=== PATIENT | female | born 1955 | race Caucasian/White ===

== ENCOUNTER 2023-07-13 21:10 | Inpatient (IN) ==
--- NOTE | 2023-07-13 21:44 | Emergency Department Note ---
History of Present Illness General Chief complaint: Shortness of Breath/Dyspnea Time Seen by Provider: 07/13/23 21:34 History of Present Illness This is a 68-year-old female presenting to the emergency department for evaluation of shortness of breath symptoms. Patient had outpatient right hand surgery performed today with general anesthesia and nerve block. Patient was very slow to recover and had several hours of intermittent hypoxia and recovery. Due to the extended recovery time, patient was sent to the ER for further evaluation. Patient feels very short of breath and feels like something is in her chest. She does not have distinct pain however. She does have history of asthma. She felt well prior to the procedure from a respiratory standpoint. Home Medications Medication Instructions Recorded Confirmed Type albuterol sulfate 90 mcg/actuation 1 puff inhalation .Q 4-6 HRS PRN 08/28/18 07/14/23 History aerosol inhaler Wheezing cyclobenzaprine 10 mg tablet 10 mg PO TID PRN MUSCLE SPASMS 08/28/18 07/14/23 History fluoxetine 40 mg capsule 40 mg PO QAM 08/28/18 07/14/23 History hydrocodone 10 mg-acetaminophen 1 tab PO Q6 PRN Pain 08/28/18 07/14/23 History 325 mg tablet levothyroxine 125 mcg tablet 62.5 mcg PO QAM 08/28/18 07/14/23 History melatonin 5 mg chewable tablet 10 mg PO HS 08/28/18 07/14/23 History pantoprazole 40 mg tablet,delayed 40 mg PO QAM 08/28/18 07/14/23 History release amlodipine 2.5 mg tablet 2.5 mg PO DAILY 07/14/23 07/14/23 History bupropion HCl 150 mg tablet,12 hr 150 mg PO BID 07/14/23 07/14/23 History sustained-release buspirone 15 mg tablet 15 mg PO BID 07/14/23 07/14/23 History diclofenac sodium 1 % topical gel 2 g topical BID 07/14/23 07/14/23 History diclofenac sodium 75 mg 75 mg PO BID PRN Pain 07/14/23 07/14/23 History tablet,delayed release fluticasone 250 mcg-salmeterol 50 1 ea inhalation AMPM 07/14/23 07/14/23 History mcg/dose blistr powdr for inhalation gabapentin 400 mg capsule 400 mg PO QID 07/14/23 07/14/23 History hydroxyzine HCl 25 mg tablet 25 mg PO QID 07/14/23 07/14/23 History losartan 100 mg tablet 100 mg PO DAILY 07/14/23 07/14/23 History metformin 500 mg tablet,extended 500 mg PO BIDM 07/14/23 07/14/23 History release 24 hr rosuvastatin 20 mg tablet 20 mg PO DAILY 07/14/23 07/14/23 History tirzepatide 2.5 mg/0.5 mL 0 mg subcut .EVERY 4 WEEKS 07/14/23 07/14/23 History subcutaneous pen injector (Mounjaro) Allergies Allergy/AdvReac Type Severity Reaction Status Date / Time Penicillins Allergy Intermediate RASH A Verified 07/14/23 01:30 CHILD pregabalin [From Lyrica] Allergy Intermediate LEG EDEMA Verified 09/03/18 10:26 Iodinated Contrast Media Allergy Mild HIVES AND Verified 07/14/23 01:30 N/V NSAIDS (Non-Steroidal AdvReac Severe Gastrointestinal Verified 07/14/23 01:30 Anti-Inflamma Upset simvastatin AdvReac Mild STATINS=INCREASED Verified 09/03/18 10:26 LFT'S Past Med/Surg History Medical History (Updated 07/14/23 @ 23:32 by Toi Capps PA-C) Pneumonia H/O Nausea and vomiting after administration of anesthetic agent Left leg weakness S/P LAMINECTOMY Osteoarthritis Degenerative disc disease Chronic back pain Hiatal hernia GERD (gastroesophageal reflux disease) multiple Kidney stones Hypothyroidism Diabetes mellitus, type 2 NIDDM Depression Anxiety Hyperlipidemia Hypertension Bronchitis H/O Surgical History History of bilateral tubal ligation History of section X2 H/O bilateral breast reduction surgery Status post laparoscopy-assisted vaginal hysterectomy WITH BSO History of open reduction and internal fixation (ORIF) procedure LEFT ANKLE History of repair of rotator cuff BILATERAL History of arthroscopy RIGHT KNEE History of total knee replacement BILATERAL History of laminectomy L3-L4 X2 History of lithotripsy multiple History of cholecystectomy History of colonoscopy History of parathyroidectomy (~1997) History of thyroidectomy, subtotal R/T ENLARGEMENT (~) History of cataract surgery BILATERAL Hx of LASIK History of adenoidectomy History of tonsillectomy Family History Father Family history of diabetes mellitus FHx: renal cell carcinoma Mother FHx: pancreatic cancer Social History Smoking Status: Never smoker Second Hand Exposure: Yes ( A CHILD); Do You Dip or Chew Tobacco: No; Hx Alcohol Use: No Hx Substance Use: No Preferred Language: Frisian Communication Ability: Effective Culinary Specialist Required: No Beliefs That Will Affect Care: None Current Living Situation: Spouse Current Living Situation Comment: At home Feels Safe at Home: Yes Safety Concerns: Feels Safe At This Time Assistive Devices: Walker Review of Systems A total of 10 systems reviewed and were otherwise negative Physical Exam Vital Signs Vital Signs - 24 hr 07/14/23 01:30 07/14/23 01:46 Pulse Rate 91 H 90 Pulse Rate from SpO2 Sensor 91 H Respiratory Rate 23 Pulse Oximetry 90 VITALS: Vitals are noted on the nurse's note and reviewed by myself. Vital signs stable. GENERAL: White female who appears ill on presentation. She is with increased work of breathing. HEAD: Normocephalic atraumatic. NECK: Supple without nuchal rigidity. No lymphadenopathy. No thyromegaly. Cervical spine is nontender. HEART: Regular rate and rhythm without murmurs gallops or rubs. LUNGS: Mildly diminished throughout but overall fairly clear ABDOMEN: Positive normal bowel sounds x 4. Soft, nontender, without masses or organomegaly. No guarding or rebound tenderness. MUSCULOSKELETAL: No muscle atrophy, erythema, or edema noted. Splint noted on right arm consistent with recent surgical procedure. NEURO: Patient was alert and oriented to person place and time. CN II through XII grossly intact. Course Administered Medications Acetaminophen (Acetaminophen 325 Mg Tab) 650 mg PO Q4H PRN PRN Reason: Pain or Fever Stop: 08/13/23 03:36 Last Admin: 07/14/23 22:39 Dose: 650 mg Documented By: PUMA Hydrocodone Bitart/Acetaminophen (Hydrocodone/Acetaminophen 10/325 Tab) 1 tab PO Q6 PRN PRN Reason: Pain Stop: 07/28/23 03:36 Last Admin: 07/14/23 19:16 Dose: 1 tab Documented By: Admin: 07/14/23 09:49 Dose: 1 tab Documented By: MH Albuterol (Albuterol Hfa 8 Gm Inhaler) 1 puffs INH Q4H PRN PRN Reason: Wheezing Stop: 08/13/23 03:36 Last Admin: 07/14/23 04:53 Dose: 1 puffs Documented By: JEFFREY Albuterol (Albut/Ipratrop 3mg/0.5mg Neb 3 Ml Vial) 3 ml NEB QIDR [facility]; Protocol Stop: 08/13/23 06:59 Last Admin: 07/14/23 20:13 Dose: 3 ml Documented By: Admin: 07/14/23 15:42 Dose: 3 ml Documented By: Admin: 07/14/23 11:50 Dose: 3 ml Documented By: Admin: 07/14/23 07:21 Dose: 3 ml Documented By: BLAKE Amlodipine Besylate (Amlodipine Besylate 5 Mg Tab) 2.5 mg PO DAILY [facility] Stop: 08/13/23 08:59 Last Admin: 07/14/23 08:43 Dose: 2.5 mg Documented By: JILL Bupropion HCl (Bupropion Sr 150 Mg Tabcr) 150 mg PO BID [facility] Stop: 08/13/23 08:59 Last Admin: 07/14/23 20:54 Dose: 150 mg Documented By: Admin: 07/14/23 08:48 Dose: 150 mg Documented By: JILL Buspirone HCl (Buspirone 15 Mg Tab) 15 mg PO BID [facility] Stop: 08/13/23 08:59 Last Admin: 07/14/23 20:54 Dose: 15 mg Documented By: Admin: 07/14/23 08:48 Dose: 15 mg Documented By: JILL Cyclobenzaprine HCl (Cyclobenzaprine Hcl 10 Mg Tab) 10 mg PO TID PRN PRN Reason: MUSCLE SPASMS Stop: 08/13/23 03:36 Last Admin: 07/14/23 21:02 Dose: 10 mg Documented By: PUMA Diclofenac Sodium (Diclofenac Sod 1% Gel 100 Gm Tube) 2 gm EXT BID [facility]; Protocol Stop: 08/13/23 08:59 Last Admin: 07/14/23 20:55 Dose: Not Given Documented By: Admin: 07/14/23 08:49 Dose: Not Given Documented By: JILL Doxycycline Hyclate (Doxycycline Hyclate 100 Mg Cap) 100 mg PO BID [facility] Stop: 07/21/23 08:59 Last Admin: 07/14/23 20:54 Dose: 100 mg Documented By: Admin: 07/14/23 08:49 Dose: 100 mg Documented By: JILL Enoxaparin Sodium (Enoxaparin Inj 40 Mg/0.4 Ml Syr) 40 mg SQ Q12H [facility] Stop: 08/13/23 08:59 Last Admin: 07/14/23 20:53 Dose: 40 mg Documented By: Admin: 07/14/23 08:50 Dose: 40 mg Documented By: JILL Fluoxetine HCl (Fluoxetine Hcl 20 Mg Cap) 40 mg PO QAM [facility] Stop: 08/13/23 08:59 Last Admin: 07/14/23 08:50 Dose: 40 mg Documented By: JILL Fluticasone/Vilanterol (Fluticasone/Vilanterol 200/25mcg 14 Puffs/Inhaler) 1 puffs INH DAILY [facility] Stop: 08/13/23 08:59 Last Admin: 07/14/23 08:51 Dose: 1 puffs Documented By: JILL Gabapentin (Gabapentin 400 Mg Cap) 400 mg PO QID [facility] Stop: 08/13/23 08:59 Last Admin: 07/14/23 22:36 Dose: 400 mg Documented By: Admin: 07/14/23 20:54 Dose: 400 mg Documented By: Admin: 07/14/23 13:12 Dose: 400 mg Documented By: Admin: 07/14/23 08:52 Dose: 400 mg Documented By: JILL Hydroxyzine HCl (Hydroxyzine Hcl 25 Mg Tab) 25 mg PO QID [facility] Stop: 08/13/23 08:59 Last Admin: 07/14/23 20:55 Dose: 25 mg Documented By: Admin: 07/14/23 18:45 Dose: 25 mg Documented By: Admin: 07/14/23 13:12 Dose: 25 mg Documented By: Admin: 07/14/23 08:53 Dose: 25 mg Documented By: JILL Ceftriaxone Sodium 2,000 mg/ (Dextrose) 50 mls @ 100 mls/hr IV Q24H [facility]; Protocol Stop: 07/21/23 07:59 Last Infusion: 07/14/23 09:12 Dose: Infused Documented By: Admin: 07/14/23 08:42 Dose: 100 mls/hr Documented By: JILL Insulin Aspart (Insulin Aspart Per Unit Charge) 0 units SC ACHS [facility] Stop: 08/13/23 04:44 Last Admin: 07/14/23 22:36 Dose: 6 units Documented By: PUMA Co-signed By: VAL Admin: 07/14/23 18:37 Dose: Not Given Documented By: Admin: 07/14/23 14:10 Dose: 11 units Documented By: ARUN Co-signed By: JILL Admin: 07/14/23 10:01 Dose: 10 units Documented By: JILL Co-signed By: ARI Admin: 07/14/23 05:29 Dose: 7 units Documented By: JEFFREY Co-signed By: RICHARD Levothyroxine Sodium (Levothyroxine Sodium 125 Mcg Tablet) 62.5 mcg PO DAILYBB [facility] Stop: 08/13/23 06:29 Last Admin: 07/14/23 06:07 Dose: 62.5 mcg Documented By: JEFFREY Losartan Potassium (Losartan Potassium 50 Mg Tab) 100 mg PO DAILY [facility] Stop: 08/13/23 08:59 Last Admin: 07/14/23 08:54 Dose: 100 mg Documented By: JILL Melatonin (Melatonin 3 Mg Tab) 9 mg PO HS [facility] Stop: 08/13/23 20:59 Last Admin: 07/14/23 20:54 Dose: 9 mg Documented By: PUMA Pantoprazole Sodium (Pantoprazole 40 Mg Tab) 40 mg PO QAM [facility] Stop: 08/13/23 08:59 Last Admin: 07/14/23 08:55 Dose: 40 mg Documented By: JILL Rosuvastatin Calcium (Rosuvastatin Calcium 20 Mg Tab) 20 mg PO DAILY [facility] Stop: 08/13/23 08:59 Last Admin: 07/14/23 08:55 Dose: 20 mg Documented By: JILL Sodium Chloride (Sodium Chlor 7% 4 Ml Neb) 4 ml NEB BIDR [facility] Stop: 08/13/23 07:19 Last Admin: 07/14/23 20:13 Dose: 4 ml Documented By: Admin: 07/14/23 09:36 Dose: Not Given Documented By: AA Discontinued Medications Hydrocodone Bitart/Acetaminophen (Hydrocodone/Acetaminophen 10/325 Tab) 1 tab PO NOW STA Stop: 07/14/23 02:20 Last Admin: 07/14/23 02:26 Dose: 1 tab Documented By: JULISSA Albuterol (Albut/Ipratrop 3mg/0.5mg Neb 3 Ml Vial) 3 ml NEB NOW [facility]; Protocol Stop: 07/13/23 21:41 Last Admin: 07/13/23 22:27 Dose: 3 ml Documented By: GERARDO Cyclobenzaprine HCl (Cyclobenzaprine Hcl 10 Mg Tab) 10 mg PO NOW STA Stop: 07/14/23 00:16 Last Admin: 07/14/23 00:25 Dose: 10 mg Documented By: LAZARO Cyclobenzaprine HCl (Cyclobenzaprine Hcl 10 Mg Tab) 10 mg PO NOW STA Stop: 07/14/23 02:40 Last Admin: 07/14/23 04:53 Dose: 10 mg Documented By: JEFFREY Gabapentin (Gabapentin 400 Mg Cap) 400 mg PO NOW STA Stop: 07/14/23 01:49 Last Admin: 07/14/23 02:22 Dose: 400 mg Documented By: JULISSA Insulin Human Regular 4 units/ (Syringe) 4 mls @ 0 mls/hr IV NOW STA Stop: 07/14/23 07:35 Last Admin: 07/14/23 08:39 Dose: 4 mls/hr Documented By: JILL Co-signed By: BILL Insulin Glargine (Lantus Per Unit Charge) 25 units SC ONE ONE Stop: 07/14/23 20:46 Last Admin: 07/14/23 20:52 Dose: 25 units Documented By: NRR Co-signed By: VAL Ioversol (Optiray 320 125ml) 115 ml IV ONCE ONE Stop: 07/13/23 23:54 Last Admin: 07/13/23 23:53 Dose: 115 ml Documented By: TRUPTI Melatonin (Melatonin 3 Mg Tab) 6 mg PO NOW STA Stop: 07/14/23 01:49 Last Admin: 07/14/23 03:02 Dose: Not Given Documented By: LAZARO Methylprednisolone (Methylprednisolone 125 Mg/2 Ml Vial) 125 mg IV NOW STA Stop: 07/13/23 22:51 Last Admin: 07/13/23 23:14 Dose: 125 mg Documented By: LAZARO Oxycodone HCl (Oxycodone Hcl Ir 5 Mg Tab (Immediate Release)) 5 mg PO NOW STA Stop: 07/14/23 01:49 Last Admin: 07/14/23 03:02 Dose: Not Given Documented By: [facility] Sodium Chloride (Sodium Chlor 7% 4 Ml Neb) Confirm Administered Dose 4 ml .ROUTE .STK-MED ONE Stop: 07/14/23 07:28 Last Admin: 07/14/23 07:29 Dose: 4 ml Documented By: BLAKE Medical Decision Making Differential Diagnosis Differential diagnosis includes, but is not limited to: Myocardial infarction, dysrhythmia, pericarditis, pneumothorax, aortic aneurysm/dissection, DVT/PE, anxiety, GERD, PUD, electrolyte imbalance, thyroid disorder, pneumonia, bronchitis, pancreatitis, and others Laboratory Data 07/14/23 06:44 07/14/23 07:33 Lab Results 07/13/23 07/13/23 Range/Units 21:28 22:22 WBC 6.55 (4.8-10.8) K/ul RBC 4.46 (4.20-5.40) M/uL Hgb 13.3 (12.0-16.0) g/dl Hct 40.9 (37.0-47.0) % MCV 91.7 (80.0-100.0) fL MCH 29.8 (25.0-34.0) pg MCHC 32.5 (32.0-36.0) g/dL RDW Std Deviation 43.3 (36.4-46.3) fL RDW Coeff of Michael 12.9 (11.5-14.5) % Plt Count 303 (130-400) K/uL MPV 9.4 (9.4-12.4) fL Immature Gran % (Auto) 0.3 % Neut % (Auto) 78.1 % Lymph % (Auto) 19.5 % Pershing % (Auto) 1.2 % Eos % (Auto) 0.3 % Baso % (Auto) 0.6 % Neut # (Auto) 5.11 (1.40-6.50) K/uL Lymph # (Auto) 1.28 (1.20-3.40) K/uL Pershing # (Auto) 0.08 L (0.11-0.59) K/uL Eos # (Auto) 0.02 (0.00-0.50) K/uL Baso # (Auto) 0.04 (0.00-0.20) K/uL Immature Gran # (Auto) 0.02 (0.01-0.20) K/uL D-Dimer 710 H* (0-500) ug/L FEU VBG pH 7.40 (7.36-7.41) VBG pCO2 43 (38-50) mmHg VBG pO2 58 mmHg VBG HCO3 27 mmol/L VBG O2 Saturation 88.9 % VBG Base Excess 1.5 mEq/L Sodium 136 (136-145) mmol/L Potassium 4.4 (3.5-5.1) mmol/L Chloride 104 (98-107) mmol/L Carbon Dioxide 22 (21-32) mmol/L Anion Gap 10 (3-11) BUN 14 (6-23) mg/dl Creatinine 0.74 (0.6-1.2) mg/dl Est Cr Clr Drug Dosing Not Reportable Est GFR ( Amer) 95.1 ml/min Est GFR (Non-Af Amer) 82.1 ml/min BUN/Creatinine Ratio 18.9 (10-20) Glucose 329 H* (70-99(Fasting)) mg/dl Lactate 1.8 (0.4-2.0) mmol/L Calcium 8.6 (8.6-10.3) mg/dl Magnesium 1.8 (1.7-2.4) mg/dl Total Bilirubin 0.4 (0.2-1.0) mg/dl AST 40 H (13-39) U/L ALT 52 (7-52) U/L Alkaline Phosphatase 108 H (34-104) U/L Troponin I High Sens 9.5 (0-14) pg/ml B-Natriuretic Peptide 24 (0-100) pg/ml Total Protein 7.0 (6.0-8.3) gm/dl Albumin 4.4 (3.4-5.0) gm/dl Globulin 2.6 (2.5-4.0) gm/dl Albumin/Globulin Ratio 1.7 (0.9-2) Procalcitonin 0.09 (0-0.5) ng/ml SARS-CoV-2 (PCR) NEGATIVE (Negative) Influenza Type A (PCR) Negative (Neg) Influenza Type B (PCR) Negative (Neg) RSV (RT-PCR) Negative (Neg) MDM Narrative Physical exam and history were performed. Nursing notes, EMR, and Medication List were personally reviewed. No social concerns were identified as barriers to patients care. Patient appears to have shortness of breath on arrival to the ER. Patient was seen immediately upon entering her room as she was brought to my attention by nursing. IV access was established and labs were obtained. Flu, COVID, and RSV were gathered. Patient does not appear well on presentation and is with work of breathing and abnormal vital signs. She was placed on high flow oxygen. She was given a DuoNeb. Case was discussed with my attending. Patient's blood work is as above and was reviewed. She does not have a significantly elevated white blood cell count, gross anemia, bandemia, or significant electrolyte imbalance. Transaminases are not diagnostic. Glucose is 353. Troponin is negative but D-dimer is markedly elevated. She was premedicated with Solu-Medrol and sent to CT scan for imaging of her chest. CT angiogram did not show acute pulmonary embolism or other obvious etiology of her symptoms. Patient was reevaluated multiple times throughout the course of her stay. She did better with the DuoNeb and steroids. She would occasionally be trialed on 2 to 4 L nasal cannula, however she would require additional oxygen and often felt much better on 8 to 10 L high flow. Overall escalation of care is felt to be necessary. She does not seem well for discharge. Case was discussed with the on-call hospitalist team who agreed to evaluate the patient here in the ER. Please see their dictation for further patient course, plan, disposition. The chart was completed utilizing [employer] Speech Voice Recognition Software. Grammatical errors, random word insertions, pronoun errors, and incomplete sentences are an occasional consequence of this system due to software limitations, ambient noise, and hardware issues. Any formal questions or concerns about the content, text, or information contained within the body of this dictation should be directly addressed to the provider for clarification. . Impression & Plan Hypoxia, Shortness of breath Discharge Plan Visit Data Chief Complaint: Shortness of Breath/Dyspnea ED Provider: Wallace Dean ED Midlevel Provider: Toi Capps Discharge Problem: Hypoxia, Shortness of breath Patient Disposition: Admitted As Inpatient Discharge Instructions Interventions: ED Discharge Assessment Last Done: 07/14/23 03:38
[2023-07-13 22:16] LABS: Alanine Aminotransferase 52 U/L (7-52); Albumin Globulin Ratio 1.7 (0.9-2); Albumin Level 4.4 gm/dl (3.4-5.0); Alkaline Phosphatase 108 U/L (34-104); Anion Gap 10 (3-11); Aspartate Aminotransferase 40 U/L (13-39); BUN Creatinine Ratio 18.9 (10-20); Bilirubin,Total 0.4 mg/dl (0.2-1.0); Blood Urea Nitrogen 14 mg/dl (6-23); Calcium 8.6 mg/dl (8.6-10.3); Carbon Dioxide 22 mmol/L (21-32); Chloride 104 mmol/L (98-107); Est GFR (African American) 95.1 ml/min; Est GFR (Non-African American) 82.1 ml/min; Globulin 2.6 gm/dl (2.5-4.0); Glucose 329 mg/dl (70-99(Fasting)); Magnesium 1.8 mg/dl (1.7-2.4); Potassium 4.4 mmol/L (3.5-5.1); Sodium 136 mmol/L (136-145); Troponin I High Sensitivity 9.5 pg/ml (0-14)
[2023-07-13 22:18] LABS: Basophils # (auto) 0.04 K/uL (0.00-0.20); Basophils % (auto) 0.6 %; Eosinophils # (auto) 0.02 K/uL (0.00-0.50); Eosinophils % (auto) 0.3 %; Hematocrit (blood only) 40.9 % (37.0-47.0); Hemoglobin 13.3 g/dl (12.0-16.0); Immature Granulocytes # (auto) 0.02 K/uL (0.01-0.20); Immature Granulocytes % (auto) 0.3 %; Lymphocytes # (auto) 1.28 K/uL (1.20-3.40); Lymphocytes % (auto) 19.5 %; Mean Corpuscular Hemoglobin 29.8 pg (25.0-34.0); Mean Corpuscular Hgb Conc 32.5 g/dL (32.0-36.0); Mean Corpuscular Volume 91.7 fL (80.0-100.0); Mean Platelet Volume 9.4 fL (9.4-12.4); Monocytes # (auto) 0.08 K/uL (0.11-0.59); Monocytes % (auto) 1.2 %; Neutrophils # (auto) 5.11 K/uL (1.40-6.50); Neutrophils % (auto) 78.1 %; Platelet Count 303 K/uL (130-400); RDW Coefficient of Variation 12.9 % (11.5-14.5); RDW Standard Deviation 43.3 fL (36.4-46.3); Red Blood Count 4.46 M/uL (4.20-5.40); White Blood Count 6.55 K/ul (4.8-10.8)
[2023-07-13 22:27] LABS: Influenza A virus by PCR Negative (Neg); Influenza B virus by PCR Negative (Neg); RSV by PCR Negative (Neg); SARS CoV2 RNA(COVID-19) Ceph NEGATIVE (Negative)
[2023-07-13] MEDS: ALBUT/IPRATROP 3MG/0.5MG NEB 3 ML VIAL NEB STA (22:27)
[2023-07-13 22:41] LABS: Base Excess VBG 1.5 mEq/L; HCO3 VBG 27 mmol/L; Oxygen Saturation VBG 88.9 %; PCO2 VBG 43 mmHg (38-50); PO2 VBG 58 mmHg
[2023-07-13 22:46] LABS: D Dimer 710 ug/L FEU (0-500)
[2023-07-13] MEDS: methylPREDNISolone 125 MG/2 ML VIAL IV STA (23:14)
[2023-07-13] MEDS: OPTIRAY 320 125ml IV ONE (23:53)
[2023-07-14] MEDS: CYCLOBENZAPRINE HCL 10 MG TAB PO STA ×2 (00:25→04:53)
--- NOTE | 2023-07-14 00:49 | CT Scan Report ---
Exam(s): CTA CHEST IV Amt: 115 cc's optiray 320 EXAM: CT Angiography Chest With Intravenous Contrast CLINICAL HISTORY: Reason for exam: SOB/hypoxia after surgical procedure. Elevated dim. TECHNIQUE: Axial computed tomographic angiography images of the chest with intravenous contrast. CTDI is 40 mGy and DLP is 1034 mGy-cm. Automated exposure control was utilized for the study. A dose lowering technique was utilized adhering to the principles of ALARA. MIP reconstructed images were created and reviewed. COMPARISON: No relevant prior studies available. FINDINGS: Thyroid: Multiple subcentimeter nodules within the right thyroid lobe. Pulmonary arteries: Adequate pulmonary artery opacification. Normal caliber main pulmonary artery. No evidence of acute pulmonary embolism. Aorta: No acute findings. No aortic aneurysm or dissection. Lungs: Confluent right basilar opacity with enhancement characteristics suggestive of atelectasis. Additional patchy linear band of subsegmental atelectasis bilaterally. Pleural space: Unremarkable. No pleural effusion or pneumothorax. Heart: No cardiomegaly. No significant pericardial effusion. No evidence of RV dysfunction. Bones/joints: No acute fracture or dislocation. Soft tissues: Unremarkable. Lymph nodes: Unremarkable. No adenopathy. Liver: Hepatomegaly and steatosis. Tubes, lines and devices: Spinal stimulator leads extend into the mid thoracic spinal canal. IMPRESSION: 1. No evidence of acute pulmonary embolism. 2. Atelectasis, greatest at the right lung base. Electronically signed by: Stephany Nam M.D. 07/14/23 00:48 AM
--- NOTE | 2023-07-14 02:04 | History & Physical Report ---
Date of Service July 14, 2023 Assessment & Plan (1) Hypoxia: Plan: 68-year-old female with past medical history significant for type 2 diabetes, hypothyroidism, hypercholesterolemia, primary hypothyroidism, history of parathyroid adenoma, hypertension, morbid obesity, GERD, restless leg syndrome, osteoporosis, thoracic and lumbosacral neuritis, postlaminectomy syndrome, generalized anxiety disorder, major depression is s/p right hand surgery for osteoarthritis as per patient with general anesthesia and nerve block comes because of shortness of breath and hypoxia. Postprocedure she took long time to recover with several hours of intermittent hypoxia and recovery. Due to the extended period for recovery she was sent to the ER for further evaluation. In the ER when she came in she was saturating 87% on room air. Currently on 7 L saturating okay. She states she feeling better now. Earlier she had a lot of cough. Currently she pulls her mask down and she is talking in full sentences and was maintaining her oxygen saturations. Denies any headache. Has some runny nose currently and attributes to oxygen mask.. Has some sore throat from breathing tube placed for the procedure. Denies any chest pain. Currently not feeling short of breath. No nausea. No abdominal pain. Resting comfortably. Having restless legs and requesting her home medications. Afebrile. Hypoxia Postprocedure Received a dose of steroid and nebs in the ER Currently saturating okay on 7 L send seems comfortable Will continue with DuoNebs [id number] and home inhalers and continue oxygen supplementation Will try to Taper down oxygen CTA chest no PE or pneumonia. Shows atelectasis Incentive spirometry Close monitor History of asthma No obvious wheezing Continue home inhalers. And nebs as ordered. Will monitor Type 2 diabetes Hold metformin Sliding scale Will monitor Morbid obesity Needs counseling Hypertension On amlodipine, losartan Will monitor Hyperlipidemia On statin Hypothyroidism On Synthyroid GERD Protonix Depression and general anxiety disorder On bupropion, buspirone, fluoxetine. Restless leg syndrome On gabapentin and cyclobenzaprine as needed Postlaminectomy syndrome Continue home pain medications as needed DVT prophylaxis Lovenox Disposition Med/tele Full code History of Present Illness Chief Complaint: Shortness of breath Primary Care Provider: Silvano Garg DO 68-year-old female with past medical history significant for type 2 diabetes, hypothyroidism, hypercholesterolemia, primary hypothyroidism, history of parathyroid adenoma, hypertension, morbid obesity, GERD, restless leg syndrome, osteoporosis, thoracic and lumbosacral neuritis, postlaminectomy syndrome, generalized anxiety disorder, major depression is s/p right hand surgery for osteoarthritis as per patient with general anesthesia and nerve block comes because of shortness of breath and hypoxia. Postprocedure she took long time to recover with several hours of intermittent hypoxia and recovery. Due to the extended period for recovery she was sent to the ER for further evaluation. In the ER when she came in she was saturating 87% on room air. Currently on 7 L saturating okay. She states she feeling better now. Earlier she had a lot of cough. Currently she pulls her mask down and she is talking in full sentences and was maintaining her oxygen saturations. Denies any headache. Has some runny nose currently and attributes to oxygen mask.. Has some sore throat from breathing tube placed for the procedure. Denies any chest pain. Currently not feeling short of breath. No nausea. No abdominal pain. Resting comfortably. Having restless legs and requesting her home medications. Afebrile. Past medical history. As mentioned above Past surgical history. Bilateral total knee replacements. . Colonoscopy. Cystourethroscopy with lithotripsy. Parathyroidectomy. Lithotripsy. Laser lithotripsy of right kidney. Laparoscopic cholecystectomy. Ligation of oviducts. Lumbar hemilaminectomy. Right thyroid lobectomy. Reduction of breast. Tonsillectomy. Bilateral cataracts. Repair of detached retina. Repair of ruptured rotator cuff. Sacroiliac joint injection. Total abdominal hysterectomy with removal of tubes. Social history. . Non-smoker. Alcohol occasionally. No drug use. Family history. Mother had allergies. Arthritis. Pancreatic cancer. Hypertension. Father had diabetes. Hypertension. Kidney cancer. Obesity. Maternal grandmother had arthritis. Maternal grandfather had diabetes. Paternal grandmother had diabetes, obesity Allergies Allergy/AdvReac Type Severity Reaction Status Date / Time Penicillins Allergy Intermediate RASH A Verified 07/14/23 01:30 CHILD pregabalin [From Lyrica] Allergy Intermediate LEG EDEMA Verified 09/03/18 10:26 Iodinated Contrast Media Allergy Mild HIVES AND Verified 07/14/23 01:30 N/V NSAIDS (Non-Steroidal AdvReac Severe Gastrointestinal Verified 07/14/23 01:30 Anti-Inflamma Upset simvastatin AdvReac Mild STATINS=INCREASED Verified 09/03/18 10:26 LFT'S Home Medications Medication Instructions Recorded Confirmed Type albuterol sulfate 90 mcg/actuation 1 puff inhalation .Q 4-6 HRS PRN 08/28/18 07/14/23 History aerosol inhaler Wheezing cyclobenzaprine 10 mg tablet 10 mg PO TID PRN MUSCLE SPASMS 08/28/18 07/14/23 History fluoxetine 40 mg capsule 40 mg PO QAM 08/28/18 07/14/23 History hydrocodone 10 mg-acetaminophen 1 tab PO Q6 PRN Pain 08/28/18 07/14/23 History 325 mg tablet levothyroxine 125 mcg tablet 62.5 mcg PO QAM 08/28/18 07/14/23 History melatonin 5 mg chewable tablet 10 mg PO HS 08/28/18 07/14/23 History pantoprazole 40 mg tablet,delayed 40 mg PO QAM 08/28/18 07/14/23 History release amlodipine 2.5 mg tablet 2.5 mg PO DAILY 07/14/23 07/14/23 History bupropion HCl 150 mg tablet,12 hr 150 mg PO BID 07/14/23 07/14/23 History sustained-release buspirone 15 mg tablet 15 mg PO BID 07/14/23 07/14/23 History diclofenac sodium 1 % topical gel 2 g topical BID 07/14/23 07/14/23 History diclofenac sodium 75 mg 75 mg PO BID PRN Pain 07/14/23 07/14/23 History tablet,delayed release fluticasone 250 mcg-salmeterol 50 1 ea inhalation AMPM 07/14/23 07/14/23 History mcg/dose blistr powdr for inhalation gabapentin 400 mg capsule 400 mg PO QID 07/14/23 07/14/23 History hydroxyzine HCl 25 mg tablet 25 mg PO QID 07/14/23 07/14/23 History losartan 100 mg tablet 100 mg PO DAILY 07/14/23 07/14/23 History metformin 500 mg tablet,extended 500 mg PO BIDM 07/14/23 07/14/23 History release 24 hr rosuvastatin 20 mg tablet 20 mg PO DAILY 07/14/23 07/14/23 History tirzepatide 2.5 mg/0.5 mL 0 mg subcut .EVERY 4 WEEKS 07/14/23 07/14/23 History subcutaneous pen injector (Mounjaro) Past Med/Surg History Medical History (Updated 07/14/23 @ 01:58 by Haroon Ceron MD) Pneumonia H/O Nausea and vomiting after administration of anesthetic agent Left leg weakness S/P LAMINECTOMY Osteoarthritis Degenerative disc disease Chronic back pain Hiatal hernia GERD (gastroesophageal reflux disease) multiple Kidney stones Hypothyroidism Diabetes mellitus, type 2 NIDDM Depression Anxiety Hyperlipidemia Hypertension Bronchitis H/O Surgical History History of bilateral tubal ligation History of section X2 H/O bilateral breast reduction surgery Status post laparoscopy-assisted vaginal hysterectomy WITH BSO History of open reduction and internal fixation (ORIF) procedure LEFT ANKLE History of repair of rotator cuff BILATERAL History of arthroscopy RIGHT KNEE History of total knee replacement BILATERAL History of laminectomy L3-L4 X2 History of lithotripsy multiple History of cholecystectomy History of colonoscopy History of parathyroidectomy (~1997) History of thyroidectomy, subtotal R/T ENLARGEMENT (~) History of cataract surgery BILATERAL Hx of LASIK History of adenoidectomy History of tonsillectomy Family History Father Family history of diabetes mellitus FHx: renal cell carcinoma Mother FHx: pancreatic cancer Social History Smoking Status: Never smoker Second Hand Exposure: Yes ( A CHILD); Do You Dip or Chew Tobacco: No; Hx Alcohol Use: No Hx Substance Use: No Preferred Language: Maltese Communication Ability: Effective Coremaking Supervisor Required: No Beliefs That Will Affect Care: None Current Living Situation: Spouse Current Living Situation Comment: At home Feels Safe at Home: Yes Safety Concerns: Feels Safe At This Time Assistive Devices: Walker Review of Systems Review of Systems: All systems reviewed & are unremarkable except as noted in HPI & below Physical Exam Physical Exam: General- Not in distress Head- atraumatic Eyes- PERRL. ENT- oropharynx clear Neck- supple, no JVD. Lungs- clear to auscultation no wheezing or crackles. Heart- regular rhythm; no murmur, no gallop. Abdomen- normal bowel sounds, soft, nontender, no distension. Extremities- no pretibial edema, no erythema seen. Neuro- alert, oriented ; PERRL, no facial palsy; no dysarthria; moves extremities. Skin- warm & dry Results & Data Results & Data Vital Signs (Past 12 Hours) Vital Signs Temp Pulse Resp BP Pulse Ox O2 Del Method O2 Flow Rate 07/13/23 21:31 81 07/13/23 21:19 87 L Room Air, Nasal Cannula 0 07/13/23: 36.7 C 85 22 169/82 H 90 Nasal Cannula 6 Diagnostic Findings Laboratory Results WBC 6.55 K/ul (4.8-10.8) 07/13/23: RBC 4.46 M/uL (4.20-5.40) 07/13/23: Hgb 13.3 g/dl (12.0-16.0) 07/13/23: Hct 40.9 % (37.0-47.0) 07/13/23: MCV 91.7 fL (80.0-100.0) 07/13/23: MCH 29.8 pg (25.0-34.0) 07/13/23: MCHC 32.5 g/dL (32.0-36.0) 07/13/23: RDW Std Deviation 43.3 fL (36.4-46.3) 07/13/23: RDW Coeff of Michael 12.9 % (11.5-14.5) 07/13/23: Plt Count 303 K/uL (130-400) 07/13/23: MPV 9.4 fL (9.4-12.4) 07/13/23: Immature Gran % (Auto) 0.3 % 07/13/23: Neut % (Auto) 78.1 % 07/13/23: Lymph % (Auto) 19.5 % 07/13/23: [place] % (Auto) 1.2 % 07/13/23: Eos % (Auto) 0.3 % 07/13/23: Baso % (Auto) 0.6 % 07/13/23: Neut # (Auto) 5.11 K/uL (1.40-6.50) 07/13/23: Lymph # (Auto) 1.28 K/uL (1.20-3.40) 07/13/23: [place] # (Auto) 0.08 K/uL (0.11-0.59) L 07/13/23: Eos # (Auto) 0.02 K/uL (0.00-0.50) 07/13/23: Baso # (Auto) 0.04 K/uL (0.00-0.20) 07/13/23: Immature Gran # (Auto) 0.02 K/uL (0.01-0.20) 07/13/23: D-Dimer 710 ug/L FEU (0-500) H* 07/13/23: VBG pH 7.40 (7.36-7.41) 07/13/23 22: VBG pCO2 43 mmHg (38-50) 07/13/23 22: VBG pO2 58 mmHg 07/13/23 22: VBG HCO3 27 mmol/L 07/13/23 22:22 VBG O2 Saturation 88.9 % 07/13/23 22: VBG Base Excess 1.5 mEq/L 07/13/23 22: Sodium 136 mmol/L (136-145) 07/13/23: Potassium 4.4 mmol/L (3.5-5.1) 07/13/23: Chloride 104 mmol/L (98-107) 07/13/23: Carbon Dioxide 22 mmol/L (21-32) 07/13/23: Anion Gap 10 (3-11) 07/13/23: BUN 14 mg/dl (6-23) 07/13/23: Creatinine 0.74 mg/dl (0.6-1.2) 07/13/23: Est Cr Clr Drug Dosing Not Reportable 07/13/23 Est GFR ( Amer) 95.1 ml/min 07/13/23: Est GFR (Non-Af Amer) 82.1 ml/min 07/13/23: BUN/Creatinine Ratio 18.9 (10-20) 07/13/23: Glucose 329 mg/dl (70-99(Fasting)) H* 07/13/23 21: Lactate 1.8 mmol/L (0.4-2.0) 07/13/23 22: Calcium 8.6 mg/dl (8.6-10.3) 07/13/23 21: Magnesium 1.8 mg/dl (1.7-2.4) 07/13/23 21: Total Bilirubin 0.4 mg/dl (0.2-1.0) 07/13/23 21: AST 40 U/L (13-39) H 07/13/23 21: ALT 52 U/L (7-52) 07/13/23 21: Alkaline Phosphatase 108 U/L (34-104) H 07/13/23: Troponin I High Sens 9.5 pg/ml (0-14) 07/13/23 21: B-Natriuretic Peptide 24 pg/ml (0-100) 07/13/23 22:22 Total Protein 7.0 gm/dl (6.0-8.3) 07/13/23: Albumin 4.4 gm/dl (3.4-5.0) 07/13/23 21: Globulin 2.6 gm/dl (2.5-4.0) 07/13/23 21: Albumin/Globulin Ratio 1.7 (0.9-2) 07/13/23 21: Procalcitonin 0.09 ng/ml (0-0.5) 07/13/23 21:28 SARS-CoV-2 (PCR) NEGATIVE (Negative) 07/13/23 21: Influenza Type A (PCR) Negative (Neg) 07/13/23 21: Influenza Type B (PCR) Negative (Neg) 07/13/23 21: RSV (RT-PCR) Negative (Neg) 07/13/23 21: Impressions Chest CTA 07/13/23 22:50 Exam(s): CTA CHEST IV Amt: 115 cc's optiray 320 EXAM: CT Angiography Chest With Intravenous Contrast CLINICAL HISTORY: Reason for exam: SOB/hypoxia after surgical procedure. Elevated dim. TECHNIQUE: Axial computed tomographic angiography images of the chest with intravenous contrast. CTDI is 40 mGy and DLP is 1034 mGy-cm. Automated exposure control was utilized for the study. A dose lowering technique was utilized adhering to the principles of ALARA. MIP reconstructed images were created and reviewed. COMPARISON: No relevant prior studies available. FINDINGS: Thyroid: Multiple subcentimeter nodules within the right thyroid lobe. Pulmonary arteries: Adequate pulmonary artery opacification. Normal caliber main pulmonary artery. No evidence of acute pulmonary embolism. Aorta: No acute findings. No aortic aneurysm or dissection. Lungs: Confluent right basilar opacity with enhancement characteristics suggestive of atelectasis. Additional patchy linear band of subsegmental atelectasis bilaterally. Pleural space: Unremarkable. No pleural effusion or pneumothorax. Heart: No cardiomegaly. No significant pericardial effusion. No evidence of RV dysfunction. Bones/joints: No acute fracture or dislocation. Soft tissues: Unremarkable. Lymph nodes: Unremarkable. No adenopathy. Liver: Hepatomegaly and steatosis. Tubes, lines and devices: Spinal stimulator leads extend into the mid thoracic spinal canal. IMPRESSION: 1. No evidence of acute pulmonary embolism. 2. Atelectasis, greatest at the right lung base. Electronically signed by: Stephany Nam M.D. 07/14/23 00:48 AM ECG Additional Comments: ECG. Normal sinus rhythm rate of 80. No significant change was found. Code Status & VTE Plan VTE Prophylaxis Plan VTE Prophylaxis will be ordered: Yes
--- NOTE | 2023-07-14 02:06 | Emergency Department Note ---
ED Visit Note I have personally evaluated this patient examined her and reviewed the pertinent labs and data. I have discussed the case with Toi Miramontes, the physician technology assistant and agree with the plan. Please refer to the PA note. This patient comes in shortness of breath and hypoxemic after having surgery. She was under general anesthesia may have had a block as well on my exam she was found to be mild to moderately hypoxemic she does not appear to be wheezing however she tells me she does have history of asthma we did give her nebulized treatment and this seemed to help her quite a bit. Her D-dimer was mildly elevated so we did a CT angiography which shows no evidence of PE. This may be related to the anesthesia or infection she will be admitted for further treatment and evaluation. .
[2023-07-14] MEDS: GABAPENTIN 400 MG CAP PO STA (02:22)
[2023-07-14] MEDS: HYDROcodone/ACETAMINOPHEN 10/325 TAB PO STA (02:26)
[2023-07-14] MEDS: oxyCODONE HCL IR 5 MG TAB (IMMEDIATE RELEASE) PO STA (03:02)
[2023-07-14] MEDS: MELATONIN 3 MG TAB PO STA (03:02)
[2023-07-14] MEDS ORDERED: CARBOHYDRATES FOR HYPOGLYCEMIA PO PRN (03:37)
[2023-07-14] MEDS ORDERED: GLUCOSE 10 TAB/TUBE PO PRN (03:37)
[2023-07-14] MEDS ORDERED: NITROGLYCERIN SL 0.4 MG/TAB TAB SL PRN (03:37)
[2023-07-14] MEDS ORDERED: GLUCAGON FOR INJ 1 MG VIAL SQ PRN (03:37)
[2023-07-14] MEDS ORDERED: GLUCOSE 40% GEL 15 GM TUBE PO PRN (03:37)
[2023-07-14] MEDS ORDERED: DEXTROSE 50% 50 ML SYRINGE IV PRN (03:37)
[2023-07-14] MEDS ORDERED: POLYETHYLENE (MIRALAX) 17 GM PACK PO PRN (03:37)
[2023-07-14] MEDS: ALBUTEROL HFA 8 GM INHALER INH PRN (04:53)
[2023-07-14] MEDS: INSULIN ASPART PER UNIT CHARGE SC SCH (05:29)
[2023-07-14] MEDS: LEVOTHYROXINE SODIUM 125 MCG TABLET PO SCH (06:07)
[2023-07-14 07:18] LABS: Estimated Average Glucose 217 mg/dl; Hemoglobin A1C 9.2 % (4.5-5.6)
[2023-07-14] MEDS: ALBUT/IPRATROP 3MG/0.5MG NEB 3 ML VIAL NEB SCH (07:21)
[2023-07-14 07:25] LABS: Anion Gap 10 (3-11); BUN Creatinine Ratio 19.1 (10-20); Blood Urea Nitrogen 13 mg/dl (6-23); Calcium 9.1 mg/dl (8.6-10.3); Carbon Dioxide 23 mmol/L (21-32); Chloride 101 mmol/L (98-107); Creatinine Clr Calc Pharmacy 93.7 ml/min; Est GFR (African American) 102.7 ml/min; Est GFR (Non-African American) 88.6 ml/min; Glucose 353 mg/dl (70-99(Fasting)); Magnesium 1.9 mg/dl (1.7-2.4); Sodium 134 mmol/L (136-145)
[2023-07-14] MEDS: SODIUM CHLOR 7% 4 ML NEB ONE (07:29)
[2023-07-14 07:54] LABS: Hematocrit (blood only) 39.9 % (37.0-47.0); Hemoglobin 13.5 g/dl (12.0-16.0); Mean Corpuscular Hemoglobin 30.2 pg (25.0-34.0); Mean Corpuscular Hgb Conc 33.8 g/dL (32.0-36.0); Mean Corpuscular Volume 89.3 fL (80.0-100.0); Platelet Count 273 K/uL (130-400); RBC Morphology Unremarkable; RDW Coefficient of Variation 12.8 % (11.5-14.5); RDW Standard Deviation 42.1 fL (36.4-46.3); Red Blood Count 4.47 M/uL (4.20-5.40); White Blood Count 10.67 K/ul (4.8-10.8)
[2023-07-14] MEDS: INSULIN HUMAN REGULAR PER UNIT 4 UNITS in SYRINGE 3.96 ML IV STA (08:39)
[2023-07-14] MEDS: cefTRIAXone SODIUM 2,000 MG in DEXTROSE 5 % MINI-B 50 ML IV SCH (08:42)
[2023-07-14] MEDS: amLODIPine BESYLATE 5 MG TAB PO SCH (08:43)
[2023-07-14] MEDS: buPROPion SR 150 MG TABCR PO SCH (08:48)
[2023-07-14] MEDS: busPIRone 15 MG TAB PO SCH (08:48)
[2023-07-14] MEDS: DOXYCYCLINE HYCLATE 100 MG CAP PO SCH (08:49)
[2023-07-14] MEDS: DICLOFENAC SOD 1% GEL 100 GM TUBE EXT SCH (08:49)
[2023-07-14] MEDS: ENOXAPARIN INJ 40 MG/0.4 ML SYR SQ SCH (08:50)
[2023-07-14] MEDS: FLUoxetine HCL 20 MG CAP PO SCH (08:50)
[2023-07-14] MEDS: FLUTICASONE/VILANTEROL 200/25MCG 14 PUFFS/INHALER INH SCH (08:51)
[2023-07-14] MEDS: GABAPENTIN 400 MG CAP PO SCH (08:52)
[2023-07-14] MEDS: hydrOXYzine HCl 25 MG TAB PO SCH (08:53)
[2023-07-14] MEDS: LOSARTAN POTASSIUM 50 MG TAB PO SCH (08:54)
[2023-07-14] MEDS: ROSUVASTATIN CALCIUM 20 MG TAB PO SCH (08:55)
[2023-07-14] MEDS: PANTOprazole 40 MG TAB PO SCH (08:55)
--- NOTE | 2023-07-14 08:57 | XRay Report ---
XR chest 1V portable CLINICAL HISTORY: Dyspnea COMPARISON STUDY: Chest CT and chest radiograph November 16, 2010. FINDINGS: There is moderate elevation of the right hemidiaphragm. Bilateral linear densities within l ungs favor atelectasis. No consolidation is identified. There is mild cardiomegaly without evidence f or pulmonary edema. Intracanalicular electrodes are incidentally noted. IMPRESSION: 1. Linear bilateral densities suggestive of atelectasis. 2. Moderate elevation of the right hemidiaphragm. 3. Cardiomegaly without evidence for pulmonary edema ACT 112: Negative or not required by law. Electronically signed by: Avel Campbell M.D. 07/14/2023 8:56 AM
[2023-07-14] MEDS ORDERED: ALBUT/IPRATROP 3MG/0.5MG NEB 3 ML VIAL NEB SCH (09:00)
[2023-07-14] MEDS: SODIUM CHLOR 7% 4 ML NEB NEB SCH (09:36)
[2023-07-14] MEDS: HYDROcodone/ACETAMINOPHEN 10/325 TAB PO PRN (09:49)
[2023-07-14 10:02] LABS: ALC (manual) 1.49 K/uL (1.2-3.4); ANC (manual) 9.07 K/uL (1.4-6.5); Lymphocytes # (manual) 1.49 K/uL (1.2-3.4); Monocytes # (manual) 0.11 K/uL (0.11-0.59); Neutrophils # (manual) 9.07 K/uL (1.40-6.50); Neutrophils % (manual) 85 %
[2023-07-14] MEDS ORDERED: PHARMACY GLYCEMIC MGMT CONSULT PRN (11:02)
--- NOTE | 2023-07-14 13:29 | Electrocardiogram Report ---
Test Reason : Blood Pressure : / mmHG Vent. Rate : 080 BPM Atrial Rate : 080 BPM P-R Int : 158 ms QRS Dur : 104 ms QT Int : 424 ms P-R-T Axes : 062 039 060 degrees QTc Int : 489 ms Normal sinus rhythm Normal ECG When compared with ECG of 16-OCT-2013 13:24, No significant change was found Confirmed by Dominick Kyle ([id number]) on 07/14/2023 1:29:41 PM Referred By: REFERRED SELF Confirmed By:Dominick Kyle
--- NOTE | 2023-07-14 14:38 | Hospitalist Progress Note ---
Date of Service July 14, 2023 Assessment & Plan (1) Hypoxia: Plan: 68-year-old female with past medical history significant for type 2 diabetes, hypothyroidism, hypercholesterolemia, primary hypothyroidism, history of parathyroid adenoma, hypertension, morbid obesity, GERD, restless leg syndrome, osteoporosis, thoracic and lumbosacral neuritis, postlaminectomy syndrome, generalized anxiety disorder, major depression is s/p right hand surgery for osteoarthritis as per patient with general anesthesia and nerve block comes because of shortness of breath and hypoxia. Postprocedure she took long time to recover with several hours of intermittent hypoxia and recovery. Due to the extended period for recovery she was sent to the ER for further evaluation. In the ER when she came in she was saturating 87% on room air. Acute hypoxic respiratory failure Possible aspiration pneumonia Patient was referred for admission due to acute hypoxic respite failure following general anesthesia She was saturating at 87% in room air on arrival Patient reports episode of coughing spell when eating couple of weeks ago CT chest without contrast shows atelectasis; mostly on right lung base. Patchy linear subsegmental atelectasis present bilaterally Airway clearance therapy with DuoNeb, hypertonic saline, flutter valve Incentive spirometry Started on antibiotics with ceftriaxone and doxycycline Wean oxygen as tolerated Swallow eval given her history of coughing spell while eating History of asthma No obvious wheezing Continue home inhalers. And nebs as ordered. Will monitor Type 2 diabetes Hold metformin Sliding scale Will monitor Morbid obesity Needs counseling Hypertension On amlodipine, losartan Continue for now Hyperlipidemia On statin, continue Hypothyroidism On Synthyroid, continue GERD Protonix, continue Depression and general anxiety disorder On bupropion, buspirone, fluoxetine., continue Restless leg syndrome On gabapentin and cyclobenzaprine as needed, continue Postlaminectomy syndrome Continue home pain medications as needed DVT prophylaxis Lovenox Disposition Med/tele Full code Please note the above document was generated using voice recognition software. It may contain grammatical, syntax or spelling errors. Any formal questions or concerns about the content, text or information contained within the body of this dictation should be directly addressed to the provider for clarification Admission and Anticipated Discharge Date Admission Date: July 14, 2023 Subjective Patient seen and examined in the emergency department. She reports minimal shortness of breath and dry cough. She is requiring oxygen by nasal cannula at 4 L/min Review of Systems Review of Systems: All systems reviewed & are unremarkable except as noted in Subjective Physical Exam Physical Exam: Constitutional: Awake alert oriented x 3. Morbidly obese. Respiratory: Decreased breath sound on right lower lung base. Cardiovascular: RRR, no murmur, no edema Vessels: no JVD or carotid bruit Chest: normal inspection of chest Abdomen: normal bowel sounds, soft, nontender, no hepatosplenomegaly Musculoskeletal: no cyanosis or clubbing, extremities motor strength 5/5 Skin: no rashes, warm and dry normal turgor Neurologic: PERRL, EOMI, accommodation nl, no face palsy, no dysarthria CN's II- XI intact bilaterally and moves all extremities Psychiatric: A+Ox3, euthymic affect Results & Data Results & Data Vital Signs (Past 12 Hours) Vital Signs Temp Pulse Pulse Resp BP BP Pulse Ox 07/14/23 11:53 94 H 18 94 07/14/23 09:30 97 H 14 92 07/14/23 09:00 98 H 23 91 07/14/23 08:55 97 H 21 88 L 07/14/23 08:55 116/50 L 07/14/23 08:30 92 07/14/23 08:00 94 H 93 07/14/23 07:30 91 H 96 07/14/23 07:29 90 20 96 07/14/23 07:25 92 H 07/14/23 07:00 124/68 07/14/23 07:00 93 07/14/23 06:30 95 H 10 L 92 07/14/23 06:00 91 H 17 93 07/14/23 06:00 117/67 07/14/23 05:30 90 21 91 07/14/23 05:00 84 92 07/14/23 05:00 136/68 07/14/23 04:41 85 91 07/14/23 04:41 130/82 07/14/23 04:30 89 15 91 07/14/23 04:10 37.1 C 82 20 155/82 H 92 07/14/23 04:00 86 20 90 07/14/23 04:00 142/85 H 07/14/23 03:51 07/14/23 03:50 07/14/23 03:30 88 11 L 91 07/14/23 03:26 88 13 90 07/14/23 03:26 155/79 H 07/14/23 03:00 89 21 94 Pulse Ox O2 Del Method O2 Del Method O2 Flow Rate O2 Flow Rate 07/14/23 11:53 Oxymask 4 07/14/23 09:30 Nasal Cannula 4 07/14/23 09:00 07/14/23 08:55 07/14/23 08:55 07/14/23 08:30 07/14/23 08:00 07/14/23 07:30 07/14/23 07:29 Oxymask 8 07/14/23 07:25 07/14/23 07:00 07/14/23 07:00 07/14/23 06:30 07/14/23 06:00 07/14/23 06:00 07/14/23 05:30 07/14/23 05:00 07/14/23 05:00 07/14/23 04:41 07/14/23 04:41 07/14/23 04:30 07/14/23 04:10 Oxymask 8 07/14/23 04:00 07/14/23 04:00 07/14/23 03:51 Oxymask 7 07/14/23 03:50 91 Oxymask 7 07/14/23 03:30 07/14/23 03:26 07/14/23 03:26 07/14/23 03:00
--- NOTE | 2023-07-14 15:07 | Pharmacy Report ---
Pharmacy Glycemic Short Note 2 - Date of Service July 14, 2023 - Glycemic Short BSG Results (Last 24 hours): 07/13/23 07/14/23 07/14/23 21:28 03:47 05:15 Glucose 329 H* POC Glucose 326 H* 328 H* 07/14/23 07/14/23 07/14/23 06:09 06:44 08:04 Glucose 353 H* POC Glucose 342 H* 334 H* 07/14/23 07/14/23 09:55 13:08 Glucose POC Glucose 354 H* 286 H OUTPATIENT ANTIDIABETIC REGIMEN: * METFORMIN 500 MG po BIDM * a1c 9.2% 07/14/23 ASSESSMENT: * Patient admitted with hypoxia, history of type 2 diabetes on oral medications received a 125 mg dose of solumedrol IV in the ED. * BSGs have subsequently been elevated in the 300s. Received a 4 unit IV bolus this morning. * Novolog tightened to weight based stress of 2 for lunch BSG of 286 mg/dl- will loosen with dinner using adjusted bodyweight * Will give 25 units of lantus x 1 and re-evaluate. No further steroids are ordered. PLAN FOR INPATIENT GLYCEMIC CONTROL: * Hold outpatient oral diabetes medications * Basal insulin * Lantus 25 units x 1 * Bolus insulin * NovoLog per scale ACHS or Q6hrs while NPO * Goal Range: Low 110 mg/dL - High 140 mg/dL * Correction Factor: 20 mg/dL/unit * Nutritional / Prandial insulin per carb ratio of 1 unit per 5 grams CHO consumed, then 7 grams CHO starting with dinner
[2023-07-14] MEDS ORDERED: LANTUS PER UNIT CHARGE SC ONE (16:30)
--- OUTSIDE RECORDS SUMMARY | 2023-07-14 16:47 | External Medical Summary | Summary of Care ---
Author Name Unknown Organization [facility] Address [address] [place] [address] Phone [phone] Care Team Providers Care Director Of Pupil Personnel Program Name Role Phone Shi Garg DO Primary Care Provider [phone] Reason for Visit * Reason Onset Date Comments Medication Refill 07/03/2023 Encounter Details Date Type Department Care Team (Late st Contact Info) Description 06/28/2023 Refill Family Practice [address] [facility] [place] [phone] Shi Garg DO [address] [place] [address] DM type 2, goal HbA1c < 8% ([facility])* Allergies Active Allergy Reactions Criticality Noted Date Comments Bee Venom 02/09/2016 Erythromycin 04/08/1997 GI upset Iodinated Contrast Media 03/01/2012 IVP dye when she had stones 1989 [place] had nausea and emesis then she got hives on her chest and arms Atorvastatin Calcium 01/05/2005 MIld elevation of CK and LFT's ( see [facility] labs of 01/03/05) Pregabalin Edema Other 05/19/2014 Swelling of legs and feet Nabumetone Rash 12/21/2011 Nsaids Other (Please comment) 02/08/2017 GI distress Penicillins Rash 04/08/1997 She was told when she was a toddler she got a rash documented as of this encounter (statuses as of 07/03/2023) Medications Medication Sig Dispensed Refills Start Date End Date Status VITAMIN B COMPLEX PO TABSIndications:ROLI Take by mouth. 0 Active valACYclovir (VALTREX) 1000 MG TabletIndications:Herp etic gingivostomatitis TAKE TWO TABLETS BY MOUTH EVERY 12 HOURS FOR 1 DAY FOR COLD SORES 4 Tab 5 0 Active Additional Information Patient taking differently:, TAKE TWO TABLETS BY MOUTH EVERY 12 HOURS FOR 1 DAY FOR COLD SORES,Indications: general health - cold sores, Reported on 07/25/2022 Diclofenac Epolamine 1.3 % External PatchIndications:Degen eration of lumbosacral intervertebral disc PLACE 1 PATCH TOPICALLY ON THE SKIN TWICE DAILY 180 Patch 1 2 Active Additional Information Patient taking differently:, PLACE 1 PATCH TOPICALLY ON THE SKIN TWICE DAILY,Indications: pain, Reported on 07/25/2022 Diclofenac Sodium 1 % External Gel (Voltaren) Apply to painful joints up to four times daily 150 g 3 2 Active Additional Information Patient taking differently:, Apply to painful joints up to four times daily,Indications: pain, Reported on 07/25/2022 PreserVision AREDS 2 Oral CapsuleIndications:Yik Yak Take 1 Capsule by mouth in the morning. 0 2 Active FLUoxetine HCl 40 MG Oral Capsule (PROzac)Indications:Ma barry depressive disorder, recurrent, moderate (HCC),Generalized anxiety disorder Take by mouth 2 Capsules in the morning. 200 Capsule 3 2 Active Additional Information Patient taking differently:80 mg Oral Daily(AM),Indications: depression, Informant: Patient, Reported on 05/21/2023 Magnesium 125 MG Oral CapsuleIndications:Yik Yak Take 125 mg by mouth every evening. 0 Active Vitamin D 25 MCG (1000 UT) Oral TabletIndications:Quisic Take 1 Tablet by mouth in the morning. 0 Active Albuterol Sulfate 1.25 MG/3ML Inhalation Nebulization SolutionIndications:Ac marbin bronchitis, unspecified organism Inhale 1.25 mg via nebulizer every 4 hours as needed for Wheezing. 120 mL 1 3 Active Albuterol Sulfate HFA 108 (90 Base) MCG/ACT Inhalation Aerosol SolutionIndications:CO PD Inhale 2 Puffs by mouth every 6 hours as needed for Shortness of Breath. 18 g 3 3 Active busPIRone HCl 15 MG Oral Tablet (Buspar) TAKE ONE TABLET BY MOUTH TWO TIMES A DAY IN THE MORNING AND IN THE IN THE EVENING 200 Tablet 1 3 10/09/19 24 Active Rosuvastatin Calcium 20 MG Oral Tablet (Crestor) TAKE ONE TABLET BY MOUTH DAILY 100 Tablet 3 3 10/09/19 24 Active Levothyroxine Sodium 125 MCG Oral Tablet (Levoxyl)Indications:A cquired hypothyroidism TAKE ONE-HALF TABLET BY MOUTH DAILY 30 MINUTES PRIOR TO BREAKFAST OR OTHER MEDICATION 50 Tablet 3 3 10/16/19 24 Active Losartan Potassium 100 MG Oral Tablet (Cozaar) TAKE ONE TABLET BY MOUTH EVERY MORNING 100 Tablet 3 3 08/09/19 24 Active amLODIPine Besylate 2.5 MG Oral Tablet (Norvasc) TAKE ONE TABLET BY MOUTH EVERY DAY. 100 Tablet 1 3 11/28/19 24 Active Gabapentin 400 MG Oral Capsule (Neurontin)Indications :Degeneration of lumbosacral intervertebral disc Take 1 Capsule by mouth in the morning and 1 Capsule at noon and 1 Capsule in the evening and 1 Capsule before bedtime. 400 Capsule 3 3 Active buPROPion HCl ER (SR) 150 MG Oral Tablet Extended Release 12 Hour (Wellbutrin SR) TAKE ONE TABLET BY MOUTH EVERY MORNING AND ONE TABLET BEFORE BEDTIME 200 Tablet 3 3 12/29/19 24 Active Cyclobenzaprine HCl 10 MG Oral Tablet (Flexeril)Indications: Degeneration of lumbosacral intervertebral disc,Degeneration of cervical intervertebral disc TAKE 1 TO 2 TABLETS BY MOUTH AT BEDTIME NEEDED FOR MUSCLE SPASMS 180 Tablet 1 3 03/19/20 24 Active Pantoprazole Sodium 40 MG Oral Tablet Delayed Release (Protonix)Indications: Esophageal reflux,Heartburn TAKE ONE TABLET BY MOUTH EVERY DAY 90 Tablet 1 3 Active Triamcinolone Acetonide 0.1 % External Cream (Aristocort)Indication s:Dermatitis Apply topically to affected area 2 times a day. Groin and thighs. 60 g 5 3 Active metFORMIN HCl ER 500 MG Oral Tablet Extended Release 24 Hour (Glucophage XR)Indications:DM type 2, goal HbA1c < 8% (HCC) Take 2 Tablets by mouth in the morning. 60 Tablet 3 3 Active Additional Information Patient taking differently:1,000 mg Oral Daily(AM),Patient reports she is taking 1 500 mg in am and 1 500 mg in the evening., Informant: Patient, Reported on 06/27/2023 Benzonatate 100 MG Oral CapsuleIndications:Bro nchitis, complicated Take 1 Capsule by mouth 3 times a day as needed for Cough. 30 Capsule 1 4 Active Fluticasone-Salmeterol 250-50 MCG/ACT Inhalation Aerosol Powder Breath Activated (Advair Diskus)Indications:Acu te bronchospasm Inhale 1 Puff by mouth in the morning and 1 Puff before bedtime. 1 Each 3 4 Active oxyCODONE HCl 5 MG Oral Tablet (Oxy IR) Take 1 Tablet by mouth every 4 hours as needed for breakthrough or severe pain. 8 Tablet 0 4 Active Additional Information Patient not taking.Reported on 06/27/2023 hydrOXYzine HCl 25 MG Oral Tablet TAKE ONE TABLET BY MOUTH TWICE A DAY NEEDED FOR ANXIETY 180 Tablet 1 4 Active HYDROcodone-Acetaminop hen 10-325 MG Oral Tablet Take 1 Tablet by mouth every 4 hours as needed for Pain, Moderate or Pain, Severe. 120 Tablet 0 4 Active Mounjaro 2.5 MG/0.5ML Subcutaneous Solution Pen-injector (Tirzepatide)Indicatio ns:DM type 2, goal HbA1c < 8% (HCC) Inject 2.5 mg under the skin once a week. 6 mL 3 4 07/02/19 25 Active documented as of this encounter (statuses as of 07/03/2023) Active Problems Problem Noted Date Diagnosed Date DM type 2, goal HbA1c < 8% 03/30/2023 Parathyroid adenoma 02/28/2023 Hyperparathyroidism, primary 07/25/2022 Age-related osteoporosis wit hout current pathological fracture 04/26/2022 Body mass index (BMI) of 50.0 to 59.9 in adult 0 10/10/2021 Overview: Per Obesity protocol Major depressive disorder, recurrent, moderate 0 01/04/2021 Generalized anxiety disorder 09/08/2020 Restless legs syndrome 03/05/2014 HTN, goal below 140/90 07/31/2012 MEDICATION USE AGREEMENT 09/07/2011 Pure hypercholesterolemia 04/08/2009 Overview: Per Lipid Taxonomy. ADVANCE DIRECTIVE INFORMATION 11/23/2005 Overview: Pt accepted brochure Esophageal reflux 07/05/2005 LOC PRIM [id number] 08/15/2004 POSTLAMINECT SYND-LUMBAR 09/24/2002 Thoracic and lumbosacral neuritis 09/24/2002 CERVICAL DISC DEGEN 10/04/2000 Acquired hypothyroidism LUMB-LUMBOSAC DISC DEGEN documented as of this encounter (statuses as of 07/03/2023) Resolved Problems Problem Noted Date Diagnosed Date Resolved Date COPD, group B, by GOLD 2017 classification 04/10/2022 07/25/2022 Overview: Per COPD GOLD Classification Other hyperparathyroidism 09/21/2021 Diabetes mellitus without complication 01/26/2020 01/26/2020 Major depressive disorder, recurrent, mild 09/10/2018 02/22/2021 Sacroiliitis 09/10/2018 07/25/2022 Morbid obesity with BMI of 45.0-49.9, adult 09/10/2018 10/13/2021 Overview: Per Obesity protocol Obstructive lung disease 09/10/2018 Overview: Per COPD GOLD Classification Prediabetes 06/12/2017 03/30/2023 Overview: Per Prediabetes protocol #1 Asthma, intermittent 08/05/2010 017 NONALLERGIC RHINITIS 08/05/2010 019 Postnasal drip 08/05/2010 05/05/2019 Obesity, morbid (more than 1 00 lbs over ideal weight or BMI > 40) 07/27/2009 10/09/2018 Overview: Per Obesity Taxonomy ICD-10 update of inactive term Morbid obesity, BMI not known 10/13/2008 07/27/2009 Overview: Per Obesity Taxonomy Other allergic rhinitis 09/14/200811/2010 Overview: ICD-10 update of inactive term Hyperparathyroidism 08/13/2006 11/02/19 17 Overview: ICD-10 update of inactive term Calculus of kidney 06/29/2006 0 ABDOMINAL PAIN, OTHER SPECIFIED SITE 06/29/2006 07/05/2007 FEM STRESS INCONTINENCE 06/29/200601/30 PURE HYPERCHOLESTEROLEM 04/05/200403/30 Overview: Per Lipid Taxonomy. LUMBAGO 10/17/2002 03/05/2008 Other hyperparathyroidism Diverticulosis of colon 09/2019 documented as of this encounter (statuses as of 07/03/2023) Immunizations Name Administration Dates Next Due COVID-19 mRNA, LNP-s, No Pre serve, 2-Dose Series ([employer]) 03/31/2021,08/07/2020,07/12/2020 COVID-19, LNP-s, No Preserve , Melo-sucrose, Ages 12+ (Pfizer) 12/27/2021 Covid-19, Mrna, Lnp-s, Pf, B ivalent, 30 Mcg, IM, 12 yrs and above (Pfizer) 05/23/2022 H1N1 2009 Influenza, IM 05/17/2009 Pneumococcal Conjugate Vacc, 13 Valent (Prevnar) 09/10/2018 Pneumococcal Polysaccharide PPV23 (Pneumovax) 01/26/2020 Season Influenza, Quad, PF, Adjuvanted, 65+ Yrs, IM (FLUAD) 02/14/2021,02/05/2020 Seasonal Influenza, QUAD, wi th Preserv, 6 mons & Above, 0.5 mL, IM 02/21/2018 Seasonal Influenza, Quadriva lent Hd (Fluzone Hd) 02/28/2023,01/19/2022 Seasonal Influenza, Quadriva lent, No Preserve, IM 02/02/2017,02/02/2016 Seasonal Influenza, Split, I IV3, With Preserve, Inj 02/09/2014,01/20/2013,03/01/2012,03/14,02/18/2010,04/07/2009,03/02/2008 ,03/18/2007,03/13/2006 Seasonal Influenza, Trivalen t, High Dose, No Preserve, IM 02/12/2019 TD, Preservative Free 02/26/2019 TDAP (age 11 and older)(Adacel) 11/26/2007 Varicella Zoster Vaccine (Adult) 08/07/2014 Zoster Vaccine Recombinant (Shingrix) 05/10/2020 ,03/09/2020 documented as of this encounter Social History Tobacco Use Types Packs/Day Years Used Date Smoking Tobacco: Never Passive Smoke Exposure: Past Smokeless Tobacco: Never Comments: smokes ciga rs Alcohol Use Standard Drinks/Week Comments Yes 0 (1 standard drink = 0.6 oz pur e alcohol) occasionaly PHQ-2 Answer Date Recorded PHQ Adult Total Score 15 05/14/2023 Hunger Vital Sign Answer Date Recorded Within the past 12 months, y ou worried that your food would run out before you got the money to buy more. Never true 05/14/19 24 Within the past 12 months, t he food you bought just didn't last and you didn't have money to get more. Never true 05/14/2023 Sex and Gender Information Value Date Recorded Sex Assigned at Female 02/22/2021 10:38 AM EDT Gender Identity Female 02/22/2021 10:38 AM EDT Sexual Orientation Straight 02/22/2021 10 :38 AM EDT Job Start Date Occupation Industry Not on file Not on file Not on file documented as of this encounter Functional Status Functional Status Response Date of Assess ment Are you deaf or do you have serious difficulty h earing? No 08/15/2017 Are you blind or do you have serious difficulty seeing, even when wearing glasses? No 08/15/2017 Do you have serious difficul ty walking or climbing stairs? (5 years old or older) Yes 08/15/2017 Do you have difficulty dress ing or bathing? (5 years old or older) No 08/15/2017 Because of a physical, menta l, or emotional condition, do you have difficulty doing errands alone such as visiting a doctor s office or shopping? (15 years old or older) No 08/16/19 18 Cognitive Status Response Date of Assessm ent Because of a physical, menta l, or emotional condition, do you have serious difficulty concentrating, remembering, or making decisions? (5 years old or older) No 08/15/2017 documented as of this encounter Miscellaneous Notes * Telephone Encounter - Shi Garg DO - 07/02/2023 3:13 PM ESTSigned Prescriptions: Disp Refills Mounjaro 2.5 MG/0.5ML Subcutaneous Solutio*6 mL 3 Sig: Inject 2.5 mg under the skin once a week. Authorizing Provider: SHI GARG * Telephone Encounter - Shi Garg DO - 07/02/2023 3:12 PM EST PTH is up slightly Calcium is normal Repeat PTH, calcium and Vitamin D in 1 month * Telephone Encounter - Christy Flores LPN - 07/02/2023 3:08 PM EST Household income is greater that 70K Will start medication as directed. Question regarding elevated PTH, is this a problem? Can send response via my chart * Telephone Encounter - Lolly Glez, [facility] - 06/29/2023 7:34 PM EST Mounjaro will be covered on patient's plan. She is not on any other brand name medications, so initial cost will not be an issue, however it is likely she'll hit the donut hole correction through the year. Initial costs: - $47 per month retail - $70.50 for 90 days supply through [employer] mail order. Alternative is to re-initiate Junito and get her on the Desiree Nord[employer] patient assistance program (if household income < 70.000) * Telephone Encounter - Christy Flores LPN - 06/28/2023 2:27 PM EST Lolly, can you tell me if covered? I will then contact patient. /Thank you * Telephone Encounter - Christy Flores LPN - 06/28/2023 2:27 PM EST ----- Message from Shi Garg DO sent at 06/28/2023 7:57 AM EST ----- Hgba1c has worsened. Start Monjaro 2.5 mg once a week if covered PTH is up slightly and Calcium is normal Continue current medications. documented in this encounter Plan of Treatment Upcoming Encounters Date Type Department Care Team (Late st Contact Info) Description 11/16/2023 3:00 PM EDT Office Visit Family Practice [address] [place] [phone] Shi Garg DO [address] [place] [address] Scheduled Procedures Name Priority Associated Diagnoses Date/Ti me COLONOSCOPY FLEXIBLE PROXIMA L DIAGNOSTIC Recall Special screening for malignant neoplasms, colon Health Maintenance Due Date Last Done Comments Cologuard 1998 Fecal Occult Blood Test 1998 Sigmoidoscopy 1998 *BISPHONATE OR OTHER ACCEPTABLE MEDICATION NEEDED FOR OSTEOPOROSIS (REFER TO SMARTSET #1146) 04/28/2022 COVID-19 Vaccine ( season) 2022 05/23/2022, 12/27/2021, 03/31/2021, Additional history exists Depression, Most Recent Score >= 10 (will fire each visit until score < 10) 05/15/2023 05/14/2023 HbA1c 12/26/2023 06/27/2023, 11/0 04/2022, 07/25/2022, Additional history exists TSH 02/29/2024 02/28/2023, 06/29, 12/27/2021, Additional history exists Albumin/Creatinine Ratio 03/30/2024 023, 03/29/2022, 05/25/2021 DXA Scan 04/10/2024 04/10/2022, 10/28, 11/06/2006 Diabetic Eye Exam 05/14/2024 05/14/2023, , 03/28/2022, Additional history exists Diabetic Foot Exam 05/14/2024 05/14/2023, 05/25/2021 Mammogram 06/05/2024 06/05/2023, 01/28, 02/13/2022, Additional history exists GFR 06/27/2024 06/27/2023, 04/30, 12/27/2022, Additional history exists Lipid Panel 07/26/2027 07/25/2022, 03/02, 05/25/2021, Additional history exists Colonoscopy 09/03/2028 09/03/2018, 04/06/2008 Colorectal Cancer Screening 09/03/2028 DTaP,Tdap,and Td Vaccines (3 - Td or Tdap) 02/26/2029 02/26/2019, 11/26/2007, 11/12/2000 Pneumococcal Vaccine: 65+ Years Completed 01/26/2020, 09/10/2018, 03/15/2001 Zoster Vaccines Completed 05/10/2020, 02/28, 08/07/2014 VITAMIN D LEVEL ONCE IN A LIFETIME-USE SMARTSET# [id number] Completed 12/27/2022, 03/29/2022, 12/27/2021, Additional history exists Influenza Vaccine (FLU shot) Completed 04/2022, 01/19/2022, 02/14/2021, Additional history exists GARDASIL-HPV IMMUNIZATION SERIES Aged Out No longer eligible based on patient's age to complete this topic Hepatitis B Aged Out No longer eligi ble based on patient's age to complete this topic MENINGOCOCCAL (MENACTRA/MENVEO) Aged Out No longer eligible based on patient's age to complete this topic documented as of this encounter Medical Devices Implanted Type Area Sales Representative Trainee Device Identifier Shelf Expiration Date Model / Serial / Lot Lead Surgical 65cm [id number] - [id number] Implanted:Qty: 1 on 07/21/2011 [place] [facility] [place]: Spine Thoracic Medtrol 06/08/2015 [id number] / / [id number] Battery Advance Prime [id number] - [id number] Implanted:Qty: 1 on 07/21/2011 [place] [facility] [place] Right: Buttocks [employer] : NEUROLOGIC PAIN 09/10/2012 [id number] / [id number] / Lens Intraoc 16.5 - [id number] - [id number] Implanted:Qty: 1 on 02/13/2017 by Marco Antonio Melton MD at OR [facility] Left: Eye BAUSCH & LOMB 06/27/2021 [id number] / [id number] / [id number] Lens Intraoc 16.0 - [id number] - [id number] Implanted:Qty: 1 on 02/22/2017 by Marco Antonio Melton MD at OR [facility] Right: Eye BAUSCH & LOMB 04/29/2021 [id number] / [id number] / documented as of this encounter Visit Diagnoses Diagnosis DM type 2, goal HbA1c < 8% (HCC)- Primary documented in this encounter Advance Directives Latest Code Status on File Code Status Date Activated Date Inactivated Comments Full Code 02/22/2017 6:44 AM 02/22/2017 12:34 PM Th is order reflects the patients wishes and were consensually agreed upon. Code Status History Code Status Date Activated Date Inactivated Comments Full Code 02/13/2017 6:50 AM 02/13/2017 1:12 PM Thi s order reflects the patients wishes and were consensually agreed upon. Care Teams Director Of Pupil Personnel Program Relationship Specialty Start Date End Date Shi Garg DO [address] [place] [address] PCP - General Internal Medicine 02/22/21 documented as of this encounter
--- OUTSIDE RECORDS SUMMARY | 2023-07-14 16:47 | External Medical Summary | Summary of Care ---
Author Name Unknown Organization [facility] Address [address] [place] [address] Phone [phone] Care Team Providers Care Envelope Stuffer Name Role Phone Shi Garg DO Primary Care Provider [phone] Reason for Visit * Reason Onset Date Comments Medication Refill 07/03/2023 Encounter Details Date Type Department Care Team (Late st Contact Info) Description 06/28/2023 Refill Family Practice [address] [facility] [place] [phone] Shi Garg DO [address] [place] [address] DM type 2, goal HbA1c < 8% ([facility])* Allergies Active Allergy Reactions Criticality Noted Date Comments Bee Venom 02/09/2016 Erythromycin 04/08/1997 GI upset Iodinated Contrast Media 03/01/2012 IVP dye when she had stones 1989 [place] had nausea and emesis then she got hives on her chest and arms Atorvastatin Calcium 01/05/2005 MIld elevation of CK and LFT's ( see [facility] labs of 01/03/05) Pregabalin Edema Other 05/19/2014 Swelling of legs and feet Nabumetone Rash 12/21/2011 Nsaids Other (Please comment) 02/08/2017 GI distress Penicillins Rash 04/08/1997 She was told when she was a toddler she got a rash documented as of this encounter (statuses as of 07/04/2023) Medications Medication Sig Dispensed Refills Start Date End Date Status VITAMIN B COMPLEX PO TABSIndications:Solvoyo Take by mouth. 0 Active valACYclovir (VALTREX) [...] Reported on 07/25/2022 PreserVision AREDS 2 Oral CapsuleIndications:TeamRock Take 1 Capsule by mouth in the morning. 0 2 Active FLUoxetine HCl 40 MG Oral Capsule (PROzac)Indications:Ma barry depressive disorder, recurrent, moderate (HCC),Generalized anxiety disorder Take by mouth 2 Capsules in the morning. 200 Capsule 3 2 Active Additional Information Patient taking differently:80 mg Oral Daily(AM),Indications: depression, Informant: Patient, Reported on 05/21/2023 Magnesium 125 MG Oral CapsuleIndications:TeamRock Take 125 mg by mouth every evening. 0 Active Vitamin D 25 MCG (1000 UT) Oral TabletIndications:PayDragon Take 1 Tablet by mouth in the [...] as of this encounter (statuses as of 07/04/2023) Active Problems Problem Noted Date Diagnosed Date [...] accepted brochure Esophageal reflux 07/05/2005 LOC PRIM ACTNOLQU-U-NSL 08/15/2004 POSTLAMINECT SYND-LUMBAR 09/24/2002 Thoracic and lumbosacral neuritis 09/24/2002 CERVICAL DISC DEGEN 10/04/2000 Acquired hypothyroidism LUMB-LUMBOSAC DISC DEGEN documented as of this encounter (statuses as of 07/04/2023) Resolved Problems Problem Noted Date Diagnosed Date [...] as of this encounter (statuses as of 07/04/2023) Immunizations Name Administration Dates Next Due COVID-19 mRNA, LNP-s, No Pre serve, 2-Dose Series ([employer]) 03/31/2021,08/07/2020,07/12/2020 COVID-19, LNP-s, No Preserve , Melo-sucrose, [...] chart * Telephone Encounter - Lolly Glez, [facility] - 06/29/2023 7:34 PM EST Mounjaro will be covered on patient's plan. She is not on any other brand name medications, so initial cost will not be an issue, however it is likely she'll hit the donut hole [facility] through the year. Initial costs: - $47 per month retail - $70.50 for 90 days supply through [employer] mail order. Alternative is to re-initiate Junito [...] EDT Office Visit Family Practice [address] [place] [phone] Shi Garg DO [address] [place] [address] Scheduled Procedures Name Priority Associated Diagnoses Date/Ti [...] D LEVEL ONCE IN A LIFETIME-USE SMARTSET# [id number] Completed 12/27/2022, 03/29/2022, 12/27/2021, Additional history exists [...] this encounter Medical Devices Implanted Type Area Sanitation Engineer Device Identifier Shelf Expiration Date Model / Serial / Lot Lead Surgical 65cm [id number] - [id number] Implanted:Qty: 1 on 07/21/2011 [place] [facility] [place] Spine Thoracic Medtrol 06/08/2015 [id number] / / [id number] Battery Advance Prime [id number] - [id number] Implanted:Qty: 1 on 07/21/2011 [place] [facility] [place]: Buttocks [employer] : NEUROLOGIC PAIN 09/10/2012 [id number] / [id number] / Lens Intraoc 16.5 - [id number] - [id number] Implanted:Qty: 1 on 02/13/2017 by Marco Antonio Melton MD at OR [facility] [place] Left: Eye BAUSCH & LOMB 06/27/2021 [id number] / [id number] / [id number] Lens Intraoc 16.0 - [id number] - [id number] Implanted:Qty: 1 on 02/22/2017 by Marco Antonio Melton MD at OR [facility] [place] Right: Eye BAUSCH & LOMB 04/29/2021 [id number] / [id number] / documented as of this encounter Visit [...] and were consensually agreed upon. Care Teams Envelope Stuffer Relationship Specialty Start Date End Date Shi Garg DO [address] [place] [address] PCP - General Internal Medicine 02/22/21 documented as of this encounter
--- OUTSIDE RECORDS SUMMARY | 2023-07-14 16:47 | External Medical Summary | Summary of Care ---
Author Name Unknown Organization [facility] Address [address] [place] [address] Phone [phone] Care Team Providers Care Assembler Piano Name Role Phone Shi Garg DO Primary Care Provider [phone] Reason for Visit * Reason Onset Date Comments Medication Refill 07/03/2023 Encounter Details Date Type Department Care Team (Late st Contact Info) Description 06/28/2023 Refill Family Practice [address] [facility], [place] [address] [place] [phone] Shi Garg DO [address] [place] [address] DM type 2, goal HbA1c < 8% ([facility])* Allergies Active Allergy Reactions Criticality Noted Date Comments Bee Venom 02/09/2016 Erythromycin 04/08/1997 GI upset Iodinated Contrast Media 03/01/2012 IVP dye when she had stones 1989 [place] had nausea and emesis then she got hives on her chest and arms Atorvastatin Calcium 01/05/2005 MIld elevation of CK and LFT's ( see [facility] labs of 01/03/05) Pregabalin Edema Other 05/19/2014 Swelling of legs and feet Nabumetone Rash 12/21/2011 Nsaids Other (Please comment) 02/08/2017 GI distress Penicillins Rash 04/08/1997 She was told when she was a toddler she got a rash documented as of this encounter (statuses as of 07/04/2023) Medications Medication Sig Dispensed Refills Start Date End Date Status VITAMIN B COMPLEX PO TABSIndications:DxContinuum Take by mouth. 0 Active valACYclovir (VALTREX) [...] Reported on 07/25/2022 PreserVision AREDS 2 Oral CapsuleIndications:Dataium Take 1 Capsule by mouth in the morning. 0 2 Active FLUoxetine HCl 40 MG Oral Capsule (PROzac)Indications:Ma barry depressive disorder, recurrent, moderate (HCC),Generalized anxiety disorder Take by mouth 2 Capsules in the morning. 200 Capsule 3 2 Active Additional Information Patient taking differently:80 mg Oral Daily(AM),Indications: depression, Informant: Patient, Reported on 05/21/2023 Magnesium 125 MG Oral CapsuleIndications:Dataium Take 125 mg by mouth every evening. 0 Active Vitamin D 25 MCG (1000 UT) Oral TabletIndications:[email or web address] Take 1 Tablet by mouth in the [...] accepted brochure Esophageal reflux 07/05/2005 LOC PRIM [id number] 08/15/2004 POSTLAMINECT SYND-LUMBAR 09/24/2002 Thoracic and lumbosacral [...] mRNA, LNP-s, No Pre serve, 2-Dose Series (Bioceptive) 03/31/2021,08/07/2020,07/12/2020 COVID-19, LNP-s, No Preserve , Melo-sucrose, [...] chart * Telephone Encounter - Lolly Glez, [facility] - 06/29/2023 7:34 PM EST Mounjaro will be covered on patient's plan. She is not on any other brand name medications, so initial cost will not be an issue, however it is likely she'll hit the donut hole retirement through the year. Initial costs: - $47 per month retail - $70.50 for 90 days supply through [facility] mail order. Alternative is to re-initiate Junito and get her on the [employer]ire[employer] Nord[employer] patient assistance program (if household income < 70.000) * Telephone Encounter - Christy Flores LPN - 06/28/2023 2:27 PM EST Lolly, can you tell me if covered? I will then contact patient. /Thank you * Telephone Encounter - hCristy Flores LPN - 06/28/2023 2:27 PM EST [...] EDT Office Visit Family Practice [address], [place] [address] [place] [phone] Shi Garg DO [address] [place] [address] Scheduled Procedures Name Priority Associated Diagnoses Date/Ti [...] D LEVEL ONCE IN A LIFETIME-USE SMARTSET# 31404 Completed 12/27/2022, 03/29/2022, 12/27/2021, Additional history exists [...] this encounter Medical Devices Implanted Type Area Supervisor Metal Fabricating Device Identifier Shelf Expiration Date Model / Serial / Lot Lead Surgical 65cm 86798-19 - [id number] Implanted:Qty: 1 on 07/21/[address] [facility] [place] Spine Thoracic Medtrol 06/08/2015 [id number] / / [id number] Battery Advance Prime [id number] - [id number] Implanted:Qty: 1 on 07/21/[address] [facility] [place]: Buttocks MEDTRONIC : NEUROLOGIC PAIN 09/10/2012 [id number] / [id number] / Lens Intraoc 16.5 - [id number] - [id number] Implanted:Qty: 1 on 02/13/2017 by Marco Antonio Melton MD at [facility] Left: Eye BAUSCH & LOMB 06/27/2021 [id number] / [id number] / [id number] Lens Intraoc 16.0 - [id number] - [id number] Implanted:Qty: 1 on 02/22/2017 by Marco Antonio Melton MD at OR [facility] Right: Eye BAUSCH & LOMB 04/29/2021 [id number] / [id number] / documented as of this encounter Visit [...] and were consensually agreed upon. Care Teams Assembler Piano Relationship Specialty Start Date End Date Shi Garg DO [address] [place] [address] PCP - General Internal Medicine 02/22/21 documented as of this encounter
--- OUTSIDE RECORDS SUMMARY | 2023-07-14 16:47 | External Medical Summary | Summary of Care ---
Author Name Unknown Organization [facility] Address [address] [place] [address] Phone [phone] Care Team Providers Care Biomedical Service Engineer Name Role Phone Shi Garg DO Primary Care Provider [phone] Reason for Visit * Reason Comments Medication Refill Encounter Details Date Type Department Care Team (Late st Contact Info) Description 07/07/2023 Refill Family Practice [address] [facility], [place] [address] [place] [phone] Shi Garg DO [address] [place] [address] Allergies Active Allergy Reactions Criticality Noted Date Comments Bee Venom 02/09/2016 Erythromycin 04/08/1997 GI upset Iodinated Contrast Media 03/01/2012 IVP dye when she had stones 1989 [place] had nausea and emesis then she got hives on her chest and arms Atorvastatin Calcium 01/05/2005 MIld elevation of CK and LFT's ( see [facility] labs of 01/03/05) Pregabalin Edema Other 05/19/2014 Swelling of legs and feet Nabumetone Rash 12/21/2011 Nsaids Other (Please comment) 02/08/2017 GI distress Penicillins Rash 04/08/1997 She was told when she was a toddler she got a rash documented as of this encounter (statuses as of 07/09/2023) Medications Medication Sig Dispensed Refills Start Date End Date Status VITAMIN B COMPLEX PO TABSIndications:BoomBoom Prints Take by mouth. 0 Active valACYclovir (VALTREX) 1000 MG TabletIndications:Her petic gingivostomatitis TAKE TWO TABLETS BY MOUTH EVERY 12 HOURS FOR 1 DAY FOR COLD SORES 4 Tab 5 0 Active Additional Information Patient taking differently:, TAKE TWO TABLETS BY MOUTH EVERY 12 HOURS FOR 1 DAY FOR COLD SORES,Indications: general health - cold sores, Reported on 07/25/2022 Diclofenac Epolamine 1.3 % External PatchIndications:Dege neration of lumbosacral intervertebral disc PLACE 1 PATCH [...] Reported on 07/25/2022 PreserVision AREDS 2 Oral CapsuleIndications:[employer] Take 1 Capsule by mouth in the morning. 0 2 Active FLUoxetine HCl 40 MG Oral Capsule (PROzac)Indications:M ajor depressive disorder, recurrent, moderate (HCC),Generalized anxiety disorder Take by mouth 2 Capsules in the morning. 200 Capsule 3 2 Active Additional Information Patient taking differently:80 mg Oral Daily(AM),Indications: depression, Informant: Patient, Reported on 05/21/2023 Magnesium 125 MG Oral CapsuleIndications:[employer] Take 125 mg by mouth every evening. 0 Active Vitamin D 25 MCG (1000 UT) Oral TabletIndications:[employer] Take 1 Tablet by mouth in the morning. 0 Active Albuterol Sulfate 1.25 MG/3ML Inhalation Nebulization SolutionIndications:A cute bronchitis, unspecified organism Inhale 1.25 mg via nebulizer every 4 hours as needed for Wheezing. 120 mL 1 3 Active Albuterol Sulfate HFA 108 (90 Base) MCG/ACT Inhalation Aerosol SolutionIndications:C OPD Inhale 2 Puffs by mouth every 6 hours as needed for Shortness of Breath. 18 g 3 3 Active Rosuvastatin Calcium 20 MG Oral Tablet (Crestor) TAKE ONE TABLET BY MOUTH DAILY 100 Tablet 3 3 10/09/19 24 Active Levothyroxine Sodium 125 MCG Oral Tablet (Levoxyl)Indications: Acquired hypothyroidism TAKE ONE-HALF TABLET BY MOUTH DAILY [...] 24 Active Gabapentin 400 MG Oral Capsule (Neurontin)Indication s:Degeneration of lumbosacral intervertebral disc Take 1 Capsule [...] Active Cyclobenzaprine HCl 10 MG Oral Tablet (Flexeril)Indications :Degeneration of lumbosacral intervertebral disc,Degeneration of cervical intervertebral disc TAKE 1 TO 2 TABLETS BY MOUTH AT BEDTIME NEEDED FOR MUSCLE SPASMS 180 Tablet 1 3 03/19/20 24 Active Pantoprazole Sodium 40 MG Oral Tablet Delayed Release (Protonix)Indications :Esophageal reflux,Heartburn TAKE ONE TABLET BY MOUTH EVERY DAY 90 Tablet 1 3 Active Triamcinolone Acetonide 0.1 % External Cream (Aristocort)Indicatio ns:Dermatitis Apply topically to affected area 2 times [...] Reported on 06/27/2023 Benzonatate 100 MG Oral CapsuleIndications:Br onchitis, complicated Take 1 Capsule by mouth 3 times a day as needed for Cough. 30 Capsule 1 4 Active Fluticasone-Salmetero l 250-50 MCG/ACT Inhalation Aerosol Powder Breath Activated (Advair Diskus)Indications:Ac marbin bronchospasm Inhale 1 Puff by mouth in [...] FOR ANXIETY 180 Tablet 1 4 Active HYDROcodone-Acetamino phen 10-325 MG Oral Tablet Take 1 Tablet by mouth every 4 hours as needed for Pain, Moderate or Pain, Severe. 120 Tablet 0 4 Active Mounjaro 2.5 MG/0.5ML Subcutaneous Solution Pen-injector (Tirzepatide)Indicati ons:DM type 2, goal HbA1c < 8% ([facility]) Inject 2.5 mg under the skin once a week. 6 mL 3 4 07/02/19 25 Active FreeStyle Sebastian 2 Sensor Use as directed. Use to check blood sugars 3 times a day. Dx E11.9 6 Each 3 4 Active busPIRone HCl 15 MG Oral Tablet (Buspar) TAKE ONE TABLET BY MOUTH TWO TIMES A DAY IN THE MORNING AND IN THE IN THE EVENING 200 Tablet 1 4 07/09/19 25 Active busPIRone HCl 15 MG Oral Tablet (Buspar) TAKE ONE TABLET BY MOUTH TWO TIMES A DAY IN THE MORNING AND IN THE IN THE EVENING 200 Tablet 1 3 07/07/19 24 Discontinu ed(Refill) documented as of this encounter (statuses as of 07/09/2023) Active Problems Problem Noted Date Diagnosed Date [...] accepted brochure Esophageal reflux 07/05/2005 LOC PRIM [id number] 08/15/2004 POSTLAMINECT SYND-LUMBAR 09/24/2002 Thoracic and lumbosacral neuritis 09/24/2002 CERVICAL DISC DEGEN 10/04/2000 Acquired hypothyroidism LUMB-LUMBOSAC DISC DEGEN documented as of this encounter (statuses as of 07/09/2023) Resolved Problems Problem Noted Date Diagnosed Date [...] as of this encounter (statuses as of 07/09/2023) Immunizations Name Administration Dates Next Due COVID-19 mRNA, LNP-s, No Pre serve, 2-Dose Series (Showpitch) 03/31/2021,08/07/2020,07/12/2020 COVID-19, LNP-s, No Preserve , Melo-sucrose, [...] (15 years old or older) No 08/16/19 Cognitive Status Response Date of Assessm ent Because of a physical, menta l, or emotional condition, do you have serious difficulty concentrating, remembering, or making decisions? (5 years old or older) No 08/15/2017 documented as of this encounter Miscellaneous Notes * Telephone Encounter - Shi Garg DO - 07/09/2023 7:45 AM EDTSigned Prescriptions: Disp Refills busPIRone HCl 15 MG Oral Tablet (Buspar) 200 Ta*1 Sig: TAKE ONE TABLET BY MOUTH TWO TIMES A DAY IN THE MORNING AND IN THE IN THE EVENING Authorizing Provider: SHI GARG * Telephone Encounter - Ny Patino [facility] - 07/09/2023 5:01 AM EDT Pending Prescriptions: Disp Refills busPIRone HCl 15 MG Oral Tablet (Buspar) 200 Ta*1 Sig: TAKE ONE TABLET BY MOUTH TWO TIMES A DAY IN THE MORNING AND IN THE IN THE EVENING * Telephone Encounter - Ny Patino RPh - 07/09/2023 5:01 AM EDT Refill pharmacists currently not authorized to approve refills for this class of medication per refill protocol. Please approve if appropriate. Thank you, Ny Patino, PharmD. Clinical Pharmacist Pharmacy Refill Call Center 07/09/2023, 5:01 AM documented in this encounter Plan of Treatment Upcoming Encounters Date Type Department Care Team (Late st Contact Info) Description 11/16/2023 3:00 PM EDT Office Visit Family Practice [address], [place] [address] [place] [address] Shi Garg, [address] [place], [place] [id number] Scheduled Procedures Name Priority Associated Diagnoses Date/Ti [...] < 10) 05/15/2023 05/14/2023 HbA1c 12/26/2023 06/27/2023, 1104/2022, 07/25/2022, Additional history exists TSH 02/29/2024 02/28/2023, [...] D LEVEL ONCE IN A LIFETIME-USE SMARTSET# 59540 Completed 12/27/2022, 03/29/2022, 12/27/2021, Additional history exists [...] this encounter Medical Devices Implanted Type Area Pipe Threader Device Identifier Shelf Expiration Date Model / Serial / Lot Lead Surgical 65cm 35897-20 - [id number] Implanted:Qty: 1 on 07/21/2011 [place] [facility] [place]A: Spine Thoracic Medtrol 06/08/2015 [id number] / / [id number] Battery Advance Prime [id number] - [id number] Implanted:Qty: 1 on 07/21/2011 [place] [facility] [place] Right: Buttocks MED[employer] : NEUROLOGIC PAIN 09/10/2012 [id number] / [id number] / Lens Intraoc 16.5 - [id number] - [id number] Implanted:Qty: 1 on 02/13/2017 by Marco Antonio Melton MD at OR [facility] Left: Eye BAUSCH & LOMB 06/27/2021 [id number] / [id number] / [id number] Lens Intraoc 16.0 - [id number] - [id number] Implanted:Qty: 1 on 02/22/2017 by Marco Antonio Melton MD at OR [facility] Right: Eye BAUSCH & LOMB 04/29/2021 [id number] / [id number] / documented as of this encounter Advance Directives Latest Code Status [...] and were consensually agreed upon. Care Teams Biomedical Service Engineer Relationship Specialty Start Date End Date Shi Garg DO [address] [place] [address] PCP - General Internal Medicine 02/22/21 documented as of this encounter
--- OUTSIDE RECORDS SUMMARY | 2023-07-14 16:47 | External Medical Summary | Summary of Care ---
Author Name Unknown Organization [facility] Address [address] [place] [address] Phone [phone] Care Team Providers Care Pearl Diver Name Role Phone Silvano Garg DO Primary Care Provider [phone] Reason for Visit * Reason Comments Follow Up Encounter Details Date Type Department Care Team (Late st Contact Info) Description 06/27/2023 3:00 PM EST Office Visit Family Practice [address] [facility], [place] [address] [place] [address] Silvano Garg DO [address] [place] [address] DM type 2, goal HbA1c < 8% ([facility])*; Parathyroid adenoma; POSTLAMINECT SYND-LUMBAR; Acquired hypothyroidism; Gastroesophageal reflux disease, unspecified whether esophagitis present; Pure hypercholesterolemia; HTN, goal below 140/90; Restless legs syndrome; Generalized anxiety disorder; Encounter for therapeutic drug monitoring Allergies Active Allergy Reactions Criticality Noted Date Comments Bee Venom 02/09/2016 Erythromycin 04/08/1997 GI upset Iodinated Contrast Media 03/01/2012 IVP dye when she had stones 1989 [place] had nausea and emesis then she got hives on her chest and arms Atorvastatin Calcium 01/05/2005 MIld elevation of CK and LFT's ( see [facility] labs of 01/03/05) Pregabalin Edema Other 05/19/2014 Swelling of legs and feet Nabumetone Rash 12/21/2011 Nsaids Other (Please comment) 02/08/2017 GI distress Penicillins Rash 04/08/1997 She was told when she was a toddler she got a rash documented as of this encounter (statuses as of 06/27/2023) Medications Medication Sig Dispensed Refills Start Date End Date Status VITAMIN B COMPLEX PO TABSIndications:[email or web address] Take by mouth. 0 Active valACYclovir (VALTREX) [...] Reported on 07/25/2022 PreserVision AREDS 2 Oral CapsuleIndications:[email or web address] Take 1 Capsule by mouth in the morning. 0 2 Active FLUoxetine HCl 40 MG Oral Capsule (PROzac)Indications:Ma barry depressive disorder, recurrent, moderate (HCC),Generalized anxiety disorder Take by mouth 2 Capsules in the morning. 200 Capsule 3 2 Active Additional Information Patient taking differently:80 mg Oral Daily(AM),Indications: depression, Informant: Patient, Reported on 05/21/2023 Magnesium 125 MG Oral CapsuleIndications:[email or web address] Take 125 mg by mouth every evening. 0 Active Vitamin D 25 MCG (1000 UT) Oral TabletIndications:[employer] Take 1 Tablet by mouth in the morning. 0 Active Albuterol Sulfate 1.25 MG/3ML Inhalation Nebulization SolutionIndications:Ac eagle bronchitis, unspecified organism Inhale 1.25 mg via [...] OR OTHER MEDICATION 50 Tablet 3 3 08/09/19 24 Active Losartan Potassium 100 MG Oral Tablet (Cozaar) TAKE ONE TABLET BY MOUTH EVERY MORNING 100 Tablet 3 3 08/09/19 24 Active busPIRone HCl 15 MG Oral Tablet (Buspar) TAKE ONE TABLET BY MOUTH TWICE A DAY, MAY TAKE AND ADDITIONAL ONE TABLET EVERY TWENTY FOUR HOURS NEEDED FOR ANXIETY 270 Tablet 0 2 Active amLODIPine Besylate 2.5 MG Oral Tablet [...] Pain, Severe. 120 Tablet 0 4 Active documented as of this encounter (statuses as of 06/27/2023) Active Problems Problem Noted Date Diagnosed Date [...] accepted brochure Esophageal reflux 07/05/2005 LOC PRIM [id number] 08/15/2004 POSTLAMINECT SYND-LUMBAR 09/24/2002 Thoracic and lumbosacral neuritis 09/24/2002 CERVICAL DISC DEGEN 10/04/2000 Acquired hypothyroidism LUMB-LUMBOSAC DISC DEGEN documented as of this encounter (statuses as of 06/27/2023) Resolved Problems Problem Noted Date Diagnosed Date [...] as of this encounter (statuses as of 06/27/2023) Immunizations Name Administration Dates Next Due COVID-19 mRNA, LNP-s, No Pre serve, 2-Dose Series (DataTorrent) 03/31/2021,08/07/2020,07/12/2020 COVID-19, LNP-s, No Preserve , Melo-sucrose, [...] Passive Smoke Exposure: Past Smokeless Tobacco: Never Tobacco Cessation:Counseling Given: Yes Comments: smokes cigars Alcohol Use Standard Drinks/Week Comments Yes 0 [...] on file documented as of this encounter Last Filed Vital Signs Vital Sign Reading Time Taken Comments Blood Pressure 130/70 06/27/2023 2:43 PM EST Pulse 71 06/27/2023 2:43 PM EST Temperature 36.6 C (97.9 F) 06/27/2023 2:43 PM ES T Respiratory Rate 16 06/27/2023 2:43 PM EST Oxygen Saturation 93% 06/27/2023 2:43 PM EST Inhaled Oxygen Concentration - - Weight 128.1 kg (282 lb 8 oz) 06/27/2023 2:43 PM EST Height 154.9 cm (5' 1") 06/27/2023 2:43 PM EST Body Mass Index 53.38 06/27/2023 2:43 PM EST documented in this encounter Functional Status Functional Status Response [...] No 08/15/2017 documented as of this encounter Progress Notes * Silvano Garg, - 06/27/2023 3:43 PM EST SUBJECTIVE: Chloé Altamirano is a 68 year old female. Chief Complaint Patient presents with Follow Up HPI: Patient is a 68 year old female with a history of DM type II, Postlaminectomy Back Pain, Cervical Disc Disease, Hyperparathyroidism, HTN, Hypothyroidism, GERD, Hyperlipidemia, Depression, Anxiety, Restless Leg Syndrome, and Obesity that is seen for follow up. Fatigue has improved post Parathyroidectomy. Chronic shortness of breath is unchanged. No chest pain is present. Weight is stable and appetite is good. Depression is unchanged. Patient Active Problem List Diagnosis Code CERVICAL DISC DEGEN M50.30 POSTLAMINECT SYND-LUMBAR M96.1 Thoracic and lumbosacral neuritis M54.14, M54.17 Acquired hypothyroidism E03.9 LUMB-LUMBOSAC DISC DEGEN M51.37 LOC PRIM [id number] M17.10 Esophageal reflux K21.9 ADVANCE DIRECTIVE INFORMATION Pure hypercholesterolemia E78.00 MEDICATION USE AGREEMENT [id number] HTN, goal below 140/90 I10 Restless legs syndrome G25.81 Generalized anxiety disorder F41.1 Major depressive disorder, recurrent, moderate ([facility]) F33.1 Body mass index (BMI) of 50.0 to 59.9 in adult ([facility]) Z68.43 Age-related osteoporosis without current pathological fracture M81.0 Hyperparathyroidism, primary ([facility]) E21.0 Parathyroid adenoma D35.1 DM type 2, goal HbA1c < 8% ([facility]) E11.9 Current Outpatient Medications Medication Sig Dispense Refill VITAMIN B COMPLEX PO TABS Take by mouth. valACYclovir (VALTREX) 1000 MG Tablet TAKE TWO TABLETS BY MOUTH EVERY 12 HOURS FOR 1 DAY FOR COLD SORES (Patient taking differently: TAKE TWO TABLETS BY MOUTH EVERY 12 HOURS FOR 1 DAY FOR COLD SORES)4 Tab 5 Diclofenac Sodium 1 % External Gel (Voltaren) Apply to painful joints up to four times daily (Patient taking differently: Apply to painful joints up to four times daily) 150 g 3 PreserVision AREDS 2 Oral Capsule Take 1 Capsule by mouth in the morning. FLUoxetine HCl 40 MG Oral Capsule (PROzac) Take by mouth 2 Capsules in the morning. (Patient takingdifferently: Take 2 Capsules by mouth in the morning.) 200 Capsule 3 Magnesium 125 MG Oral Capsule Take 125 mg by mouth every evening. Vitamin D 25 MCG (1000 UT) Oral Tablet Take 1 Tablet by mouth in the morning. Albuterol Sulfate 1.25 MG/3ML Inhalation Nebulization Solution Inhale 1.25 mg via nebulizer every 4hours as needed for Wheezing. 120 mL 1 Albuterol Sulfate HFA 108 (90 Base) MCG/ACT Inhalation Aerosol Solution Inhale 2 Puffs by mouth every 6 hours as needed for Shortness of Breath. 18 g 3 busPIRone HCl 15 MG Oral Tablet (Buspar) TAKE ONE TABLET BY MOUTH TWO TIMES A DAY IN THE MORNING AND IN THE IN THE EVENING 200 Tablet 1 Rosuvastatin Calcium 20 MG Oral Tablet (Crestor) TAKE ONE TABLET BY MOUTH DAILY 100 Tablet 3 Levothyroxine Sodium 125 MCG Oral Tablet (Levoxyl) TAKE ONE-HALF TABLET BY MOUTH DAILY 30 MINUTES PRIOR TO BREAKFAST OR OTHER MEDICATION 50 Tablet 3 Losartan Potassium 100 MG Oral Tablet (Cozaar) TAKE ONE TABLET BY MOUTH EVERY MORNING 100 Tablet 3 amLODIPine Besylate 2.5 MG Oral Tablet (Norvasc) TAKE ONE TABLET BY MOUTH EVERY DAY. 100 Tablet 1 Gabapentin 400 MG Oral Capsule (Neurontin) Take 1 Capsule by mouth in the morning and 1 Capsule at noon and 1 Capsule in the evening and 1 Capsule before bedtime. 400 Capsule 3 buPROPion HCl ER (SR) 150 MG Oral Tablet Extended Release 12 Hour (Wellbutrin SR) TAKE ONE TABLET BY MOUTH EVERY MORNING AND ONE TABLET BEFORE BEDTIME 200 Tablet 3 Cyclobenzaprine HCl 10 MG Oral Tablet (Flexeril) TAKE 1 TO 2 TABLETS BY MOUTH AT BEDTIME NEEDED FOR MUSCLE SPASMS 180 Tablet 1 Pantoprazole Sodium 40 MG Oral Tablet Delayed Release (Protonix) TAKE ONE TABLET BY MOUTH EVERY DAY90 Tablet 1 Triamcinolone Acetonide 0.1 % External Cream (Aristocort) Apply topically to affected area 2 times a day. Groin and thighs. 60 g 5 metFORMIN HCl ER 500 MG Oral Tablet Extended Release 24 Hour (Glucophage XR) Take 2 Tablets by mouth in the morning. (Patient taking differently: Take 2 Tablets by mouth in the morning. Patient reports she is taking 1 500 mg in am and 1 500 mg in the evening. .) 60 Tablet 3 Fluticasone-Salmeterol 250-50 MCG/ACT Inhalation Aerosol Powder Breath Activated (Advair Diskus) Inhale 1 Puff by mouth in the morning and 1 Puff before bedtime. 1 Each 3 hydrOXYzine HCl 25 MG Oral Tablet TAKE ONE TABLET BY MOUTH TWICE A DAY NEEDED FOR ANXIETY 180 Tablet 1 HYDROcodone-Acetaminophen 10-325 MG Oral Tablet Take 1 Tablet by mouth every 4 hours as needed for Pain, Moderate or Pain, Severe. 120 Tablet 0 Diclofenac Epolamine 1.3 % External Patch PLACE 1 PATCH TOPICALLY ON THE SKIN TWICE DAILY (Patient taking differently: PLACE 1 PATCH TOPICALLY ON THE SKIN TWICE DAILY) 180 Patch 1 busPIRone HCl 15 MG Oral Tablet (Buspar) TAKE ONE TABLET BY MOUTH TWICE A DAY, MAY TAKE AND ADDITIONAL ONE TABLET EVERY TWENTY FOUR HOURS NEEDED FOR ANXIETY 270 Tablet 0 Benzonatate 100 MG Oral Capsule Take 1 Capsule by mouth 3 times a day as needed for Cough. 30 Capsule 1 oxyCODONE HCl 5 MG Oral Tablet (Oxy IR) Take 1 Tablet by mouth every 4 hours as needed for breakthrough or severe pain. (Patient not taking: Reported on 06/27/2023) 8 Tablet 0 No current facility-administered medications for this visit. The patient's medication list was reviewed and updated as needed. Past Medical History: Diagnosis Date Acquired hypothyroidism Calculus of kidney Secondary to hyperparathyroidism CERVICAL DISC DEGEN 10/04/2000 Depressive disorder, not elsewhere classified hosp. at [facility] [place] Disorder of intervertebral disc Aubrey Diverticulosis of colon DM type 2, goal HbA1c < 8% ([facility]) 03/30/2023 Dyslipidemia, goal LDL below 130 04/08/2009 Per Lipid Taxonomy. Dyslipidemia, goal to be determined Generalized anxiety disorder 09/08/2020 GERD (gastroesophageal reflux disease) HTN, goal below 140/90 07/31/2012 LUMB-LUMBOSAC DISC DEGEN Major depressive disorder, recurrent, moderate ([facility]) 01/04/2021 Morbid obesity, BMI not known ([facility]) Osteoarthritis of knee Other hyperparathyroidism ([facility]) Parathyroid adenoma 02/28/2023 POSTLAMINECT SYND-LUMBAR 09/24/2002 Postlaminectomy syndrome of lumbar region Prediabetes 06/12/2017 Per Prediabetes protocol #1 Restless legs syndrome 03/05/2014 Past Surgical History: Procedure Laterality Date ARTHROPLASTY KNEE TOTAL 06/05 Bilateral total knee replacements- Dr. Freeman DELIVERY COLONOSCOPY, DIAGNOSTIC (RECTUM) 04/06/08 repeat in 10 yrs COLONOSCOPY, DIAGNOSTIC (RECTUM) 09/03/2018 normal, repeat 10 yrs/[facility] CYSTO/URETERO W/LITHOTRIPSY Right 04-28-2015 CYSTO/URETERO W/LITHOTRIPSY Right 05-07-2015 CYSTO/URETERO W/LITHOTRIPSY Right 05/07/2015 CYSTOURETHROSCOPY URETEROSCOPY WITH LITHOTRIPSY AND STENT INSERTION performed by Chiara Quan MD at OR [facility] CYSTOSCOPY 07-16-06 stent removal CYSTOSCOPY/INSERTION OF STENT 07/13/06 CYSTOURETHROSCOPY WITH INSERTION URETERAL STENT performed by PAUL VICTORIA at [place] [facility] CYSTOSCOPY/URETERAL CATHETER 07/13/06 CYSTOURETHROSCOPY WITH URETERAL CATHETER performed by PAUL VICTORIA at [place] [facility] CYSTOURETRO &/OR PYELOSCOPE 07/13/06 CYSTOURETHROSCOPY URETROSCOPY AND OR PYELOSCOPY performed by PAUL VICTORIA at OR [facility] CYSTOURETRO W/STONE REMOVE 07/13/06 CYSTOURETHROSCOPY URETROSCOPY WITH STONE REMOVAL performed by PAUL VICTORIA at OR [facility] EXPLORE PARATHYROID GLANDS 11/16/06 PARATHYROIDECTOMY performed by KEDAR HENDERSON at OR [facility] EXPLORE PARATHYROID GLANDS N/A 05/21/2023 PARATHYROIDECTOMY performed by Bianka Matute MD at OR [facility] FLUORO MISCELLANEOUS 07/13/06 FLUROSCOPY UP TO ONE HOUR performed by PAUL VICTORIA at [place] [facility] FRAGMENT KIDNEY STONE BY SHOCK WAVE 1987 ESWL (Extracorporeal Shock Wave Lithotripsy) FRAGMENT KIDNEY STONE BY SHOCK WAVE 1987 ESWL (Extracorporeal Shock Wave Lithotripsy) FRAGMENT KIDNEY STONE BY SHOCK WAVE 1987 ESWL (Extracorporeal Shock Wave Lithotripsy) INFORMATION 1988 laser litho rt kidney IR DRAINAGE CATHETER CHANGE 07/13/06 CHANGE OF PERCUTANEOUS TUBE OR DRAINAGE CATHETER WITH XRAY AND CONTRAST MEDIUM performed by PAUL VICTORIA at OR [facility] LAPAROSCOPY; CHOLECYSTECTOMY LIGATE/CUT OVIDUCT(S) Tubal Ligation LUMBAR HEMILAMINECTOMY L 3-4 discectomy LUMBAR HEMILAMINECTOMY 12/23/01 L3-4 left hemilaminectomy, disckectomy, with foraminotomy PARTIAL REMOVAL OF THYROID LOBE right lobectomy REDUCTION OF BREAST 1995 REMOVAL OF TONSILS, UNDER AGE 10 Tonsillectomy REMOVE CATARACT, INSERT LENS PROSTH Left 02/13/2017 left EXTRACAPSULAR CATARACT REMOVAL WITH INTRAOCULAR LENS performed by Marco Antonio Melton MD at OR [facility] REMOVE CATARACT, INSERT LENS PROSTH Right 02/22/2017 right EXTRACAPSULAR CATARACT REMOVAL WITH INTRAOCULAR LENS performed by Marco Antonio Melton MD at OR [facility] REMOVE GALLBLADDER 07/11/05 Dr. Peña REPAIR DETACHED RETINA, VITRECTOMY Right 08/12/2021 PARS PLANA VITRECTOMY, AIR FLUID EXCHANGE, ENDOLASER, FLUID GAS EXCHANGE SF6, RIGHT EYE (25g) performed by Kierra Cunningham MD at OR [facility] REPAIR RUPTURED ROTATOR CUFF, CHRON REVISE/REMOVE SPINAL NEURORECEIVER 07/21/2011 REVISION OR REMOVAL IMPLANTED SPINAL NEUROSTIMULATOR performed by LORETO HERNANDEZ at [place] [facility] SACROILIAC JOINT INJECT W/GUIDANCE 12/06/2017 INJECTION SACROILIAC JOINT performed by Edwardo Osullivan DO at OR [facility] SACROILIAC JOINT INJECT W/GUIDANCE 04/11/2018 INJECTION SACROILIAC JOINT performed by Edwardo Osullivan DO at OR [facility] SACROILIAC JOINT INJECT W/GUIDANCE 09/17/2019 INJECTION SACROILIAC JOINT performed by Edwardo Osullivan DO at OR [facility] SPINAL NEUROSTIM ELECTRODE PLATE, REVISION 07/21/2011 REVISION SPINAL NEUROSTIM ELECTRODE PLATE performed by LORETO HERNANDEZ at OR [facility] TOTAL ABD HYSTERECTOMY W/WO REMOVAL OF TUBE(S) complete hysterectomy at age 44 Review of patient's allergies indicates: Allergen Reactions Bee Venom Erythromycin GI upset Iodinated Contrast Media IVP dye when she had stones 1988 At [place] had nausea and emesis then she got hives on her chest and arms Lipitor [Atorvastatin Calcium] MIld elevation of CK and LFT's ( see [facility] labs of 01/03/05) Lyrica [Pregabalin] Edema Other Swelling of legs and feet Nabumetone Rash Nsaids Other (Please comment) GI distress Penicillins Rash She was told when she was a toddler she got a rash Review of Systems Constitutional: Positive for fatigue. Negative for appetite change and unexpected weight change. Respiratory: Positive for shortness of breath. Negative for cough and wheezing. Cardiovascular: Negative for chest pain, palpitations and leg swelling. Gastrointestinal: Negative for abdominal pain, blood in stool, constipation, diarrhea, nausea and vomiting. Genitourinary: Negative for dysuria and hematuria. Musculoskeletal: Positive for arthralgias, back pain, gait problem and myalgias. Neurological: Negative for dizziness, syncope and headaches. Psychiatric/Behavioral: Positive for decreased concentration, dysphoric mood and sleep disturbance.Negative for self-injury and suicidal ideas. The patient is not nervous/anxious. OBJECTIVE: BP 130/70 (BP Site: Left Arm, BP Position: Sitting, BP Cuff Size: Large) | Pulse 71 | Temp 36.6 C(97.9 F) (Tympanic) | Resp 16 | Ht 1.549 m (5' 1") | Wt 128.1 kg (282 lb 8 oz) | SpO2 93% | BMI 53.38 kg/m | BSA 2.35 m Physical Exam Vitals and nursing note reviewed. Constitutional: General: She is not in acute distress. Appearance: Normal appearance. She is not toxic-appearing. HENT: Head: Normocephalic and atraumatic. Cardiovascular: Rate and Rhythm: Normal rate and regular rhythm. Heart sounds: Normal heart sounds. No murmur heard. No gallop. Pulmonary: Effort: Pulmonary effort is normal. Breath sounds: Normal breath sounds. No wheezing, rhonchi or rales. Abdominal: General: Bowel sounds are normal. There is no distension. Palpations: Abdomen is soft. Tenderness: There is no abdominal tenderness. Musculoskeletal: Right lower leg: No edema. Left lower leg: No edema. Neurological: Mental Status: She is alert and oriented to person, place, and time. Mental status is at baseline. Gait: Gait abnormal. Psychiatric: Attention and Perception: Attention normal. Mood and Affect: Mood is depressed. Mood is not anxious. Affect is flat. Speech: Speech normal. PLAN AND ASSESSMENT: DM type 2, goal HbA1c < 8% ([facility]) (Primary) - HEMOGLOBIN A1C; Future; Expected date: 06/27/2023 - COMPREHENSIVE METABOLIC PANEL; Future; Expected date: 06/27/2023 - HEMOGLOBIN A1C - COMPREHENSIVE METABOLIC PANEL Continue Metformin Consider Monjaro Parathyroid adenoma - COMPREHENSIVE METABOLIC PANEL; Future; Expected date: 06/27/2023 - PTH; Future; Expected date: 06/27/2023 - COMPREHENSIVE METABOLIC PANEL - PTH S/P parathyroid adenoma resection POSTLAMINECT SYND-LUMBAR Continue Gabapentin, and Hydrocodone Acquired hypothyroidism Continue Levothyroxine Gastroesophageal reflux disease, unspecified whether esophagitis present Continue Pantoprazole Pure hypercholesterolemia Continue Rosuvastatin HTN, goal below 140/90 Continue Amlodipine and Losartan Restless legs syndrome Generalized anxiety disorder Continue Bupropion, Buspirone and Fluoxetine Encounter for therapeutic drug monitoring - PAIN MANAGEMENT DRUG PANEL, URINE W/ INTERPRETATION; Future; Expected date: 06/27/2023 Follow Up: Return in about 4 months (around 10/26/2023), or if symptoms worsen or fail to improve. Silvano Garg DO 3:43 PM 06/27/2023 documented in this encounter Nursing Notes * Kerri Brennan LPN - 06/27/2023 2:41 PM EST Patient here for routine follow up. Reports she fell approx 6 weeks ago while walking. No injury. Reports ongoing lower back pain and left leg. Reports severe arthritis in both hands and wrist. Scheduled for surgery on R thumb on July [address] Freeman. documented in this encounter Plan of Treatment Upcoming Encounters Date Type Department Care Team (Late st Contact Info) Description 11/16/2023 3:00 PM EDT Office Visit Family Practice [address] [place] [address] [place] [address] Silvano Garg, [address] [place] [address] Pending Results Name Type Priority Associated Diagnoses Date /Time HEMOGLOBIN A1C Lab Routine DM type 2, goal HbA1c < 8% ([facility]) 06/27/2023 3:24 PM EST COMPREHENSIVE METABOLIC PANEL Lab Routine Parathyroid adenoma DM type 2, goal HbA1c < 8% ([facility]) 06/27/2023 3:24 PM EST PTH Lab Routine Parathyroid adenoma 06/27/2023 3:24 PM EST Scheduled Orders Name Type Priority Associated Diagnoses Orde r Schedule HEMOGLOBIN A1C Lab Routine DM type 2, goal HbA1c < 8% (HCC) Expected: 06/27/2023 (Approximate), Expires: 06/26/2024 COMPREHENSIVE METABOLIC PANEL Lab Routine Parathyroid adenoma DM type 2, goal HbA1c < 8% ([facility]) Expected: 06/27/2023 (Approximate), Expires: 06/26/2024 PAIN MANAGEMENT DRUG PANEL, URINE W/ INTERPRETATION Lab Routine Encounter for therapeutic drug monitoring Expected: 06/27/2023, Expires: 06/27/2024 PTH Lab Routine Parathyroid adenoma Expected: 06/27/2023 (Approximate), Expires: 06/26/2024 Scheduled Procedures Name Priority Associated Diagnoses Date/Ti me COLONOSCOPY FLEXIBLE PROXIMA L DIAGNOSTIC Recall Special screening for malignant neoplasms, colon Health Maintenance Due Date Last Done Comments Cologuard 1998 Fecal Occult Blood Test 1998 Sigmoidoscopy 1998 *BISPHONATE OR OTHER ACCEPTABLE MEDICATION NEEDED FOR OSTEOPOROSIS (REFER TO SMARTSET #1146) 04/28/2022 Depression, Most Recent Score >= 10 (will fire each visit until score < 10) 05/15/2023 05/14/2023 COVID-19 Vaccine ( season) 2023 05/23/2022, 12/27/2021, 03/31/2021, Additional history exists Postponed from 12/29/2022 (Patient Declined After Education) HbA1c 08/29/2023 02/28/2023, 06/29, 03/29/2022, Additional history exists TSH 02/29/2024 02/28/2023, 06/29, 12/27/2021, Additional history exists Albumin/Creatinine Ratio 03/30/2024 023, 03/29/2022, 05/25/2021 DXA Scan 04/10/2024 04/10/2022, 10/28, 11/06/2006 Diabetic Eye Exam 05/14/2024 05/14/2023, , 03/28/2022, Additional history exists Diabetic Foot Exam 05/14/2024 05/14/2023, 05/25/2021 GFR 05/14/2024 05/14/2023, 11/30, 07/25/2022, Additional history exists Mammogram 06/05/2024 06/05/2023, 01/28, 02/13/2022, Additional history exists Lipid Panel 07/26/2027 07/25/2022, 03/02, 05/25/2021, Additional history exists Colonoscopy 09/03/2028 09/03/2018, 04/06/2008 Colorectal Cancer Screening 09/03/2028 DTaP,Tdap,and Td Vaccines (3 - Td or Tdap) 02/26/2029 02/26/2019, 11/26/2007, 11/12/2000 Pneumococcal Vaccine: 65+ Years Completed 01/26/2020, 09/10/2018, 03/15/2001 Zoster Vaccines Completed 05/10/2020, 02/28, 08/07/2014 VITAMIN D LEVEL ONCE IN A LIFETIME-USE SMARTSET# [id number] Completed 12/27/2022, 03/29/2022, 12/27/2021, Additional history exists Influenza Vaccine (FLU shot) Completed 02/28/2023, 01/19/2022, 02/14/2021, Additional history exists GARDASIL-HPV IMMUNIZATION SERIES Aged Out No longer eligible based on patient's age to complete this topic Hepatitis B Aged Out No longer eligi ble based on patient's age to complete this topic MENINGOCOCCAL (MENACTRA/MENVEO) Aged Out No longer eligible based on patient's age to complete this topic documented as of this encounter Medical Devices Implanted Type Area Aerial Photograph Interpreter Device Identifier Shelf Expiration Date Model / Serial / Lot Lead Surgical 65cm 71690-50 - [id number] Implanted:Qty: 1 on 07/21/2011 at [place] [facility] N/A: Spine Thoracic Medtrol 06/08/2015 [id number] / / [id number] Battery Advance Prime [id number] - [id number] Implanted:Qty: 1 on 07/21/2011 at [place] [facility] Right: Buttocks [employer] : NEUROLOGIC PAIN 09/10/2012 [id number] / [id number] / Lens Intraoc 16.5 - [id number] - [id number] Implanted:Qty: 1 on 02/13/2017 by Marco Antonio Melton MD at OR [facility] Left: Eye [employer]USCH [employer] LOMB 06/27/2021 [id number] / [id number] / [id number] Lens Intraoc 16.0 - [id number] - [id number] Implanted:Qty: 1 on 02/22/2017 by Marco Antonio Melton MD at OR [facility] Right: Eye BAUSCH [employer] LOMB 04/29/2021 [id number] / [id number] / documented as of this encounter Visit Diagnoses Diagnosis DM type 2, goal HbA1c < 8% (HCC)- Primary Parathyroid adenoma Benign neoplasm of parathyroid gland POSTLAMINECT SYND-LUMBAR Postlaminectomy syndrome, lumbar region Acquired hypothyroidism Unspecified hypothyroidism Gastroesophageal reflux disease, unspecified whether esophagitis present Pure hypercholesterolemia HTN, goal below 140/90 Unspecified essential hypertension Restless legs syndrome Restless legs syndrome (RLS) Generalized anxiety disorder Encounter for therapeutic drug monitoring documented in this encounter Advance Directives Latest [...] and were consensually agreed upon. Care Teams Pearl Diver Relationship Specialty Start Date End Date Silvano Garg DO [address] [place] [address] PCP - General Internal Medicine 02/22/21 documented as of this encounter
--- OUTSIDE RECORDS SUMMARY | 2023-07-14 16:47 | External Medical Summary | Summary of Care ---
Author Name Unknown Organization [facility] Address [address] [place] [address] Phone [phone] Care Team Providers Care Stock Lifter Name Role Phone Silvano Garg DO Primary Care Provider [phone] Reason for Visit * Reason Onset Date Comments Med Request 07/05/2023 Encounter Details Date Type Department Care Team (Late st Contact Info) Description 07/05/2023 Telephone Family Practice [address], [place] [address] [facility], Floor [address]tr[address] [place] [address] Komal Demarco, [facility] [address] [place] [address] Med Request Allergies Active Allergy Reactions Criticality Noted Date Comments Bee Venom 02/09/2016 Erythromycin 04/08/1997 GI upset Iodinated Contrast Media 03/01/2012 IVP dye when she had stones 1989 [place] had nausea and emesis then she got hives on her chest and arms Atorvastatin Calcium 01/05/2005 MIld elevation of CK and LFT's ( see [facility] labs of 01/03/05) Pregabalin Edema Other 05/19/2014 Swelling of legs and feet Nabumetone Rash 12/21/2011 Nsaids Other (Please comment) 02/08/2017 GI distress Penicillins Rash 04/08/1997 She was told when she was a toddler she got a rash documented as of this encounter (statuses as of 07/05/2023) Medications Medication Sig Dispensed Refills Start Date End Date Status VITAMIN B COMPLEX PO TABSIndications:Adreal Take by mouth. 0 Active valACYclovir (VALTREX) [...] Reported on 07/25/2022 PreserVision AREDS 2 Oral CapsuleIndications:Green Revolution Cooling Take 1 Capsule by mouth in the morning. 0 2 Active FLUoxetine HCl 40 MG Oral Capsule (PROzac)Indications:Ma barry depressive disorder, recurrent, moderate (HCC),Generalized anxiety disorder Take by mouth 2 Capsules in the morning. 200 Capsule 3 2 Active Additional Information Patient taking differently:80 mg Oral Daily(AM),Indications: depression, Informant: Patient, Reported on 05/21/2023 Magnesium 125 MG Oral CapsuleIndications:Green Revolution Cooling Take 125 mg by mouth every evening. 0 Active Vitamin D 25 MCG (1000 UT) Oral TabletIndications:Viraliti Take 1 Tablet by mouth in the morning. 0 Active Albuterol Sulfate 1.25 MG/3ML Inhalation Nebulization SolutionIndications:Ac [place] bronchitis, unspecified organism Inhale 1.25 mg via [...] Dx E11.9 6 Each 3 4 Active documented as of this encounter (statuses as of 07/05/2023) Active Problems Problem Noted Date Diagnosed Date [...] accepted brochure Esophageal reflux 07/05/2005 LOC PRIM [id number] 08/15/2004 POSTLAMINECT SYND-LUMBAR 09/24/2002 Thoracic and lumbosacral neuritis 09/24/2002 CERVICAL DISC DEGEN 10/04/2000 Acquired hypothyroidism LUMB-LUMBOSAC DISC DEGEN documented as of this encounter (statuses as of 07/05/2023) Resolved Problems Problem Noted Date Diagnosed Date [...] update of inactive term Hyperparathyroidism 08/13/2006 11/02/19 Overview: ICD-10 update of inactive term Calculus of kidney 06/29/2006 0 ABDOMINAL PAIN, OTHER SPECIFIED SITE 06/29/2006 07/05/2007 FEM STRESS INCONTINENCE 06/29/200601/30 PURE HYPERCHOLESTEROLEM 04/05/200403/30 Overview: Per Lipid Taxonomy. LUMBAGO 10/17/2002 03/05/2008 Other hyperparathyroidism Diverticulosis of colon 09/2019 documented as of this encounter (statuses as of 07/05/2023) Immunizations Name Administration Dates Next Due COVID-19 mRNA, LNP-s, No Pre serve, 2-Dose Series ([employer]) 03/31/2021,08/07/2020,07/12/2020 COVID-19, LNP-s, No Preserve , Melo-sucrose, [...] encounter Miscellaneous Notes * Telephone Encounter - Komal Demarco RPh - 07/05/2023 2:08 PM EST Order placed via [employer]. Pt sent Puzl message requesting Sebastian CGPat. Komal Demarco, Pharm D, [facility] Clinical Pharmacist Musa [address] [place], [place] [address] 07/05/2023, 2:08 PM documented in this encounter Plan of Treatment Upcoming Encounters Date Type Department Care Team (Late st Contact Info) Description 11/16/2023 3:00 PM EDT Office Visit Family Practice [address] [phone] Silvano Garg, [address] [place] [address] Scheduled Procedures Name Priority Associated Diagnoses Date/Ti [...] < 10) 05/15/2023 05/14/2023 HbA1c 12/26/2023 06/27/2023, 110 04/2022, 07/25/2022, Additional history exists TSH 02/29/2024 [...] D LEVEL ONCE IN A LIFETIME-USE SMARTSET# [id number] Completed 12/27/2022, 03/29/2022, 12/27/2021, Additional history exists [...] this encounter Medical Devices Implanted Type Area Flight Inspector Device Identifier Shelf Expiration Date Model / Serial / Lot Lead Surgical 65cm 13832-74 - [id number] Implanted:Qty: 1 on 07/21/2011 at OR [facility] N/A: Spine Thoracic Medtrol 06/08/2015 [id number] / / [id number] Battery Advance Prime [id number] - [id number] Implanted:Qty: 1 on 07/21/2011 at OR [facility] Right: Buttocks [employer] : NEUROLOGIC PAIN 09/10/2012 [id number] / [id number] / Lens Intraoc 16.5 - [id number] - [id number] Implanted:Qty: 1 on 02/13/2017 by Marco Antonio Melton MD at OR [facility] Left: Eye BAUSCH & LOMB 06/27/2021 [id number] / [id number] / [id number] Lens Intraoc 16.0 - [id number] - [id number] Implanted:Qty: 1 on 02/22/2017 by Marco Antonio Melton MD at OR [facility] Right: Eye BAUSCH & LOMB 04/29/2021 [id number] / [id number] / documented as of this encounter Advance [...] and were consensually agreed upon. Care Teams Stock Lifter Relationship Specialty Start Date End Date Silvano Garg DO [address] [place] [address] PCP - General Internal Medicine 02/22/21 documented as of this encounter
--- OUTSIDE RECORDS SUMMARY | 2023-07-14 16:47 | External Medical Summary | Summary of Care ---
Author Name Unknown Organization [facility] Address [address] [place] [address] Phone [phone] Care Team Providers Care Diamond Powder Technician Name Role Phone Shi Garg DO Primary Care Provider [phone] Reason for Visit * Reason Onset Date Comments Medication Refill 07/03/2023 Encounter Details Date Type Department Care Team (Late st Contact Info) Description 06/28/2023 Refill Family Practice [address] [facility] [place] [address] [place] [phone] Shi Garg DO [address] [place] [address] DM type 2, goal HbA1c < 8% ([facility])* Allergies Active Allergy Reactions Criticality Noted Date Comments Bee Venom 02/09/2016 Erythromycin 04/08/1997 GI upset Iodinated Contrast Media 03/01/2012 IVP dye when she had stones 1989 [place] had nausea and emesis then she got hives on her chest and arms Atorvastatin Calcium 01/05/2005 MIld elevation of CK and LFT's ( see [facility] labs of 01/03/05) Pregabalin Edema Other 05/19/2014 Swelling of legs and feet Nabumetone Rash 12/21/2011 Nsaids Other (Please comment) 02/08/2017 GI distress Penicillins Rash 04/08/1997 She was told when she was a toddler she got a rash documented as of this encounter (statuses as of 07/04/2023) Medications Medication Sig Dispensed Refills Start Date End Date Status VITAMIN B COMPLEX PO TABSIndications:[employer] Take by mouth. 0 Active valACYclovir (VALTREX) [...] Reported on 07/25/2022 PreserVision AREDS 2 Oral CapsuleIndications:Yoyi Media Take 1 Capsule by mouth in the morning. 0 2 Active FLUoxetine HCl 40 MG Oral Capsule (PROzac)Indications:Ma barry depressive disorder, recurrent, moderate (HCC),Generalized anxiety disorder Take by mouth 2 Capsules in the morning. 200 Capsule 3 2 Active Additional Information Patient taking differently:80 mg Oral Daily(AM),Indications: depression, Informant: Patient, Reported on 05/21/2023 Magnesium 125 MG Oral CapsuleIndications:Yoyi Media Take 125 mg by mouth every evening. 0 Active Vitamin D 25 MCG (1000 UT) Oral TabletIndications:Woofound Take 1 Tablet by mouth in the [...] accepted brochure Esophageal reflux 07/05/2005 LOC PRIM [id number] 08/15/2004 POSTLAMINECT SYND-LUMBAR 09/24/2002 Thoracic and lumbosacral [...] mRNA, LNP-s, No Pre serve, 2-Dose Series ([employer]) 03/31/2021,08/07/2020,07/12/2020 COVID-19, LNP-s, No Preserve , Melo-sucrose, Ages 12+ (Pfizer) 12/27/2021 Covid-19, Mrna, Lnp-s, Pf, B ivalent, 30 Mcg, IM, 12 yrs and above (Pfizer) 05/23/2022 H1N1 2009 Influenza, IM 05/17/2009 Pneumococcal Conjugate Vacc, 13 Valent (Prevnar) 09/10/2018 Pneumococcal Polysaccharide PPV23 (Pneumovax) 01/26/2020,03/15/2001 Season Influenza, Quad, PF, Adjuvanted, 65+ Yrs, IM (FLUAD) 02/14/2021,02/05/2020 Seasonal Influenza, QUAD, wi th Preserv, 6 mons & Above, 0.5 mL, IM 02/21/2018 Seasonal Influenza, Quadriva lent Hd (Fluzone Hd) 02/28/2023,01/19/2022 Seasonal Influenza, Quadriva lent, No Preserve, IM 02/02/2017,02/02/2016 Seasonal Influenza, Split, I IV3, With Preserve, Inj 02/09/2014,01/20/2013,03/01/2012,03/14,02/18/2010,04/07/2009,03/02/2008 ,03/18/2007,03/13/2006,03/27/2003,08/2001,03/15/2001 Seasonal Influenza, Trivalen t, High Dose, No Preserve, IM 02/12/2019 TD - Tetanus/Diptheria (ADULT) 11/12/2000 TD, Preservative Free 02/26/2019 TDAP (age 11 [...] Telephone Encounter - Shi Garg DO - 07/04/2023 3:22 PM EST Noted. * Telephone Encounter - Shi Garg DO [...] my chart * Telephone Encounter - Lolly Glez RPh - 06/29/2023 7:34 PM EST Mounjaro will be covered on patient's plan. She is not on any other brand name medications, so initial cost will not be an issue, however it is likely she'll hit the donut hole chcf through the year. Initial costs: - $47 per month retail - $70.50 for 90 days supply through [facility] mail order. Alternative is to re-initiate Ozempic and get her on the Desiree Nordisk [...] PM EDT Office Visit Family Practice [address] [facility] [place] [address] [place] [phone] Shi Garg DO [address] [place] [address] Scheduled Procedures Name Priority Associated Diagnoses Date/Ti [...] < 10) 05/15/2023 05/14/2023 HbA1c 12/26/2023 06/27/2023, 04/2022, 07/25/2022, Additional history exists TSH 02/29/2024 [...] D LEVEL ONCE IN A LIFETIME-USE SMARTSET# [id number] Completed 12/27/2022, 03/29/2022, 12/27/2021, Additional history exists [...] this encounter Medical Devices Implanted Type Area Workday Consultant Device Identifier Shelf Expiration Date Model / Serial / Lot Lead Surgical 65cm [id number] - [id number] Implanted:Q[place]: 1 on 07[place]21/[place] [facility]A: Spine Thoracic Medtrol 06/08/2015 [id number] / / [id number] Battery Advance Prime 02633 - [id number] Implanted:Qty: 1 on 07/21/2011 at [facility] Right: Buttocks [employer] : NEUROLOGIC PAIN 09/10/2012 73559 / [id number] / Lens Intraoc 16.5 - [id number] - [id number] Implanted:Qty: 1 on 02/13/2017 by Marco Antonio Melton MD at OR [facility] Left: Eye BAUSCH & LOMB 06/27/2021 [id number] / [id number] / [id number] Lens Intraoc 16.0 - [id number] - [id number] Implanted:Qty: 1 on 02/22/2017 by Marco Antonio Melton MD at [facility] Right: Eye BAUSCH & LOMB 04/29/2021 [id number] / [id number] / documented as of this encounter Visit [...] and were consensually agreed upon. Care Teams Diamond Powder Technician Relationship Specialty Start Date End Date Shi Garg DO [address] [place] [facility] [address] PCP - General Internal Medicine 02/22/21 documented as of this encounter
--- OUTSIDE RECORDS SUMMARY | 2023-07-14 16:48 | External Medical Summary | Summary of Care ---
Author Name Unknown Organization [facility] Address [address] [place] [address] Phone [phone] Care Team Providers Care Hearing Examiner Name Role Phone Shi Garg DO Primary Care Provider [phone] Reason for Visit * Reason Comments Medication Refill Encounter Details Date Type Department Care Team (Late st Contact Info) Description 06/04/2023 Refill Family Practice 65 [facility] [place] [address] [place] [phone] Shi Garg DO [address] [place] [address] Allergies Active Allergy Reactions Criticality Noted Date Comments Bee Venom 02/09/2016 Erythromycin 04/08/1997 GI upset Iodinated Contrast Media 03/01/2012 IVP dye when she had stones 1989 At [place] had nausea and emesis then she got hives on her chest and arms Atorvastatin Calcium 01/05/2005 MIld elevation of CK and LFT's ( see [facility] labs of 01/03/05) Pregabalin Edema Other 05/19/2014 Swelling of legs and feet Nabumetone Rash 12/21/2011 Nsaids Other (Please comment) 02/08/2017 GI distress Penicillins Rash 04/08/1997 She was told when she was a toddler she got a rash documented as of this encounter (statuses as of 06/05/2023) Medications Medication Sig Dispensed Refills Start Date End Date Status VITAMIN B COMPLEX PO TABSIndications:VideoMining Take by mouth. 0 Active valACYclovir (VALTREX) [...] Reported on 07/25/2022 PreserVision AREDS 2 Oral CapsuleIndications:Vital Farms Take 1 Capsule by mouth in the morning. 0 2 Active FLUoxetine HCl 40 MG Oral Capsule (PROzac)Indications:M ajor depressive disorder, recurrent, moderate (HCC),Generalized anxiety disorder Take by mouth 2 Capsules in the morning. 200 Capsule 3 2 Active Additional Information Patient taking differently:80 mg Oral Daily(AM),Indications: depression, Informant: Patient, Reported on 05/21/2023 Magnesium 125 MG Oral CapsuleIndications:Vital Farms Take 125 mg by mouth in the morning. 0 Active Vitamin D 25 MCG (1000 UT) Oral TabletIndications:[email or web address] Take 1 Tablet by mouth in the [...] 100 Tablet 3 3 08/09/19 24 Active hydrOXYzine HCl 25 MG Oral Tablet TAKE ONE TABLET BY MOUTH TWICE A DAY NEEDED FOR ANXIETY 180 Tablet 1 3 11/06/19 24 Active amLODIPine Besylate 2.5 MG Oral [...] the morning. 60 Tablet 3 3 Active Benzonatate 100 MG Oral CapsuleIndications:Br onchitis, complicated Take 1 Capsule by mouth 3 times a day as needed for Cough. 30 Capsule 1 4 Active Fluticasone-Salmetero l 250-50 MCG/ACT Inhalation Aerosol Powder Breath Activated (Advair Diskus)Indications:Ac [place] bronchospasm Inhale 1 Puff by mouth in the morning and 1 Puff before bedtime. 1 Each 3 4 Active oxyCODONE HCl 5 MG Oral Tablet (Oxy IR) Take 1 Tablet by mouth every 4 hours as needed for breakthrough or severe pain. 8 Tablet 0 4 Active HYDROcodone-Acetamino phen 10-325 MG Oral Tablet Take 1 Tablet by mouth every 4 hours as needed for Pain, Moderate or Pain, Severe. 120 Tablet 0 4 Active HYDROcodone-Acetamino phen 10-325 MG Oral Tablet Take 1 Tablet by mouth every 4 hours as needed for Pain, Moderate or Pain, Severe. 120 Tablet 0 4 06/04/19 24 Discontinu ed(Refill) documented as of this encounter (statuses as of 06/05/2023) Active Problems Problem Noted Date Diagnosed Date [...] accepted brochure Esophageal reflux 07/05/2005 LOC PRIM [id number] 08/15/2004 POSTLAMINECT SYND-LUMBAR 09/24/2002 Thoracic and lumbosacral neuritis 09/24/2002 CERVICAL DISC DEGEN 10/04/2000 Acquired hypothyroidism LUMB-LUMBOSAC DISC DEGEN documented as of this encounter (statuses as of 06/05/2023) Resolved Problems Problem Noted Date Diagnosed Date [...] as of this encounter (statuses as of 06/05/2023) Immunizations Name Administration Dates Next Due COVID-19 mRNA, LNP-s, No Pre serve, 2-Dose Series ([employer]) 03/31/2021,08/07/2020,07/12/2020 COVID-19, LNP-s, No Preserve , Melo-sucrose, Ages 12+ (Pfizer) 12/27/2021 Covid-19, Mrna, Lnp-s, Pf, B ivalent, 30 Mcg, IM, 12 yrs and above ([employer]) 05/23/2022 H1N1 2009 Influenza, IM 05/17/2009 Pneumococcal [...] Telephone Encounter - Shi Garg DO - 06/05/2023 7:57 AM EST I have reviewed the patients controlled substance dispensing history in the Prescription Drug Monitoring Program in compliance with the [facility] regulations before prescribing a controlled substance. Last Tox Screen Results: Results for orders placed or performed in visit on 02/09/21 TOXICOLOGY, URINE SCREEN W/ CONFIRMATION Result Value Amphetamines Screen, U Negative Benzodiazepines Screen, U Negative Cannabinoids Screen, U Negative Cocaine Metabolite Screen, U Negative Hydrocodone Screen, U Positive (A) Methadone Metabolite Screen, U Negative Morphine/Codeine Screen, U Positive (A) Oxycodone Screen, U Negative Narrative Cutoff Concentrations: Drug Level Amphetamines 500 ng/mL Benzodiazepines 100 ng/mL Cannabinoids 50 ng/mL Cocaine Metabolite 150 ng/mL Hydrocodone / Hydromorphone 100 ng/mL Methadone Metabolite 100 ng/mL Morphine / Codeine 300 ng/mL Oxycodone / Oxymorphone 100 ng/mL Screening results are presumptive and can only be used for medical purposes. Positive screening results are reflexed to confirmatory testing. *Note: Due to a large number of results and/or encounters for the requested time period, some results have not been displayed. A complete set of results can be found in Results Review. * Telephone Encounter - Shi Garg DO - 06/05/2023 7:57 AM ESTSigned Prescriptions: Disp Refills HYDROcodone-Acetaminophen 10-325 MG Oral T*120 Ta*0 Sig: Take 1 Tablet by mouth every 4 hours as needed for Pain, Moderate or Pain, Severe. Authorizing Provider: SHI GARG * Telephone Encounter - Ny Patino [facility] - 06/05/2023 5:50 AM EST Pending Prescriptions: Disp Refills HYDROcodone-Acetaminophen 10-325 MG Oral T*120 Ta*0 Sig: Take 1 Tablet by mouth every 4 hours as needed for Pain, Moderate or Pain, Severe. * Telephone Encounter - Ny Patino [facility] - 06/05/2023 5:50 AM EST I have reviewed the patients controlled substance dispensing history in the Prescription Drug Monitoring Program in compliance with the [facility] regulations before prescribing a controlled substance. PDMP checked on 06/05/2023. Pending Prescriptions: Disp Refills HYDROcodone-Acetaminophen 10-325 MG Oral *120 Ta*0 Sig: Take 1 Tablet by mouth every 4 hours as needed for Pain, Moderate or Pain, Severe. Last Visit: 05/14/2023 (in office), 06/01/2022 (telemedicine) Next Visit: Visit date not found Date medication was last filled: 05/10 Date medication is due for refill: 05/30 Pharmacy: [facility] Is this request for a controlled substance? Yes and Urine Drug Screen Not completed Toxicology results: Results for orders placed or performed in visit on 02/09/21 TOXICOLOGY, URINE SCREEN W/ CONFIRMATION Result Value Amphetamines Screen, U Negative Benzodiazepines Screen, U Negative Cannabinoids Screen, U Negative Cocaine Metabolite Screen, U Negative Hydrocodone Screen, U Positive (A) Methadone Metabolite Screen, U Negative Morphine/Codeine Screen, U Positive (A) Oxycodone Screen, U Negative Narrative Cutoff Concentrations: Drug Level Amphetamines 500 ng/mL Benzodiazepines 100 ng/mL Cannabinoids 50 ng/mL Cocaine Metabolite 150 ng/mL Hydrocodone / Hydromorphone 100 ng/mL Methadone Metabolite 100 ng/mL Morphine / Codeine 300 ng/mL Oxycodone / Oxymorphone 100 ng/mL Screening results are presumptive and can only be used for medical purposes. Positive screening results are reflexed to confirmatory testing. *Note: Due to a large number of results and/or encounters for the requested time period, some results have not been displayed. A complete set of results can be found in Results Review. Please approve if appropriate. Thank you, Ny Patino, PharmD. Clinical Pharmacist [facility] ([facility]) (formerly Telepharmacy) 06/05/2023, 5:50 AM documented in this encounter Plan of Treatment Upcoming Encounters Date Type Department Care Team (Late st Contact Info) Description 06/05/2023 2:30 PM EST Imaging Radiology [facility] [facility] [place] [address] [place] [address] 06/07/2023 11:40 AM EST Office Visit Otolaryngology [facility] [address] [place] [address] Salo White PA-C [address] [place] [address] Scheduled Procedures Name Priority Associated Diagnoses Date/Ti me COLONOSCOPY FLEXIBLE PROXIMA L DIAGNOSTIC Recall Special screening for malignant neoplasms, colon Health Maintenance Due Date Last Done Comments Cologuard 1998 Fecal Occult Blood Test 1998 Sigmoidoscopy 1998 Hepatitis B (1 of 3 - Risk 3-dose series) 2013 *BISPHONATE OR OTHER ACCEPTABLE MEDICATION NEEDED FOR OSTEOPOROSIS (REFER TO SMARTSET #1146) 04/28/2022 COVID-19 Vaccine ( season) 2022 05/23/2022, 12/27/2021, 03/31/2021, Additional history exists Mammogram 02/13/2023 02/13/2022, 01/28, 12/15/2020, Additional history exists Depression, Most Recent Score >= 10 (will fire each visit until score < 10) 05/15/2023 05/14/2023 HbA1c 08/29/2023 02/28/2023, 06/29, 03/29/2022, Additional history exists TSH 02/29/2024 02/28/2023, 06/29, 12/27/2021, Additional history exists Albumin/Creatinine Ratio 03/30/2024 023, 03/29/2022, 05/25/2021 DXA Scan 04/10/2024 04/10/2022, 10/28, 11/06/2006 Diabetic Eye Exam 05/14/2024 05/14/2023, , 03/28/2022, Additional history exists Diabetic Foot Exam 05/14/2024 05/14/2023, 05/25/2021 GFR 05/14/2024 05/14/2023, 11/30, 07/25/2022, Additional history exists Lipid Panel 07/26/2027 07/25/2022, 03/02, 05/25/2021, Additional history exists Colonoscopy 09/03/2028 09/03/2018, 04/06/2008 Colorectal Cancer Screening 09/03/2028 DTaP,Tdap,and Td Vaccines (3 - Td or Tdap) 02/26/2029 02/26/2019, 11/26/2007, 11/12/2000 Pneumococcal Vaccine: 65+ Years Completed 01/26/2020, 09/10/2018, 03/15/2001 Zoster Vaccines Completed 05/10/2020, 02/28, 08/07/2014 VITAMIN D LEVEL ONCE IN A LIFETIME-USE SMARTSET# [id number] Completed 12/27/2022, 03/29/2022, 12/27/2021, Additional history exists Influenza Vaccine (FLU shot) Completed 04/2022, 01/19/2022, 02/14/2021, Additional history exists GARDASIL-HPV IMMUNIZATION SERIES Aged Out No longer eligible based on patient's age to complete this topic MENINGOCOCCAL (MENACTRA/MENVEO) Aged Out No longer eligible based on patient's age to complete this topic documented as of this encounter Medical Devices Implanted Type Area Cinder Crew Worker Device Identifier Shelf Expiration Date Model / Serial / Lot Battery Advance Prime [id number] - [id number] Implanted:Qty: 1 on 07/21/2011 [place] [facility] [place] Right: Buttocks [employer] : NEUROLOGIC PAIN 09/10/2012 [id number] / [id number] / Lens Intraoc 16.5 - [id number] - [id number] Implanted:Qty: 1 on 02/13/2017 by Marco Antonio Melton MD at [facility] Left: Eye BAUSCH & LOMB 06/27/2021 [id number] / [id number] Lens Intraoc 16.0 - [id number] - [id number] Implanted:Qty: 1 on 02/22/2017 by Marco Antonio Melton MD at OR [facility] Right: Eye BAUSCH & LOMB 04/29/2021 [id number] / [id number] / documented as of this encounter Advance [...] and were consensually agreed upon. Care Teams Hearing Examiner Relationship Specialty Start Date End Date Shi Garg DO [address] [place] [address] PCP - General Internal Medicine 02/22/21 documented as of this encounter
--- OUTSIDE RECORDS SUMMARY | 2023-07-14 16:48 | External Medical Summary ---
Author Name Unknown Address Unknown Organization K01:[facility] - [address] [facility] [place] [address] Laboratory Report Ordering Provider Test Date Status VERNELL OSULLIVAN 06/27/2023 15:24:36 Final Observation Date Value Abnormality Reference (Units ) Status BUN 06/27/2023 15:24:36 17 6-20 (mg/dL) Final Creatinine 06/27/2023 15:24:36 0.7 0.5-1.0 (mg/dL) Final Glomerular filtration rate/1.73 sq M.predicted [Volume Rate/Area] in Serum, Plasma or Blood by Creatinine-based formula (CKD-EPI) 06/27/2023 15:24:36 >90 >=60 (mL/min) Final eGFR is calculated based on the CKD-EPI 2020 equation SODIUM 06/27/2023 15:24:36 135 135-146 (m mol/L) Final Potassium 06/27/2023 15:24:36 5.1 3.5-5.1 (m mol/L) Final Cl 06/27/2023 15:24:36 99 98-107 (mm ol/L) Final CO2 06/27/2023 15:24:36 25 22-32 (mmo l/L) Final Anion gap 06/27/2023 15:24:36 11 7-15 (mmol /L) Final Glucose 06/27/2023 15:24:36 265 Above high normal 70 -120 (mg/dL) Final Albumin 06/27/2023 15:24:36 4.6 3.8-5.0 (g /dL) Final AST (Aspartate aminotransferase) 06/27/2023 15:24:36 21 10-35 (U/L) Fin al Alk Phos 06/27/2023 15:24:36 124 35-130 (U/ L) Final Bilirubin, Total 06/27/2023 15:24:36 0.2 <=1 .2 (mg/dL) Final Calcium 06/27/2023 15:24:36 9.8 8.4-10.2 ( mg/dL) Final Protein 06/27/2023 15:24:36 6.8 6.0-8.3 (g /dL) Final ALT (Alanine aminotransferase) 06/27/2023 15:24:36 39 Above high normal 10-35 (U/L) Final Performing Location [facility] - [address] [facility] [address]
--- OUTSIDE RECORDS SUMMARY | 2023-07-14 16:48 | External Medical Summary | Summary of Care ---
Author Name Unknown Organization [facility] Address [address] [place] [address] Phone [phone] Care Team Providers Care Pierogi Maker Name Role Phone Shi Garg DO Primary Care Provider [phone] Reason for Visit * Reason Comments Medication Refill Encounter Details Date Type Department Care Team (Late st Contact Info) Description 06/10/2023 Refill Family Practice [address] [facility], [place] [address] [place] [phone] Shi Garg DO [address] [place] [address] Allergies Active Allergy Reactions Criticality Noted Date Comments Bee Venom 02/09/2016 Erythromycin 04/08/1997 GI upset Iodinated Contrast Media 03/01/2012 IVP dye when she had stones 1989 [place] had nausea and emesis then she got hives on her chest and arms Atorvastatin Calcium 01/05/2005 MIld elevation of CK and LFT's ( see [facility] labs of 01/03/05) Pregabalin Edema Other 05/19/2014 Swelling of legs and feet Nabumetone Rash 12/21/2011 Nsaids Other (Please comment) 02/08/2017 GI distress Penicillins Rash 04/08/1997 She was told when she was a toddler she got a rash documented as of this encounter (statuses as of 06/11/2023) Medications Medication Sig Dispensed Refills Start Date End Date Status VITAMIN B COMPLEX PO TABSIndications:Hall Take by mouth. 0 Active valACYclovir (VALTREX) [...] Reported on 07/25/2022 PreserVision AREDS 2 Oral CapsuleIndications:Zentric Take 1 Capsule by mouth in the morning. 0 2 Active FLUoxetine HCl 40 MG Oral Capsule (PROzac)Indications:M ajor depressive disorder, recurrent, moderate (HCC),Generalized anxiety disorder Take by mouth 2 Capsules in the morning. 200 Capsule 3 2 Active Additional Information Patient taking differently:80 mg Oral Daily(AM),Indications: depression, Informant: Patient, Reported on 05/21/2023 Magnesium 125 MG Oral CapsuleIndications:Zentric Take 125 mg by mouth in the morning. 0 Active Vitamin D 25 MCG (1000 UT) Oral TabletIndications:[employer] Take 1 Tablet by mouth in the [...] Pain, Severe. 120 Tablet 0 4 Active hydrOXYzine HCl 25 MG Oral Tablet TAKE ONE TABLET BY MOUTH TWICE A DAY NEEDED FOR ANXIETY 180 Tablet 1 4 Active hydrOXYzine HCl 25 MG Oral Tablet TAKE ONE TABLET BY MOUTH TWICE A DAY NEEDED FOR ANXIETY 180 Tablet 1 3 06/10/19 24 Discontinu ed(Refill) documented as of this encounter (statuses as of 06/11/2023) Active Problems Problem Noted Date Diagnosed Date [...] accepted brochure Esophageal reflux 07/05/2005 LOC PRIM [id number] 08/15/2004 POSTLAMINECT SYND-LUMBAR 09/24/2002 Thoracic and lumbosacral neuritis 09/24/2002 CERVICAL DISC DEGEN 10/04/2000 Acquired hypothyroidism LUMB-LUMBOSAC DISC DEGEN documented as of this encounter (statuses as of 06/11/2023) Resolved Problems Problem Noted Date Diagnosed Date [...] Overview: Per Obesity Taxonomy Other allergic rhinitis 09/14/2008 04/11/2010 Overview: ICD-10 update of inactive term Hyperparathyroidism 08/13/2006 11/02/19 17 Overview: ICD-10 update of inactive term Calculus of kidney 06/29/2006 0 ABDOMINAL PAIN, OTHER SPECIFIED SITE 06/29/2006 07/05/2007 FEM STRESS INCONTINENCE 06/29/200601/30 PURE HYPERCHOLESTEROLEM 04/05/200403/30 Overview: Per Lipid Taxonomy. LUMBAGO 10/17/2002 03/05/2008 Other hyperparathyroidism Diverticulosis of colon 09/2019 documented as of this encounter (statuses as of 06/11/2023) Immunizations Name Administration Dates Next Due COVID-19 mRNA, LNP-s, No Pre serve, 2-Dose Series (SafeLogic) 03/31/2021,08/07/2020,07/12/2020 COVID-19, LNP-s, No Preserve , Melo-sucrose, Ages 12+ (Pfizer) 12/27/2021 Covid-19, Mrna, Lnp-s, Pf, B ivalent, 30 Mcg, IM, 12 yrs and above (SafeLogic) 05/23/2022 H1N1 2009 Influenza, IM 05/17/2009 Pneumococcal [...] Telephone Encounter - Shi Garg DO - 06/11/2023 1:08 PM ESTSigned Prescriptions: Disp Refills hydrOXYzine HCl 25 MG Oral Tablet 180 Ta*1 Sig: TAKE ONE TABLET BY MOUTH TWICE A DAY NEEDED FOR ANXIETY Authorizing Provider: SHI GARG * Telephone Encounter - Reynold Goldstein [facility] - 06/11/2023 10:43 AM EST Pending Prescriptions: Disp Refills hydrOXYzine HCl 25 MG Oral Tablet 180 Ta*1 Sig: TAKE ONE TABLET BY MOUTH TWICE A DAY NEEDED FOR ANXIETY * Telephone Encounter - Reynold Goldstein [facility] - 06/11/2023 10:43 AM EST Pending Prescriptions: Disp Refills hydrOXYzine HCl 25 MG Oral Tablet 180 Ta*1 Sig: TAKE ONE TABLET BY MOUTH TWICE A DAY NEEDED FOR ANXIETY 05/14/2023 (in office), 06/01/2022 (telemedicine) 06/27/2023 If no future appointments scheduled, and last appointment is greater than a year ago, please schedule patient for a follow-up appointment Last date the medication was ordered: 11/06/22 [facility] Is this request for a controlled substance?No Patient Phone Numbers Labs: Lab Results Component Value Date/Time CREAT 0.6 05/14/2023 03:34 PM CREAT 0.8 12/12/2019 08:11 AM POTASSIUM 4.8 05/14/2023 03:34 PM POTASSIUM 4.3 12/12/2019 08:11 AM TSH 0.84 02/28/2023 03:28 PM TSH 1.27 12/12/2019 08:11 AM TSH 1.74 07/29/1996 03:05 PM LDLCALC 105 03/29/2022 01:00 PM LDLCALC UNINTERPRETABLE RESULT 09/05/2018 10:04 AM LDLDIRECT 94 07/25/2022 03:27 PM LDLDIRECT 91 09/05/2018 10:04 AM LDLDIRECT 114 08/07/2014 12:00 PM ALT 46 (H) 05/14/2023 03:34 PM ALT 32 11/04/2016 09:49 AM HGBA1C 7.6 (H) 02/28/2023 03:28 PM HGBA1C 6.1 (H) 12/12/2019 08:11 AM documented in this encounter Plan of Treatment Upcoming Encounters Date Type Department Care Team (Late st Contact Info) Description 06/25/2023 2:40 PM EST Office Visit Otolaryngology [facility] [address] [facility] [place] [address] Salo White PA-C [address] [facility] [address] 06/27/2023 3:00 PM EST Office Visit Family Practice [address] [place] [address] [address] [place] [address] Shi Garg DO [address] [place] [address] Scheduled Procedures Name Priority Associated Diagnoses Date/Ti [...] D LEVEL ONCE IN A LIFETIME-USE SMARTSET# 64183 Completed 12/27/2022, 03/29/2022, 12/27/2021, Additional history exists Influenza Vaccine (FLU shot) Completed 04/2022, 01/19/2022, 02/14/2021, Additional history exists GARDASIL-HPV IMMUNIZATION SERIES Aged Out No longer eligible based on patient's age to complete this topic MENINGOCOCCAL (MENACTRA/MENVEO) Aged Out No longer eligible based on patient's age to complete this topic documented as of this encounter Medical Devices Implanted Type Area Job Tracer Device Identifier Shelf Expiration Date Model / Serial / Lot Battery Advance Prime [id number] - [id number] Implanted:Qty: 1 on 07/21/2011 at OR [facility] Right: Buttocks MEDTRONIC : NEUROLOGIC PAIN 09/10/2012 [id number] / [id number] / Lens Intraoc 16.5 - [id number] - [id number] Implanted:Qty: 1 on 02/13/2017 by Marco Antonio Melton MD at OR [facility] Left: Eye BAUSCH & LOMB 06/27/2021 [id number] / [id number] / [id number] Lens Intraoc 16.0 - [id number] - [id number] Implanted:Qty: 1 on 02/22/2017 by Marco Antonio Melton MD at OR [facility] Right: Eye BAUSCH & LOMB 04/29/2021 [id number] / [id number] / documented as of this encounter Advance [...] and were consensually agreed upon. Care Teams Pierogi Maker Relationship Specialty Start Date End Date Shi Garg DO [address] [place] [address] PCP - General Internal Medicine 02/22/21 documented as of this encounter
--- OUTSIDE RECORDS SUMMARY | 2023-07-14 16:48 | External Medical Summary | Summary of Care ---
Author Name Unknown Organization [facility] Address [address] [place] [address] Phone [phone] Care Team Providers Care Car Whacker Name Role Phone Shi Garg DO Primary Care Provider [phone] Reason for Visit * Reason Comments Medication Refill Encounter Details Date Type Department Care Team (Late st Contact Info) Description 06/26/2023 Refill Family Practice 65 [facility] [place] [address] [place] [phone] Shi Garg DO [address] [place] [address] Allergies Active Allergy Reactions Criticality Noted Date Comments Bee Venom 02/09/2016 Erythromycin 04/08/1997 GI upset Iodinated Contrast Media 03/01/2012 IVP dye when she had stones 1989 [place] had nausea and emesis then she got hives on her chest and arms Atorvastatin Calcium 01/05/2005 MIld elevation of CK and LFT's ( see [facility] labs of 01/03/05) Pregabalin Edema Other 05/19/2014 Swelling of legs and feet Nabumetone Rash 12/21/2011 Nsaids Other (Please comment) 02/08/2017 GI distress Penicillins Rash 04/08/1997 She was told when she was a toddler she got a rash documented as of this encounter (statuses as of 06/27/2023) Medications Medication Sig Dispensed Refills Start Date End Date Status VITAMIN B COMPLEX PO TABSIndications:AdScoot Take by mouth. 0 Active valACYclovir (VALTREX) [...] Reported on 07/25/2022 PreserVision AREDS 2 Oral CapsuleIndications:[employer] Take 1 Capsule by mouth in the morning. 0 2 Active FLUoxetine HCl 40 MG Oral Capsule (PROzac)Indications:M ajor depressive disorder, recurrent, moderate (HCC),Generalized anxiety disorder Take by mouth 2 Capsules in the morning. 200 Capsule 3 2 Active Additional Information Patient taking differently:80 mg Oral Daily(AM),Indications: depression, Informant: Patient, Reported on 05/21/2023 Magnesium 125 MG Oral CapsuleIndications:[employer] Take 125 mg by mouth every evening. 0 Active Vitamin D 25 MCG (1000 UT) Oral TabletIndications:[employer]tilla [employer] Take 1 Tablet by mouth in the [...] severe pain. 8 Tablet 0 4 Active hydrOXYzine HCl 25 [...] or Pain, Severe. 120 Tablet 0 4 06/26/19 24 Discontinu ed(Refill) documented as of this [...] accepted brochure Esophageal reflux 07/05/2005 LOC PRIM [id number] 08/15/2004 POSTLAMINECT SYND-LUMBAR 09/24/2002 Thoracic and lumbosacral [...] mRNA, LNP-s, No Pre serve, 2-Dose Series ([employer]) 03/31/2021,08/07/2020,07/12/2020 COVID-19, LNP-s, No Preserve , Melo-sucrose, Ages 12+ (Pfizer) 12/27/2021 Covid-19, Mrna, Lnp-s, Pf, B ivalent, 30 Mcg, IM, 12 yrs and above ([employer]) 05/23/2022 H1N1 2009 Influenza, IM 05/17/2009 Pneumococcal [...] Telephone Encounter - Shi Garg DO - 06/27/2023 2:35 PM ESTSigned Prescriptions: Disp Refills HYDROcodone-Acetaminophen 10-325 MG Oral T*120 Ta*0 Sig: Take 1 Tablet by mouth every 4 hours as needed for Pain, Moderate or Pain, Severe. Authorizing Provider: SHI GARG * Telephone Encounter - Stephanie Delaney [facility] - 06/27/2023 9:36 AM EST Pending Prescriptions: Disp Refills HYDROcodone-Acetaminophen 10-325 MG Oral T*120 Ta*0 Sig: Take 1 Tablet by mouth every 4 hours as needed for Pain, Moderate or Pain, Severe. Electronically signed by Stephanie Delaney [facility] at 06/27/2023 9:36 AM EST * Telephone Encounter - Stephanie Delaney [facility] - 06/27/2023 9:35 AM EST I have reviewed the patients controlled substance dispensing history in the Prescription Drug Monitoring Program in compliance with the [facility] regulations before prescribing a controlled substance. PDMP checked on 06/27/2023. Pending Prescriptions: Disp Refills HYDROcodone-Acetaminophen 10-325 MG Oral *120 Ta*0 Sig: Take 1 Tablet by mouth every 4 hours as needed for Pain, Moderate or Pain, Severe. Last Visit: 05/14/2023 (in office), 06/01/2022 (telemedicine) Next Visit: 06/27/2023 Date medication was last filled: 06/05/23 Date medication is due for refill: 06/26/23 Pharmacy: [facility] Is this request for [...] Review. Please approve if appropriate. Thank you, Stephanie Delaney, PharmD Clinical Pharmacist [facility] ([facility]) (Formerly Telepharmacy) [phone] 06/27/2023, 9:35 AM Electronically signed by Stephanie Delaney [facility] at 06/27/2023 9:36 AM EST documented in this encounter Plan of Treatment Upcoming Encounters Date Type Department Care Team (Late st Contact Info) Description 06/27/2023 3:00 PM EST Office Visit Family Practice [address], [place] [address] [place] [address] Shi Garg, [address] [place] [address] Parathyroid adenoma*; DM type 2, goal HbA1c < 8% (HCC); POSTLAMINECT SYND-LUMBAR; Acquired hypothyroidism; Gastroesophageal reflux disease, unspecified whether esophagitis present; Pure hypercholesterolemia; HTN, goal below 140/90; Restless legs syndrome; Generalized anxiety disorder Scheduled Procedures Name Priority Associated Diagnoses Date/Ti [...] D LEVEL ONCE IN A LIFETIME-USE SMARTSET# 28326 Completed 12/27/2022, 03/29/2022, 12/27/2021, Additional history exists [...] this encounter Medical Devices Implanted Type Area Bulb Farmworker Device Identifier Shelf Expiration Date Model / Serial / Lot Lead Surgical 65cm 27085-69 - [id number] Implanted:Qty: 1 on 07/21/2011 [place] [facility] [place]/A: Spine Thoracic Medtrol 06/08/2015 [id number] / / [id number] Battery Advance Prime [id number] - [id number] Implanted:Qty: 1 on 07/21/2011 at [place] [facility] Right: Buttocks MEDTRONIC : NEUROLOGIC PAIN 09/10/2012 [id number] / [id number] / Lens Intraoc 16.5 - [id number] - [id number] Implanted:Qty: 1 on 02/13/2017 by Marco Antonio Melton MD at OR [facility] Left: Eye BAUSCH & LOMB 06/27/2021 [id number] / [id number] / [id number] Lens Intraoc 16.0 - [id number] - [id number] Implanted:Qty: 1 on 02/22/2017 by Marco Antonio Melton MD at OR [facility] Right: Eye BAUSCH & LOMB 04/29/2021 [id number] / [id number] / documented as of this encounter Advance [...] and were consensually agreed upon. Care Teams Car Whacker Relationship Specialty Start Date End Date Shi Garg DO [address] [place] [address] PCP - General Internal Medicine 02/22/21 documented as of this encounter
--- OUTSIDE RECORDS SUMMARY | 2023-07-14 16:48 | External Medical Summary | Summary of Care ---
Author Name Unknown Organization [facility] Address [address] [place] [address] Phone [phone] Care Team Providers Care Leather Goods Sales Representative Name Role Phone Silvano Garg DO Primary Care Provider [phone] Reason for Visit * Reason Onset Date Comments Nurse Documentation 05/22/202305/22 Encounter Details Date Type Department Care Team (Late st Contact Info) Description 05/22/2023 10:30 AM EST Scheduled Telephone Family Practice 65 [facility] [address] [place] [phone] College, Nurse [facility] [address] [address] Arrived Allergies Active Allergy Reactions Criticality Noted Date Comments Bee Venom 02/09/2016 Erythromycin 04/08/1997 GI upset Iodinated Contrast Media 03/01/2012 IVP dye when she had stones 1989 At [place] had nausea and emesis then she got hives on her chest and arms Atorvastatin Calcium 01/05/2005 MIld elevation of CK and LFT's ( see [facility] labs of 01/03/05) Pregabalin Edema Other 05/19/2014 Swelling of legs and feet Nabumetone Rash 12/21/2011 Nsaids Other (Please comment) 02/08/2017 GI distress Penicillins Rash 04/08/1997 She was told when she was a toddler she got a rash documented as of this encounter (statuses as of 05/22/2023) Medications Medication Sig Dispensed Refills Start Date End Date Status VITAMIN B COMPLEX PO TABSIndications:vLex Take by mouth. 0 Active valACYclovir (VALTREX) [...] Reported on 07/25/2022 PreserVision AREDS 2 Oral CapsuleIndications:[employer] [place] Take 1 Capsule by mouth in the morning. 0 2 Active FLUoxetine HCl 40 MG Oral Capsule (PROzac)Indications:Ma barry depressive disorder, recurrent, moderate (HCC),Generalized anxiety disorder Take by mouth 2 Capsules in the morning. 200 Capsule 3 2 Active Additional Information Patient taking differently:80 mg Oral Daily(AM),Indications: depression, Informant: Patient, Reported on 05/21/2023 Magnesium 125 MG Oral CapsuleIndications:[employer] [place] Take 125 mg by mouth in the morning. 0 Active Vitamin D 25 MCG (1000 UT) Oral TabletIndications:[employer] Take 1 Tablet by mouth in the morning. 0 Active Albuterol Sulfate 1.25 MG/3ML Inhalation Nebulization SolutionIndications:Ac [place] bronchitis, unspecified organism Inhale 1.25 mg via [...] FOR ANXIETY 270 Tablet 0 2 Active hydrOXYzine HCl 25 MG Oral Tablet [...] 3 3 Active Benzonatate 100 MG Oral CapsuleIndications:Bro nchitis, complicated Take 1 Capsule by mouth 3 times a day as needed for Cough. 30 Capsule 1 4 Active HYDROcodone-Acetaminop hen 10-325 MG Oral Tablet Take 1 Tablet by mouth every 4 hours as needed for Pain, Moderate or Pain, Severe. 120 Tablet 0 4 Active Fluticasone-Salmeterol 250-50 MCG/ACT Inhalation Aerosol Powder Breath Activated (Advair Diskus)Indications:Acu te bronchospasm Inhale 1 Puff by mouth in the morning and 1 Puff before bedtime. 1 Each 3 4 Active Tums E-X 750 750 MG Oral Tablet Chewable (calcium CARBonate) Chew and swallow 2 Tablets by mouth 2 times a day (morning and before bedtime). Do all this for 14 days. 56 Tablet 0 4 06/04/19 24 Active oxyCODONE HCl 5 MG Oral Tablet (Oxy IR) Take 1 Tablet by mouth every 4 hours as needed for breakthrough or severe pain. 8 Tablet 0 4 Active documented as of this encounter (statuses as of 05/22/2023) Active Problems Problem Noted Date Diagnosed Date [...] accepted brochure Esophageal reflux 07/05/2005 LOC PRIM [id number] 08/15/2004 POSTLAMINECT SYND-LUMBAR 09/24/2002 Thoracic and lumbosacral neuritis 09/24/2002 CERVICAL DISC DEGEN 10/04/2000 Acquired hypothyroidism LUMB-LUMBOSAC DISC DEGEN documented as of this encounter (statuses as of 05/22/2023) Resolved Problems Problem Noted Date Diagnosed Date [...] as of this encounter (statuses as of 05/22/2023) Immunizations Name Administration Dates Next Due COVID-19 mRNA, LNP-s, No Pre serve, 2-Dose Series (Smart Plate) 03/31/2021,08/07/2020,07/12/2020 COVID-19, LNP-s, No Preserve , Melo-sucrose, [...] Split, I IV3, With Preserve, Inj 02/09/2014,01/20/2013,03/01/2012,03/14,02/18/2010,04/07/2009,03/02/2008 ,03/18/2007,03/13/2006,03/27/2003,11/0 08/2001,03/15/2001 Seasonal Influenza, Trivalen t, High Dose, No [...] encounter Miscellaneous Notes * Telephone Encounter - Silvano Garg DO - 05/22/2023 12:01 PM EST Thanks * Telephone Encounter - Kerri Brennan LPN - 05/22/2023 11:30 AM EST Nurse phone call placed to patient to follow up on how she is doing after surgery. Patient reports she is doing well. States she feels good. No issues. Appreciative of call to check on her. Patient is aware she has f/u appt with surgeon on 06/01/23 and f/u scheduled with Dr. Garg on 06/04/23. Instructed to contact office with any questions or concerns. documented in this encounter Plan of Treatment Upcoming Encounters Date Type Department Care Team (Late st Contact Info) Description 06/01/2023 11:00 AM EST Office Visit Otolaryngology/Head & Neck/Facial Plastic Surgery [address] [place] [address] Bianka Matuet MD [address] [place] [address] 06/04/2023 1:40 PM EST Office Visit Family Practice 65 [facility] [place] [address] [place] [address] Silvano Garg DO [address] [place] [address] 06/05/2023 2:30 PM EST Imaging Radiology [address], [place] [address] [place] [address] Scheduled Procedures Name Priority Associated Diagnoses Date/Ti [...] 03/31/2021, Additional history exists Mammogram 02/13/2023 02/13/2022, 11/28, 04/02/2019, Additional history exists Depression, Most Recent Score >= 10 (will fire each visit until score < 10) 05/15/2023 05/14/2023 HbA1c 08/29/2023 02/28/2023, 06/29, 03/29/2022, Additional history exists TSH 02/29/2024 02/28/2023, 06/29, 12/27/2021, Additional history exists Albumin/Creatinine Ratio 03/30/2024 023, 03/29/2022, 05/25/2021 DXA Scan 04/10/2024 04/10/2022, 10/28, 11/06/2006 Diabetic Eye Exam 05/14/2024 05/14/2023, , 03/31/2021, Additional history exists Diabetic Foot Exam 05/14/2024 [...] D LEVEL ONCE IN A LIFETIME-USE SMARTSET# [id number] Completed 12/27/2022, 03/29/2022, 12/27/2021, Additional history exists Influenza Vaccine (FLU shot) Completed 04/2022, 01/19/2022, 02/14/2021, Additional history exists GARDASIL-HPV IMMUNIZATION SERIES Aged Out No longer eligible based on patient's age to complete this topic MENINGOCOCCAL (MENACTRA/MENVEO) Aged Out No longer eligible based on patient's age to complete this topic documented as of this encounter Medical Devices Implanted Type Area Supervisor Refractory Products Device Identifier Shelf Expiration Date Model / Serial / Lot Battery Advance Prime 89966 - [id number] Implanted:Qty: 1 on 07/21/2011 at OR [facility] [place] Right: Buttocks MED[employer]IC : NEUROLOGIC PAIN 09/10/2012 [id number] / [id number] / Lens Intraoc 16.5 - [id number] - [id number] Implanted:Qty: 1 on 02/13/2017 by Marco Antonio Melton MD at OR [facility] Left: Eye BAUSCH & LOMB 06/27/2021 [id number] / [id number] / [id number] Lens Intraoc 16.0 - [id number] - [id number] Implanted:Qty: 1 on 02/22/2017 by Marco Antonio Melton MD at OR [facility] Right: Eye BAUSCH & LOMB 04/29/2021 [id number] / [id number] / documented as of this encounter Advance [...] and were consensually agreed upon. Care Teams Leather Goods Sales Representative Relationship Specialty Start Date End Date Silvano Garg DO [address] [place] [address] PCP - General Internal Medicine 02/22/21 documented as of this encounter
--- OUTSIDE RECORDS SUMMARY | 2023-07-14 16:48 | External Medical Summary | Summary of Care ---
Author Name Unknown Organization [facility] Address [address] [facility] [place] [address] Phone [phone] Care Team Providers Care Senior Corporate Recruiter Name Role Phone Silvano Garg DO Primary Care Provider [phone] Encounter Details Date Type Department Care Team (Late st Contact Info) Description 06/19/2023 Population Health External Data Unspecified Department Allergies Active Allergy Reactions Criticality Noted Date Comments Bee Venom 02/09/2016 Erythromycin 04/08/1997 GI upset Iodinated Contrast Media 03/01/2012 IVP dye when she had stones 1989 At [facility] had nausea and emesis then she got [...] as of this encounter (statuses as of 06/20/2023) Medications Medication Sig Dispensed Refills Start Date End Date Status VITAMIN B COMPLEX PO TABSIndications:genera l health Take by mouth. 0 Active valACYclovir (VALTREX) [...] Reported on 07/25/2022 PreserVision AREDS 2 Oral CapsuleIndications:Nuve Take 1 Capsule by mouth in the morning. 0 2 Active FLUoxetine HCl 40 MG Oral Capsule (PROzac)Indications:Ma barry depressive disorder, recurrent, moderate (HCC),Generalized anxiety disorder Take by mouth 2 Capsules in the morning. 200 Capsule 3 2 Active Additional Information Patient taking differently:80 mg Oral Daily(AM),Indications: depression, Informant: Patient, Reported on 05/21/2023 Magnesium 125 MG Oral CapsuleIndications:Nuve Take 125 mg by mouth in the morning. 0 Active Vitamin D 25 MCG (1000 UT) Oral TabletIndications:Puuilo Take 1 Tablet by mouth in the [...] severe pain. 8 Tablet 0 4 Active HYDROcodone-Acetaminop hen 10-325 MG Oral Tablet Take 1 Tablet by mouth every 4 hours as needed for Pain, Moderate or Pain, Severe. 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 Thoracic and lumbosacral neuritis 09/24/2002 CERVICAL DISC DEGEN 10/04/2000 Acquired hypothyroidism LUMB-LUMBOSAC DISC DEGEN documented as of this encounter (statuses as of 06/20/2023) Resolved Problems Problem Noted Date Diagnosed Date [...] as of this encounter (statuses as of 06/20/2023) Immunizations Name Administration Dates Next Due COVID-19 mRNA, LNP-s, No Pre serve, 2-Dose Series (Pfizer) 03/31/2021,08/07/2020,07/12/2020 COVID-19, LNP-s, No Preserve , Melo-sucrose, [...] No 08/15/2017 documented as of this encounter Plan of Treatment Upcoming Encounters Date Type Department Care Team (Late st Contact Info) Description 06/25/2023 2:40 PM EST Office Visit Otolaryngology [facility] [address] [place] [address] Salo White PA-C [address] [place] [address] 06/27/2023 3:00 PM EST Office Visit Family Practice [address] [place] [address] [address] [place] [phone] Silvano Garg, [address] [place] [address] Scheduled Procedures Name Priority Associated Diagnoses Date/Ti [...] D LEVEL ONCE IN A LIFETIME-USE SMARTSET# [id number] Completed 12/27/2022, 03/29/2022, 12/27/2021, Additional history exists [...] this encounter Medical Devices Implanted Type Area Feed Crusher Operator Device Identifier Shelf Expiration Date Model / Serial / Lot Lead Surgical 65cm [id number] - [id number] Implanted:Qty: 1 on 07/21/2011 at OR [facility] [place] N/A: Spine Thoracic Medtrol 06/08/2015 [id number] / / [id number] Battery Advance Prime [id number] - [id number] Implanted:Qty: 1 on 07/21/2011 at OR [facility] [place] Right: Buttocks [employer] : NEUROLOGIC PAIN 09/10/2012 [id number] / [id number] / Lens Intraoc 16.5 - [id number] - [id number] Implanted:Qty: 1 on 02/13/2017 by Marco Antonio Melton MD at OR [facility] Left: Eye BAUSCH & LOMB 06/27/2021 [id number] / [id number] / [id number] Lens Intraoc 16.0 - [id number] - [id number] Implanted:Qty: 1 on 02/22/2017 by Marco Antonio Melton MD at OR [facility] Right: Eye BAUSCH & LOMB 04/29/2021 [id number] / [id number] / documented as of this encounter Advance [...] and were consensually agreed upon. Care Teams Senior Corporate Recruiter Relationship Specialty Start Date End Date Silvano Garg DO [address] [place] [address] PCP - General Internal Medicine 02/22/21 documented as of this encounter
--- OUTSIDE RECORDS SUMMARY | 2023-07-14 16:48 | External Medical Summary ---
Author Name Unknown Address Unknown Organization [id number]:[facility] [place] [facility] [address] [address] Laboratory Report Ordering Provider Test Date Status NATANAEL HORNER 05/21/2023 07:59:00 Final Pre result given at [address] Matute Observation Date Value Abnormality Reference (Units ) Status Parathyrin.intact [Mass/volume] in Serum or Plasma 05/21/2023 07:59:00 167 Above high normal 10-65 (pg/mL) Final Performing Location [facility] [place] [address] [place] [address]
--- OUTSIDE RECORDS SUMMARY | 2023-07-14 16:48 | External Medical Summary ---
Author Name Unknown Address Unknown Organization [id number]:[facility] [place] - [address] [facility] [address] Laboratory Report Ordering Provider Test Date Status SHIVERNELL 06/27/2023 15:24:36 Final Observation Date Value Abnormality Reference (Units ) Status HbA1C 06/27/2023 15:24:36 8.7 Above high normal 4. 0-5.6 (%) Final The use of HbA1c to monitor glycemic status is based on normal hemoglobin and HbA composition. This test should not be used in patients with abnormal hemoglobin that affects the half life of the red blood cell or the in vivo glycation rates. Glucose, estimated average 06/27/2023 15:24:36 203 Above high normal <126 (mg/dL) Mikhail avery Performing Location [facility] [place] - [address] [facility] [address]
--- OUTSIDE RECORDS SUMMARY | 2023-07-14 16:48 | External Medical Summary | Summary of Care ---
Author Name Unknown Organization [facility] Address [address] [place] [address] Phone [phone] Care Team Providers Care Cooking Chef Name Role Phone Silvano Garg DO Primary Care Provider [phone] Reason for Visit * Auth/Cert Specialty Diagnoses / Procedures Referred By Raúl grider Referred To Contact Diagnoses Hyperparathyroidism (HCC) Hyperparathyroidism (HCC) [E21.3] Procedures EXPLORE PARATHYROID GLANDS PARATHYROIDECTOMY Referral ID Status Reason Start Date Expiration Date Visits Re quested Visits Authorized [id number] Encounter Details Date Type Department Care Team (Latest Contact Info) Description 05/21/2023 6:06 AM EST - 05/21/2023 12:33 PM EST Hospital Encounter OR C, OPERATING ROOM [facility] [address] [place] [address] Bianka Matute MD [address] [place] [address] Discharge Disposition: Home - Self Care Allergies Active Allergy Reactions Criticality Noted Date Comments Bee Venom 02/09/2016 Erythromycin 04/08/1997 GI upset Iodinated Contrast Media 03/01/2012 IVP dye when she had stones 1989 At [place] had nausea and emesis then she got hives on her chest and arms Atorvastatin Calcium 01/05/2005 MIld elevation of CK and LFT's ( see [facility] labs of 01/03/05) Pregabalin Edema Other 05/19/2014 Swelling of legs and feet Nabumetone Rash 12/21/2011 Nsaids Other (Please comment) 02/08/2017 GI distress Penicillins Rash 04/08/1997 She was told when she was a toddler she got a rash documented as of this encounter (statuses as of 05/22/2023) Medications Medication Sig Dispensed Refills Start Date End Date Status VITAMIN B COMPLEX PO TABSIndications:Amootoon Take by mouth. 0 Active valACYclovir (VALTREX) [...] Reported on 07/25/2022 PreserVision AREDS 2 Oral CapsuleIndications:DoTheGlobe Take 1 Capsule by mouth in the morning. 0 2 Active FLUoxetine HCl 40 MG Oral Capsule (PROzac)Indications:Ma barry depressive disorder, recurrent, moderate (HCC),Generalized anxiety disorder Take by mouth 2 Capsules in the morning. 200 Capsule 3 2 Active Additional Information Patient taking differently:80 mg Oral Daily(AM),Indications: depression, Informant: Patient, Reported on 05/21/2023 Magnesium 125 MG Oral CapsuleIndications:DoTheGlobe Take 125 mg by mouth in the morning. 0 Active Vitamin D 25 MCG (1000 UT) Oral TabletIndications:[facility] Take 1 Tablet by mouth in the morning. 0 Active Albuterol Sulfate 1.25 MG/3ML Inhalation Nebulization SolutionIndications:Ac [place] bronchitis, unspecified organism Inhale 1.25 mg via [...] the morning. 60 Tablet 3 3 Active Fluticasone-Salmeterol 250-50 MCG/ACT Inhalation Aerosol Powder [...] accepted brochure Esophageal reflux 07/05/2005 LOC PRIM [id number] 08/15/2004 POSTLAMINECT SYND-LUMBAR 09/24/2002 Thoracic and lumbosacral [...] mRNA, LNP-s, No Pre serve, 2-Dose Series ([employer]) 03/31/2021,08/07/2020,07/12/2020 COVID-19, LNP-s, No Preserve , Melo-sucrose, Ages 12+ (Pfizer) 12/27/2021 Covid-19, Mrna, Lnp-s, Pf, B ivalent, 30 Mcg, IM, 12 yrs and above ([employer]) 05/23/2022 H1N1 2009 Influenza, IM 05/17/2009 Pneumococcal [...] Sign Reading Time Taken Comments Blood Pressure 130/52 05/21/2023 11:30 AM EST Pulse 80 05/21/2023 11:30 AM EST Temperature 36.6 C (97.9 F) 05/21/2023 9:25 AM ES T Respiratory Rate 13 05/21/2023 11:3 0 AM EST Oxygen Saturation 87% 05/21/2023 11: 30 AM EST Inhaled Oxygen Concentration - - Weight 127.7 kg (281 lb 9.6 oz) 05/21/2023 6:26 AM EST Height 154.9 cm (5' 1") 05/21/2023 6:26 AM EST Body Mass Index 53.21 05/21/2023 6:26 AM EST documented in this encounter Functional Status [...] No 08/15/2017 documented as of this encounter Discharge Summaries * Jose London DO - 05/21/2023 9:41 AM EST [facility] [address] [facility] [address] OUTPATIENT SURGERY DISCHARGE SUMMARY NOTE Name: Chloé Altamirano Location: OR [facility] Date: 05/21/2023 Time: 9:41 AM Surgery Date: 05/21/2023 Procedure: Procedure(s): PARATHYROIDECTOMY N/A Surgeon: Surgeon(s): Bianka Matute MD Desiato, Vincent M, DO Discharge Diagnosis: Hyperparathyroidism After examination of this patient, I have determined she is ready for discharge to home when the patient meets criteria. Discharge instructions were given to the patient. Jose London DO Otolaryngology - Head and Neck Surgery Resident 05/21/2023 9:41 AM documented in this encounter Discharge Instructions * Discharge Instr - AVS* Jose London DO - 05/21/2023 9:32 AM EST Discharge Date: 05/21/[address] Matute of the department of ENT at [phone] during business hours for any questions or test results. For after-hours emergencies call [phone] and have your doctor paged. The information below provides you with the instructions and the list of medications you need to betaking following discharge from the hospital. If you have any questions, please ask before leaving.Please carry this letter with you when you see your doctor in the clinic. If you have questions, you can reach us at the numbers above. Diet: Start with clear liquids (jello, tea, apple juice), avoid dairy products (milk, cheese, pudding, ice cream) and fried, greasy foods. Advance to unrestricted diet as tolerated. If nausea should occur, have clear liquids only until soft foods can be tolerated. Activity: A responsible adult must be with the patient for 24 hours after surgery. Rest today and tomorrow, and then increase activity as tolerated. No strenuous activity for 2 weeks. Driving: n/a. Date you may return to work or school: One week Follow up as scheduled. Special Instructions: Post-Op Instructions - Thyroidectomy/Parathyroidectomy Contact our clinic at the number listed above for any of the following concerns: Bleeding in Your Neck- Some bruising is normal but you should not have rapid or excess bruising andthis may be owing to bleeding in your neck. If this is severe or you are panicked owing to trouble breathing, sudden swelling in your throat, or are unable to swallow, call 911 immediately. Low Calcium- If you develop numbness and tingling in your face, lips, fingertips, or toes take two additional doses of calcium carbonate (TUMS). The symptoms should go away in 15 to 30 minutes. If the symptoms persist, at 30 minutes you can repeat this. If the symptoms do still do not go away, callthe ENT clinic. Infection- If you have a temperature above 100.4F by mouth for 2 readings taken 4 hours apart, increased redness and/or warmth at the incision site, puslike drainage, or pain not relieved by pain pills, there may be an infection in your neck. Please call your the ENT clinic. Care for the Surgical Site You may shower, but keep neck area dry by using a washcloth and Saran wrap to cover the incision. If it gets damp, pat dry with a clean towel. Do NOT apply any ointment or lotion to the incision. Do NOT remove the surgical tape covering your incision. You will be provided with instructions on how to remove the tape gradually after your follow up appointment. documented in this encounter H&P Notes * Jose Leyva MD - 05/21/2023 7:02 AM EST History & Physical - Otolaryngology [address] [address] Name: Chloé Altamirano Location: [facility]/OR Date: 05/21/2023 Time: 7:02 AM CC: recurrent primary hyperparathyroidism HPI: The patient presents today for scheduled surgery. She denies any changes to health since last clinic visit. Denies recent illness. Denies use of ASA, NSAIDs, or other anticoagulants. Medical History: Patient Active Problem List Diagnosis Code CERVICAL DISC DEGEN M50.30 POSTLAMINECT SYND-LUMBAR M96.1 Thoracic and lumbosacral neuritis M54.14, M54.17 Acquired hypothyroidism E03.9 LUMB-LUMBOSAC DISC DEGEN M51.37 LOC PRIM KTCOJINN-D-SSC M17.10 Esophageal reflux K21.9 ADVANCE DIRECTIVE INFORMATION Pure hypercholesterolemia E78.00 MEDICATION USE AGREEMENT [id number] HTN, goal below 140/90 I10 Restless legs syndrome G25.81 Generalized anxiety disorder F41.1 Major depressive disorder, recurrent, moderate ([facility]) F33.1 Body mass index (BMI) of 50.0 to 59.9 in adult ([facility]) Z68.43 Age-related osteoporosis without current pathological fracture M81.0 Hyperparathyroidism, primary ([facility]) E21.0 Parathyroid adenoma D35.1 DM type 2, goal HbA1c < 8% ([facility]) E11.9 Past Medical History: Diagnosis Date Acquired hypothyroidism Calculus of kidney Secondary to hyperparathyroidism CERVICAL DISC DEGEN 10/04/2000 Depressive disorder, not elsewhere classified hosp. at [facility] [place]- one event Disorder of intervertebral disc Aubrey Diverticulosis of colon DM type 2, goal HbA1c < 8% ([facility]) 03/30/2023 Dyslipidemia, goal LDL below 130 04/08/2009 Per Lipid Taxonomy. Dyslipidemia, goal to be determined Generalized anxiety disorder 09/08/2020 GERD (gastroesophageal reflux disease) HTN, goal below 140/90 07/31/2012 LUMB-LUMBOSAC DISC DEGEN Major depressive disorder, recurrent, moderate (HCC) 01/04/2021 Morbid obesity, BMI not known (HCC) Osteoarthritis of knee Other hyperparathyroidism (HCC) Parathyroid adenoma 02/28/2023 POSTLAMINECT SYND-LUMBAR 09/24/2002 Postlaminectomy syndrome of lumbar region Prediabetes 06/12/2017 Per Prediabetes protocol #1 Restless legs syndrome 03/05/2014 Past Surgical History: Procedure Laterality Date ARTHROPLASTY KNEE TOTAL 06/05 Bilateral total knee replacements- Dr. Freeman DELIVERY COLONOSCOPY, DIAGNOSTIC (RECTUM) 04/06/08 repeat in 10 yrs COLONOSCOPY, DIAGNOSTIC (RECTUM) 09/03/2018 normal, repeat 10 yrs/[facility] CYSTO/URETERO W/LITHOTRIPSY Right 04-28-2015 CYSTO/URETERO W/LITHOTRIPSY Right 05-07-2015 CYSTO/URETERO W/LITHOTRIPSY Right 05/07/2015 CYSTOURETHROSCOPY URETEROSCOPY WITH LITHOTRIPSY AND STENT INSERTION performed by Chiara Quan MD at OR [facility] CYSTOSCOPY 07-16-06 stent removal CYSTOSCOPY/INSERTION OF STENT 07/13/06 CYSTOURETHROSCOPY WITH INSERTION URETERAL STENT performed by PAUL VICTORIA at [facility] CYSTOSCOPY/URETERAL CATHETER 07/13/06 CYSTOURETHROSCOPY WITH URETERAL CATHETER performed by PAUL VICTORIA at [facility] CYSTOURETRO &/OR PYELOSCOPE 07/13/06 CYSTOURETHROSCOPY URETROSCOPY AND OR PYELOSCOPY performed by PAUL VICTORIA at [facility] CYSTOURETRO W/STONE REMOVE 07/13/06 CYSTOURETHROSCOPY URETROSCOPY WITH STONE REMOVAL performed by PAUL VICTORIA at [facility] EXPLORE PARATHYROID GLANDS 11/16/06 PARATHYROIDECTOMY performed by KEDAR HENDERSON at OR [facility] FLUORO MISCELLANEOUS 07/13/06 FLUROSCOPY UP TO ONE HOUR performed by PAUL VICTORIA at [facility] FRAGMENT KIDNEY STONE BY SHOCK WAVE 1987 [...] MEDIUM performed by PAUL VICTORIA at OR [facility] LAPAROSCOPY; CHOLECYSTECTOMY LIGATE/CUT OVIDUCT(S) Tubal Ligation LUMBAR HEMILAMINECTOMY L 3-4 discectomy LUMBAR HEMILAMINECTOMY 12/23/01 L3-4 left hemilaminectomy, disckectomy, with foraminotomy PARTIAL REMOVAL OF THYROID LOBE right lobectomy REDUCTION OF BREAST 1995 REMOVAL OF TONSILS, UNDER AGE 10 Tonsillectomy REMOVE CATARACT, INSERT LENS PROSTH Left 02/13/2017 left EXTRACAPSULAR CATARACT REMOVAL WITH INTRAOCULAR LENS performed by Marco Antonio Melton MD at OR [facility] REMOVE CATARACT, INSERT LENS PROSTH Right 02/22/2017 right EXTRACAPSULAR CATARACT REMOVAL WITH INTRAOCULAR LENS performed by Marco Antonio Melton MD at OR [facility] REMOVE GALLBLADDER 07/11/05 Dr. Peña REPAIR DETACHED RETINA, VITRECTOMY Right 08/12/2021 PARS PLANA VITRECTOMY, AIR FLUID EXCHANGE, ENDOLASER, FLUID GAS EXCHANGE SF6, RIGHT EYE (25g) performed by Kierra Cunningham MD at OR [facility] REPAIR RUPTURED ROTATOR CUFF, CHRON REVISE/REMOVE SPINAL NEURORECEIVER 07/21/2011 REVISION OR REMOVAL IMPLANTED SPINAL NEUROSTIMULATOR performed by LORETO HERNANDEZ at OR [facility] SACROILIAC JOINT INJECT W/GUIDANCE 12/06/2017 INJECTION SACROILIAC JOINT performed by Edwardo Osullivan DO at OR [facility] SACROILIAC JOINT INJECT W/GUIDANCE 04/11/2018 INJECTION SACROILIAC JOINT performed by Edwardo Osullivan DO at OR [facility] SACROILIAC JOINT INJECT W/GUIDANCE 09/17/2019 INJECTION SACROILIAC JOINT performed by Edwardo Osullivan DO at OR [facility] SPINAL NEUROSTIM ELECTRODE PLATE, REVISION 07/21/2011 REVISION SPINAL NEUROSTIM ELECTRODE PLATE performed by LORETO HERNANDEZ at OR [facility] TOTAL ABD HYSTERECTOMY W/WO REMOVAL OF TUBE(S) complete hysterectomy at age 44 Review of patient's allergies indicates: Allergen Reactions Bee Venom Erythromycin GI upset Iodinated Contrast Media IVP dye when she had stones 1988 At [place] had nausea and emesis then she got hives on her chest and arms Lipitor [Atorvastatin Calcium] MIld elevation of CK and LFT's ( see [facility] labs of 01/03/05) Lyrica [Pregabalin] Edema Other Swelling of legs and feet Nabumetone Rash Nsaids Other (Please comment) GI distress Penicillins Rash She was told when she was a toddler she got a rash Social History Tobacco Use Smoking status: Never Passive exposure: Past Smokeless tobacco: Never Tobacco comments: smokes cigars Substance Use Topics Alcohol use: Yes Comment: occasionaly Vaping/E-Cigarette Use Vaping/E-Cigarette Use Never User Vaping/E-Cigarette Substances Vaping/E-Cigarette Devices Family History Problem Relation Age of Onset Cancer Mother Pancreatic Allergies Mother Hayfever Hypertension Mother Arthritis Mother Diabetes Father Hypertension Father Obesity Father Kidney cancer Father Diabetes Grandfather (Maternal) Hypertension Brother Arthritis Grandmother (Maternal) Diabetes Grandmother (Paternal) Obesity Grandmother (Paternal) Other (Nephrolithiasis) Other cousin on mother's side Review of Systems: Negative unless otherwise indicated in HPI. Physical Exam: Vital Signs: BP: / Pulse: Temp: Resp: SpO2: No acute distress Regular rate and rhythm without murmur Lungs clear to auscultation bilaterally Neck: Visualization and palpation of the neck revealed no mass lesions, no thyromegaly or thyroid masses. No skin lesions or inflammatory processes were detected. The cervical musculature was normal to palpation. Two previous thyroid and parathyroid surgical scars well healed. Impression: Chloé Altamirano is a 68 year old female who presents with the above diagnosis for scheduled surgery. Plan: - NPO - SCDs - No antibiotics - Proceed with revision parathyroidectomy Jose Leyva MD 05/21/2023 7:03 AM documented in this encounter Nursing Notes * Pranav Palmer RN - 05/21/2023 11:32 AM EST Dual Licensed Skin Assessment completed by myself and amanda braga. The patient is/has a N/A Skin Breakdown (includes non blanchable erythema): Yes - Surgical/Procedural changes only. * Maria Elena Núñez RN - 05/21/2023 6:54 AM EST Dual Licensed Skin Assessment completed by self and Dre BRAGA. The patient is/has a N/A Skin Breakdown (includes non blanchable erythema): No * Rosetta Nichols RN - 05/17/2023 2:28 PM EST NO ANESTHESIA EVAL REQUESTED PER CASE DOCUMENTATION. Pre-operative chart review completed-instructions provided based on current medication list in [facility] Presurgery instructions sent to patient via Timetric message-no call made PREOP PATIENT INFORMATION AND EDUCATION: MEDICATION INSTRUCTIONS: The day of surgery/procedure, you may TAKE the following medications with a sip of water up to 2 hours prior to your arrival time: Advair Diskus Hydrocodone-acetaminophen if needed Pantoprazole Wellbutrin SR Gabapentin Amlodipine Hydroxyzine if needed Buspar Rosuvastatin Albuterol Sulfate nebulizer if needed Albuterol inhaler if needed, please bring to the hospital with you Levothyroxine Prozac Valtrex if needed AVOID/ DO NOT TAKE any medications the morning of surgery/procedure that are not listed above. AVOID / DO NOT TAKE the following medications the evening prior to and morning of surgery/procedure: Metformin STOP taking the following medications the noted number of days prior to surgery/procedure unless otherwise specified by your surgeon: Diclofenac Sodium Gel and Diclofenac Epolamine Patch as directed by your surgeon-please contact your surgeon regarding Diclofenac Sodium Gel and Diclofenac Epolamine Patch instructions Please follow surgeon's instructions regarding use of Aspirin, Coumadin, Plavix, Eliquis, and any other blood thinner including NSAIDs (non-steroidal anti- inflammatory drugs, eg, Advil, Ibuprofen, Motrin, Aleve, Naproxen); if you have any questions regarding your anticoagulation therapy please contact your surgeon's clinic. Please verify any proposed stoppage of your anticoagulation therapy with the agent's prescribing provider. 10 days prior to surgery/procedure Stop all Herbal supplements, Green Tea, Turmeric, Melatonin, CBD, THC, etc. Stop all Vitamins (including Vitamin E) 24 hours prior to surgery/procedure DO NOT consume any alcohol. DO NOT use medical marijuana. DO NOT smoke or use tobacco products of any kind after midnight prior to surgery. *Using any of these products may increase your risks of procedural complications. IF IT IS LESS THAN RECOMMENDED STOPPAGE TIME PLEASE STOP AT TIME OF NOTIFICATION. FASTING RECOMMENDATIONS: To reduce risk, it is important for all elective surgery patients to follow the specific fasting guidelines listed below. If you have received more stringent guidelines, please follow the MOST RESTRICTIVE guidelines that you have been provided. DO NOT EAT after midnight on the night prior to your surgery date. You are allowed to drink clear liquids up to two hours prior to arrival time to the hospital or surgery center. Examples of clear liquids include water, clear fruit juice without pulp, clear carbonated beverages, clear tea, and black coffee. Any drinks given by your surgical service take as directed. /pediatric patients who currently drink breast milk, infant formula, and non-human milk must not eat after midnight. These patients are allowed to drink only the liquids listed below up to two hours prior to arrival time to the hospital or surgery center: Ingested Material Minimum Fasting Time Clear liquid After midnight up to 2 hours prior to arrival time Breast milk Up to 4 hours prior to arrival time formula Up to 6 hours prior to arrival time Non-human milk Up to 6 hours prior to arrival time THE DAY BEFORE YOUR SURGERY: -Drink plenty of fluid the day before your surgery. Contact your surgeon's office if you develop any of the following within 2 weeks of surgery: A cold Infection Fever Shingles Chicken pox or exposure to chicken pox Open areas such as scrapes, cuts, gorman or other skin conditions Rashes GENERAL INSTRUCTIONS FOR PREPARING FOR SURGERY: BATHING INSTRUCTIONS: Bathe the evening prior to and the morning of surgery/procedure. Cleanse your body using ONLY anti-bacterial soap (eg, Dial, Safeguard) or any specific soap/cleansers and instructions provided by your surgeon (eg, Chlorhexidine). -You should brush your teeth the morning of surgery. Do NOT apply any lotions, powders, sprays, creams, oils, make-up, or deodorants after bathing. No hairspray, or nail hebrew on fingers or toes. Day of surgery/procedure do not use tampons. If you wear contacts wear your eyeglasses if available otherwise bring your contact supplies with you to remove them prior to your surgery/procedure. If you wear glasses or dentures, please bring cases in which you can store them during your surgery. Please remove all piercings and jewelry and leave them at home. Wear comfortable and loose clothing. -Please leave all valuables at home. -If you use a CPAP and are staying overnight, please bring your mask and tubing with you to the hospital. -If you use an assistive mobility device (walker, cane, etc), please label it with your name and bring to hospital. -An escort transit bus driver is required if you are being discharged the same day of the surgery. You should have a responsible adult over the age of 18 [address] you home. This person should be present with youin the hospital at the time of discharge and for the first 24 hours after the surgery to support your needs. If you are taking a taxi home, you must have your responsible alliance party accompany you in the taxi ride home at the time of discharge. OR times subject to change. Please check [employer]aels Stores[employer] messages the day/evening before your surgery forany updates. PRE-OP: You will be taken to the pre-op area where your vital signs (blood pressure, pulse and temperature)will be taken. Any preparations that need to be done will be done there. When it is time for your surgery, you will be taken to the operating room. PARENTS OF PEDIATRIC PATIENTS WILL BE ALLOWED TO STAY WITH THEIR CHILDREN UNTIL THEY ARE ESCORTED TO THE OPERATING ROOM OUTPATIENT SURGERY PATIENTS: After your surgery you will be taken to the Same Day Surgery Unit when you are awake and will go home from there. You will get instructions about your home care before you leave. Arrange to have someone drive you home from the hospital. You may not drive for 24 hours after anesthesia. You must havean adult stay with you at home for 24 hours after your operation. This is very important. If you are not able to comply with these guidelines, your Short Stay surgery cannot be done. ADMISSION PATIENTS: After your stay in the recovery area, you will be taken to your room. Your family may visit you in your room based on current visitation policy. If a next day discharge is expected, it is important to make arrangements for a transit bus driver to take you home. Please be aware our visitation policies are subject to change Professionals, attendants, caregivers or family members are allowable visitors for patients with intellectual, developmental or cognitive disabilities, communication barriers or behavioral concerns. Because patients' and families' needs vary, they will be taken into account when applying visitation restrictions. [facility]: Contact # [phone] Directions to Surgical Suite in from the [facility] Entrance The Surgical Waiting Room can be found in the Lobby of [facility]. Enter through Main Lobby Entrance and the Waiting Room is directly in front of you. Proceed to check in and give them your name. Directions to Surgical Suite from the East Entrance Enter the East entrance and follow the hallway to the J elevator. Take the J elevator up to Level 1. Continue down the long hallway to the main [facility] Lobby. The Surgical Waiting Room will be on your Right. Proceed to check in and give them your Name. Directions to Surgical Suite from the Parking Garage Enter the AM lobby and proceed down the shen to the left. At the end of the shen, turn right. Continue down the long hallway to the main [facility] Lobby. The Surgical Waiting Room will be on your Right. Proceed to check in and give them your Name. THANK YOU FOR CHOOSING [facility]! documented in this encounter OR Notes * OR Surgeon - Jose London DO - 05/21/2023 9:35 AM EST OPERATIVE RECORD [address] [address] Chloé Altamirano MR # [id number] LOCATION: OR (Operating Room 17) SERVICE: Otolaryngology - Head & Neck Surgery DATE OF PROCEDURE: 05/21/2023 PRE-OP DIAGNOSIS: Hyperparathyroidism POST-OP DIAGNOSIS: Same PROCEDURE: Revision parathyroidectomy with intra-operative laryngeal nerve monitoring Modifier 22 for increased procedural services. This case required greater than usual effort relatedto the following factors: increased time, increased technical difficulty of procedure, severity of patient's condition, increased physical and mental effort required. Due to: Extensive scarring in previously operated field Body habitus impeding surgical access (morbid obesity) SURGEON: Braden Matute MD ASSISTANTS: Jeremiah London DO ANESTHESIA: General endotracheal anesthesia OPERATIVE FINDINGS: Fibroinflammatory tissue surrounding the left thyroid gland indicative of prior surgery Grossly enlarged, adenomatous appearing left superior parathyroid gland removed; consistent with "hypercellular parathyroid tissue, possible adenoma" on frozen section Left recurrent laryngeal nerve identified, preserved and stimulated strongly at conclusion of the case Pre-incision rapid PTH = 167 pg/mL. 10 minute post-excision rapid PTH = 82 pg/mL DRAINS and/or PACKS: None ESTIMATED BLOOD LOSS: 5 mL FLUIDS: Per anesthesia record URINE: 0 mL SPECIMEN(s) OBTAINED and DISPOSITION: Left superior parathyroid gland sent for frozen section INDICATIONS & HISTORY: This is a 68 year old year old female with history of hyperparathyroidism. She presents today for scheduled surgery. DESCRIPTION OF OPERATION: A timeout was held and the patient was identified and the procedure verified. With the patient in the supine position and their neck extended. General anesthesia was induced via an orally placed endotracheal tube with nerve integrity monitor leads. The positioning of the endotracheal tube was verified after positioning with a GlideScope. Bilateral lower extremity sequential compression device stockings were placed. Patient's neck was extended. Patient was prepped and draped in the usual fashion for anterior neck surgery. A preoperative blood draw was performed via peripheral blood draw by Anesthesiology. This returned via rapid parathyroid hormone testing as 167 pg/mL A low Ivan incision measuring ~4 cm in length was marked over scar from prior surgery and subsequently injected with 1% lidocaine with 1:100,000 epinephrine. After allowing the local to take effect incision was made with a cold knife and the incision deepened through the platysma using monopolar electrocautery. Superior and inferior subplatysmal flaps were then carefully elevated. The midline raphe was divided with electrocautery and extended superiorly and inferiorly using the harmonic scalpel. Dissection began on the left, as this was the side localized on pre-operative imaging. The left sternohyoid muscle was elevated off of the sternothyroid muscleand retracted laterally. The left sternothyroid muscle was identified and elevated off of the thyroid capsule and left intact. The strap muscles were then retracted laterally. This exposed a diminutive left thyroid lobe. There was fibro- inflammatory tissue surrounding the left thyroid lobe, making dissection tedious. The inferior pole of the left thyroid lobe was then carefully dissected. Using blunt dissection, an approximately 1.5 cm mass was encountered and further delineated adjacent to theinferior pole of the left thyroid lobe in the paratracheal groove. The suspicious mass was carefully dissected free and removed intact. The gland was then sent for frozen section and returned as hyper cellular parathyroid tissue, possible adenoma. A 10 minute post-excision PTH was sent for rapid PTH testing and came back as 82 pg/mL. Satisfied that the responsible parathyroid gland had been removed, closure was begun. The wound was irrigated and hemostasis was assured with a Valsalva manuever. There was no significant bleeding, and surgicel was applied to the posterior aspect of the left thyroid lobe. The incision was then closed in a multilayered fashion using 3-0 Vicryl to re-approximate the midline raphe, platysma and subcutaneous tissue. Skin closure with surgical glue and flesh colored Steri-Strip was then placed. All counts were reported by nursing as being correct. The patient was allowed to emerge from anesthesia and taken tothe Post Anesthesia Care Unit in stable condition. DISPOSITION: The patient was transferred to the Post-Anesthesia Care Unit. APPARENT INTRAOPERATIVE COMPLICATIONS: None PATIENT CONDITION: Stable ATTESTATION: Dr. Matute was present for the vargas portions of the procedure. Jeremiah London DO Resident Physician Otolaryngology -Head & Neck Surgery [address] [phone] cc: Professional Reimbursement and Compliance documented in this encounter Plan of Treatment Upcoming Encounters Date Type Department Care Team (Late st Contact Info) Description 05/22/2023 10:30 AM EST Scheduled Telephone Family Practice [address] [phone] [place], Nurse [facility] [address] [address] 06/01/2023 11:00 AM EST Office Visit Otolaryngology/Head & Neck/Facial Plastic Surgery [address] [place] [id number] Bianka Matute MD [address] [place] [id number] 06/04/2023 1:40 PM EST Office Visit Family Practice [address], [place] [address] [place] [phone] Silvano Garg, [address] [place] [address] 06/05/2023 2:30 PM EST Imaging Radiology [facility] [facility], [place] [address] [place] [address] Pending Results Name Type Priority Associated Diagnoses Date /Time SURGICAL PATHOLOGY Pathology Routine Hyperparathyroidism (HCC) 05/21/2023 8:44 AM EST Scheduled Orders Name Type Priority Associated Diagnoses Orde r Schedule SURGICAL PATHOLOGY Pathology Routine Hyperparathyroidism (HCC) Release Upon Ordering for 1 Occurrences starting 05/21/2023, 1 completed Scheduled Procedures Name Priority Associated Diagnoses Date/Ti [...] D LEVEL ONCE IN A LIFETIME-USE SMARTSET# [id number] Completed 12/27/2022, 03/29/2022, 12/27/2021, Additional history exists Influenza Vaccine (FLU shot) Completed 04/2022, 01/19/2022, 02/14/2021, Additional history exists GARDASIL-HPV IMMUNIZATION SERIES Aged Out No longer eligible based on patient's age to complete this topic MENINGOCOCCAL (MENACTRA/MENVEO) Aged Out No longer eligible based on patient's age to complete this topic documented as of this encounter Medical Devices Implanted Type Area Aircraft Rigging And Controls Mechanic Device Identifier Shelf Expiration Date Model / Serial / Lot Battery Advance Prime 22321 - [id number] Implanted:Qty: 1 on 07/21/2011 at OR [facility] Right: Buttocks [employer] : NEUROLOGIC PAIN 09/10/2012 [id number] / [id number] / Lens Intraoc 16.5 - [id number] - [id number] Implanted:Qty: 1 on 02/13/2017 by Marco Antonio Melton MD at OR [facility] Left: Eye [employer] 06/27/2021 [id number] / [id number] / [id number] Lens Intraoc 16.0 - [id number] - [id number] Implanted:Qty: 1 on 02/22/2017 by Marco Antonio Melton MD at OR [facility] Right: Eye [employer] 04/29/2021 [id number] / [id number] / documented as of this encounter Procedures Procedure Name Priority Date/Time Associated Diagnosis Comments PTH STAT 05/21/2023 9:42 AM EST CALCIUM STAT 05/21/2023 9:42 AM EST PTH, INTRAOPERATIVE ([facility] ONLY) STAT 05/21/2023 8:54 AM EST Hyperparathyroidis m (HCC) PTH, INTRAOPERATIVE ([facility] ONLY) STAT 05/21/2023 7:59 AM EST Hyperparathyroidis m (HCC) GLUCOSE METER, POINT OF CARE KIMBERLYN 05/21/2023 7:15 AM EST documented in this encounter Results * CALCIUM (05/21/2023 9:42 AM EST) Calcium 10.0 8.4 - 10.2 mg/dL 05/21/2023 10:17 AM EST LABORATORY [facility] Blood Venous blood specimen / Unknown Venipuncture / Unknown 05/21/2023 9:42 AM EST 05/21/2023 9:48 AM EST Jose London DO LAB BLOOD ORDERABLE S LABORATORY [facility] [address] [place] [address] * PTH (05/21/2023 9:42 AM EST) PTH 15 15 - 65 pg/mL 05/21/2023 2:08 PM EST LABORATORY [facility] Blood Venous blood specimen / Unknown Venipuncture / Unknown 05/21/2023 9:42 AM EST 05/21/2023 9:48 AM EST Jose London DO LAB BLOOD ORDERABLE S LABORATORY [facility] [address] [place] [address] * (ABNORMAL) PTH, INTRAOPERATIVE ([facility] ONLY) (05/21/2023 8:54 AM EST) PTH, Intraoperative 82(H) 10 - 65 pg/mL 05/21/2023 9:07 AM EST LABORATORY [facility] Blood Venous blood specimen / Unknown Venipuncture / Unknown 05/21/2023 8:54 AM EST 05/21/2023 9:01 AM EST Narrative LABORATORY [facility] - 05/21/2023 9:07 AM EST Post #1 given at [address] Matute Bianka Matute MD LAB BLOOD ORDERA BLES Performing Organization Address City/[facility]/ZIP Co de Phone Number LABORATORY [facility] [address] [place] [address] * (ABNORMAL) PTH, INTRAOPERATIVE ([facility] ONLY) (05/21/2023 7:59 AM EST) PTH, Intraoperative 167(H) 10 - 65 pg/mL 05/21/2023 8:21 AM EST LAB[facility]ORY [facility] Blood Venous blood specimen / Unknown Venipuncture / Unknown 05/21/2023 7:59 AM EST 05/21/2023 8:17 AM EST Narrative LABORATORY [facility] - 05/21/2023 8:21 AM EST Pre result given at [address] Matute Bianka Matute MD LAB BLOOD ORDERA BLES Performing Organization Address City/[facility]/ZIP Co de Phone Number LABORATORY [facility] [address] [place] [address] * (ABNORMAL) GLUCOSE METER, POINT OF CARE (05/21/2023 7:15 AM EST) Glucose Meter 156(H) 70 - 120 mg/dL 05/21/2023 7:18 AM EST [facility] Blood Whole blood specimen / Unknown 05/21/2023 7:15 AM EST 05/21/2023 7:18 AM EST Bianka Matute MD LAB POINT OF CAR E TEST DOCKED DEVICE UNSOLICITED RESULTS [facility] [address] [place] [address] documented in this encounter Visit Diagnoses Diagnosis Hyperparathyroidism (HCC) Hyperparathyroidism, unspecified documented in this encounter Administered Medications Inactive Administered Medications - up to 3 most recent administrations Medication Order MAR Action Action Date Dose Rate Site albuterol-ipratropium (Duoneb) inhalation solution 3 mL 3 mL, Nebulizer, ONCE, On Sun05/21/23 at 0745, For 1 dose, 3 mL = 0.5 mg ipratropium/ 2.5 mg albuterol, Pre-Op Given 05/21/2023 7:24 AM EST 3 mL fentaNYL (PF) inj 25 mcg 25 mcg, IV Push, Q5 MIN PRN Pain, Severe, Starting on Sun05/21/23 at 0950, Until Sun05/21/23 at 1634, Administer up to a total of 100mcg. Administer only postop in PACU When given IV Push its recommended that the dose be given over 3 to 5 minutes., PACU Given 05/21/2023 10:24 AM EST 25 mcg Given 05/21/2023 10:03 AM EST 25 mcg Given 05/21/2023 9:56 AM EST 25 mcg isolyte-S pH 7.4 infusion Intravenous, at 25 mL/hr, All Patients EXCEPT Dialysis patients Plasma-LYTE 148, isolyte-S, and isolyte-S pH 7.4 are considered equivalent - including for MAR barcode scanning., CONTINUOUS, Starting on Sun05/21/23 at 0730, Until Sun05/21/23 at 1634, Pre-Op New Bag 05/21/2023 7:24 AM EST 25 mL/h r 25 mL/hr lidocaine 1 % inj 1 mg 1 mg (0.1 mL), Percutaneous, ONCE PRN Other, Difficult IV starts requiring > 20 guage catheter and/ or by patient request, Starting on Sun05/21/23 at 0653, Until Sun05/21/23 at 1634, For 1 dose, Pre-Op oxyCODONE-acetaminophen 5-325 mg per tab (Percocet) 2 Tablet 2 Tablet, Oral, ONCE, On Sun05/21/23 at 1215, For 1 dose, Maximum of 4 grams (4000 mg) of acetaminophen per day, PACU Given 05/21/2023 11:50 AM EST 2 Tablets oxygen GAS Inhalation, OXYGEN, First dose on Sun05/21/23 at 1030, Until Discontinued, Device/Managed by: Low Flow Device, Goal SPO2 (%): 91-95, Starting Device: Nasal Cannula, Initial Flow Rate (LPM): 2, Lowest Support: Nasal Cannula: Flow 0-6 LPM. Titrate up/down by 1 LPM., Higher Support: Non-Rebreather (NRB) Mask: Minimum of 10 LPM. Titrate to maintain bag inflation., Titration Interval: Q2 minutes and as needed., Notify Provider: Other, Notify Provider [other]: If SpO2 less than 88% or NOT maintaining SpO2 greater than 92% notify physician immediately., Until awake OR SpO2 greater than 95% for 15 minutes, then Titrate O2 flow rate down to maintain SpO2 greater than 92% If SpO2 is less than 88% place patient on NRB mask at 10 LPM documented in this encounter Active and Recently Administered Medications Times are shown in EST. Scheduled Medication Order 05/19/2023 05/20/2023 05/21/2023 albuterol-ipratropium (Duoneb) inhalation solution 3 mL (COMPLETED) 3 mL, Nebulizer, ONCE, On Sun05/21/23 at 0745, For 1 dose, 3 mL = 0.5 mg ipratropium/ 2.5 mg albuterol, Pre-Op 0724 (Given - Provid er: Maria Elena Núñez RN) oxyCODONE-acetaminophen 5-325 mg per tab (Percocet) 2 Tablet (COMPLETED) 2 Tablet, Oral, ONCE, On Sun05/21/23 at 1215, For 1 dose, Maximum of 4 grams (4000 mg) of acetaminophen per day, PACU 1150 (Given - Provid er: Pranav Palmer RN) oxygen GAS Inhalation, OXYGEN, First dose on Sun05/21/23 at 1030, Until Discontinued, Device/Managed by: Low Flow Device, Goal SPO2 (%): 91-95, Starting Device: Nasal Cannula, Initial Flow Rate (LPM): 2, Lowest Support: Nasal Cannula: Flow 0-6 LPM. Titrate up/down by 1 LPM., Higher Support: Non-Rebreather (NRB) Mask: Minimum of 10 LPM. Titrate to maintain bag inflation., Titration Interval: Q2 minutes and as needed., Notify Provider: Other, Notify Provider [other]: If SpO2 less than 88% or NOT maintaining SpO2 greater than 92% notify physician immediately., Until awake OR SpO2 greater than 95% for 15 minutes, then Titrate O2 flow rate down to maintain SpO2 greater than 92% If SpO2 is less than 88% place patient on NRB mask at 10 LPM 1030 (Due) Continuous Medication Order 05/19/2023 05/20/2023 05/21/2023 isolyte-S pH 7.4 infusion Intravenous, at 25 mL/hr, All Patients EXCEPT Dialysis patients Plasma-LYTE 148, isolyte-S, and isolyte-S pH 7.4 are considered equivalent - including for MAR barcode scanning., CONTINUOUS, Starting on Sun05/21/23 at 0730, Until Sun05/21/23 at 1634, Pre-Op 0724 (New Bag - Prov ider: Maria Elena Núñez RN) PRN Medication Order 05/19/2023 05/20/2023 05/21/2023 EPINEPHrine 4 mg in sodium chloride 0.9 % 16 mL (CANCELED) ONCE PRN INTRA PROCEDURE, Starting on Sun05/21/23 at 0824, Until Sun05/21/23 at 0920, Intra-Op 0824 (Given - Provid er: Jose London, DO - Comment: prn on cottonoids) fentaNYL (PF) inj 25 mcg 25 mcg, IV Push, Q5 MIN PRN Pain, Severe, Starting on Sun05/21/23 at 0950, Until Sun05/21/23 at 1634, Administer up to a total of 100mcg. Administer only postop in PACU When given IV Push its recommended that the dose be given over 3 to 5 minutes., PACU 0956 (Given - Provid er: Pranav Palmer RN)1003 (Given - Provider: Pranav Palmer RN)1024 (Given - Provider: Pranav Palmer RN) lidocaine 1 % inj 1 mg 1 mg (0.1 mL), Percutaneous, ONCE PRN Other, Difficult IV starts requiring > 20 guage catheter and/ or by patient request, Starting on Sun05/21/23 at 0653, Until Sun05/21/23 at 1634, For 1 dose, Pre-Op lidocaine-epinephrine 1 %-1:[id number] inj (CANCELED) ONCE PRN INTRA PROCEDURE, Starting on Sun05/21/23 at 0813, Until Sun05/21/23 at 0920, Intra-Op 0813 (Given - Provid er: Jose London DO) sodium chloride IR 0.9 % irrigation (CANCELED) ONCE PRN INTRA PROCEDURE, Starting on Sun05/21/23 at 0824, Until Sun05/21/23 at 0920, Intra-Op 0824 (Given - Provid er: Jose London DO - Comment: prn on field) surgicel 2x3 hemostat (CANCELED) ONCE PRN INTRA PROCEDURE, Starting on Sun05/21/23 at 0850, Until Sun05/21/23 at 0920, Intra-Op 0850 (Given - Provid er: Jose London DO) documented in this encounter Advance Directives Latest [...] and were consensually agreed upon. Care Teams Cooking Chef Relationship Specialty Start Date End Date Silvano Garg DO [address] [place] [place] [address] PCP - General Internal Medicine 02/22/21 documented as of this encounter
--- OUTSIDE RECORDS SUMMARY | 2023-07-14 16:48 | External Medical Summary ---
Author Name Unknown Address Unknown Organization [id number]:LABORATORY [facility] [place] - [address] [place] [address] Laboratory Report Ordering Provider Test Date Status SHIVERNELL 06/27/2023 15:24:36 Final Observation Date Value Abnormality Reference (Units ) Status Parathyrin.intact [Mass/volume] in Serum or Plasma 06/27/2023 15:24:36 82 Above high normal 15-65 (pg/mL) Final Performing Location LABORATORY [facility] [place] - [address] [place] [address]
--- OUTSIDE RECORDS SUMMARY | 2023-07-14 16:48 | External Medical Summary ---
Author Name Unknown Address Unknown Organization : Laboratory Report Ordering Provider Test Date Status NATANAEL HORNER 05/21/2023 07:15:33 Final Observation Date Value Abnormality Reference (Units ) Status Glucose Point of Care 05/21/2023 07:15:33 156 Above high normal 70-120 (mg/dL) Final Performing Location
--- OUTSIDE RECORDS SUMMARY | 2023-07-14 16:48 | External Medical Summary ---
Author Name Unknown Address Unknown Organization [id number]:[facility] [place] [facility] [address] [place] [address] Laboratory Report Ordering Provider Test Date Status NATANAEL HORNER 05/21/2023 08:54:00 Final Post #1 [place] [address] Matute Observation Date Value Abnormality Reference (Units ) Status Parathyrin.intact [Mass/volume] in Serum or Plasma 05/21/2023 08:54:00 82 Above high normal 10-65 (pg/mL) Final Performing Location [facility] [place] [address] [place] [address]
--- OUTSIDE RECORDS SUMMARY | 2023-07-14 16:48 | External Medical Summary ---
Author Name Unknown Address Unknown Organization K01:LABORATORY [facility] - [address] [place] [address] Laboratory Report Ordering Provider Test Date Status THIEN LOCKE 05/21/2023 09:42:00 Final Observation Date Value Abnormality Reference (Units ) Status Calcium 05/21/2023 09:42:00 10.0 8.4-10.2 ( mg/dL) Final Performing Location LABORATORY [facility] - [address] [place] [address]
--- OUTSIDE RECORDS SUMMARY | 2023-07-14 16:48 | External Medical Summary | Summary of Care ---
Author Name Unknown Organization [facility] Address [address] [place] [address] Phone [phone] Care Team Providers Care Stylist Apprentice Name Role Phone Silvano Garg DO Primary Care Provider [phone] Reason for Visit * Reason Comments Physical-Exam Pre op Encounter Details Date Type Department Care Team (Late st Contact Info) Description 05/14/2023 2:20 PM EST Office Visit Family Practice [address] [place] [address] [address] [place] [address] Silvano Garg DO [address] [place] [address] Preoperative general physical examination*; Hyperparathyroidism, primary ([facility]); DM type 2, goal HbA1c < 8% ([facility]); Major depressive disorder, recurrent, moderate ([facility]); Body mass index (BMI) of 50.0 to 59.9 in adult ([facility]); Generalized anxiety disorder; HTN, goal below 140/90; Acquired hypothyroidism; Age-related osteoporosis without current pathological fracture; Pure hypercholesterolemia; POSTLAMINECT SYND-LUMBAR; Restless legs syndrome; DM type 2 nursing care encounter (HCC); Hyperparathyroidism (HCC); Acute bronchospasm Allergies Active Allergy Reactions Criticality Noted Date Comments Bee Venom 02/09/2016 Erythromycin 04/08/1997 GI upset Iodinated Contrast Media 03/01/2012 IVP dye when she had stones 1989 At [facility] had nausea and emesis then she got hives on her chest and arms Atorvastatin Calcium 01/05/2005 MIld elevation of CK and LFT's ( see [facility] labs of 01/03/05) Pregabalin Edema Other 05/19/2014 Swelling of legs and feet Nabumetone Rash 12/21/2011 Nsaids Other (Please comment) 02/08/2017 GI distress Penicillins Rash 04/08/1997 She was told when she was a toddler she got a rash documented as of this encounter (statuses as of 05/15/2023) Medications Medication Sig Dispensed Refills Start Date End Date Status VITAMIN B COMPLEX PO TABSIndications:[employer] Take by mouth. 0 Active valACYclovir (VALTREX) [...] Reported on 07/25/2022 PreserVision AREDS 2 Oral CapsuleIndications:[employer] Take 1 Capsule by mouth in the morning. 0 2 Active FLUoxetine HCl 40 MG Oral Capsule (PROzac)Indications:Ma barry depressive disorder, recurrent, moderate (HCC),Generalized anxiety disorder Take by mouth 2 Capsules in the morning. 200 Capsule 3 2 Active Additional Information Patient taking differently:80 mg Oral Daily(AM),Indications: depression, Reported on 07/25/2022 Magnesium 125 MG Oral CapsuleIndications:[facility] [employer] Take 125 mg by mouth in the morning. 0 Active Vitamin D 25 MCG (1000 UT) Oral TabletIndications:IQcard Take 1 Tablet by mouth in the [...] before bedtime. 1 Each 3 4 Active HYDROcodone-Acetaminop hen 5-325 MG Oral TabletIndications:Dege neration of lumbosacral intervertebral disc,Thoracic and lumbosacral neuritis,Postlaminecto my syndrome, lumbar Take 2 Tablets by mouth every 8 hours as needed for Pain, Mild. 120 Tablet 0 3 05/14/19 24 Discontinu ed(Medicat ion List Clean Up) FLUoxetine HCl 40 MG Oral Capsule (PROzac) Take 2 capsules by mouth daily. 180 Capsule 0 3 05/14/19 24 Discontinu ed(Medicat ion List Clean Up) documented as of this encounter (statuses as of 05/15/2023) Active Problems Problem Noted Date Diagnosed Date [...] accepted brochure Esophageal reflux 07/05/2005 LOC PRIM [id number] 08/15/2004 POSTLAMINECT SYND-LUMBAR 09/24/2002 Thoracic and lumbosacral neuritis 09/24/2002 CERVICAL DISC DEGEN 10/04/2000 Acquired hypothyroidism LUMB-LUMBOSAC DISC DEGEN documented as of this encounter (statuses as of 05/15/2023) Resolved Problems Problem Noted Date Diagnosed Date [...] as of this encounter (statuses as of 05/15/2023) Immunizations Name Administration Dates Next Due COVID-19 mRNA, LNP-s, No Pre serve, 2-Dose Series ([employer]) 03/31/2021,08/07/2020,07/12/2020 COVID-19, LNP-s, No Preserve , Melo-sucrose, Ages 12+ ([employer]) 12/27/2021 Covid-19, Mrna, Lnp-s, Pf, B ivalent, 30 Mcg, IM, 12 yrs and above ([employer]) 05/23/2022 H1N1 2009 Influenza, IM 05/17/2009 Pneumococcal [...] Sign Reading Time Taken Comments Blood Pressure 140/64 05/14/2023 2:43 PM EST Pulse 76 05/14/2023 2:32 PM EST Temperature 35.9 C (96.6 F) 05/14/2023 2:32 PM ES T Respiratory Rate - - Oxygen Saturation 95% 05/14/2023 2:32 PM EST Inhaled Oxygen Concentration - - Weight 126.7 kg (279 lb 4.8 oz) 05/14/2023 2:32 PM EST Height 153 cm (5' 0.25") 05/14/2023 2:32 PM EST Body Mass Index 54.1 05/14/2023 2:32 PM EST documented in this encounter Functional [...] No 08/15/2017 documented as of this encounter Patient Instructions * Patient Instructions* Christy Flores, MONICA - 05/14/2023 2:43 PM EST Images from the original note were not included. Diabetes: Keeping Feet Healthy Inspect your feet every day for signs of a problem. Diabetes can damage nerves in your feet and cause neuropathy. This condition makes it hard for you to feel injuries or sore spots. Diabetes can also change blood flow, making it harder for small problems, like a blister, to heal properly. In fact, minor injuries can quickly become serious infections that send you to the hospital. Practice self-care to protect your feet and keep them healthy. Take Special Care Inspect your feet daily for problems such as redness, blisters, cracks, dry skin, or numbness. Use a mirror to see the bottoms of your feet. Or, ask for help. Manage your diabetes. Monitor and control your blood sugar. Take all your medications as prescribed. Avoid walking barefoot, even indoors. Wash your feet with warm water and mild soap. Dry well, especially between toes. Dont treat corns or calluses yourself. Talk to your doctor or solar pool heating installer (a doctor who specializes in foot care) if you need assistance trimming your toenails. Use moisturizing cream or lotion if you have dry skin, but dont use it between toes. Dont use heating pads on your feet. If you have neuropathy, you could get a burn and not feel it. Stop smoking. Smoking restricts blood flow and can make it harder for wounds to heal. Have Regular Checkups Foot problems can develop quickly. So be sure to follow your healthcare teams schedule for regular checkups. During office visits, take off your shoes and socks as soon as you get in the exam room. Ask your healthcare provider to examine your feet for problems. This will make it easier to find and treat small skin irritations before they get worse. Regular checkups can also help keep track of the blood flow and feeling in your feet. If you have neuropathy, you may need to have checkups more often. Wear Proper Footwear Wearing proper footwear is very important. If areas of your feet have been damaged by too much pressure, your healthcare provider may recommend changing your footwear. In some cases, avoiding high heels or tight work boots may be all thats needed. Or, your healthcare provider may recommend special shoes or custom inserts. These help protect your feet and keep existing irritations from getting worse. If you need special footwear, ask your healthcare provider if you qualify for [employer] diabetic shoe program. Make Sure Shoes and Socks Fit Any pair of shoes--new or old--should feel comfortable as soon as you put them on. There shouldnt be any rubbing when you walk. Wear the right shoe for any activity. For instance, a running shoe is designed to keep your feet injury-free while jogging. Buy shoes at the end of the day, when your feet are larger. Make sure they provide support without feeling too loose. Make sure your socks fit, t oo. Wear soft, seamless, well-padded socks for activity. Cotton or microfiber socks are best to help to absorb sweat. To protect your feet, avoid shoes that are open-toed or open-heeled. If you have questions about what kinds of shoes and socks are best, talk to your healthcare team. Get Regular Exercise Regular exercise improves blood flow in your feet. It also increases foot strength and flexibility.Gentle exercises, like walking or riding a stationary bicycle, are best. You can also do special foot exercises. Just be sure to talk with your healthcare provider before starting any exercise program. Also mention if any exercise causes pain, redness, or other signs of foot problems. Note: If you have any kind of break in the skin of your foot or ankle, keep the area clean. Then call your doctor--especially if the area doesnt appear to be healing. [id number] [employer], [address] [place] [address]. All rights reserved. This information is not intended as a substitute for professional medical care. Always follow your healthcare professional's instructions. Diabetic Retinopathy: Evaluating Your Eyes Diabetic retinopathy is a condition that happens when diabetes damages blood vessels in the rear ofthe eye. It can lead to vision loss. To help catch it early, have a complete dilated eye exam at least once a year. During the exam, the eye healthcare provider will review your medical history, examine your eyes, and check your vision. Women who are and have pre-existing type 1 or type 2 diabetes have an increased risk of retinopathy. Women with diabetes should have an eye exam before or in the first trimester. They should continue to be monitored every trimester and for 1 year after delivery, depending on the severity of the retinopathy. The retina is the light-sensitive part of the eye that allows you to see. High blood sugar can damage blood vessels of the retina and cause them to leak or bleed. This damage can lead to abnormal blood vessel growth. This condition is called diabetic retinopathy. You may not have symptoms early in the disease. Later, there may be floaters, blurred vision, or poor night vision. There may also be partial or complete vision loss. Early cases of diabetic retinopathy can be treated by carefully controlling blood sugar, blood pressure, and cholesterol. Surgery or laser treatments may help restore lost vision. Laser surgery can shrink abnormal blood vessels or close ones that are leaking. Medicines injected in the eye can help decrease swelling of the retina. Home care Take all medicines, including insulin or oral diabetic medicine, exactly as prescribed. Follow the diet advised by your healthcare provider. If you have high cholesterol, follow a low-fat, low-cholesterol diet. Monitor blood sugars as advised. Try to achieve your ideal weight. If you smoke, quit smoking. Tobacco use worsens the effect of diabetes on your blood vessels. If you have high blood pressure, consider buying an automatic blood pressure machine. These are available at most pharmacies. Use this to monitor your blood pressure. Report your blood pressure readings to your healthcare provider. Exercise regularly. Follow-up care Follow up with your healthcare provider, or as advised. You must have a complete eye exam at least once a year, more often if needed. Untreated diabetic retinopathy can lead to complete loss of vision. Occupational therapists can help you adapt to any vision loss you have, including learning techniques to safely administer insulin. When to seek medical advice Call your healthcare provider right away if any of these occur. Increasing blurriness or any sudden changes in your vision Sudden flashes of light inside your eye New floaters (small dots or strings that seem to be moving across your field of vision) Eye pain, redness, or discharge from your eyelid New dark spots appearing in your field of vision Halos around lights Dimness of vision Partial or complete loss of vision Women with diabetes should have a complete eye exam before becoming , or as soon as possible when they find out they are . Retinopathy sometimes worsens during . Your eye exam Your eye healthcare provider uses an eye chart and other tools to check your vision. Then he or sheexamines your eyes for signs of disease. You are given eye drops to widen (dilate) your pupils. Youmay have one or more of the following tests: Tonometry to measure fluid pressure inside the eye. Slit lamp exam to allow the healthcare provider to view the structures of your eye. Ultrasound to create an image of the eye using sound waves. Ultrasound may be used if blood is found in the clear gel that fills the eye (vitreous). Ocular coherence tomography (OCT) to create an image of the retina using light waves. This shows ifthere is fluid leaking into certain parts of the eye. It can also measure the thickness of the retina. Fluorescein angiography This test may be done to check the health of the inside lining of the eye (retina). It also checks the tiny blood vessels (capillaries) that carry blood to the retina. During the test: Photographs are taken of the retina. A dye is then injected into the bloodstream through the arm or hand. The dye travels to the capillaries in the eye. More photographs are taken of the retina. The dye causes the capillaries to stand out on the photographs. You may feel brief nausea during the procedure. For a few hours after the test, your skin, eyes, and urine may appear yellow. Talk with your healthcare provider for more information about this test. Date Last Reviewed: 09/29/[id number] [employer]. [address] [place] [address], [place] [address]. All rights reserved. This information is not intended as a substitute for professional medical care. Always follow your healthcare professional's instructions. documented in this encounter Progress Notes * Silvano Garg, - 05/15/2023 9:51 AM EST SUBJECTIVE: Chloé Altamirano is a 68 year old female. Chief Complaint Patient presents with Physical-Exam Pre op HPI: Patient is a 68 year old female with a history of DM type II, Postlaminectomy Back Pain, Cervical Disc Disease, Hyperparathyroidism, HTN, Hypothyroidism, GERD, Hyperlipidemia, Depression, Anxiety, Restless Leg Syndrome, and Obesity that is seen for medical evaluation prior to resection of Parathyroid Adenoma. Chronic shortness of breath with exertion is stable.. No chest pain is present. She is sedentary. Fatigue is unchanged. Weight is stable and appetite is good. Patient has difficulty sleeping, feels bad about herself, and has difficulty concentrating. She does not have suicidal ideation. Patient had recent COVID infection and was treated with Molnupiravir on 04/18/2023. Patient Active Problem List Diagnosis Code CERVICAL DISC DEGEN M50.30 POSTLAMINECT SYND-LUMBAR M96.1 Thoracic and lumbosacral neuritis M54.14, M54.17 Acquired hypothyroidism E03.9 LUMB-LUMBOSAC DISC DEGEN M51.37 LOC PRIM [id number] M17.10 Esophageal reflux K21.9 ADVANCE DIRECTIVE INFORMATION Pure hypercholesterolemia E78.00 MEDICATION USE AGREEMENT [id number] HTN, goal below 140/90 I10 Restless legs syndrome G25.81 Generalized anxiety disorder F41.1 Major depressive disorder, recurrent, moderate ([facility]) F33.1 Body mass index (BMI) of 50.0 to 59.9 in adult ([facility]) Z68.43 Age-related osteoporosis without current pathological fracture M81.0 Hyperparathyroidism, primary ([facility]) E21.0 Parathyroid adenoma D35.1 DM type 2, goal HbA1c < 8% ([facility]) E11.9 Current Outpatient Medications Medication Sig Dispense Refill VITAMIN B COMPLEX PO TABS Take by mouth. valACYclovir (VALTREX) 1000 MG Tablet TAKE TWO TABLETS BY MOUTH EVERY 12 HOURS FOR 1 DAY FOR COLD SORES (Patient taking differently: TAKE TWO TABLETS BY MOUTH EVERY 12 HOURS FOR 1 DAY FOR COLD SORES)4 Tab 5 PreserVision AREDS 2 Oral Capsule Take 1 Capsule by mouth in the morning. FLUoxetine HCl 40 MG Oral Capsule (PROzac) Take by mouth 2 Capsules in the morning. (Patient takingdifferently: Take 2 Capsules by mouth in the morning.) 200 Capsule 3 Magnesium 125 MG Oral Capsule Take 125 mg by mouth in the morning. Vitamin D 25 MCG (1000 UT) Oral [...] BY MOUTH EVERY MORNING 100 Tablet 3 hydrOXYzine HCl 25 MG Oral Tablet TAKE ONE TABLET BY MOUTH TWICE A DAY NEEDED FOR ANXIETY 180 Tablet 1 amLODIPine Besylate 2.5 MG Oral Tablet (Norvasc) [...] TABLET BY MOUTH EVERY DAY90 Tablet 1 metFORMIN HCl ER 500 MG Oral Tablet Extended Release 24 Hour (Glucophage XR) Take 2 Tablets by mouth in the morning. 60 Tablet 3 Benzonatate 100 MG Oral Capsule Take 1 Capsule by mouth 3 times a day as needed for Cough. 30 Capsule 1 HYDROcodone-Acetaminophen 10-325 MG Oral Tablet Take 1 Tablet by mouth every 4 hours as needed for Pain, Moderate or Pain, Severe. 120 Tablet 0 Fluticasone-Salmeterol 250-50 MCG/ACT Inhalation Aerosol Powder Breath Activated (Advair Diskus) Inhale 1 Puff by mouth in the morning and 1 Puff before bedtime. 1 Each 3 Diclofenac Epolamine 1.3 % External Patch PLACE 1 PATCH TOPICALLY ON THE SKIN TWICE DAILY (Patient taking differently: PLACE 1 PATCH TOPICALLY ON THE SKIN TWICE DAILY) 180 Patch 1 Diclofenac Sodium 1 % External Gel (Voltaren) Apply to painful joints up to four times daily (Patient taking differently: Apply to painful joints up to four times daily) 150 g 3 busPIRone HCl 15 MG Oral Tablet (Buspar) TAKE ONE TABLET BY MOUTH TWICE A DAY, MAY TAKE AND ADDITIONAL ONE TABLET EVERY TWENTY FOUR HOURS NEEDED FOR ANXIETY 270 Tablet 0 Triamcinolone Acetonide 0.1 % External Cream (Aristocort) Apply topically to affected area 2 times a day. Groin and thighs. 60 g 5 No current facility-administered medications for this visit. The patient's medication list was reviewed and updated as needed. Past Medical History: Diagnosis Date Acquired hypothyroidism Calculus of kidney Secondary to hyperparathyroidism CERVICAL DISC DEGEN 10/04/2000 Depressive disorder, not elsewhere classified hosp. at [facility] event Disorder of intervertebral disc Aubrey Diverticulosis of colon DM type 2, goal HbA1c < 8% ([facility]) 03/30/2023 Dyslipidemia, goal LDL below 130 04/08/2009 Per Lipid Taxonomy. Dyslipidemia, goal to be determined Generalized anxiety disorder 09/08/2020 GERD (gastroesophageal reflux disease) HTN, goal below 140/90 07/31/2012 LUMB-LUMBOSAC DISC DEGEN Major depressive disorder, recurrent, moderate ([facility]) 01/04/2021 Morbid obesity, BMI not known ([facility]) Osteoarthritis of knee Other hyperparathyroidism ([facility]) Parathyroid adenoma 02/28/2023 POSTLAMINECT SYND-LUMBAR 09/24/2002 Postlaminectomy syndrome of lumbar region Prediabetes 06/12/2017 Per Prediabetes protocol #1 Restless legs syndrome 03/05/2014 Past Surgical History: Procedure Laterality Date ARTHROPLASTY KNEE TOTAL 06/05 Bilateral total knee replacements- Dr. Freeman DELIVERY COLONOSCOPY, DIAGNOSTIC (RECTUM) 04/06/08 repeat in 10 yrs COLONOSCOPY, DIAGNOSTIC (RECTUM) 09/03/2018 normal, repeat 10 yrs/[facility] CYSTO/URETERO W/LITHOTRIPSY Right 04-28-2015 CYSTO/URETERO W/LITHOTRIPSY Right 05-07-2015 CYSTO/URETERO W/LITHOTRIPSY Right 05/07/2015 CYSTOURETHROSCOPY URETEROSCOPY WITH LITHOTRIPSY AND STENT INSERTION performed by Chiara Quan MD at [facility] CYSTOSCOPY 07-16-06 stent removal CYSTOSCOPY/INSERTION OF STENT 07/13/06 CYSTOURETHROSCOPY WITH INSERTION URETERAL STENT performed by PAUL VICTORIA at [facility] CYSTOSCOPY/URETERAL CATHETER 07/13/06 CYSTOURETHROSCOPY WITH URETERAL CATHETER performed by PAUL VICTORIA at [facility] CYSTOURETRO &/OR PYELOSCOPE 07/13/06 CYSTOURETHROSCOPY URETROSCOPY AND OR PYELOSCOPY performed by PAUL VICTORIA at OR [facility] CYSTOURETRO W/STONE REMOVE 07/13/06 CYSTOURETHROSCOPY URETROSCOPY WITH STONE REMOVAL performed by PAUL VICTORIA at [facility] EXPLORE PARATHYROID GLANDS 11/16/06 PARATHYROIDECTOMY performed by KEDAR HENDERSON at OR [facility] FLUORO MISCELLANEOUS 07/13/06 FLUROSCOPY UP TO ONE HOUR performed by PAUL VICTORIA at [facility] FRAGMENT KIDNEY STONE BY SHOCK WAVE 1988 ESWL (Extracorporeal Shock Wave Lithotripsy) FRAGMENT KIDNEY STONE BY SHOCK WAVE 1987 ESWL (Extracorporeal Shock Wave Lithotripsy) FRAGMENT KIDNEY STONE BY SHOCK WAVE 1987 ESWL (Extracorporeal Shock Wave Lithotripsy) INFORMATION 1988 laser litho rt kidney IR DRAINAGE CATHETER CHANGE 07/13/06 CHANGE OF PERCUTANEOUS TUBE OR DRAINAGE CATHETER WITH XRAY AND CONTRAST MEDIUM performed by PAUL VICTORIA at OR [facility] LAPAROSCOPY; CHOLECYSTECTOMY LIGATE/CUT OVIDUCT(S) Tubal Ligation LUMBAR HEMILAMINECTOMY L 3-4 discectomy LUMBAR HEMILAMINECTOMY 12/23/01 L3-4 left hemilaminectomy, disckectomy, with foraminotomy PARTIAL REMOVAL OF THYROID LOBE right lobectomy REDUCTION OF BREAST 1995 REMOVAL OF TONSILS, UNDER AGE 12 Tonsillectomy REMOVE CATARACT, INSERT LENS PROSTH Left 02/13/2017 left EXTRACAPSULAR CATARACT REMOVAL WITH INTRAOCULAR LENS performed by Marco Antonio Melton MD at OR [facility] REMOVE CATARACT, INSERT LENS PROSTH Right 02/22/2017 right EXTRACAPSULAR CATARACT REMOVAL WITH INTRAOCULAR LENS performed by Marco Antonio Melton MD at OR [facility] REMOVE GALLBLADDER 07/11/05 Dr. Peña REPAIR DETACHED RETINA, VITRECTOMY Right 08/12/2021 PARS PLANA VITRECTOMY, AIR FLUID EXCHANGE, ENDOLASER, FLUID GAS EXCHANGE SF6, RIGHT EYE (25g) performed by Kierra Cunningham MD at OR [facility] REPAIR RUPTURED ROTATOR CUFF, CHRON REVISE/REMOVE SPINAL NEURORECEIVER 07/21/2011 REVISION OR REMOVAL IMPLANTED SPINAL NEUROSTIMULATOR performed by LORETO HERNANDEZ at OR [facility] SACROILIAC JOINT INJECT W/GUIDANCE 12/06/2017 INJECTION SACROILIAC JOINT performed by Edwardo Osullivan DO at OR [facility] SACROILIAC JOINT INJECT W/GUIDANCE 04/11/2018 INJECTION SACROILIAC JOINT performed by Edwardo Osullivan DO at OR [facility] SACROILIAC JOINT INJECT W/GUIDANCE 09/17/2019 INJECTION SACROILIAC JOINT performed by Edwardo Osullivan DO at OR [facility] SPINAL NEUROSTIM ELECTRODE PLATE, REVISION 07/21/2011 REVISION SPINAL NEUROSTIM ELECTRODE PLATE performed by LORETO HERNANDEZ at OR [facility] TOTAL ABD HYSTERECTOMY W/WO REMOVAL OF TUBE(S) complete hysterectomy at age 44 Social History Tobacco Use Smoking status: Never Passive exposure: Past Smokeless tobacco: Never Tobacco comments: smokes cigars Vaping Use Vaping Use: Never used Substance Use Topics Alcohol use: Yes Comment: occasionaly Drug use: No Family History Problem Relation Age of Onset Cancer Mother Pancreatic Allergies Mother Hayfever Hypertension Mother Arthritis Mother Diabetes Father Hypertension Father Obesity Father Kidney cancer Father Diabetes Grandfather (Maternal) Hypertension Brother Arthritis Grandmother (Maternal) Diabetes Grandmother (Paternal) Obesity Grandmother (Paternal) Other (Nephrolithiasis) Other cousin on mother's side Review of patient's allergies indicates: Allergen Reactions Bee Venom Erythromycin GI upset Iodinated Contrast Media IVP dye when she had stones 1989 At [facility] had nausea and emesis then she got hives on her chest and arms Lipitor [Atorvastatin Calcium] MIld elevation of CK and LFT's ( see [facility] labs of 01/03/05) Lyrica [Pregabalin] Edema Other Swelling of legs and feet Nabumetone Rash Nsaids Other (Please comment) GI distress Penicillins Rash She was told when she was a toddler she got a rash Review of Systems Constitutional: Positive for fatigue. Negative for appetite change, chills, fever and unexpected weight change. HENT: Negative for congestion, sore throat and trouble swallowing. Respiratory: Positive for shortness of breath. Negative for cough and wheezing. Cardiovascular: Negative for chest pain, palpitations and leg swelling. Gastrointestinal: Negative for abdominal pain, blood in stool and constipation. Genitourinary: Negative for dysuria and hematuria. Musculoskeletal: Positive for arthralgias, back pain, gait problem and myalgias. Neurological: Negative for dizziness, syncope and headaches. Psychiatric/Behavioral: Positive for decreased concentration, dysphoric mood and sleep disturbance.Negative for confusion, self-injury and suicidal ideas. The patient is nervous/anxious. OBJECTIVE: BP 140/64 | Pulse 76 | Temp 35.9 C (96.6 F) | Ht 1.53 m (5' 0.25") | Wt 126.7 kg (279 lb 4.8 oz) | SpO2 95% | BMI 54.10 kg/m | BSA 2.32 m Physical Exam Vitals and nursing note [...] and time. Mental status is at baseline. Motor: No weakness. Gait: Gait abnormal. Psychiatric: Attention and Perception: She is inattentive. Mood and Affect: Mood is depressed. Affect is flat. Speech: Speech normal. Behavior: Behavior normal. Thought Content: Thought content normal. Cognition and Memory: Cognition and memory normal. Results for orders placed or performed in visit on 05/14/23 COMPREHENSIVE METABOLIC PANEL Result Value Ref Range BUN 18 6 - 20 mg/dL Creatinine 0.6 0.5 - 1.0 mg/dL Estimated Glomerular Filtration Rate >90 >=60 mL/min Sodium 137 135 - 146 mmol/L Potassium 4.8 3.5 - 5.1 mmol/L Chloride 102 98 - 107 mmol/L CO2 24 22 - 32 mmol/L Anion Gap 11 7 - 15 mmol/L Glucose 166 (H) 70 - 120 mg/dL Albumin 4.9 3.8 - 5.0 g/dL AST 27 10 - 35 U/L Alkaline Phosphatase 133 (H) 35 - 130 U/L Bilirubin, Total 0.2 <=1.2 mg/dL Calcium 11.2 (H) 8.4 - 10.2 mg/dL Protein 7.2 6.0 - 8.3 g/dL ALT 46 (H) 10 - 35 U/L MAGNESIUM Result Value Ref Range Magnesium 2.2 1.5 - 2.6 mg/dL CBC Result Value Ref Range WBC 7.40 4.00 - 10.80 K/uL RBC 4.52 3.85 - 5.15 M/uL HGB 13.9 12.0 - 15.3 g/dL HCT 43.6 36.0 - 45.2 % MCV 96.5 81.5 - 97.5 fL MCH 30.8 27.0 - 34.0 pg MCHC 31.9 32.0 - 36.0 g/dL RDW 13.1 11.5 - 15.5 % PLT 361 140 - 400 K/uL MPV 9.2 6.6 - 11.1 fL nRBCs 0 <=0 /100 WBCs DIFFERENTIAL, AUTOMATED Result Value Ref Range WBC 7.40 4.00 - 10.80 K/uL Neutrophils % 47.5 40.0 - 75.0 % Lymphocytes % 39.1 18.0 - 42.0 % Monocytes % 9.1 1.0 - 11.0 % Eosinophils % 2.8 0.0 - 6.0 % Basophils % 1.2 0.0 - 2.0 % Immature Granulocytes % 0.3 0.0 - 2.0 % Absolute Neutrophils 3.52 1.80 - 7.70 K/uL Absolute Lymphocytes 2.89 1.00 - 4.80 K/ul Absolute Monocytes 0.67 0.00 - 1.10 K/uL Absolute Eosinophils 0.21 0.00 - 0.70 K/uL Absolute Basophils 0.09 0.00 - 0.20 K/uL Absolute Immature Granulocytes 0.02 0.00 - 0.20 K/uL *Note: Due to a large number of results and/or encounters for the requested time period, some results have not been displayed. A complete set of results can be found in Results Review. Revised Cardiac Risk Index (RCRI) High-risk type of surgery (examples include vascular and any open intraperitoneal or intrathoracic procedures): 0=No History of ischemic heart disease (history of myocardial infarction or positive exercise test, current compliant of chest pain considered to be secondary to myocardia ischemia, use of nitrate therapy, or ECG with pathological Q waves; do not count prior coronary revascularization procedure unless one of the other criteria for ischemic heart disease is present): 0=No History of heart failure: 0=No History of cerebrovascular disease: 0=No Diabetes mellitus requiring treatment with insulin: 0=No Preoperative serum creatinine >2.0 mg/dL (177 micromol/L): 0=No Pt has revised cardiac index score of: No Risk Factors- 0.4% (95% CI: 0.1-0.8) ECG: NSR, artifact, otherwise normal ECG \\XR CHEST 2 VIEWS Result Date: 05/14/2023 IMPRESSION: No acute findings in the chest. 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 US HEAD AND NECK Result Date: 11/30/2022 IMPRESSION Multinodular gland without suspicious nodule. Results for orders placed or performed in visit on 05/14/23 COMPREHENSIVE METABOLIC PANEL Result Value Ref Range BUN 18 6 - 20 mg/dL Creatinine 0.6 0.5 - 1.0 mg/dL Estimated Glomerular Filtration Rate >90 >=60 mL/min Sodium 137 135 - 146 mmol/L Potassium 4.8 3.5 - 5.1 mmol/L Chloride 102 98 - 107 mmol/L CO2 24 22 - 32 mmol/L Anion Gap 11 7 - 15 mmol/L Glucose 166 (H) 70 - 120 mg/dL Albumin 4.9 3.8 - 5.0 g/dL AST 27 10 - 35 U/L Alkaline Phosphatase 133 (H) 35 - 130 U/L Bilirubin, Total 0.2 <=1.2 mg/dL Calcium 11.2 (H) 8.4 - 10.2 mg/dL Protein 7.2 6.0 - 8.3 g/dL ALT 46 (H) 10 - 35 U/L MAGNESIUM Result Value Ref Range Magnesium 2.2 1.5 - 2.6 mg/dL CBC Result Value Ref Range WBC 7.40 4.00 - 10.80 K/uL RBC 4.52 3.85 - 5.15 M/uL HGB 13.9 12.0 - 15.3 g/dL HCT 43.6 36.0 - 45.2 % MCV 96.5 81.5 - 97.5 fL MCH 30.8 27.0 - 34.0 pg MCHC 31.9 32.0 - 36.0 g/dL RDW 13.1 11.5 - 15.5 % PLT 361 140 - 400 K/uL MPV 9.2 6.6 - 11.1 fL nRBCs 0 <=0 /100 WBCs DIFFERENTIAL, AUTOMATED Result Value Ref Range WBC 7.40 4.00 - 10.80 K/uL Neutrophils % 47.5 40.0 - 75.0 % Lymphocytes % 39.1 18.0 - 42.0 % Monocytes % 9.1 1.0 - 11.0 % Eosinophils % 2.8 0.0 - 6.0 % Basophils % 1.2 0.0 - 2.0 % Immature Granulocytes % 0.3 0.0 - 2.0 % Absolute Neutrophils 3.52 1.80 - 7.70 K/uL Absolute Lymphocytes 2.89 1.00 - 4.80 K/ul Absolute Monocytes 0.67 0.00 - 1.10 K/uL Absolute Eosinophils 0.21 0.00 - 0.70 K/uL Absolute Basophils 0.09 0.00 - 0.20 K/uL Absolute Immature Granulocytes 0.02 0.00 - 0.20 K/uL *Note: Due to a large number of results and/or encounters for the requested time period, some results have not been displayed. A complete set of results can be found in Results Review. PLAN AND ASSESSMENT: Preoperative general physical examination (Primary) - XR CHEST 2 VIEWS Patient is low risk No additional testing recommended prior to procedure. Patient may proceed with surgery Hyperparathyroidism, primary ([facility]) Scheduled for Parathyroidectomy DM type 2, goal HbA1c < 8% ([facility]) - COMPREHENSIVE METABOLIC PANEL; Future; Expected date: 05/14/2023 - COMPREHENSIVE METABOLIC PANEL Continue Metformin Will start GLP-1 therapy on next visit post surgery Major depressive disorder, recurrent, moderate ([facility]) Continue Bupropion ER, and Fluoxetine Body mass index (BMI) of 50.0 to 59.9 in adult ([facility]) Start GLP -1 after hospital discharge Generalized anxiety disorder Continue Buspirone HTN, goal below 140/90 - COMPREHENSIVE METABOLIC PANEL; Future; Expected date: 05/14/2023 - CBC WITH WBC DIFFERENTIAL; Future; Expected date: 05/14/2023 - MAGNESIUM; Future; Expected date: 05/14/2023 - COMPREHENSIVE METABOLIC PANEL - CBC WITH WBC DIFFERENTIAL - MAGNESIUM Continue Amlodipine, and Losartan Acquired hypothyroidism Continue Levothyroxine Age-related osteoporosis without current pathological fracture Pure hypercholesterolemia Continue Rosuvastatin POSTLAMINECT SYND-LUMBAR Continue Hydrocodone / Acetaminophen, Gabapentin, and Cyclobenzaprine Restless legs syndrome Continue Gabapentin DM type 2 nursing care encounter (HCC) - DIABETES FOOT EXAM - TELEMEDICINE DIABETIC EYE Hyperparathyroidism ([facility]) - EKG Acute bronchospasm - Fluticasone-Salmeterol 250-50 MCG/ACT Inhalation Aerosol Powder Breath Activated (Advair Diskus);Inhale 1 Puff by mouth in the morning and 1 Puff before bedtime. I spent a total of 40-54 minutes (exact time 52 mins) on the date of service in preparation, delivery, and documentation of the care provided to Chloé Altamirano excluding any time spent in the performance of separately billed services. Follow Up: Return in about 3 weeks (around 06/04/2023), or if symptoms worsen or fail to improve. Silvano Garg DO 3:56 PM 05/15/2023 * Christy Flores LPN - 05/14/2023 3:55 PM EST EKG per order. * Christy Flores LPN - 05/14/2023 2:36 PM EST Socks and Shoes Removed for Annual Diabetic Foot Screening RIGHT FOOT: No Reddened, Cracking, Or Open Areas Noted. RIGHT Dorsalis Pedis Pulse: Palpable RIGHT Posterior Tibial Pulse: Palpable RIGHT Monofilament:Patient reports feeling monofilament pressure on plantar surface of foot LEFT FOOT: No Reddened, Cracking or Open Areas Noted. LEFT Dorsalis Pedis Pulse: Palpable LEFT Posterior Tibial Pulse: Palpable LEFT Monofilament:Patient reports feeling monofilament pressure on plantar surface of foot Do you need diabetic shoes: N/A DM Foot Exam completed today. Provider aware. Christy Flores LPN The importance of having a yearly diabetic eye exam has been discussed with patient. Order and/or Referral placed along with patient instructions. Provider made aware. Christy Flores LPN documented in this encounter Procedure Notes * Toi Rush DO - 05/14/2023 3:54 PM ESTAssociated Order(s): EKG REASON FOR STUDY: pre-op evaluation CONCLUSIONS: Baseline artifact Normal sinus rhythm Otherwise normal ECG When compared with ECG of 25-MAY-2021 15:10, No significant change was found report amended on 05/15/22 at 3:25 pm. Ventricular Rate: 76 Atrial Rate: 76 ID Interval: 154 QRS Duration: 88 QT/QTc: 404/454 ms P-R-T [place]: 67 : 19 : 50 degrees documented in this encounter Plan of Treatment Upcoming Encounters Date Type Department Care Team (Latest Contact Info) Description 05/17/2023 2:00 PM EST Imaging Radiology [address] [address] 05/21/2023 7:45 AM EST Hospital Encounter OR [facility], OPERATING ROOM [facility], [facility] [address] [place] [address] Bianka Matute MD [address] [place] [address] 05/21/2023 7:45 AM EST - 05/21/2023 10:18 AM EST Surgery OR [facility], OPERATING ROOM [facility], [facility] [address] [place] [address] Bianka Matute MD [address] [place] [address] PARATHYROIDECTOMY 06/01/2023 11:00 AM EST Office Visit Otolaryngology/Head & Neck/Facial Plastic Surgery [address] [facility] [place] [address] Bianka Matute MD [address] [place] [address] 06/04/2023 1:40 PM EST Office Visit Family Practice [address] [place] [address] [place] [address] Silvano Garg DO [address] [facility] [place] [address] Scheduled Procedures Name Priority Associated Diagnoses Date/Ti me PARATHYROIDECTOMY Hyperparathyroidism (HCC) 05/21/2023 7:45 AM EST COLONOSCOPY FLEXIBLE PROXIMA L DIAGNOSTIC Recall Special [...] D LEVEL ONCE IN A LIFETIME-USE SMARTSET# 79403 Completed 12/27/2022, 03/29/2022, 12/27/2021, Additional history exists Influenza Vaccine (FLU shot) Completed 04/2022, 01/19/2022, 02/14/2021, Additional history exists GARDASIL-HPV IMMUNIZATION SERIES Aged Out No longer eligible based on patient's age to complete this topic MENINGOCOCCAL (MENACTRA/MENVEO) Aged Out No longer eligible based on patient's age to complete this topic documented as of this encounter Medical Devices Implanted Type Area Creative Arts Therapist Device Identifier Shelf Expiration Date Model / Serial / Lot Battery Advance Prime [id number] - [id number] Implanted:Qty: 1 on 07/21/2011 at OR [facility] Right: Buttocks [employer] : NEUROLOGIC PAIN 09/10/2012 [id number] / [id number] / Lens Intraoc 16.5 - [id number] - [id number] Implanted:Qty: 1 on 02/13/2017 by Marco Antonio Melton MD at OR [facility] Left: Eye BAUSCH & LOMB 06/27/2021 [id number] / [id number] / [id number] Lens Intraoc 16.0 - [id number] - [id number] Implanted:Qty: 1 on 02/22/2017 by Marco Antonio Melton MD at OR [facility] Right: Eye BAUSCH & LOMB 04/29/2021 [id number] / [id number] / documented as of this encounter Procedures Procedure Name Priority Date/Time Associated Diagnosis Comments ID ECG ROUTINE ECG W/LEAST 12 LDS I&R ONLY Routine 05/14/2023 3:54 PM EST Hyperparathyroidism (HCC) XR CHEST 2 VIEWS Routine 05/14/2023 3:38 PM EST Preoperative general physical examination DIFFERENTIAL, AUTOMATED Routine 05/14/2023 3:34 PM EST HTN, goal below 140/90 COMPREHENSIVE METABOLIC PANEL Routine 05/14/2023 3:34 PM EST DM type 2, goal HbA1c < 8% (HCC) HTN, goal below 140/90 CBC Routine 05/14/2023 3:34 PM EST HTN, goal below 140/90 CBC Routine 05/14/2023 3:34 PM EST HTN, goal below 140/90 MAGNESIUM Routine 05/14/2023 3:34 PM EST HTN, goal below 140/90 TELEMEDICINE DIABETIC EYE Routine 05/14/2023 DM type 2 nursing care encounter (HCC) documented in this encounter Results * EKG (05/14/2023 3:54 PM EST) 05/14/2023 3:54 PM EST Narrative Procedure Note Toi Rush, - 05/14/2023 3:54 PM EST REASON FOR STUDY: pre-op evaluation CONCLUSIONS: Baseline artifact Normal sinus rhythm Otherwise normal ECG When compared with ECG of 25-MAY-2021 15:10, No significant change was found report amended on 05/15/22 at 3:25 pm. Ventricular Rate: 76 Atrial Rate: 76 ID Interval: 154 QRS Duration: 88 QT/QTc: 404/454 ms P-R-T [place]: 67 : 19 : 50 degrees Elisa TAI EKG [facility] * XR CHEST 2 VIEWS (05/14/2023 3:38 PM EST) Anatomical Region Laterality Modality Chest Digital Radiogra phy 05/14/2023 4:21 PM EST Impressions 05/14/2023 4:19 PM EST IMPRESSION: No acute findings in the chest. Narrative 05/14/2023 4:19 PM EST EXAM: XR CHEST 2 VIEWS - 05/14/2023 3:38 pm HISTORY: preoperative exam TECHNIQUE: PA and lateral chest x-ray COMPARISON: Chest x-ray from 09/22/2022 FINDINGS: Catheters/tubes/devices/foreign bodies: Midthoracic neurostimulator leads. No consolidation or effusion. Bilateral linear atelectasis. No evidence of pneumothorax. Cardiomediastinal silhouette is within normal limits. Osseous structures are unremarkable. Procedure Note Jeffrey Ruano DO - 05/14/2023 EXAM: XR CHEST 2 VIEWS - 05/14/2023 3:38 pm HISTORY: preoperative exam TECHNIQUE: PA and lateral chest x-ray COMPARISON: Chest x-ray from 09/22/2022 FINDINGS: Catheters/tubes/devices/foreign bodies: Midthoracic neurostimulatorleads. No consolidation or effusion. Bilateral linear atelectasis. No evidence of pneumothorax. Cardiomediastinal silhouette is within normal limits. Osseous structures are unremarkable. IMPRESSION IMPRESSION: No acute findings in the chest. Silvano Garg DO RADIOLOGY (RAD GENER AL) * DIFFERENTIAL, AUTOMATED (05/14/2023 3:34 PM EST) WBC 7.40 4.00 - 10.80 K/uL 05/15/2023 12:15 AM EST [facility] Neutrophils % 47.5 40.0 - 75.0 % 05/15/2023 12:15 AM EST [facility] Lymphocytes % 39.1 18.0 - 42.0 % 05/15/2023 12:15 AM EST [facility] Monocytes % 9.1 1.0 - 11.0 % 05/15/2023 12:15 AM EST [facility] Eosinophils % 2.8 0.0 - 6.0 % 05/15/2023 12:15 AM EST [facility] Basophils % 1.2 0.0 - 2.0 % 05/15/2023 12:15 AM EST [facility] Immature Granulocytes % 0.3 0.0 - 2.0 % 05/15/2023 12:15 AM EST [facility] Absolute Neutrophils 3.52 1.80 - 7.70 K/uL 05/15/2023 12:15 AM EST [facility] Absolute Lymphocytes 2.89 1.00 - 4.80 K/ul 05/15/2023 12:15 AM EST [facility] Absolute Monocytes 0.67 0.00 - 1.10 K/uL 05/15/2023 12:15 AM EST [facility] Absolute Eosinophils 0.21 0.00 - 0.70 K/uL 05/15/2023 12:15 AM EST [facility] Absolute Basophils 0.09 0.00 - 0.20 K/uL 05/15/2023 12:15 AM EST [facility] Absolute Immature Granulocytes 0.02 0.00 - 0.20 K/uL 05/15/2023 12:15 AM EST [facility] Blood Venous blood specimen / Unknown Venipuncture / Unknown 05/14/2023 3:34 PM EST 05/14/2023 3:34 PM EST Silvano Garg DO LAB BLOOD ORDERABLES [facility] [address] [place], [place] [id number] * CBC (05/14/2023 3:34 PM EST) WBC 7.40 4.00 - 10.80 K/uL 05/15/2023 12:15 AM EST [facility] RBC 4.52 3.85 - 5.15 M/uL 05/15/2023 12:15 AM EST [facility] HGB 13.9 12.0 - 15.3 g/dL 05/15/2023 12:15 AM EST [facility] HCT 43.6 36.0 - 45.2 % 05/15/2023 12:15 AM EST [facility] MCV 96.5 81.5 - 97.5 fL 05/15/2023 12:15 AM EST LABORATORY [facility] MCH 30.8 27.0 - 34.0 pg 05/15/2023 12:15 AM EST LABORATORY [facility] MCHC 31.9 32.0 - 36.0 g/dL 05/15/2023 12:15 AM EST LABORATORY [facility] RDW 13.1 11.5 - 15.5 % 05/15/2023 12:15 AM EST LABORATORY [facility] PLT 361 140 - 400 K/uL 05/15/2023 12:15 AM EST LABORATORY [facility] MPV 9.2 6.6 - 11.1 fL 05/15/2023 12:15 AM EST LABORATORY C nRBCs 0 <=0 /100 WBCs 05/15/2023 12:15 AM EST LABORATORY [facility] Blood Venous blood specimen / Unknown Venipuncture / Unknown 05/14/2023 3:34 PM EST 05/14/2023 3:34 PM EST Silvano Garg LAB BLOOD ORDERABLES LABOR[facility]ORY [facility] [address] [place] [address] * MAGNESIUM (05/14/2023 3:34 PM EST) Magnesium 2.2 1.5 - 2.6 mg/dL 05/15/2023 4:07 AM EST LABORATORY [facility] Blood Venous blood specimen / Unknown Venipuncture / Unknown 05/14/2023 3:34 PM EST 05/14/2023 3:34 PM EST Silvano Garg DO LAB BLOOD ORDERABLES LABORATORY [facility] [address] [place] [address] * (ABNORMAL) COMPREHENSIVE METABOLIC PANEL (05/14/2023 3:34 PM EST) BUN 18 6 - 20 mg/dL 05/15/2023 4:07 AM EST LABORATORY [facility] Creatinine 0.6 0.5 - 1.0 mg/dL 05/15/2023 4:07 AM EST [facility] Estimated Glomerular Filtration Rate >90 >=60 mL/min 05/15/2023 4:07 AM EST [facility] Comment:eGFR is calculated b ased on the CKD-EPI 2020 equation Sodium 137 135 - 146 mmol/L 05/15/2023 4:07 AM EST [facility] Potassium 4.8 3.5 - 5.1 mmol/L 05/15/2023 4:07 AM EST [facility] Chloride 102 98 - 107 mmol/L 05/15/2023 4:07 AM EST [facility] CO2 24 22 - 32 mmol/L 05/15/2023 4:07 AM EST [facility] Anion Gap 11 7 - 15 mmol/L 05/15/2023 4:07 AM EST [facility] Glucose 166(H) 70 - 120 mg/dL 05/15/2023 4:07 AM EST [facility] Albumin 4.9 3.8 - 5.0 g/dL 05/15/2023 4:07 AM EST [facility] AST 27 10 - 35 U/L 05/15/2023 4:07 AM EST [facility] Alkaline Phosphatase 133(H) 35 - 130 U/L 05/15/2023 4:07 AM EST [facility] Bilirubin, Total 0.2 <=1.2 mg/dL 05/15/2023 4:07 AM EST [facility] Calcium 11.2(H) 8.4 - 10.2 mg/dL 05/15/2023 4:07 AM EST [facility] Protein 7.2 6.0 - 8.3 g/dL 05/15/2023 4:07 AM EST [facility] ALT 46(H) 10 - 35 U/L 05/15/2023 4:07 AM EST [facility] Blood Venous blood specimen / Unknown Venipuncture / Unknown 05/14/2023 3:34 PM EST 05/14/2023 3:34 PM EST Silvano Garg DO LAB BLOOD ORDERABLES LABORATORY [facility] [address] [place] [address] * TELEMEDICINE DIABETIC EYE (05/14/2023) 05/14/2023 Silvano Garg DO DIGITAL PHOTOGRAPHY documented in this encounter Visit Diagnoses Diagnosis Preoperative general physical examination- Primary Other specified pre-operative examination Hyperparathyroidism, primary (HCC) Primary hyperparathyroidism DM type 2, goal HbA1c < 8% (HCC) Major depressive disorder, recurrent, moderate (HCC) Major depressive disorder, recurrent episode, moderate Body mass index (BMI) of 50.0 to 59.9 in adult (HCC) Generalized anxiety disorder HTN, goal below 140/90 Unspecified essential hypertension Acquired hypothyroidism Unspecified hypothyroidism Age-related osteoporosis without current pathological fracture Senile osteoporosis Pure hypercholesterolemia POSTLAMINECT SYND-LUMBAR Postlaminectomy syndrome, lumbar region Restless legs syndrome Restless legs syndrome (RLS) DM type 2 nursing care encounter ([facility]) Type II or unspecified type diabetes mellitus without mention of complication, not stated as uncontrolled Hyperparathyroidism (HCC) Hyperparathyroidism, unspecified Acute bronchospasm Hyperparathyroidism (HCC) Hyperparathyroidism, unspecified documented in this encounter Advance Directives Latest [...] and were consensually agreed upon. Care Teams Stylist Apprentice Relationship Specialty Start Date End Date Silvano Garg DO [address] [place] [address] PCP - General Internal Medicine 02/22/21 documented as of this encounter
--- OUTSIDE RECORDS SUMMARY | 2023-07-14 16:48 | External Medical Summary | Summary of Care ---
Author Name Unknown Organization [facility] Address [address] [place] [address] Phone [phone] Care Team Providers Care Manager Of Sales Name Role Phone Silvano Garg DO Primary Care Provider [phone] Reason for Visit * Reason Onset Date Comments Nurse Documentation 05/22/202305/22 Encounter Details Date Type Department Care Team (Late st Contact Info) Description 05/22/2023 10:30 AM EST Scheduled Telephone Family Practice [address] [facility] [address] [place] [id number] College, Nurse [facility] [address] [address] Arrived Allergies Active Allergy Reactions Criticality Noted Date Comments Bee Venom 02/09/2016 Erythromycin 04/08/1997 GI upset Iodinated Contrast Media 03/01/2012 IVP dye when she had stones 1989 At [place] had nausea and emesis then she got [...] End Date Status VITAMIN B COMPLEX PO TABSIndications:Offerti Take by mouth. 0 Active valACYclovir (VALTREX) [...] Reported on 07/25/2022 PreserVision AREDS 2 Oral CapsuleIndications:ProtectWise Take 1 Capsule by mouth in the morning. 0 2 Active FLUoxetine HCl 40 MG Oral Capsule (PROzac)Indications:Ma barry depressive disorder, recurrent, moderate (HCC),Generalized anxiety disorder Take by mouth 2 Capsules in the morning. 200 Capsule 3 2 Active Additional Information Patient taking differently:80 mg Oral Daily(AM),Indications: depression, Informant: Patient, Reported on 05/21/2023 Magnesium 125 MG Oral CapsuleIndications:ProtectWise Take 125 mg by mouth in the morning. 0 Active Vitamin D 25 MCG (1000 UT) Oral TabletIndications:Greengate Power Take 1 Tablet by mouth in the morning. 0 Active Albuterol Sulfate 1.25 MG/3ML Inhalation Nebulization SolutionIndications:Ac [place]ai-apache bronchitis, unspecified organism Inhale 1.25 mg via [...] accepted brochure Esophageal reflux 07/05/2005 LOC PRIM [id number] 08/15/2004 POSTLAMINECT SYND-LUMBAR 09/24/2002 Thoracic and lumbosacral [...] mRNA, LNP-s, No Pre serve, 2-Dose Series (Luxe Hair Exotics) 03/31/2021,08/07/2020,07/12/2020 COVID-19, LNP-s, No Preserve , Melo-sucrose, [...] encounter Miscellaneous Notes * Telephone Encounter - Kerri Brennan LPN [...] Otolaryngology/Head & Neck/Facial Plastic Surgery [address] [place] [address] Bianka Matute MD [address] [place] [address] 06/04/2023 1:40 PM EST Office Visit Family Practice [address] [place] [address] [place] [address] Silvano Garg, [address] [place] [address] 06/05/2023 2:30 PM EST Imaging Radiology [facility] 1st [facility], [place] [address] [facility] [place] [id number] Scheduled Procedures Name Priority Associated Diagnoses Date/Ti [...] D LEVEL ONCE IN A LIFETIME-USE SMARTSET# 31058 Completed 12/27/2022, 03/29/2022, 12/27/2021, Additional history exists Influenza Vaccine (FLU shot) Completed 04/2022, 01/19/2022, 02/14/2021, Additional history exists GARDASIL-HPV IMMUNIZATION SERIES Aged Out No longer eligible based on patient's age to complete this topic MENINGOCOCCAL (MENACTRA/MENVEO) Aged Out No longer eligible based on patient's age to complete this topic documented as of this encounter Medical Devices Implanted Type Area Head Of Quality Device Identifier Shelf Expiration Date Model / Serial / Lot Battery Advance Prime [id number] - [id number] Implanted:Qty: 1 on 07/21/2011 at [place] [facility] Right: Buttocks [employer] : NEUROLOGIC PAIN 09/10/2012 [id number] / [id number] / Lens Intraoc 16.5 - [id number] - [id number] Implanted:Qty: 1 on 02/13/2017 by Marco Antonio Melton MD at OR [facility] Left: Eye BAUSCH & LOMB 06/27/2021 [id number] / [id number] Lens Intraoc 16.0 - [id number] - [id number] Implanted:Qty: 1 on 02/22/2017 by Marco Antonio Melton MD at OR [facility] Right: Eye BAUSCH & LOMB 04/29/2021 [id number] / [id number] / documented as of this encounter Advance [...] and were consensually agreed upon. Care Teams Manager Of Sales Relationship Specialty Start Date End Date Silvano Garg DO [address] [place] [address] PCP - General Internal Medicine 02/22/21 documented as of this encounter
--- OUTSIDE RECORDS SUMMARY | 2023-07-14 16:49 | External Medical Summary | Summary of Care ---
Author Name Unknown Organization [facility] Address [address] [place] [address] Phone [phone] Care Team Providers Care Skin Toggler Name Role Phone Silvano Garg DO Primary Care Provider [phone] Reason for Visit * Reason Onset Date Comments Test Results 04/18/202304/18 Encounter Details Date Type Department Care Team (Late st Contact Info) Description 04/18/2023 Telephone Family Practice [facility], [place] [address] [place] [id number] Silvano Garg DO [address] [place], [place] [id number] Test Results () Allergies Active Allergy Reactions Criticality Noted Date Comments Bee Venom 02/09/2016 Erythromycin 04/08/1997 GI upset Iodinated Contrast Media 03/01/2012 IVP dye when she had stones 1989 At [place] had nausea and emesis then she got hives on her chest and arms Atorvastatin Calcium 01/05/2005 MIld elevation of CK and LFT's ( see [facility] labs of 01/03/05) Pregabalin Edema Other 05/19/2014 Swelling of legs and feet Nabumetone Rash 12/21/2011 Nsaids Other (Please comment) 02/08/2017 GI distress Penicillins Rash 04/08/1997 She was told when she was a toddler she got a rash documented as of this encounter (statuses as of 04/19/2023) Medications Medication Sig Dispensed Refills Start Date End Date Status VITAMIN B COMPLEX PO TABSIndications:[employer] Take by mouth. 0 Active valACYclovir (VALTREX) 1000 MG TabletIndications:Herp etic gingivostomatitis TAKE TWO TABLETS BY MOUTH EVERY 12 HOURS FOR 1 DAY FOR COLD SORES 4 Tab 5 01/13/2020 Active Additional Information Patient taking differently:, TAKE TWO TABLETS BY MOUTH EVERY 12 HOURS FOR 1 DAY FOR COLD SORES,Indications: general health - cold sores, Reported on 07/25/2022 Diclofenac Epolamine 1.3 % External PatchIndications:Degen eration of lumbosacral intervertebral disc PLACE 1 PATCH TOPICALLY ON THE SKIN TWICE DAILY 180 Patch 1 05/20/2021 Active Additional Information Patient taking differently:, PLACE 1 PATCH TOPICALLY ON THE SKIN TWICE DAILY,Indications: pain, Reported on 07/25/2022 Diclofenac Sodium 1 % External Gel (Voltaren) Apply to painful joints up to four times daily 150 g 3 08/01/2021 Active Additional Information Patient taking differently:, Apply to painful joints up to four times daily,Indications: pain, Reported on 07/25/2022 PreserVision AREDS 2 Oral CapsuleIndications:LOSC Management Take 1 Capsule by mouth in the morning. 0 09/21/2021 Active FLUoxetine HCl 40 MG Oral Capsule (PROzac)Indications:Ma barry depressive disorder, recurrent, moderate (HCC),Generalized anxiety disorder Take by mouth 2 Capsules in the morning. 200 Capsule 3 10/13/2021 Active Additional Information Patient taking differently:80 mg Oral Daily(AM),Indications: depression, Reported on 07/25/2022 Magnesium 125 MG Oral CapsuleIndications:LOSC Management Take 125 mg by mouth in the morning. 0 Active Vitamin D 25 MCG (1000 UT) Oral TabletIndications:[employer] Take 1 Tablet by mouth in the morning. 0 Active Albuterol Sulfate 1.25 MG/3ML Inhalation Nebulization SolutionIndications:Ac [place] bronchitis, unspecified organism Inhale 1.25 mg via nebulizer every 4 hours as needed for Wheezing. 120 mL 1 09/21/2022 Active Albuterol Sulfate HFA 108 (90 Base) MCG/ACT Inhalation Aerosol SolutionIndications:CO PD Inhale 2 Puffs by mouth every 6 hours as needed for Shortness of Breath. 18 g 3 09/21/2022 Active busPIRone HCl 15 MG Oral Tablet (Buspar) TAKE ONE TABLET BY MOUTH TWO TIMES A DAY IN THE MORNING AND IN THE IN THE EVENING 200 Tablet 1 10/09/2022 10/09/19 24 Active Rosuvastatin Calcium 20 MG Oral Tablet (Crestor) TAKE ONE TABLET BY MOUTH DAILY 100 Tablet 3 10/09/2022 10/09/19 24 Active Levothyroxine Sodium 125 MCG Oral Tablet (Levoxyl)Indications:A cquired hypothyroidism TAKE ONE-HALF TABLET BY MOUTH DAILY 30 MINUTES PRIOR TO BREAKFAST OR OTHER MEDICATION 50 Tablet 3 08/09/2022 08/09/19 24 Active Losartan Potassium 100 MG Oral Tablet (Cozaar) TAKE ONE TABLET BY MOUTH EVERY MORNING 100 Tablet 3 08/09/2022 08/09/19 24 Active busPIRone HCl 15 MG Oral Tablet (Buspar) TAKE ONE TABLET BY MOUTH TWICE A DAY, MAY TAKE AND ADDITIONAL ONE TABLET EVERY TWENTY FOUR HOURS NEEDED FOR ANXIETY 270 Tablet 0 12/27/2021 Active hydrOXYzine HCl 25 MG Oral Tablet TAKE ONE TABLET BY MOUTH TWICE A DAY NEEDED FOR ANXIETY 180 Tablet 1 11/06/2022 11/06/19 24 Active amLODIPine Besylate 2.5 MG Oral Tablet (Norvasc) TAKE ONE TABLET BY MOUTH EVERY DAY. 100 Tablet 1 11/28/2022 11/28/19 24 Active Gabapentin 400 MG Oral Capsule (Neurontin)Indications :Degeneration of lumbosacral intervertebral disc Take 1 Capsule by mouth in the morning and 1 Capsule at noon and 1 Capsule in the evening and 1 Capsule before bedtime. 400 Capsule 3 12/22/2022 Active buPROPion HCl ER (SR) 150 MG Oral Tablet Extended Release 12 Hour (Wellbutrin SR) TAKE ONE TABLET BY MOUTH EVERY MORNING AND ONE TABLET BEFORE BEDTIME 200 Tablet 3 12/29/2022 12/29/19 24 Active Cyclobenzaprine HCl 10 MG Oral Tablet (Flexeril)Indications: Degeneration of lumbosacral intervertebral disc,Degeneration of cervical intervertebral disc TAKE 1 TO 2 TABLETS BY MOUTH AT BEDTIME NEEDED FOR MUSCLE SPASMS 180 Tablet 1 03/20/2023 03/19/20 24 Active Pantoprazole Sodium 40 MG Oral Tablet Delayed Release (Protonix)Indications: Esophageal reflux,Heartburn TAKE ONE TABLET BY MOUTH EVERY DAY 90 Tablet 1 03/20/2023 Active HYDROcodone-Acetaminop hen 10-325 MG Oral TabletIndications:Dege neration of cervical intervertebral disc,Degeneration of lumbosacral intervertebral disc Take 1 Tablet by mouth every 4 hours as needed for moderate or severe pain. 120 Tablet 0 03/23/2023 Active Triamcinolone Acetonide 0.1 % External Cream (Aristocort)Indication s:Dermatitis Apply topically to affected area 2 times a day. Groin and thighs. 60 g 5 03/26/2023 Active metFORMIN HCl ER 500 MG Oral Tablet Extended Release 24 Hour (Glucophage XR)Indications:DM type 2, goal HbA1c < 8% (HCC) Take 2 Tablets by mouth in the morning. 60 Tablet 3 03/30/2023 Active Doxycycline Hyclate 100 MG Oral CapsuleIndications:Bro gillianhitis, complicated Take 1 Capsule by mouth in the morning and 1 Capsule before bedtime. Do all this for 7 days. Take for 7 days. 14 Capsule 0 04/17/2023 04/24/20 23 Active Benzonatate 100 MG Oral CapsuleIndications:Sadiq frenchhitis, complicated Take 1 Capsule by mouth 3 times a day as needed for Cough. 30 Capsule 1 04/17/2023 Active Molnupiravir 200 MG Oral CapsuleIndications:COV ID-19 virus infection Take 4 Capsules by mouth in the morning and 4 Capsules before bedtime. Do all this for 5 days. 40 Capsule 0 04/18/2023 04/23/20 23 Active documented as of this encounter (statuses as of 04/19/2023) Active Problems Problem Noted Date Diagnosed Date [...] accepted brochure Esophageal reflux 07/05/2005 LOC PRIM [id number]-[id number] 08/15/2004 POSTLAMINECT SYND-LUMBAR 09/24/2002 Thoracic and lumbosacral neuritis 09/24/2002 CERVICAL DISC DEGEN 10/04/2000 Acquired hypothyroidism LUMB-LUMBOSAC DISC DEGEN documented as of this encounter (statuses as of 04/19/2023) Resolved Problems Problem Noted Date Diagnosed Date [...] as of this encounter (statuses as of 04/19/2023) Immunizations Name Administration Dates Next Due COVID-19 mRNA, LNP-s, No Pre serve, 2-Dose Series (ZapHour) 03/31/2021,08/07/2020,07/12/2020 COVID-19, LNP-s, No Preserve , Melo-sucrose, Ages 12+ (Pfizer) 12/27/2021 Covid-19, Mrna, Lnp-s, Pf, B ivalent, 30 Mcg, IM, 12 yrs and above ([employer]apHour) 05/23/2022 H1N1 2009 Influenza, IM 05/17/2009 Pneumococcal [...] Answer Date Recorded PHQ Adult Total Score 2 04/17/2023 Hunger Vital Sign Answer Date Recorded Within the past 12 months, y ou worried that your food would run out before you got the money to buy more. Never true 04/17/20 23 Within the past 12 months, t he food you bought just didn't last and you didn't have money to get more. Never true 04/17/2023 Sex and Gender Information Value Date Recorded [...] encounter Miscellaneous Notes * Telephone Encounter - Christy Flores LPN - 04/18/2023 2:48 PM EST Sent my [employer] message. * Telephone Encounter - Silvano Garg DO - 04/18/2023 2:33 PM EST Patient takes multiple medications with drug interactions to [facility] See if she wishes to take Molnupiravir Medication sent to the Pharmacy * Telephone Encounter - Christy Flores LPN - 04/18/2023 1:34 PM EST Images from the original note were not included. Patient is aware and will comply. Symptoms started on Sunday. 12/27/2022 BUN 6 - 20 mg/dL 17 Creatinine 0.5 - 1.0 mg/dL 0.6 Estimated Glomerular Filtration Rate >=60 mL/min >90 Comment: eGFR is calculated based on the CKD-EPI 2020 equation * Telephone Encounter - Christy Flores LPN - 04/18/2023 1:32 PM EST ----- Message from Silvano Garg DO sent at 04/18/2023 1:29 PM EST ----- Patient has COVID See how long she has had symptoms documented in this encounter Plan of Treatment Upcoming Encounters Date Type Department Care Team (Latest Contact Info) Description 05/14/2023 2:20 PM EST Office Visit Family [facility], [address] [place] [address] Silvano Garg, DO [address] [place] [address] 05/21/2023 10:31 AM EST Hospital Encounter OR [facility], OPERATING ROOM [facility], [facility] [address] [place] [address] Bianka Matute MD [address] [place] [address] 05/21/2023 10:31 AM EST - 05/21/2023 1:04 PM EST Surgery OR [facility] [address] [place] [address] Bianka Matute MD [address] [place] [address] PARATHYROIDECTOMY 06/01/2023 11:00 AM EST Office Visit Otolaryngology/Head & Neck/Facial Plastic Surgery [address] [place] [address] Bianka Matute MD [address] [place] [address] 06/04/2023 1:40 PM EST Office Visit Family Practice [address] [place] [address] [address] [place] [address] Silvano Garg, DO [address] [place] [address] Scheduled Procedures Name Priority Associated Diagnoses Date/Ti me PARATHYROIDECTOMY Hyperparathyroidism (HCC) 05/21/2023 10:31 AM EST COLONOSCOPY FLEXIBLE PROXIMA L DIAGNOSTIC Recall Special screening for malignant neoplasms, colon Health Maintenance Due Date Last Done Comments Cologuard 1998 Fecal Occult Blood Test 1998 Sigmoidoscopy 1998 Hepatitis B (1 of 3 - Risk 3-dose series) 2013 *BISPHONATE OR OTHER ACCEPTABLE MEDICATION NEEDED FOR OSTEOPOROSIS (REFER TO SMARTSET #1146) 04/28/2022 Diabetic Foot Exam 05/25/2022 05/25/2021 Diabetic Eye Exam 08/12/2022 08/12/2021, , 06/23/2019, Additional history exists COVID-19 Vaccine ( season) 2022 05/23/2022, 12/27/2021, 03/31/2021, Additional history exists Mammogram 02/13/2023 02/13/2022, 11/28, 04/02/2019, Additional history exists HbA1c 08/29/2023 02/28/2023, 06/29, 03/29/2022, Additional history exists GFR 12/28/2023 12/27/2022, 06/29, 03/29/2022, Additional history exists TSH 02/29/2024 02/28/2023, 06/29, 12/27/2021, Additional history exists Albumin/Creatinine Ratio 03/30/2024 023, 03/29/2022, 05/25/2021 DXA Scan 04/10/2024 04/10/2022, 10/28, 11/06/2006 Depression Screening 04/17/2024 04/17/2023 Lipid Panel 07/26/2027 07/25/2022, 03/02, 05/25/2021, Additional history exists Colonoscopy 09/03/2028 09/03/2018, 04/06/2008 Colorectal Cancer Screening 09/03/2028 DTaP,Tdap,and Td Vaccines (3 - Td or Tdap) 02/26/2029 02/26/2019, 11/26/2007, 11/12/2000 Pneumococcal Vaccine: 65+ Years Completed 01/26/2020, 09/10/2018, 03/15/2001 Zoster Vaccines Completed 05/10/2020, 02/28, 08/07/2014 VITAMIN D LEVEL ONCE IN A LIFETIME-USE SMARTSET# [id number] Completed 12/27/2022, 03/29/2022, 12/27/2021, Additional history exists Influenza Vaccine (FLU shot) Completed 04/2022, 01/19/2022, 02/14/2021, Additional history exists GARDASIL-HPV IMMUNIZATION SERIES Aged Out No longer eligible based on patient's age to complete this topic MENINGOCOCCAL (MENACTRA/MENVEO) Aged Out No longer eligible based on patient's age to complete this topic documented as of this encounter Medical Devices Implanted Type Area Beauty Counselor Device Identifier Shelf Expiration Date Model / Serial / Lot Battery Advance Prime [id number] - [id number] Implanted:Qty: 1 on 07/21/2011 at OR [facility] Right: Buttocks [employer] : NEUROLOGIC PAIN 09/10/2012 [id number] / [id number] / Lens Intraoc 16.5 - [id number] - [id number] Implanted:Qty: 1 on 02/13/2017 by Marco Antonio Melton MD at OR [facility] Left: Eye BAUSCH & LOMB 06/27/2021 [id number] / [id number] / [id number] Lens Intraoc 16.0 - [id number] - [id number] Implanted:Qty: 1 on 02/22/2017 by Marco Antonio Melton MD at OR [facility] Right: Eye BAUSCH & LOMB 04/29/2021 [id number] / [id number] / documented as of this encounter Visit Diagnoses Diagnosis COVID-19 virus infection- Primary Hyperparathyroidism (HCC) Hyperparathyroidism, unspecified documented in this encounter Additional Health Concerns Infection Onset Date Last Indicated Resolved Time COVID-19 (confirmed) 04/17/2023 04/17/2023 documented as of this encounter Advance Directives [...] and were consensually agreed upon. Care Teams Skin Toggler Relationship Specialty Start Date End Date Silvano Garg DO [address] [place] [address] PCP - General Internal Medicine 02/22/21 documented as of this encounter
--- OUTSIDE RECORDS SUMMARY | 2023-07-14 16:49 | External Medical Summary | Summary of Care ---
Author Name Unknown Organization [facility] Address [address] [place] [address] Phone [phone] Care Team Providers Care Mechanical Equipment Test Engineer Name Role Phone Silvano Garg DO Primary Care Provider [phone] Reason for Visit * Reason Onset Date Comments Medication Refill 04/20/2023 Encounter Details Date Type Department Care Team (Late st Contact Info) Description 04/20/2023 Refill Family Practice [address] [place] [address] [place] [phone] Silvano Garg DO [address] [place] [address] CERVICAL DISC DEGEN; LUMB-LUMBOSAC DISC DEGEN Allergies Active Allergy Reactions Criticality Noted Date Comments Bee Venom 02/09/2016 Erythromycin 04/08/1997 GI upset Iodinated Contrast Media 03/01/2012 IVP dye when she had stones 1989 At [place] had nausea and emesis then she got hives on her chest and arms Atorvastatin Calcium 01/05/2005 MIld elevation of CK and LFT's ( see [facility] labs of 01/03/05) Pregabalin Edema Other 05/19/2014 Swelling of legs and feet Nabumetone Rash 12/21/2011 Nsaids Other (Please comment) 02/08/2017 GI distress Penicillins Rash 04/08/1997 She was told when she was a toddler she got a rash documented as of this encounter (statuses as of 04/20/2023) Medications Medication Sig Dispensed Refills Start Date End Date Status VITAMIN B COMPLEX PO TABSIndications:bewarket Take by mouth. 0 Active valACYclovir (VALTREX) [...] Reported on 07/25/2022 PreserVision AREDS 2 Oral CapsuleIndications:Bracketr Take 1 Capsule by mouth in the morning. 0 09/21/2021 Active FLUoxetine HCl 40 MG Oral Capsule (PROzac)Indications:Ma barry depressive disorder, recurrent, moderate (HCC),Generalized anxiety disorder Take by mouth 2 Capsules in the morning. 200 Capsule 3 10/13/2021 Active Additional Information Patient taking differently:80 mg Oral Daily(AM),Indications: depression, Reported on 07/25/2022 Magnesium 125 MG Oral CapsuleIndications:Bracketr Take 125 mg by mouth in the morning. 0 Active Vitamin D 25 MCG (1000 UT) Oral TabletIndications:[employer] Take 1 Tablet by mouth in the morning. 0 Active Albuterol Sulfate 1.25 MG/3ML Inhalation Nebulization SolutionIndications:Ac [place] bronchitis, unspecified organism Inhale 1.25 mg via [...] EVERY DAY 90 Tablet 1 03/20/2023 Active Triamcinolone Acetonide 0.1 % External Cream [...] Active Doxycycline Hyclate 100 MG Oral CapsuleIndications:Bro nchitis, complicated Take 1 Capsule by mouth in the morning and 1 Capsule before bedtime. Do all this for 7 days. Take for 7 days. 14 Capsule 0 04/17/2023 04/24/20 23 Active Benzonatate 100 MG Oral CapsuleIndications:Bro nchitis, complicated Take 1 Capsule by mouth 3 times a day as needed for Cough. 30 Capsule 1 04/17/2023 Active Molnupiravir 200 MG Oral CapsuleIndications:COV ID-19 virus infection Take 4 Capsules by mouth in the morning and 4 Capsules before bedtime. Do all this for 5 days. 40 Capsule 0 04/18/2023 04/23/20 23 Active HYDROcodone-Acetaminop hen 5-325 MG Oral TabletIndications:Dege neration of lumbosacral intervertebral disc,Thoracic and lumbosacral neuritis,Postlaminecto my syndrome, lumbar Take 2 Tablets by mouth every 8 hours as needed for Pain, Mild. 120 Tablet 0 04/20/2023 Active documented as of this encounter (statuses as of 04/20/2023) Active Problems Problem Noted Date Diagnosed Date [...] accepted brochure Esophageal reflux 07/05/2005 LOC PRIM NIIDLEMC-R-CLC 08/15/2004 POSTLAMINECT SYND-LUMBAR 09/24/2002 Thoracic and lumbosacral neuritis 09/24/2002 CERVICAL DISC DEGEN 10/04/2000 Acquired hypothyroidism LUMB-LUMBOSAC DISC DEGEN documented as of this encounter (statuses as of 04/20/2023) Resolved Problems Problem Noted Date Diagnosed Date [...] as of this encounter (statuses as of 04/20/2023) Immunizations Name Administration Dates Next Due COVID-19 mRNA, LNP-s, No Pre serve, 2-Dose Series (Nemedia) 03/31/2021,08/07/2020,07/12/2020 COVID-19, LNP-s, No Preserve , Melo-sucrose, Ages 12+ (Pfizer) 12/27/2021 Covid-19, Mrna, Lnp-s, Pf, B ivalent, 30 Mcg, IM, 12 yrs and above (Nemedia) 05/23/2022 H1N1 2009 Influenza, IM 05/17/2009 Pneumococcal [...] encounter Miscellaneous Notes * Telephone Encounter - CastilloIsabella, DALTON - 04/20/2023 4:25 PM EST Pending Prescriptions: Disp Refills HYDROcodone-Acetaminophen 10-325 MG Oral *120 Ta*0 Sig: Take 1 Tablet by mouth every 4 hours as needed for Pain, Moderate or Pain, Severe. Last Visit: 04/17/2023 (in office), 06/01/2022 (telemedicine) Next Visit: 05/14/2023 Last date the medication was ordered: Patient Active Problem List Diagnosis Code CERVICAL DISC DEGEN M50.30 POSTLAMINECT SYND-LUMBAR M96.1 Thoracic and lumbosacral neuritis M54.14, M54.17 Acquired hypothyroidism E03.9 LUMB-LUMBOSAC DISC DEGEN M51.37 LOC PRIM [id number] M17.10 Esophageal reflux K21.9 ADVANCE DIRECTIVE INFORMATION Pure hypercholesterolemia E78.00 MEDICATION USE AGREEMENT [id number] HTN, goal below 140/90 I10 Restless legs syndrome G25.81 Generalized anxiety disorder F41.1 Major depressive disorder, recurrent, moderate ([facility]) F33.1 Body mass index (BMI) of 50.0 to 59.9 in adult ([facility]) Z68.43 Age-related osteoporosis without current pathological fracture M81.0 Hyperparathyroidism, primary ([facility]) E21.0 Parathyroid adenoma D35.1 DM type 2, goal HbA1c < 8% ([facility]) E11.9 Labs: Lab Results Component Value Date/Time CREATININE - [facility] 0.6 12/27/2022 02:43 PM CREATININE - [facility] 0.8 12/12/2019 08:11 AM CREATININE ERIC 59 04/07/2014 03:34 PM CREATININE, 24 HOUR URINE 1010 01/12/2023 02:05 PM CREATININE, RAND URINE-MET 30 11/16/2006 04:30 PM CREATININE, RANDOM URINE - [facility] 73 03/30/2023 02:24 PM CREATININE-OUTSIDE LAB 0.82 04/22/2015 12:00 AM Lab Results Component Value Date/Time POTASSIUM - [facility] 5.0 12/27/2022 02:43 PM POTASSIUM - [facility] 4.3 12/12/2019 08:11 AM POTASSIUM, 24 HOUR URINE 57 01/12/2023 02:05 PM POTASSIUM-OUTSIDE LAB 3.8 04/22/2015 12:00 AM Lab Results Component Value Date/Time TSH - [facility] 0.84 02/28/2023 03:28 PM TSH - [facility] 1.27 12/12/2019 08:11 AM Lab Results Component Value Date/Time LDL CHOLESTEROL (CALCULATED) - [facility] 105 03/29/2022 01:00 PM LDL CHOLESTEROL (CALCULATED) - [facility] 100 05/25/2021 03:08 PM LDL CHOLESTEROL (CALCULATED) - [facility] UNINTERPRETABLE RESULT 09/05/2018 10:04 AM LDL CHOLESTEROL (CALCULATED) - [facility] 119 11/04/2016 09:49 AM LDL CHOLESTEROL (DIRECT MEASURE) - [facility] 94 07/25/2022 03:27 PM LDL CHOLESTEROL (DIRECT MEASURE) - [facility] 91 09/05/2018 10:04 AM LDL CHOLESTEROL (DIRECT MEASURE) - [facility] NOT APPLICABLE 11/04/2016 09:49 AM LDL CHOLESTEROL (DIRECT MEASURE) - [facility] 114 08/07/2014 12:00 PM Lab Results Component Value Date/Time ALT - [facility] 53 (H) 12/27/2022 02:43 PM ALT - [facility] 32 11/04/2016 09:49 AM Hemoglobin AIC Results: Lab Results Component Value Date/Time HEMOGLOBIN A1C - [facility] 7.6 (H) 02/28/2023 03:28 PM HEMOGLOBIN A1C - [facility] 5.9 (H) 07/25/2022 03:27 PM HEMOGLOBIN A1C - [facility] 6.3 (H) 03/29/2022 01:00 PM HEMOGLOBIN A1C - [facility] 6.1 (H) 12/12/2019 08:11 AM HEMOGLOBIN A1C - [facility] 5.9 (H) 09/10/2018 11:45 AM HEMOGLOBIN A1C - [facility] 5.8 (H) 09/05/2018 10:04 AM documented in this encounter Plan of Treatment Upcoming Encounters Date Type Department Care Team (Latest Contact Info) Description 05/14/2023 2:20 PM EST Office Visit Family Practice [facility] [address] [place] [phone] Silvano Garg, [address] [place] [address] 05/21/2023 10:31 AM EST Hospital Encounter OR [facility], OPERATING ROOM [facility] [address] [place] [address] Bianka Matute MD [address] [place] [address] 05/21/2023 10:31 AM EST - 05/21/2023 1:04 PM EST Surgery OR [facility], OPERATING ROOM [facility], [facility] PAVDUBLIN [address] [place] [address] Bianka Matute MD [address] [place] [address] PARATHYROIDECTOMY 06/01/2023 11:00 AM EST Office Visit Otolaryngology/Head & Neck/Facial Plastic Surgery [address] [place] [address] Bianka Matute MD [address] [place] [address] 06/04/2023 1:40 PM EST Office Visit Family Practice [address] [facility] [address] [place] [address] Silvano Garg DO [address] [place] [address] Scheduled Procedures Name Priority Associated Diagnoses Date/Ti [...] , 06/23/2019, Additional history exists COVID-19 Vaccine () 12/29/2022 05/23/2022, 12/27/2021, 03/31/2021, Additional history exists Mammogram [...] D LEVEL ONCE IN A LIFETIME-USE SMARTSET# [id number] Completed 12/27/2022, 03/29/2022, 12/27/2021, Additional history exists Influenza Vaccine (FLU shot) Completed 04/2022, 01/19/2022, 02/14/2021, Additional history exists GARDASIL-HPV IMMUNIZATION SERIES Aged Out No longer eligible based on patient's age to complete this topic MENINGOCOCCAL (MENACTRA/MENVEO) Aged Out No longer eligible based on patient's age to complete this topic documented as of this encounter Medical Devices Implanted Type Area Manager Recruiting Device Identifier Shelf Expiration Date Model / Serial / Lot Battery Advance Prime [id number] - [id number] Implanted:Qty: 1 on 07/21/2011 at OR [facility] Right: Buttocks [employer] : NEUROLOGIC PAIN 09/10/2012 [id number] / [id number] / Lens Intraoc 16.5 - [id number] - [id number] Implanted:Qty: 1 on 02/13/2017 by Marco Antonio Melton MD at OR [facility] Left: Eye BAUSCH & LOMB 06/27/2021 [id number] / [id number] / [id number] Lens Intraoc 16.0 - [id number] - [id number] Implanted:Qty: 1 on 02/22/2017 by Marco Antonio Melton MD at OR [facility] Right: Eye BAUSCH & LOMB 04/29/2021 [id number] / [id number] / documented as of this encounter Visit Diagnoses Diagnosis CERVICAL DISC DEGEN Degeneration of cervical intervertebral disc LUMB-LUMBOSAC DISC DEGEN Degeneration of lumbar or lumbosacral intervertebral disc Hyperparathyroidism (HCC) Hyperparathyroidism, unspecified documented in this [...] and were consensually agreed upon. Care Teams Mechanical Equipment Test Engineer Relationship Specialty Start Date End Date Silvano Garg DO [address] [place] [address] PCP - General Internal Medicine 02/22/21 documented as of this encounter
--- OUTSIDE RECORDS SUMMARY | 2023-07-14 16:49 | External Medical Summary ---
Author Name Unknown Address Unknown Organization [id number]:[facility] [place] [address] [facility] [place] [address] Laboratory Report Ordering Provider Test Date Status VERNELL OSULLIVAN 05/14/2023 15:34:04 Final Observation Date Value Abnormality Reference (Units ) Status BUN 05/14/2023 15:34:04 18 6-20 (mg/dL) Final Creatinine 05/14/2023 15:34:04 0.6 0.5-1.0 (mg/dL) Final Glomerular filtration rate/1.73 sq M.predicted [Volume Rate/Area] in Serum, Plasma or Blood by Creatinine-based formula (CKD-EPI) 05/14/2023 15:34:04 >90 >=60 (mL/min) Final eGFR is calculated based on the CKD-EPI 2020 equation SODIUM 05/14/2023 15:34:04 137 135-146 (m mol/L) Final Potassium 05/14/2023 15:34:04 4.8 3.5-5.1 (m mol/L) Final Cl 05/14/2023 15:34:04 102 98-107 (mm ol/L) Final CO2 05/14/2023 15:34:04 24 22-32 (mmo l/L) Final Anion gap 05/14/2023 15:34:04 11 7-15 (mmol /L) Final Glucose 05/14/2023 15:34:04 166 Above high normal 70 -120 (mg/dL) Final Albumin 05/14/2023 15:34:04 4.9 3.8-5.0 (g /dL) Final AST (Aspartate aminotransferase) 05/14/2023 15:34:04 27 10-35 (U/L) Fin al Alk Phos 05/14/2023 15:34:04 133 Above high normal 35 -130 (U/L) Final Bilirubin, Total 05/14/2023 15:34:04 0.2 <=1 .2 (mg/dL) Final Calcium 05/14/2023 15:34:04 11.2 Above high normal 8. 4-10.2 (mg/dL) Final Protein 05/14/2023 15:34:04 7.2 6.0-8.3 (g /dL) Final ALT (Alanine aminotransferase) 05/14/2023 15:34:04 46 Above high normal 10-35 (U/L) Final Performing Location [facility] [place] [address] [facility] [address]
--- OUTSIDE RECORDS SUMMARY | 2023-07-14 16:49 | External Medical Summary ---
Author Name Unknown Address Unknown Organization K01:[facility]ATORY [facility] - [address] [place] [address] Laboratory Report Ordering Provider Test Date Status VERNELL OSULLIVAN 05/14/2023 15:34:04 Final Observation Date Value Abnormality Reference (Units ) Status Magnesium 05/14/2023 15:34:04 2.2 1.5-2.6 (m g/dL) Final Performing Location LABORATORY [facility] - [address] [place] [address]
--- OUTSIDE RECORDS SUMMARY | 2023-07-14 16:49 | External Medical Summary | Summary of Care ---
Author Name Unknown Organization [facility] Address [address] [place] [address] Phone [phone] Care Team Providers Care Home Economics Extension Worker Name Role Phone Shi Garg DO Primary Care Provider [phone] Reason for Visit * Reason Comments Medication Refill Encounter Details Date Type Department Care Team (Late st Contact Info) Description 05/08/2023 Refill Family Practice [address] [facility], [place] [address] [place] [phone] Shi Garg DO [address] [place] [address] LUMB-LUMBOSAC DISC DEGEN; Thoracic and lumbosacral neuritis; POSTLAMINECT SYND-LUMBAR Allergies Active Allergy Reactions Criticality Noted Date Comments Bee Venom 02/09/2016 Erythromycin 04/08/1997 GI upset Iodinated Contrast Media 03/01/2012 IVP dye when she had stones 1989 At [place] had nausea and emesis then she got hives on her chest and arms Atorvastatin Calcium 01/05/2005 MIld elevation of CK and LFT's ( see [facility] labs of 01/03/05) Pregabalin Edema Other 05/19/2014 Swelling of legs and feet Nabumetone Rash 12/21/2011 Nsaids Other (Please comment) 02/08/2017 GI distress Penicillins Rash 04/08/1997 She was told when she was a toddler she got a rash documented as of this encounter (statuses as of 05/09/2023) Medications Medication Sig Dispensed Refills Start Date End Date Status VITAMIN B COMPLEX PO TABSIndications:BARRX Medical Take by mouth. 0 Active valACYclovir (VALTREX) [...] Reported on 07/25/2022 PreserVision AREDS 2 Oral CapsuleIndications:[place] Take 1 Capsule by mouth in the morning. 0 09/21/2021 Active FLUoxetine HCl 40 MG Oral Capsule (PROzac)Indications:Ma barry depressive disorder, recurrent, moderate (HCC),Generalized anxiety disorder Take by mouth 2 Capsules in the morning. 200 Capsule 3 10/13/2021 Active Additional Information Patient taking differently:80 mg Oral Daily(AM),Indications: depression, Reported on 07/25/2022 Magnesium 125 MG Oral CapsuleIndications:[place] Take 125 mg by mouth in the morning. 0 Active Vitamin D 25 MCG (1000 UT) Oral TabletIndications:Rsync.net Take 1 Tablet by mouth in the [...] 100 Tablet 3 08/09/2022 08/09/19 24 Active hydrOXYzine HCl 25 MG [...] the morning. 60 Tablet 3 03/30/2023 Active HYDROcodone-Acetaminop hen 5-325 MG Oral TabletIndications:Dege neration of lumbosacral intervertebral disc,Thoracic and lumbosacral neuritis,Postlaminecto my syndrome, lumbar Take 2 Tablets by mouth every 8 hours as needed for Pain, Mild. 120 Tablet 0 04/20/2023 Active FLUoxetine HCl 40 MG Oral Capsule (PROzac) Take 2 capsules by mouth daily. 180 Capsule 0 04/20/2023 Active Benzonatate 100 MG Oral CapsuleIndications:Bro nchitis, complicated Take 1 Capsule by mouth 3 times a day as needed for Cough. 30 Capsule 1 05/02/2023 Active HYDROcodone-Acetaminop hen 10-325 MG Oral Tablet Take 1 Tablet by mouth every 4 hours as needed for Pain, Moderate or Pain, Severe. 120 Tablet 0 05/09/2023 Active documented as of this encounter (statuses as of 05/09/2023) Active Problems Problem Noted Date Diagnosed Date [...] accepted brochure Esophageal reflux 07/05/2005 LOC PRIM [id number] 08/15/2004 POSTLAMINECT SYND-LUMBAR 09/24/2002 Thoracic and lumbosacral neuritis 09/24/2002 CERVICAL DISC DEGEN 10/04/2000 Acquired hypothyroidism LUMB-LUMBOSAC DISC DEGEN documented as of this encounter (statuses as of 05/09/2023) Resolved Problems Problem Noted Date Diagnosed Date [...] as of this encounter (statuses as of 05/09/2023) Immunizations Name Administration Dates Next Due COVID-19 [...] encounter Miscellaneous Notes * Telephone Encounter - Sih Garg DO - 05/09/2023 11:24 AM ESTSigned Prescriptions: Disp Refills HYDROcodone-Acetaminophen 10-325 MG Oral T*120 Ta*0 Sig: Take 1 Tablet by mouth every 4 hours as needed for Pain, Moderate or Pain, Severe.Authorizing Provider: SHI GARG * Telephone Encounter - Lakisha Henry [facility] - 05/09/2023 8:24 AM ESTPending Prescriptions: Disp Refills HYDROcodone-Acetaminophen 10-325 MG Oral T*120 Ta*0 Sig: Take 1 Tablet by mouth every 4 hours as needed for Pain, Moderate or Pain, Severe. * Telephone Encounter - Lakisha Henry, [facility] - 05/09/2023 8:17 AM EST I have reviewed the patients controlled substance dispensing history in the Prescription Drug Monitoring Program in compliance with the [facility] regulations before prescribing a controlled substance. PDMP checked on 05/09/2023. Pending Prescriptions: Disp Refills HYDROcodone-Acetaminophen 10-325 MG Oral *120 Ta*0 Sig: Take 1 Tablet by mouth every 4 hours as needed for Pain, Moderate or Pain, Severe. Last Visit: 04/17/2023 (in office), 06/01/2022 (telemedicine) Next Visit: 05/14/2023 Date medication was last filled: 04/21/23 Date medication is due for refill: 05/10/23 Pharmacy: [facility] Is this request for a controlled [...] in Results Review. Please approve if appropriate. Thanks, Lakisha Henry PharmD Clinical Pharmacist Centralized Clinical Pharmacy Services ([facility]) (Formerly [facility]) [phone] 05/09/2023 8:22 AM * Telephone Encounter - Lakisha Henry RPh - 05/09/2023 8:14 AM EST Patient comment: I'm aware of the possible shortage of the 10-325. I'm not a big fan of the 5-325. Taking that much Tylenol everyday makes my ears ring. How or why but I've always had this reaction when taking frances doses of Tylenol. I possible could I please q the 10-325 strength as I have had so many times for that dosage is just right for me. I will leave it up to you as to which pharmacy to use hoping one of them has the 10-325 in stock. Thanks. Chloé Please see patient comment. Please note, I have pended the 10-325mg as the patient requested using the sig & quantity she was previously getting medication refilled with. Please approve if appropriate. Thanks, Lakisha Henry PharmD Clinical Pharmacist Centralized Clinical Pharmacy Services ([facility]) (Formerly [facility]) [phone] 05/09/2023 8:16 AM documented in this encounter Plan of Treatment Upcoming Encounters Date Type Department Care Team (Latest Contact Info) Description 05/14/2023 2:20 PM EST Office Visit Family Practice [address] [facility] [address] [place] [phone] Shi Garg, [address] [place] [address] 05/21/2023 7:45 AM EST Hospital Encounter [place] [facility] [place], OPERATING ROOM [facility] [place] [address] [place] [address] Bianka Matute MD [address] [place] [address] 05/21/2023 7:45 AM EST - 05/21/2023 10:18 AM EST Surgery OR [facility] [place], OPERATING ROOM [facility] [place] [address] [place] [address] Bianka Matute MD [address] [place] [address] PARATHYROIDECTOMY 06/01/2023 11:00 AM EST Office Visit Otolaryngology/Head & Neck/Facial Plastic Surgery [address] [place] [address] Bianka Matute MD [address] [place] [address] 06/04/2023 1:40 PM EST Office Visit Family Practice 65 [facility] [address] [place] [phone] Shi Garg, [address] [place] [address] Scheduled Procedures Name Priority Associated Diagnoses Date/Ti [...] D LEVEL ONCE IN A LIFETIME-USE SMARTSET# 08028 Completed 12/27/2022, 03/29/2022, 12/27/2021, Additional history exists Influenza Vaccine (FLU shot) Completed 04/2022, 01/19/2022, 02/14/2021, Additional history exists GARDASIL-HPV IMMUNIZATION SERIES Aged Out No longer eligible based on patient's age to complete this topic MENINGOCOCCAL (MENACTRA/MENVEO) Aged Out No longer eligible based on patient's age to complete this topic documented as of this encounter Medical Devices Implanted Type Area Dye Range Tender Device Identifier Shelf Expiration Date Model / Serial / Lot Battery Advance Prime [id number] - [id number] Implanted:Qty: 1 on 07/21/2011 at OR [facility] [place] Right: Buttocks [employer] : NEUROLOGIC PAIN 09/10/2012 [id number] / [id number] / Lens Intraoc 16.5 - [id number] - [id number] Implanted:Qty: 1 on 02/13/2017 by Marco Antonio Melton MD at OR [facility] Left: Eye BAUSCH [employer] LOMB 06/27/2021 [id number] / [id number] / [id number] Lens Intraoc 16.0 - [id number] - [id number] Implanted:Qty: 1 on 02/22/2017 by Marco Antonio Melton MD at OR [facility] Right: Eye BAUSCH & LOMB 04/29/2021 [id number] / [id number] / documented as of this encounter Visit Diagnoses Diagnosis LUMB-LUMBOSAC DISC DEGEN Degeneration of lumbar or lumbosacral intervertebral disc Thoracic and lumbosacral neuritis Thoracic or lumbosacral neuritis or radiculitis, unspecified POSTLAMINECT SYND-LUMBAR Postlaminectomy syndrome, lumbar region Hyperparathyroidism (HCC) Hyperparathyroidism, unspecified documented in this encounter Additional Health Concerns Infection Onset Date Last Indicated Resolved Time COVID-19 (confirmed) 04/17/2023 04/17/2023 024 12:21 AM EST documented as of this encounter Advance Directives [...] and were consensually agreed upon. Care Teams Home Economics Extension Worker Relationship Specialty Start Date End Date Shi Garg DO [address] [place] [address] PCP - General Internal Medicine 02/22/21 documented as of this encounter
--- OUTSIDE RECORDS SUMMARY | 2023-07-14 16:49 | External Medical Summary | Summary of Care ---
Author Name Unknown Organization [facility] Address [address] [place] [address] Phone [phone] Care Team Providers Care Driver Utility Worker Name Role Phone Shi Garg DO Primary Care Provider [phone] Reason for Visit * Reason Comments Medication Refill Encounter Details Date Type Department Care Team (Late st Contact Info) Description 04/18/2023 Refill Family Practice 65 [facility] [place] [address] [place] [phone] Shi Garg DO [address] [place] [address] CERVICAL DISC DEGEN; LUMB-LUMBOSAC DISC DEGEN Allergies Active Allergy Reactions Criticality Noted Date Comments Bee Venom 02/09/2016 Erythromycin 04/08/1997 GI upset Iodinated Contrast Media 03/01/2012 IVP dye when she had stones 1989 At [place] had nausea and emesis then she got hives on her chest and arms Atorvastatin Calcium 01/05/2005 MIld elevation of CK and LFT's ( see [facility] labs of 01/03/05) Pregabalin Edema Other 05/19/2014 Swelling of legs and feet Nabumetone Rash 12/21/2011 Nsaids Other (Please comment) 02/08/2017 GI distress Penicillins Rash 04/08/1997 She was told when she was a toddler she got a rash documented as of this encounter (statuses as of 04/20/2023) Medications Medication Sig Dispensed Refills Start Date End Date Status VITAMIN B COMPLEX PO TABSIndications:A Curated [place] Take by mouth. 0 Active valACYclovir (VALTREX) [...] Reported on 07/25/2022 PreserVision AREDS 2 Oral CapsuleIndications:o9 Solutions Take 1 Capsule by mouth in the morning. 0 2 Active FLUoxetine HCl 40 MG Oral Capsule (PROzac)Indications:Ma barry depressive disorder, recurrent, moderate (HCC),Generalized anxiety disorder Take by mouth 2 Capsules in the morning. 200 Capsule 3 2 Active Additional Information Patient taking differently:80 mg Oral Daily(AM),Indications: depression, Reported on 07/25/2022 Magnesium 125 MG Oral CapsuleIndications:o9 Solutions Take 125 mg by mouth in the morning. 0 Active Vitamin D 25 MCG (1000 UT) Oral TabletIndications:[place]ndango Take 1 Tablet by mouth in the [...] XR)Indications:DM type 2, goal HbA1c < 8% ([facility]) Take 2 Tablets by mouth in the morning. 60 Tablet 3 3 Active Doxycycline Hyclate 100 MG Oral CapsuleIndications:Bro nchitis, complicated Take 1 Capsule by mouth in the morning and 1 Capsule before bedtime. Do all this for 7 days. Take for 7 days. 14 Capsule 0 3 04/24/20 23 Active Benzonatate 100 MG Oral CapsuleIndications:Bro nchitis, complicated Take 1 Capsule by mouth 3 times a day as needed for Cough. 30 Capsule 1 3 Active HYDROcodone-Acetaminop hen 10-325 MG Oral TabletIndications:Dege neration of cervical intervertebral disc,Degeneration of lumbosacral intervertebral disc Take 1 Tablet by mouth every 4 hours as needed for moderate or severe pain. 120 Tablet 0 3 Active Molnupiravir 200 MG Oral CapsuleIndications:COV ID-19 virus infection Take 4 Capsules by mouth in the morning and 4 Capsules before bedtime. Do all this for 5 days. 40 Capsule 0 3 04/23/20 23 Active HYDROcodone-Acetaminop hen 10-325 MG Oral TabletIndications:Dege neration of cervical intervertebral disc,Degeneration of lumbosacral intervertebral disc Take 1 Tablet by mouth every 4 hours as needed for moderate or severe pain. 120 Tablet 0 3 04/18/20 23 Discontinu ed(Refill) documented as of this encounter [...] accepted brochure Esophageal reflux 07/05/2005 LOC PRIM [id number] 08/15/2004 POSTLAMINECT SYND-LUMBAR 09/24/2002 Thoracic and lumbosacral [...] mRNA, LNP-s, No Pre serve, 2-Dose Series (1000memories) 03/31/2021,08/07/2020,07/12/2020 COVID-19, LNP-s, No Preserve , Melo-sucrose, [...] Split, I IV3, With Preserve, Inj 02/09/2014,01/20/2013,03/01/2012,03/14,02/18/2010,04/07/2009,03/02/2008 ,03/18/2007,03/13/2006,03/27/2003,/08/2001,03/15/2001 Seasonal Influenza, Trivalen t, High Dose, No [...] encounter Miscellaneous Notes * Telephone Encounter - Kathy Gautam PHARM Tech - 04/20/2023 1:27 PM EST Pt called stating [facility] [place] snot have 10-325 mg in stock but does have 5-325 mg. Pt was calling to see if dr could send in 5-325 mg until 10s become available. Thanks, Kathy Gautam Studio Director Centralized Clinical Pharmacy Services ([facility]) 04/20/2023,1:28 PM * Telephone Encounter - Shi Garg DO - 04/19/2023 10:14 AM ESTSigned Prescriptions: Disp Refills HYDROcodone-Acetaminophen 10-325 MG Oral T*120 Ta*0 Sig: Take 1 Tablet by mouth every 4 hours as needed for moderate or severe pain. Authorizing Provider: SHI GARG * Telephone Encounter - Shi Garg DO - 04/19/2023 10:14 AM EST I have reviewed the patients controlled substance dispensing history in the Prescription Drug Monitoring Program in compliance with the [facility] regulations before prescribing a controlled substance. Last [...] in Results Review. * Telephone Encounter - Regina Barker RP - 04/19/2023 9:27 AM ESTPending Prescriptions: Disp Refills HYDROcodone-Acetaminophen 10-325 MG Oral T*120 Ta*0 Sig: Take 1 Tablet by mouth every 4 hours as needed for moderate or severe pain. * Telephone Encounter - Regina Barker RP - 04/19/2023 9:27 AM EST I have reviewed the patients controlled substance dispensing history in the Prescription Drug Monitoring Program in compliance with the [facility] regulations before prescribing a controlled substance. PDMP checked on 04/19/2023. Pending Prescriptions: Disp Refills HYDROcodone-Acetaminophen 10-325 MG Oral *120 Ta*0 Sig: Take 1 Tablet by mouth every 4 hours as needed for moderate or severe pain. Last Visit: 04/17/2023 (in office), 06/01/2022 (telemedicine) Next Visit: 05/14/2023 Date medication was last filled: 03/23/23 Date medication is due for refill: 04/11/23 Pharmacy: [facility] Is this request for a [...] in Results Review. Please approve if appropriate. ThanksRegina Clinical Pharmacist Centralized Clinical Pharmacy Services ([facility]) (Former[facility]) [phone] 04/19/2023, 9:27 AM documented in this encounter Plan of Treatment Upcoming Encounters Date Type Department Care Team (Latest Contact Info) Description 05/14/2023 2:20 PM EST Office Visit Family Practice [address] [place] [address] [place] [address] Shi Garg, 293 [facility] [address] 05/21/2023 10:31 AM EST Hospital Encounter [facility], OPERATING ROOM [facility] [address] [place] [address] Bianka Matute MD [address] [place] [address] 05/21/2023 10:31 AM EST - 05/21/2023 1:04 PM EST Surgery OR [facility], OPERATING ROOM [facility] [address] [place] [address] Bianka Matute MD [address] [place] [address] PARATHYROIDECTOMY 06/01/2023 11:00 AM EST Office Visit Otolaryngology/Head & Neck/Facial Plastic Surgery [address] [place] [address] Bianka Matute MD [address] [place] [address] 06/04/2023 1:40 PM EST Office Visit Family Practice [address] [place] [address] [address] [place] [address] Shi Garg, [address] [place] [address] Scheduled Procedures Name Priority Associated Diagnoses Date/Ti [...] D LEVEL ONCE IN A LIFETIME-USE SMARTSET# 90039 Completed 12/27/2022, 03/29/2022, 12/27/2021, Additional history exists Influenza Vaccine (FLU shot) Completed 04/2022, 01/19/2022, 02/14/2021, Additional history exists GARDASIL-HPV IMMUNIZATION SERIES Aged Out No longer eligible based on patient's age to complete this topic MENINGOCOCCAL (MENACTRA/MENVEO) Aged Out No longer eligible based on patient's age to complete this topic documented as of this encounter Medical Devices Implanted Type Area Operations Examiner Device Identifier Shelf Expiration Date Model / Serial / Lot Battery Advance Prime [id number] - [id number] Implanted:Qty: 1 on 07/21/2011 at OR [facility] Right: Buttocks [employer] : NEUROLOGIC PAIN 09/10/2012 [id number] / [id number] / Lens Intraoc 16.5 - [id number] - [id number] Implanted:Qty: 1 on 02/13/2017 by Marco Antonio Melton MD at OR [facility] Left: Eye BAUSCH & LOMB 06/27/2021 [id number] / [id number] / [id number] Lens Intraoc 16.0 - [id number] - [id number] Implanted:Qty: 1 on 02/22/2017 by Marco Antonio Melton MD at OR [facility] Right: Eye BAUSCH & LOMB 04/29/2021 [id number] / [id number] / documented as of this encounter Visit [...] and were consensually agreed upon. Care Teams Driver Utility Worker Relationship Specialty Start Date End Date Shi Garg DO [address] [place] [address] PCP - General Internal Medicine 02/22/21 documented as of this encounter
--- OUTSIDE RECORDS SUMMARY | 2023-07-14 16:49 | External Medical Summary | Summary of Care ---
Author Name Unknown Organization [facility] Address [address] [place] [address] Phone [phone] Care Team Providers Care Box Loader Name Role Phone Silvano Garg DO Primary Care Provider [phone] Reason for Visit * Reason Comments NEW PATIENT thyroid * Evaluate & Treat - Unlimited Visits (Within 10 days (routine)) - Authorized Specialty Diagnoses / Procedures Referred By Raúl grider Referred To Contact Otolaryngology Diagnoses Hyperparathyroidism (HCC) Amanda Cohn MD [address] [place] [place] [address] Referral ID Status Reason Start Date Expiration Date Visits Requested Visits Authorized [id number] Authorized Specialty Services Required 01/26/[id number] Encounter Details Date Type Department Care Team (Latest Contact Info) Description 04/10/2023 2:30 PM EST Office Visit Otolaryngology/Hea d & Neck/Facial Plastic Surgery [address] [place] [address] Bianka Matute MD [address] [place] [address] Hyperparathyroidism (HCC)* Allergies Active Allergy Reactions Criticality Noted Date Comments Bee Venom 02/09/2016 Erythromycin 04/08/1997 GI upset Iodinated Contrast Media 03/01/2012 IVP dye when she had stones 1989 [place] had nausea and emesis then she got hives on her chest and arms Atorvastatin Calcium 01/05/2005 MIld elevation of CK and LFT's ( see [facility] labs of 01/03/05) Pregabalin Edema Other 05/19/2014 Swelling of legs and feet Nabumetone Rash 12/21/2011 Nsaids Other (Please comment) 02/08/2017 GI distress Penicillins Rash 04/08/1997 She was told when she was a toddler she got a rash documented as of this encounter (statuses as of 04/13/2023) Medications Medication Sig Dispensed Refills Start Date End Date Status VITAMIN B COMPLEX PO TABSIndications:Wild Needle Take by mouth. 0 Active valACYclovir (VALTREX) [...] Reported on 07/25/2022 PreserVision AREDS 2 Oral CapsuleIndications:[email or web address] Take 1 Capsule by mouth in the morning. 0 09/21/2021 Active FLUoxetine HCl 40 MG Oral Capsule (PROzac)Indications:Ma barry depressive disorder, recurrent, moderate (HCC),Generalized anxiety disorder Take by mouth 2 Capsules in the morning. 200 Capsule 3 10/13/2021 Active Additional Information Patient taking differently:80 mg Oral Daily(AM),Indications: depression, Reported on 07/25/2022 Magnesium 125 MG Oral CapsuleIndications:[place] [employer] Take 125 mg by mouth in the morning. 0 Active Vitamin D 25 MCG (1000 UT) Oral TabletIndications:[employer] Take 1 Tablet by mouth in the morning. 0 Active Benzonatate 100 MG Oral CapsuleIndications:Upp er respiratory tract infection, unspecified type,Acute cough Take 1 Capsule by mouth 3 times a day as needed for Cough. 30 Capsule 1 09/19/2022 Active Additional Information Patient not taking.Reported on 04/10/2023 Albuterol Sulfate 1.25 MG/3ML Inhalation Nebulization SolutionIndications:Ac [...] the morning. 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 Thoracic and lumbosacral neuritis 09/24/2002 CERVICAL DISC DEGEN 10/04/2000 Acquired hypothyroidism LUMB-LUMBOSAC DISC DEGEN documented as of this encounter (statuses as of 04/13/2023) Resolved Problems Problem Noted Date Diagnosed Date [...] as of this encounter (statuses as of 04/13/2023) Immunizations Name Administration Dates Next Due COVID-19 mRNA, LNP-s, No Pre serve, 2-Dose Series (SyncSum) 03/31/2021,08/07/2020,07/12/2020 COVID-19, LNP-s, No Preserve , Melo-sucrose, [...] Past Smokeless Tobacco: Never Tobacco Cessation:Counseling Given: Not Answered Comments: smokes cigars Alcohol Use Standard Drinks/Week Comments Yes 0 (1 standard drink = 0.6 oz pur e alcohol) occasionaly PHQ-2 Answer Date Recorded PHQ Adult Total Score 21 03/30/2023 Hunger Vital Sign Answer Date Recorded Within the past 12 months, y ou worried that your food would run out before you got the money to buy more. Never true 03/30/20 23 Within the past 12 months, t he food you bought just didn't last and you didn't have money to get more. Never true 03/30/2023 Sex and Gender Information Value Date Recorded Sex Assigned at Female 02/22/2021 10:38 AM EDT Gender Identity Female 02/22/2021 10:38 AM EDT Sexual Orientation Straight 02/22/2021 10 :38 AM EDT Job Start Date Occupation Industry Not on file Not on file Not on file documented as of this encounter Last Filed Vital Signs Vital Sign Reading Time Taken Comments Blood Pressure 153/84 04/10/2023 2:04 PM EST Pulse 80 04/10/2023 2:04 PM EST Temperature 37.1 C (98.8 F) 04/10/2023 2:04 PM ES T Respiratory Rate 18 04/10/2023 2:04 PM EST Oxygen Saturation - - Inhaled Oxygen Concentration - - Weight 125 kg (275 lb 9.6 oz) 04/10/2023 2:04 PM EST Height 153.9 cm (5' 0.6") 04/10/2023 2:04 PM EST Body Mass Index 52.76 04/10/2023 2:04 PM EST documented in this encounter Functional [...] as of this encounter Progress Notes * Az eCnteno, ZAIRE Thrasher - 04/10/2023 2:04 PM EST Department of Otolaryngology - Head and Neck Surgery [place] [address] 04/10/2023 History of Present Illness: Chloé Altamirano is a 68 year old female seen at the request of Silvano Garg DO for the initial evaluation of primary hyperparathyroidism. Patient has history of primary hyperparathyroidism and underwent right sided parathyroidectomy with Dr. Henderson on 11/20/2006. She also reports having thyroid surgery in the past at [place] back in the 1979, it appears that her left gland is "atrophic" on imaging. Patient has history of kidney stones. She is a candidate for surgery. She is here today to discuss next steps. Pathology from 11/20/2006: A: Right inferior parathyroid, small parathyroid adenoma. B: Right superior parathyroid, biopsy, portion of parathyroid. PTH 12/27/22: 133 07/25/22: 106 Calcium: 12/27/22: 10.9 07/25/22: 10.[address] 02/19/23: IMPRESSION Findings consistent with a 13-mm parathyroid adenoma in the left tracheoesophageal groove less thana centimeter from the inferior border of the posterior cricoid cartilage. US 11/30/22: FINDINGS Right lobe measures 4.4 x 1.9 x 2.3 cm, isthmus measures 0.4 cm, and left lobe measures 2.6 x 1.0 x1.1 cm. The thyroid is heterogenous with confluent nodules. The left lobe is small secondary to previous surgery. There is no suspicious nodule. Parathyroid adenoma is not seen. IMPRESSION Multinodular gland without suspicious nodule. DEXA 04/10/22: Lumbar spine: 0.741 gms/cm2 T-score: -3.3 Z-score: -1.1 Left femoral neck: 0.752 gms/cm2 T-score: -0.9 Left forearm: 0.602 gms/cm2 T-score: -1.5 Patient Active Problem List Diagnosis Code CERVICAL DISC DEGEN M50.30 POSTLAMINECT SYND-LUMBAR M96.1 Thoracic and lumbosacral neuritis M54.14, M54.17 Acquired hypothyroidism E03.9 LUMB-LUMBOSAC DISC DEGEN M51.37 LOC PRIM [id number] M17.10 Esophageal reflux K21.9 ADVANCE DIRECTIVE INFORMATION Pure hypercholesterolemia E78.00 MEDICATION USE AGREEMENT [id number] HTN, goal below 140/90 I10 Restless legs [...] 8% ([facility]) E11.9 Past Medical History: Diagnosis Date Acquired hypothyroidism Calculus of kidney Secondary to hyperparathyroidism CERVICAL DISC DEGEN 10/04/2000 Depressive disorder, not elsewhere classified hosp. at [facility]- one event Disorder of intervertebral [...] HOSPITAL) 01/04/2021 Morbid obesity, BMI not known (HCC) [...] COLONOSCOPY, DIAGNOSTIC (RECTUM) 09/03/2018 normal, repeat 10 yrs/[facility] CYSTO/URETERO W/LITHOTRIPSY Right 04-28-2015 CYSTO/URETERO W/LITHOTRIPSY Right 05-07-2015 CYSTO/URETERO W/LITHOTRIPSY Right 05/07/2015 CYSTOURETHROSCOPY URETEROSCOPY WITH LITHOTRIPSY AND STENT INSERTION performed by Chiara Quan MD at [facility] CYSTOSCOPY 07-16-06 stent removal CYSTOSCOPY/INSERTION OF STENT 07/13/06 CYSTOURETHROSCOPY WITH INSERTION URETERAL STENT performed by PAUL VICTORIA at [facility] CYSTOSCOPY/URETERAL CATHETER 07/13/06 CYSTOURETHROSCOPY WITH URETERAL CATHETER performed by PAUL VICTORIA at [facility] CYSTOURETRO &/OR PYELOSCOPE 07/13/06 CYSTOURETHROSCOPY URETROSCOPY AND OR PYELOSCOPY performed by PAUL VICTORIA at [facility] CYSTOURETRO W/STONE REMOVE 07/13/06 CYSTOURETHROSCOPY URETROSCOPY WITH STONE REMOVAL performed by PAUL VICTORIA at [facility] EXPLORE PARATHYROID GLANDS 11/16/06 PARATHYROIDECTOMY performed by KEDAR HENDERSON at [facility] FLUORO MISCELLANEOUS 07/13/06 FLUROSCOPY UP TO ONE HOUR performed by PAUL VICTORIA at [facility] FRAGMENT KIDNEY STONE BY SHOCK WAVE [...] CONTRAST MEDIUM performed by PAUL VICTORIA at [facility] LAPAROSCOPY; CHOLECYSTECTOMY LIGATE/CUT OVIDUCT(S) Tubal Ligation LUMBAR HEMILAMINECTOMY L 3-4 discectomy LUMBAR HEMILAMINECTOMY 12/23/01 L3-4 left hemilaminectomy, disckectomy, with foraminotomy PARTIAL REMOVAL OF THYROID LOBE right lobectomy REDUCTION OF BREAST 1996 REMOVAL OF TONSILS, UNDER AGE 10 Tonsillectomy REMOVE CATARACT, INSERT LENS PROSTH Left 02/13/2017 left EXTRACAPSULAR CATARACT REMOVAL WITH INTRAOCULAR LENS performed by Marco Antonio Melton MD at OR [facility] REMOVE CATARACT, INSERT LENS PROSTH Right 02/22/2017 right EXTRACAPSULAR CATARACT REMOVAL WITH INTRAOCULAR LENS performed by Marco Antonio Melton MD at OR [facility] REMOVE GALLBLADDER 07/11/05 Dr. Peña REPAIR DETACHED RETINA, VITRECTOMY Right 08/12/2021 PARS PLANA VITRECTOMY, AIR FLUID EXCHANGE, ENDOLASER, FLUID GAS EXCHANGE SF6, RIGHT EYE (25g) performed by Kierra Cunningham MD at OR [facility] REPAIR RUPTURED ROTATOR CUFF, CHRON REVISE/REMOVE SPINAL NEURORECEIVER 07/21/2011 REVISION OR REMOVAL IMPLANTED SPINAL NEUROSTIMULATOR performed by LORETO HERNANDEZ at OR [facility] SACROILIAC JOINT INJECT W/GUIDANCE 12/06/2017 INJECTION SACROILIAC JOINT performed by Edwardo Osullivan DO at OR [facility] SACROILIAC JOINT INJECT W/GUIDANCE 04/11/2018 INJECTION SACROILIAC JOINT performed by Edwardo Osullivan DO at OR [facility] SACROILIAC JOINT INJECT W/GUIDANCE 09/17/2019 INJECTION SACROILIAC JOINT performed by Edwardo Osullivan DO at OR [facility] SPINAL NEUROSTIM ELECTRODE PLATE, REVISION 07/21/2011 REVISION SPINAL NEUROSTIM ELECTRODE PLATE performed by LORETO HERNANDEZ at OR [facility] TOTAL ABD HYSTERECTOMY W/WO REMOVAL OF TUBE(S) complete hysterectomy at age 44 Current Outpatient Medications Medication Sig Dispense Refill VITAMIN B COMPLEX PO TABS Take by mouth. Diclofenac Epolamine 1.3 % External Patch PLACE [...] by mouth in the morning. Albuterol Sulfate HFA 108 (90 Base) MCG/ACT [...] DAY NEEDED FOR ANXIETY 180 Tablet 1 Gabapentin 400 MG Oral Capsule [...] TABLET BY MOUTH EVERY DAY90 Tablet 1 HYDROcodone-Acetaminophen 10-325 MG Oral Tablet Take 1 Tablet by mouth every 4 hours as needed for moderate or severe pain. 120 Tablet 0 Triamcinolone Acetonide 0.1 % External Cream (Aristocort) Apply topically to affected area 2 times a day. Groin and thighs. 60 g 5 metFORMIN HCl ER 500 MG Oral Tablet Extended Release 24 Hour (Glucophage XR) Take 2 Tablets by mouth in the morning. 60 Tablet 3 valACYclovir (VALTREX) 1000 MG Tablet TAKE TWO TABLETS BY MOUTH EVERY 12 HOURS FOR 1 DAY FOR COLD SORES (Patient taking differently: TAKE TWO TABLETS BY MOUTH EVERY 12 HOURS FOR 1 DAY FOR COLD SORES)4 Tab 5 Benzonatate 100 MG Oral Capsule Take 1 Capsule by mouth 3 times a day as needed for Cough. (Patientnot taking: Reported on 04/10/2023) 30 Capsule 1 Albuterol Sulfate 1.25 MG/3ML Inhalation Nebulization Solution Inhale 1.25 mg via nebulizer every 4hours as needed for Wheezing. 120 mL 1 busPIRone HCl 15 MG Oral Tablet (Buspar) TAKE ONE TABLET BY MOUTH TWICE A DAY, MAY TAKE AND ADDITIONAL ONE TABLET EVERY TWENTY FOUR HOURS NEEDED FOR ANXIETY 270 Tablet 0 amLODIPine Besylate 2.5 MG Oral Tablet (Norvasc) TAKE ONE TABLET BY MOUTH EVERY DAY. 100 Tablet 1 No current facility-administered medications for this visit. Review of patient's allergies indicates: Allergen Reactions Bee Venom Erythromycin GI upset Iodinated Contrast Media IVP dye when she had stones 1989 [place] had nausea and emesis then she got hives on her chest and arms Lipitor [Atorvastatin Calcium] MIld elevation of CK and LFT's ( see [facility] labs of 01/03/05) Lyrica [Pregabalin] Edema Other Swelling of legs and feet Nabumetone Rash Nsaids Other (Please comment) GI distress Penicillins Rash She was told when she was a toddler she got a rash Family History Problem Relation Age of Onset Cancer Mother Pancreatic Allergies Mother Hayfever Hypertension Mother Arthritis Mother Diabetes Father Hypertension Father Obesity Father Kidney cancer Father Diabetes Grandfather (Maternal) Hypertension Brother Arthritis Grandmother (Maternal) Diabetes Grandmother (Paternal) Obesity Grandmother (Paternal) Other (Nephrolithiasis) Other cousin on mother's side Social History Tobacco Use Smoking status: Never Passive exposure: Past Smokeless tobacco: Never Tobacco comments: smokes cigars Substance Use Topics Alcohol use: Yes Comment: occasionaly Vaping/E-Cigarette Use Vaping/E-Cigarette Use Never User Vaping/E-Cigarette Substances Vaping/E-Cigarette Devices Review of Systems Negative for constitutional, eyes, cardiac, pulmonary, hepatic, renal, digestive, hematologic, epileptic, syncopal, musculo-skeletal, mental health, integumentary, hypertensive, lipid, arthritic, diabetic, thyroid, or neurologic disorders (except as listed in the PMH and Problem List). Physical Examination: There were no vitals taken for this visit. General: this is a healthy appearing female who appears her stated age, comfortable, and appropriately verbally conversant without hoarseness. Face: no cutaneous masses or lesions. Facial movement was symmetric without weakness. The parotid and submandibular glands were normal to palpation. Eyes: EOMI, pupils equal and reactive. No nystagmus. Nose: Examination of the nose revealed septum is non-obstructing. The turbinates are normal in appearance. No lesions, masses, polyps, or mucopurulence. Oral cavity: Examination of the oral cavity revealed no mass lesions or infection. The palate was noted to be intact without evidence of clefting. The tongue exhibited normal mobility. Oropharynx: Mucosa was moist without lesion or inflammation. Uvula midline. Tonsils not enlarged. Neck: Visualization and palpation of the neck revealed no mass lesions, no thyromegaly or thyroid masses. No skin lesions or inflammatory processes were detected. The cervical musculature was normal to palpation. Two previous thyroid and parathyroid surgical scars well healed. Lymphatics (cervical):There were no palpable lymph nodes in the posterior triangle, submandibular triangle, jugulodigastric region, or central neck. PROCEDURE: Fiberoptic examination of the larynx was performed. The nose was first topically decongested with topical oxymetazoline 0.05% spray and topically anesthetized with topical Lidocaine 4% spray. Fiberoptic examination revealed no mass lesions. Vocal cord mobility was normal without paralysis or paresis. There was no significant edema or erythema of the larynx. No vocal cord masses were visualized. The exam was negative for post cricoid or pyriform sinuses lesions. The patient tolerated the procedure well. Patient should refrain from eating or drinking for 30-45 minutes due to anesthesia of the pharynx and possible interference with swallowing. This was performed by ZAIRE Goodman. Assessment and Plan: Chloé Altamirano is a 68 year old female who presents for recurrent primary hyperparathyroidism with a left sided candidate. She has history of right sided parathyroidectomy with Dr. Henderson in 2006. Patient reports history of hemithyroidectomy in the 1980s, imaging reports left atrophic thyroid glands. - Patient is recommended for revision parathyroidectomy with left sided candidate. Scope exam normal, bilateral vocal cords mobile. - EKG pre-op - PCP prior to OR The patient was seen and examined with Dr. Bianka Matute. ZAIRE Hunt Otolaryngology 04/10/23 Surgery is indicated. Plan for revision parathyroidectomy. Risks and benefits were fully reviewed and informed consent obtained. Thank you for the referral, and please feel free to contact me with any questions. I have discussed the patient's management with the medical trainee and agree with the note. Please refer to the documented findings and plan of care. This patient's visit today consisted of an evaluation and procedure. I was present and confirmed the findings of the history and exam, and was present for the entire procedure. Bianka Matute MD documented in this encounter Nursing Notes * Mona Metzger MED ASSIST - 04/10/2023 2:04 PM EST Patient was instructed to not get up on the exam table/exam chair until directed and assisted by their provider; patient is to remain seated in the chair/ wheelchair/ exam table/ exam chair for fall prevention and safety reasons. Patient is aware to have assistance to step down off exam table/exam chair with personnel. Patient voiced full comprehension of instructions. documented in this encounter Plan of Treatment Upcoming Encounters Date Type Department Care Team (Latest Contact Info) Description 04/17/2023 1:00 PM EST Imaging Radiology [facility] [address] [facility], [place] [address] [facility] [place] [address] 05/14/2023 2:20 PM EST Office Visit Family Practice [address], [place] [address] [facility], [place] [address] [facility]ano Garg[facility] [address] [facility] [address] 05/21/2023 10:31 AM EST [facility] [address] [place] [address] Binaka Matute MD [address] [place] [address] 05/21/2023 10:31 AM EST - 05/21/2023 1:04 PM EST Surgery OR [facility], OPERATING ROOM [facility], [facility] [address] [place] [address] Bianka Matute MD [address] [place] [address] PARATHYROIDECTOMY 06/01/2023 11:00 AM EST Office Visit Otolaryngology/Head & Neck/Facial Plastic Surgery [address] [place] [address] Bianka Matute MD [address] [place] [address] 06/04/2023 1:40 PM EST Office Visit Family Practice [address] [place] [address] [address] [place] [address] Silvano Garg, [address] [place] [address] Scheduled Orders Name Type Priority Associated Diagnoses Orde r Schedule EKG EKG Routine Hyperparathyroidism (HCC) Expected: 04/10/2023 (Approximate), Expires: 05/11/2024 Scheduled Procedures Name Priority Associated Diagnoses Date/Ti [...] fire each visit until score < 10) 03/31/2023 03/30/2023 HbA1c 08/29/2023 02/28/2023, 06/29, 03/29/2022, Additional history exists GFR 12/28/2023 12/27/2022, 06/29, 03/29/2022, Additional history exists TSH 02/29/2024 02/28/2023, 06/29, 12/27/2021, Additional history exists Albumin/Creatinine Ratio 03/30/2024 023, 03/29/2022, 05/25/2021 DXA Scan 04/10/2024 04/10/2022, 10/28, 11/06/2006 Lipid Panel 07/26/2027 07/25/2022, 03/02, 05/25/2021, Additional history exists Colonoscopy 09/03/2028 09/03/2018, 04/06/2008 Colorectal Cancer Screening 09/03/2028 DTaP,Tdap,and Td Vaccines (3 - Td or Tdap) 02/26/2029 02/26/2019, 11/26/2007, 11/12/2000 Pneumococcal Vaccine: 65+ Years Completed 01/26/2020, 09/10/2018, 03/15/2001 Zoster Vaccines Completed 05/10/2020, 02/28, 08/07/2014 VITAMIN D LEVEL ONCE IN A LIFETIME-USE SMARTSET# [id number] Completed 12/27/2022, 03/29/2022, 12/27/2021, Additional history exists Influenza Vaccine (FLU shot) Completed 04/2022, 01/19/2022, 02/14/2021, Additional history exists GARDASIL-HPV IMMUNIZATION SERIES Aged Out No longer eligible based on patient's age to complete this topic MENINGOCOCCAL (MENACTRA/MENVEO) Aged Out No longer eligible based on patient's age to complete this topic documented as of this encounter Medical Devices Implanted Type Area Plaster Block Layer Device Identifier Shelf Expiration Date Model / Serial / Lot Battery Advance Prime [id number] - [id number] Implanted:Qty: 1 on 07/21/[address] [facility] Right: Buttocks [employer] : NEUROLOGIC PAIN 09/10/2012 [id number] / [id number] / Lens Intraoc 16.5 - [id number] - [id number] Implanted:Qty: 1 on 02/13/2017 by Marco Antonio Melton MD at OR [facility] Left: Eye [employer]OM[employer] 06/27/2021 [id number] / [id number] / [id number] Lens Intraoc 16.0 - [id number] - [id number] Implanted:Qty: 1 on 02/22/2017 by Marco Antonio Melton MD at OR [facility] Right: Eye [employer]OMB 04/29/2021 [id number] / [id number] / documented as of this encounter Visit Diagnoses Diagnosis Hyperparathyroidism (HCC)- Primary Hyperparathyroidism, unspecified Hyperparathyroidism (HCC) Hyperparathyroidism, unspecified documented in this [...] and were consensually agreed upon. Care Teams Box Loader Relationship Specialty Start Date End Date Silvano Garg DO [address] [place] [address] PCP - General Internal Medicine 02/22/21 documented as of this encounter
--- OUTSIDE RECORDS SUMMARY | 2023-07-14 16:49 | External Medical Summary | Summary of Care ---
Author Name Unknown Organization [facility] Address [address] [facility] [place] [address] Phone [phone] Care Team Providers Care Spacecraft Systems Engineer Name Role Phone Silvano Garg DO Primary Care Provider [phone] Encounter Details Date Type Department Care Team (Late st Contact Info) Description 05/10/2023 Population Health External Data Unspecified Department Allergies Active Allergy Reactions Criticality Noted Date Comments Bee Venom 02/09/2016 Erythromycin 04/08/1997 GI upset Iodinated Contrast Media 03/01/2012 IVP dye when she had stones 1989 At [place] had nausea and emesis then she got hives on her chest and arms Atorvastatin Calcium 01/05/2005 MIld elevation of CK and LFT's ( see [facility] labs of 01/03/05) Pregabalin Edema Other 05/19/2014 Swelling of legs and feet Nabumetone Rash 12/21/2011 Nsaids Other (Please comment) 02/08/2017 GI distress Penicillins Rash 04/08/1997 She was told when she was a toddler she got a rash documented as of this encounter (statuses as of 05/14/2023) Medications Medication Sig Dispensed Refills Start Date [...] Reported on 07/25/2022 PreserVision AREDS 2 Oral CapsuleIndications:ASC Information Technology Take 1 Capsule by mouth in the morning. 0 09/21/2021 Active FLUoxetine HCl 40 MG Oral Capsule (PROzac)Indications:Ma barry depressive disorder, recurrent, moderate (HCC),Generalized anxiety disorder Take by mouth 2 Capsules in the morning. 200 Capsule 3 10/13/2021 Active Additional Information Patient taking differently:80 mg Oral Daily(AM),Indications: depression, Reported on 07/25/2022 Magnesium 125 MG Oral CapsuleIndications:ASC Information Technology Take 125 mg by mouth in the morning. 0 Active Vitamin D 25 MCG (1000 UT) Oral TabletIndications:betaworks Take 1 Tablet by mouth in the [...] the morning. 60 Tablet 3 03/30/2023 Active Benzonatate 100 MG Oral CapsuleIndications:Bro nchitis, complicated Take 1 Capsule by mouth 3 times a day as needed for Cough. 30 Capsule 1 05/02/2023 Active HYDROcodone-Acetaminop hen 10-325 MG Oral Tablet Take 1 Tablet by mouth every 4 hours as needed for Pain, Moderate or Pain, Severe. 120 Tablet 0 05/09/2023 Active documented as of this encounter (statuses as of 05/14/2023) Active Problems Problem Noted Date Diagnosed Date [...] accepted brochure Esophageal reflux 07/05/2005 LOC PRIM [id number] 08/15/2004 POSTLAMINECT SYND-LUMBAR 09/24/2002 Thoracic and lumbosacral neuritis 09/24/2002 CERVICAL DISC DEGEN 10/04/2000 Acquired hypothyroidism LUMB-LUMBOSAC DISC DEGEN documented as of this encounter (statuses as of 05/14/2023) Resolved Problems Problem Noted Date Diagnosed Date [...] as of this encounter (statuses as of 05/14/2023) Immunizations Name Administration Dates Next Due COVID-19 mRNA, LNP-s, No Pre serve, 2-Dose Series (Panl) 03/31/2021,08/07/2020,07/12/2020 COVID-19, LNP-s, No Preserve , Melo-sucrose, [...] Description 05/17/2023 2:00 PM EST Imaging Radiology [address] [address] 05/21/2023 7:45 AM EST Hospital Encounter [place] [facility] [address] [facility] [place] [address] Bianka Matute MD [address] [place] [address] 05/21/2023 7:45 AM EST - 05/21/2023 10:18 AM EST Surgery [place] [facility] [address] [facility] [place] [address] Bianka Matute MD [address] [place] [address] PARATHYROIDECTOMY 06/01/2023 11:00 AM EST Office Visit Otolaryngology/Head & Neck/Facial Plastic Surgery [address] [place] [address] Bianka Matute MD [address] [place] [address] 06/04/2023 1:40 PM EST Office Visit Family Practice [address], [place] [address] [place] [address] Silvano Garg, [address] [place] [address] Scheduled Procedures Name Priority Associated Diagnoses Date/Ti [...] 04/10/2024 04/10/2022, 10/28, 11/06/2006 Depression Screening 04/17/2024 05/14/2023 Diabetic Eye Exam 05/14/2024 05/14/2023, , 03/31/2021, Additional history exists Diabetic Foot Exam 05/14/2024 05/14/2023, 05/25/2021 Lipid Panel 07/26/2027 07/25/2022, 03/02, 05/25/2021, Additional history exists Colonoscopy 09/03/2028 09/03/2018, 04/06/2008 Colorectal Cancer Screening 09/03/2028 DTaP,Tdap,and Td Vaccines (3 - Td or Tdap) 02/26/2029 02/26/2019, 11/26/2007, 11/12/2000 Pneumococcal Vaccine: 65+ Years Completed 01/26/2020, 09/10/2018, 03/15/2001 Zoster Vaccines Completed 05/10/2020, 02/28, 08/07/2014 VITAMIN D LEVEL ONCE IN A LIFETIME-USE SMARTSET# 19404 Completed 12/27/2022, 03/29/2022, 12/27/2021, Additional history exists Influenza Vaccine (FLU shot) Completed 04/2022, 01/19/2022, 02/14/2021, Additional history exists GARDASIL-HPV IMMUNIZATION SERIES Aged Out No longer eligible based on patient's age to complete this topic MENINGOCOCCAL (MENACTRA/MENVEO) Aged Out No longer eligible based on patient's age to complete this topic documented as of this encounter Medical Devices Implanted Type Area Video Production Coordinator Device Identifier Shelf Expiration Date Model / Serial / Lot Battery Advance Prime [id number] - [id number] Implanted:Qty: 1 on 07/21/2011 at [place] [facility] Right: Buttocks MEDTRONIC : NEUROLOGIC PAIN 09/10/2012 [id number] / [id number] / Lens Intraoc 16.5 - [id number] - [id number] Implanted:Qty: 1 on 02/13/2017 by Marco Antonio Melton MD at OR [facility] Left: Eye BAUSCH & LOMB 06/27/2021 [id number] / [id number] / [id number] Lens Intraoc 16.0 - [id number] - [id number] Implanted:Qty: 1 on 02/22/2017 by Marco Antonio Melton MD at OR [facility] Right: Eye BAUSCH & LOMB 04/29/2021 [id number] / [id number] / documented as of this encounter Advance [...] and were consensually agreed upon. Care Teams Spacecraft Systems Engineer Relationship Specialty Start Date End Date Silvano Garg DO [address] [facility] [address] PCP - General Internal Medicine 02/22/21 documented as of this encounter
--- OUTSIDE RECORDS SUMMARY | 2023-07-14 16:49 | External Medical Summary | Summary of Care ---
Author Name Unknown Organization [facility] Address [address] [place] [address] Phone [phone] Care Team Providers Care Salvage Determiner Name Role Phone Silvano Garg DO Primary Care Provider [phone] Reason for Visit * Reason Onset Date Comments Test Results 04/18/202304/18 Encounter Details Date Type Department Care Team (Late st Contact Info) Description 04/18/2023 Telephone Family Practice [address] [facility] [place] [address] [place] [phone] Silvano Garg DO [address] [place], [place] [id number] Test Results () Allergies Active Allergy Reactions Criticality Noted Date Comments Bee Venom 02/09/2016 Erythromycin 04/08/1997 GI upset Iodinated Contrast Media 03/01/2012 IVP dye when she had stones 1989 At [place] had nausea and emesis then she got hives on her chest and arms Atorvastatin Calcium 01/05/2005 MIld elevation of CK and LFT's ( see [facility] labs of 01/03/05) Pregabalin Edema Other 05/19/2014 Swelling of legs and feet Nabumetone Rash 12/21/2011 Nsaids Other (Please comment) 02/08/2017 GI distress Penicillins Rash 04/08/1997 She was told when she was a toddler she got a rash documented as of this encounter (statuses as of 04/18/2023) Medications Medication Sig Dispensed Refills Start Date End Date Status VITAMIN B COMPLEX PO TABSIndications:Gengo Take by mouth. 0 Active valACYclovir (VALTREX) [...] Reported on 07/25/2022 PreserVision AREDS 2 Oral CapsuleIndications:PeopLease Take 1 Capsule by mouth in the morning. 0 09/21/2021 Active FLUoxetine HCl 40 MG Oral Capsule (PROzac)Indications:Ma barry depressive disorder, recurrent, moderate (HCC),Generalized anxiety disorder Take by mouth 2 Capsules in the morning. 200 Capsule 3 10/13/2021 Active Additional Information Patient taking differently:80 mg Oral Daily(AM),Indications: depression, Reported on 07/25/2022 Magnesium 125 MG Oral CapsuleIndications:PeopLease Take 125 mg by mouth in the morning. 0 Active Vitamin D 25 MCG (1000 UT) Oral TabletIndications:Oration Take 1 Tablet by mouth in the morning. 0 Active Albuterol Sulfate 1.25 MG/3ML Inhalation Nebulization SolutionIndications:Ac tolowa dee-ni' bronchitis, unspecified organism Inhale 1.25 mg via [...] as of this encounter (statuses as of 04/18/2023) Active Problems Problem Noted Date Diagnosed Date [...] accepted brochure Esophageal reflux 07/05/2005 LOC PRIM [id number] 08/15/2004 POSTLAMINECT SYND-LUMBAR 09/24/2002 Thoracic and lumbosacral neuritis 09/24/2002 CERVICAL DISC DEGEN 10/04/2000 Acquired hypothyroidism LUMB-LUMBOSAC DISC DEGEN documented as of this encounter (statuses as of 04/18/2023) Resolved Problems Problem Noted Date Diagnosed Date [...] as of this encounter (statuses as of 04/18/2023) Immunizations Name Administration Dates Next Due COVID-19 mRNA, LNP-s, No Pre serve, 2-Dose Series (Picturelife) 03/31/2021,08/07/2020,07/12/2020 COVID-19, LNP-s, No Preserve , Melo-sucrose, Ages 12+ (Pfizer) 12/27/2021 Covid-19, Mrna, Lnp-s, Pf, B ivalent, 30 Mcg, IM, 12 yrs and above (Picturelife) 05/23/2022 H1N1 2009 Influenza, IM 05/17/2009 Pneumococcal [...] - 04/18/2023 2:48 PM EST Sent my [employer] message. * Telephone Encounter - Silvano Garg [...] 05/14/2023 2:20 PM EST Office Visit Family [facility] [address] [facility], [address] [place] [address] Silvano Garg, DO [address] [place] [address] 05/21/2023 10:31 AM EST Hospital Encounter OR [facility] [place] [facility], OPERATING ROOM [facility], [facility] [address] [place] [address] Bianka Matute MD [address] [place] [address] 05/21/2023 10:31 AM EST - 05/21/2023 1:04 PM EST Surgery [place] [facility] [place] [address] [place] [address] Bianka Matute MD [address] [place] [address] PARATHYROIDECTOMY 06/01/2023 11:00 AM EST Office Visit Otolaryngology/Head & Neck/Facial Plastic Surgery [address] [place] [address] Bianka Matute MD [address] [place] [address] 06/04/2023 1:40 PM EST Office Visit Family Practice [address] [place] [address] [address] [place] [address] Silvano Garg, DO [address] [place] [address] Scheduled Procedures Name Priority Associated Diagnoses Date/Ti [...] D LEVEL ONCE IN A LIFETIME-USE SMARTSET# 31184 Completed 12/27/2022, 03/29/2022, 12/27/2021, Additional history exists Influenza Vaccine (FLU shot) Completed 04/2022, 01/19/2022, 02/14/2021, Additional history exists GARDASIL-HPV IMMUNIZATION SERIES Aged Out No longer eligible based on patient's age to complete this topic MENINGOCOCCAL (MENACTRA/MENVEO) Aged Out No longer eligible based on patient's age to complete this topic documented as of this encounter Medical Devices Implanted Type Area Cob Sawyer Device Identifier Shelf Expiration Date Model / Serial / Lot Battery Advance Prime 31570 - [id number] Implanted:Qty: 1 on 07/21/2011 at OR [facility] [place] [facility] Right: Buttocks MEDTRONIC : NEUROLOGIC PAIN 09/10/2012 [id number] / [id number] / Lens Intraoc 16.5 - [id number] - [id number] Implanted:Qty: 1 on 02/13/2017 by Marco Antonio Melton MD at OR [facility] Left: Eye BAUSCH & LOMB 06/27/2021 [id number] / [id number] / [id number] Lens Intraoc 16.0 - [id number] - [id number] Implanted:Qty: 1 on 02/22/2017 by Marco Antonio Melton MD at OR [facility] Right: Eye BAUSCH & LOMB 04/29/2021 [id number] / [id number] / documented as of this encounter Visit [...] and were consensually agreed upon. Care Teams Salvage Determiner Relationship Specialty Start Date End Date Silvano Garg DO [address] [place] [address] PCP - General Internal Medicine 02/22/21 documented as of this encounter
--- OUTSIDE RECORDS SUMMARY | 2023-07-14 16:49 | External Medical Summary ---
Author Name Unknown Address Unknown Organization [id number]:LABORATORY [facility] - [address] [facility] [place] [address] Laboratory Report Ordering Provider Test Date Status VERNELL OSULLIVAN 05/14/2023 15:34:04 Final Observation Date Value Abnormality Reference (Units ) Status SYNC LEUKOCYTES IN BLOOD BY AUTOMATED COUNT 05/14/2023 15:34:04 7.40 4.00-10.80 (K/uL) Final Segs 05/14/2023 15:34:04 47.5 40.0-75.0 (%) Final Lymphs % 05/14/2023 15:34:04 39.1 18.0-42.0 (%) Final Monos 05/14/2023 15:34:04 9.1 1.0-11.0 (%) Final Eosinophils 05/14/2023 15:34:04 2.8 0.0-6.0 (%) Final Basos 05/14/2023 15:34:04 1.2 0.0-2.0 (%) Final Immature Granulocyte, Percent 05/14/2023 15:34:04 0.3 0.0-2.0 (%) Final Absolute Segs 05/14/2023 15:34:04 3.52 1.80-7.70 (K/uL) Final Lymphs, absolute 05/14/2023 15:34:04 2.89 1.00-4.80 (K/ul) Final Monos, Abs 05/14/2023 15:34:04 0.67 0.00-1.10 (K/uL) Final Eos, Abs 05/14/2023 15:34:04 0.21 0.00-0.70 (K/uL) Final Basos, Abs 05/14/2023 15:34:04 0.09 0.00-0.20 (K/uL) Final Immature Granulocytes, Number 05/14/2023 15:34:04 0.02 0.00-0.20 (K/uL) Final Performing Location LABOR[facility]ORY [facility] - [address] [facility] [address]
--- OUTSIDE RECORDS SUMMARY | 2023-07-14 16:49 | External Medical Summary ---
Author Name Unknown Address Unknown Organization K01:LABORATORY [facility] - [address] [facility] [address] Laboratory Report Ordering Provider Test Date Status VERNELL OSULLIVAN 04/17/2023 13:02:58 Final Observation Date Value Abnormality Reference (Units ) Status SARS Coronavirus 2 04/17/2023 13:02:58 Positive Abnormal N egative Final SARS-CoV2 Coronavirus RNA de tected by PCR (amplified probe). Test results reported to [facility].
This automated test was developed and its performance characteristics determined by [facility]. It has not been cleared or approved by the U.S. Food and Drug Administration (FDA). FDA does not require this test to go thru premarket FDA review. This test is used for clinical purposes. It should not be regarded as investigational or for research. This laboratory is certified under the Clinical Laboratory Improvement Amendments (CLIA) as qualified to perform high complexity clinical laboratory testing.

This test is a nucleic acid amplification test (NAAT), a reverse transcriptase polymerase chain reaction (RT-PCR) test, or a Centers for Disease Control- acceptable equivalent. The test is performed in a high complexity Clinical Laboratory Improvement Amendments-(CLIA) certified laboratory. The test is acceptable for SARS-CoV-2 diagnosis, surveillance, and travel within the [facility] and to most countries. Please check with local testing authorities about requirements before travel.

The validation of bronchial specimens, tracheal aspirates, and sputum for this assay was developed and performance characteristics determined by [facility]. The validation of alternate specimen types has not been cleared or approved by the U.S. Food and Drug Administration (FDA). It has been determined that such clearance or approval is not necessary. Influenza virus A RNA [Prese nce] in Specimen by [facility] with probe detection 04/17/2023 13:02:58 Negative Negative Final No Influenza A RNA detected by PCR (amplified probe) Influenza virus B RNA [Prese nce] in Specimen by GISELA with probe detection 04/17/2023 13:02:58 Negative Negative Final No Influenza B RNA detected by PCR (amplified probe) Respiratory syncytial virus RNA [Identifier] in Specimen by GISELA with probe detection 04/17/2023 13:02:58 Negative Negative Final No Respiratory Syncytial Vir us RNA detected by PCR (amplified probe) Performing Location LABORATORY [place] [address] [facility] [address]
--- OUTSIDE RECORDS SUMMARY | 2023-07-14 16:49 | External Medical Summary | Summary of Care ---
Author Name Unknown Organization [facility] Address [address] [place] [address] Phone [phone] Care Team Providers Care Inspector Golf Ball Name Role Phone Shi Garg DO Primary Care Provider [phone] Reason for Visit * Reason Comments Medication Refill Encounter Details Date Type Department Care Team (Late st Contact Info) Description 04/18/2023 Refill Family Practice [address] [facility] [place] [address] [place] [phone] Shi Garg DO [address] [place] [address] CERVICAL DISC DEGEN; LUMB-LUMBOSAC DISC DEGEN Allergies Active Allergy Reactions Criticality Noted Date Comments Bee Venom 02/09/2016 Erythromycin 04/08/1997 GI upset Iodinated Contrast Media 03/01/2012 IVP dye when she had stones 1989 At [place] had nausea and emesis then she got hives on her chest and arms Atorvastatin Calcium 01/05/2005 MIld elevation of CK and LFT's ( see [facility] labs of 01/03/05) Pregabalin Edema Other 05/19/2014 Swelling of legs and feet Nabumetone Rash 12/21/2011 Nsaids Other (Please comment) 02/08/2017 GI distress Penicillins Rash 04/08/1997 She was told when she was a toddler she got a rash documented as of this encounter (statuses as of 04/19/2023) Medications Medication Sig Dispensed Refills Start Date End Date Status VITAMIN B COMPLEX PO TABSIndications:Opez Take by mouth. 0 Active valACYclovir (VALTREX) [...] Reported on 07/25/2022 PreserVision AREDS 2 Oral CapsuleIndications:Oncopeptides Take 1 Capsule by mouth in the morning. 0 2 Active FLUoxetine HCl 40 MG Oral Capsule (PROzac)Indications:Ma barry depressive disorder, recurrent, moderate (HCC),Generalized anxiety disorder Take by mouth 2 Capsules in the morning. 200 Capsule 3 2 Active Additional Information Patient taking differently:80 mg Oral Daily(AM),Indications: depression, Reported on 07/25/2022 Magnesium 125 MG Oral CapsuleIndications:Oncopeptides Take 125 mg by mouth in the morning. 0 Active Vitamin D 25 MCG (1000 UT) Oral TabletIndications:IntelligentMDx Take 1 Tablet by mouth in the [...] XR)Indications:DM type 2, goal HbA1c < 8% ([facility]) Take 2 Tablets by mouth in the [...] accepted brochure Esophageal reflux 07/05/2005 LOC PRIM [id number] 08/15/2004 POSTLAMINECT SYND-LUMBAR 09/24/2002 Thoracic and lumbosacral [...] mRNA, LNP-s, No Pre serve, 2-Dose Series (Snapjoy) 03/31/2021,08/07/2020,07/12/2020 COVID-19, LNP-s, No Preserve , Melo-sucrose, [...] Drug Monitoring Program in compliance with the [facility] regulations before prescribing a controlled substance. Last [...] Review. * Telephone Encounter - Regina Barker [facility] - 04/19/2023 9:27 AM ESTPending Prescriptions: Disp Refills HYDROcodone-Acetaminophen 10-325 MG Oral T*120 Ta*0 Sig: Take 1 Tablet by mouth every 4 hours as needed for moderate or severe pain. * Telephone Encounter - Regina Barker [facility] - 04/19/2023 9:27 AM EST I have reviewed the patients controlled substance dispensing history in the Prescription Drug Monitoring Program in compliance with the [facility] regulations before prescribing a controlled substance. PDMP checked on 04/19/2023. Pending Prescriptions: Disp Refills HYDROcodone-Acetaminophen 10-325 MG Oral *120 Ta*0 Sig: Take 1 Tablet by mouth every 4 hours as needed for moderate or severe pain. Last Visit: 04/17/2023 (in office), 06/01/2022 (telemedicine) Next Visit: 05/14/2023 Date medication was last filled: 03/23/23 Date medication is due for refill: 04/11/23 Pharmacy: [facility] Is this request for a [...] in Results Review. Please approve if appropriate. Regina De Luna Clinical Pharmacist [facility] Pharmacy Services ([facility]) (Formerly Telepharmacy) [phone] 04/19/2023, 9:27 AM documented in this encounter Plan of Treatment Upcoming Encounters Date Type Department Care Team (Latest Contact Info) Description 05/14/2023 2:20 PM EST Office Visit Family Practice [address] [place] [address] [address] [place] [address] Shi Garg, [address] [place] [address] 05/21/2023 10:31 AM EST Hospital Encounter [place] [facility] OPER[place] ROOM [facility] [address] [place] [address] Bianka Matute MD [address] [place] [address] 05/21/2023 10:31 AM EST - 05/21/2023 1:04 PM EST Surgery OR [facility], OPERATING ROOM [facility] [address] [place] [address] Bianka Matute MD [address] [place] [address] PARATHYROIDECTOMY 06/01/2023 11:00 AM EST Office Visit Otolaryngology/Head & Neck/Facial Plastic Surgery [address] [place] [address] Bianka Matute MD [address] [place] [address] 06/04/2023 1:40 PM EST Office Visit Family Practice [address] [place] [address] [place] [address] Shi Garg, [address] [place] [address] Scheduled Procedures Name Priority Associated Diagnoses Date/Ti [...] D LEVEL ONCE IN A LIFETIME-USE SMARTSET# 41056 Completed 12/27/2022, 03/29/2022, 12/27/2021, Additional history exists Influenza Vaccine (FLU shot) Completed 04/2022, 01/19/2022, 02/14/2021, Additional history exists GARDASIL-HPV IMMUNIZATION SERIES Aged Out No longer eligible based on patient's age to complete this topic MENINGOCOCCAL (MENACTRA/MENVEO) Aged Out No longer eligible based on patient's age to complete this topic documented as of this encounter Medical Devices Implanted Type Area Security Strategist Device Identifier Shelf Expiration Date Model / Serial / Lot Battery Advance Prime 12078 - [id number] Implanted:Qty: 1 on 07/21/2011 at [place] [facility] Right: Buttocks MEDTRONIC : NEUROLOGIC PAIN 09/10/2012 15414 / [id number] / Lens Intraoc 16.5 - [id number] - [id number] Implanted:Qty: 1 on 02/13/2017 by Marco Antonio Melton MD at [facility] Left: Eye BAUSCH & LOMB 06/27/2021 [id number] / [id number] / [id number] Lens Intraoc 16.0 - [id number] - [id number] Implanted:Qty: 1 on 02/22/2017 by Marco Antonio Melton MD at OR [facility] Right: Eye BAUSCH & LOMB 04/29/2021 [id number] / [id number] / documented as of this encounter Visit [...] and were consensually agreed upon. Care Teams Inspector Golf Ball Relationship Specialty Start Date End Date Shi Garg DO [address] [facility] [place] [address] PCP - General Internal Medicine 02/22/21 documented as of this encounter
--- OUTSIDE RECORDS SUMMARY | 2023-07-14 16:49 | External Medical Summary | Summary of Care ---
Author Name Unknown Organization [facility] Address [address] [place] [address] Phone [phone] Care Team Providers Care Comprehensive Ophthalmologist Name Role Phone Silvano Garg DO Primary Care Provider [phone] Reason for Referral * Evaluate & Treat - Unlimited Visits (Within 30 days (routine)) - Authorized Specialty Diagnoses / Procedures Referred By Raúl grider Referred To Contact Optometry Diagnoses DM type 2 nursing care encounter (HCC) Silvano Garg DO [address] [place] [address] Referral ID Status Reason Start Date Expiration Date Visits Requested Visits Authorized [id number] Authorized Specialty Services Required 3 1 1 Question Answer Referring to: Musa Referring for: Optometry Conditions Optometry Conditions Diabetic Eye Exam without Retinopathy Referral Priority Within 30 days (routine) Where should this appointment be scheduled? External Comments DR Ashley Reason for Visit * Reason Comments Acute Encounter Details Date Type Department Care Team (Late st Contact Info) Description 04/17/2023 11:00 AM EST Office Visit Family Practice [address] [facility] [address] [place] [address] Silvano Garg DO [address] [place] [address] Bronchitis, complicated*; Hyperparathyroidism, primary ([facility]); DM type 2, goal HbA1c < 8% ([facility]); POSTLAMINECT SYND-LUMBAR; Acquired hypothyroidism; Pure hypercholesterolemia; HTN, goal below 140/90; Restless legs syndrome; Generalized anxiety disorder; Major depressive disorder, recurrent, moderate ([facility]); Age-related osteoporosis without current pathological fracture; DM type 2 nursing care encounter ([facility]) Allergies Active Allergy Reactions Criticality Noted Date Comments Bee Venom 02/09/2016 Erythromycin 04/08/1997 GI upset Iodinated Contrast Media 03/01/2012 IVP dye when she had stones 1989 At [place] had nausea and emesis then she got hives on her chest and arms Atorvastatin Calcium 01/05/2005 MIld elevation of CK and LFT's ( see [facility] labs of 01/03/05) Pregabalin Edema Other 05/19/2014 Swelling of legs and feet Nabumetone Rash 12/21/2011 Nsaids Other (Please comment) 02/08/2017 GI distress Penicillins Rash 04/08/1997 She was told when she was a toddler she got a rash documented as of this encounter (statuses as of 04/17/2023) Medications Medication Sig Dispensed Refills Start Date [...] Reported on 07/25/2022 PreserVision AREDS 2 Oral CapsuleIndications:sones Take 1 Capsule by mouth in the morning. 0 2 Active FLUoxetine HCl 40 MG Oral Capsule (PROzac)Indications:Ma barry depressive disorder, recurrent, moderate (HCC),Generalized anxiety disorder Take by mouth 2 Capsules in the morning. 200 Capsule 3 2 Active Additional Information Patient taking differently:80 mg Oral Daily(AM),Indications: depression, Reported on 07/25/2022 Magnesium 125 MG Oral CapsuleIndications:sones Take 125 mg by mouth in the morning. 0 Active Vitamin D 25 MCG (1000 UT) Oral TabletIndications:Webshoz Take 1 Tablet by mouth in the [...] EVERY DAY 90 Tablet 1 3 Active HYDROcodone-Acetaminop hen 10-325 MG Oral TabletIndications:Dege neration of cervical intervertebral disc,Degeneration of lumbosacral intervertebral disc Take 1 Tablet by mouth every 4 hours as needed for moderate or severe pain. 120 Tablet 0 3 Active Triamcinolone Acetonide 0.1 % External [...] for Cough. 30 Capsule 1 3 Active Benzonatate 100 MG Oral CapsuleIndications:Upp er respiratory tract infection, unspecified type,Acute cough Take 1 Capsule by mouth 3 times a day as needed for Cough. 30 Capsule 1 3 04/17/20 23 Discontinu ed(Refill) documented as of this encounter (statuses as of 04/17/2023) Active Problems Problem Noted Date Diagnosed Date [...] accepted brochure Esophageal reflux 07/05/2005 LOC PRIM [id number] 08/15/2004 POSTLAMINECT SYND-LUMBAR 09/24/2002 Thoracic and lumbosacral neuritis 09/24/2002 CERVICAL DISC DEGEN 10/04/2000 Acquired hypothyroidism LUMB-LUMBOSAC DISC DEGEN documented as of this encounter (statuses as of 04/17/2023) Resolved Problems Problem Noted Date Diagnosed Date [...] of inactive term Calculus of kidney 06/29/2006 ABDOMINAL PAIN, OTHER SPECIFIED SITE 06/29/2006 07/05/2007 FEM STRESS INCONTINENCE 06/29/200601/30 PURE HYPERCHOLESTEROLEM 04/05/200403/30 Overview: Per Lipid Taxonomy. LUMBAGO 10/17/2002 03/05/2008 Other hyperparathyroidism Diverticulosis of colon 09/2019 documented as of this encounter (statuses as of 04/17/2023) Immunizations Name Administration Dates Next Due COVID-19 mRNA, LNP-s, No Pre serve, 2-Dose Series ([employer]) 03/31/2021,08/07/2020,07/12/2020 COVID-19, LNP-s, No Preserve , Melo-sucrose, [...] Sign Reading Time Taken Comments Blood Pressure 126/60 04/17/2023 11:43 AM EST Pulse 70 04/17/2023 11:43 AM EST Temperature 37 C (98.6 F) 04/17/2023 11: 43 AM EST Respiratory Rate 16 04/17/2023 11:4 3 AM EST Oxygen Saturation 94% 04/17/2023 11: 43 AM EST Inhaled Oxygen Concentration - - Weight 126.4 kg (278 lb 9.6 oz) 023 11:43 AM EST Height 153.9 cm (5' 0.6") 04/17/2023 11 :43 AM EST Body Mass Index 53.34 04/17/2023 11:43 AM EST documented in this encounter Functional [...] encounter Patient Instructions * Patient Instructions* Christy Flores LPN - 04/17/2023 11:42 AM EST Images from the original note were not included. Diabetic Retinopathy: Evaluating Your Eyes Diabetic retinopathy [...] information about this test. Date Last Reviewed: 09/29/[id number] [employer]. [address] [place] [address], [place] [address]. All rights reserved. This information is not intended as a substitute for professional medical care. Always follow your healthcare professional's instructions. documented in this encounter Progress Notes * Silvano Garg, - 04/17/2023 1:15 PM EST SUBJECTIVE: Chloé Altamirano is a 68 year old female. Chief Complaint Patient presents with Acute HPI: Patient is a 68 year old female with a history of Postlaminectomy Syndrome, Cervical Disc Disease, Hyperparathyroidism, HTN, Hypothyroidism, GERD, Hyperlipidemia, Depression, Anxiety, restless leg syndrome, DM type II, and Obesity that is seen for cough. The cough has been present for three days. The patient has lower chest pain when she coughs. Nasal drainage and congestion is present as well. No fever or chills Patient has fatigue, and difficulty concentrating. She is scheduled resection of Parathyroid Adenoma on 05/21/2023 at [facility]. Chronic shortness of breath with exertion is stable. Weight is stable. Patient Active Problem List Diagnosis Code CERVICAL DISC DEGEN M50.30 POSTLAMINECT SYND-LUMBAR M96.1 Thoracic and lumbosacral neuritis M54.14, M54.17 Acquired hypothyroidism E03.9 LUMB-LUMBOSAC DISC DEGEN M51.37 LOC PRIM [id number] M17.10 Esophageal reflux K21.9 ADVANCE DIRECTIVE INFORMATION Pure hypercholesterolemia E78.00 MEDICATION USE AGREEMENT [id number] HTN, goal below 140/90 I10 Restless legs [...] DAY FOR COLD SORES)4 Tab 5 Diclofenac Epolamine 1.3 % External Patch PLACE 1 PATCH TOPICALLY ON THE SKIN TWICE DAILY (Patient taking differently: PLACE 1 PATCH TOPICALLY ON THE SKIN TWICE DAILY) 180 Patch 1 PreserVision AREDS 2 Oral Capsule Take 1 [...] moderate or severe pain. 120 Tablet 0 metFORMIN HCl ER 500 MG Oral Tablet Extended Release 24 Hour (Glucophage XR) Take 2 Tablets by mouth in the morning. 60 Tablet 3 Doxycycline Hyclate 100 MG Oral Capsule Take 1 Capsule by mouth in the morning and 1 Capsule beforebedtime. Do all this for 7 days. Take for 7 days. 14 Capsule 0 Benzonatate 100 MG Oral Capsule Take 1 Capsule by mouth 3 times a day as needed for Cough. 30 Capsule 1 Diclofenac Sodium 1 % External Gel [...] Depressive disorder, not elsewhere classified hosp. at [address]- [facility] event Disorder of intervertebral disc Aubrey Diverticulosis [...] COLONOSCOPY, DIAGNOSTIC (RECTUM) 09/03/2018 normal, repeat 10 yrs/[facility] CYSTO/URETERO W/LITHOTRIPSY Right 04-28-2015 CYSTO/URETERO W/LITHOTRIPSY Right 05-07-2015 CYSTO/URETERO W/LITHOTRIPSY Right 05/07/2015 CYSTOURETHROSCOPY URETEROSCOPY WITH LITHOTRIPSY AND STENT INSERTION performed by Chiara Quan MD at OR [facility] CYSTOSCOPY 07-16-06 stent removal CYSTOSCOPY/INSERTION OF STENT 07/13/06 CYSTOURETHROSCOPY WITH INSERTION URETERAL STENT performed by PAUL VICTORIA at OR [facility] CYSTOSCOPY/URETERAL CATHETER 07/13/06 CYSTOURETHROSCOPY WITH URETERAL CATHETER performed by PAUL VICTORIA at OR [facility] CYSTOURETRO &/OR PYELOSCOPE 07/13/06 CYSTOURETHROSCOPY URETROSCOPY AND OR PYELOSCOPY performed by PAUL VICTORIA at OR [facility] CYSTOURETRO W/STONE REMOVE 07/13/06 CYSTOURETHROSCOPY URETROSCOPY WITH STONE REMOVAL performed by PAUL VICTORIA at OR [facility] EXPLORE PARATHYROID GLANDS 11/16/06 PARATHYROIDECTOMY performed by KEDAR HENDERSON at OR [facility] FLUORO MISCELLANEOUS 07/13/06 FLUROSCOPY UP TO ONE HOUR performed by PAUL VICTORIA at [facility] FRAGMENT KIDNEY STONE BY SHOCK WAVE [...] MEDIUM performed by PAUL VICTORIA at OR [facility] LAPAROSCOPY; CHOLECYSTECTOMY LIGATE/CUT OVIDUCT(S) Tubal Ligation LUMBAR HEMILAMINECTOMY L 3-4 discectomy LUMBAR HEMILAMINECTOMY 12/23/01 L3-4 left hemilaminectomy, disckectomy, with foraminotomy PARTIAL REMOVAL OF THYROID LOBE right lobectomy REDUCTION OF BREAST 1995 REMOVAL OF TONSILS, UNDER AGE 10 Tonsillectomy REMOVE CATARACT, INSERT LENS PROSTH Left 02/13/2017 left EXTRACAPSULAR CATARACT REMOVAL WITH INTRAOCULAR LENS performed by Marco Antonio Melton MD at OR [facility] REMOVE CATARACT, INSERT LENS PROSTH Right 02/22/2017 right EXTRACAPSULAR CATARACT REMOVAL WITH INTRAOCULAR LENS performed by Marco Antonio Melton MD at OR [facility] REMOVE GALLBLADDER 07/11/05 Dr. Peña REPAIR DETACHED RETINA, VITRECTOMY Right 08/12/2021 PARS PLANA VITRECTOMY, AIR FLUID EXCHANGE, ENDOLASER, FLUID GAS EXCHANGE SF6, RIGHT EYE (25g) performed by Kierra Cunningham MD at OR [facility] REPAIR RUPTURED ROTATOR CUFF, CHRON REVISE/REMOVE SPINAL NEURORECEIVER 07/21/2011 REVISION OR REMOVAL IMPLANTED SPINAL NEUROSTIMULATOR performed by LORETO HERNANDEZ at OR [facility] SACROILIAC JOINT INJECT W/GUIDANCE 12/06/2017 INJECTION SACROILIAC JOINT performed by Edwardo Osullivan DO at OR [facility] SACROILIAC JOINT INJECT W/GUIDANCE 04/11/2018 INJECTION SACROILIAC JOINT performed by Edwardo Osullivan DO at OR [facility] SACROILIAC JOINT INJECT W/GUIDANCE 09/17/2019 INJECTION SACROILIAC JOINT performed by Edwardo Osullivan DO at OR [facility] SPINAL NEUROSTIM ELECTRODE PLATE, REVISION 07/21/2011 REVISION SPINAL NEUROSTIM ELECTRODE PLATE performed by LORETO HERNANDEZ at OR [facility] TOTAL ABD HYSTERECTOMY W/WO REMOVAL OF TUBE(S) complete hysterectomy at age 44 Review of patient's allergies indicates: Allergen Reactions Bee Venom Erythromycin GI upset Iodinated Contrast Media IVP dye when she had stones 1988 At [place] had nausea and emesis then she got hives on her chest and arms Lipitor [Atorvastatin Calcium] MIld elevation of CK and LFT's ( see [facility] labs of 01/03/05) Lyrica [Pregabalin] Edema Other Swelling of legs and feet Nabumetone Rash Nsaids Other (Please comment) GI distress Penicillins Rash She was told when she was a toddler she got a rash Review of Systems Constitutional: Positive for chills and fatigue. Negative for appetite change, fever and unexpectedweight change. HENT: Positive for congestion, ear pain and rhinorrhea. Negative for sore throat and trouble swallowing. Respiratory: Positive for cough and shortness of breath. Negative for wheezing. Cardiovascular: Negative for chest pain, palpitations and leg swelling. Gastrointestinal: Negative for abdominal pain, blood in stool, constipation, diarrhea, nausea and vomiting. Genitourinary: Negative for dysuria and hematuria. Musculoskeletal: Positive for arthralgias, back pain and myalgias. Neurological: Negative for dizziness, syncope and headaches. Psychiatric/Behavioral: Positive for decreased concentration, dysphoric mood and sleep disturbance.Negative for suicidal ideas. OBJECTIVE: BP 126/60 | Pulse 70 | Temp 37 C (98.6 F) | Resp 16 | Ht 1.539 m (5' 0.6") | Wt 126.4 kg (278 lb 9.6 oz) | SpO2 94% | BMI 53.34 kg/m | BSA 2.32 m Physical Exam [...] at baseline. Motor: No weakness. Gait: Gait normal. Psychiatric: Mood and Affect: Mood is depressed. Mood is not anxious. PLAN AND ASSESSMENT: Bronchitis, complicated (Primary) - INFLUENZA A/B RSV SARS-COV2,PCR; Future; Expected date: 04/17/2023 - Doxycycline Hyclate 100 MG Oral Capsule; Take 1 Capsule by mouth in the morning and 1 Capsule before bedtime. Do all this for 7 days. Take for 7 days. - Benzonatate 100 MG Oral Capsule; Take 1 Capsule by mouth 3 times a day as needed for Cough. - INFLUENZA A/B RSV SARS-COV2,PCR Hyperparathyroidism, primary (HCC) Patient scheduled for Parathyroid resection DM type 2, goal HbA1c < 8% ([facility]) Continue Metformin POSTLAMINECT SYND-LUMBAR Continue Hydrocodone Acquired hypothyroidism Continue Levothyroxine Pure hypercholesterolemia Continue Rosuvastatin HTN, goal below 140/90 Continue Amlodipine, and Losartan Restless legs syndrome Generalized anxiety disorder Continue Bupropion, and Buspirone Major depressive disorder, recurrent, moderate ([facility]) Continue Quetiapine, and Bupropion Age-related osteoporosis without current pathological fracture DM type 2 nursing care encounter ([facility]) - ADULT/PEDS OPHTHALMOLOGY/OPTOMETRY REFERRAL OP Follow Up: Return if symptoms worsen or fail to improve. Silvano Garg DO 1:15 PM 04/17/2023 * Christy Flores LPN - 04/17/2023 11:42 AM EST The importance of having a yearly diabetic eye exam has been discussed with patient. Order and/or Referral placed along with patient instructions. Provider made aware. Christy Flores LPN documented in this encounter Nursing Notes * Christy Flores LPN - 04/17/2023 11:41 AM EST Right side ear pain, uri. States also has right pain under right breast, worse with deep breath or cough documented in this encounter Plan of Treatment Upcoming Encounters Date Type Department Care Team (Latest Contact Info) Description 05/14/2023 2:20 PM EST Office Visit Family Practice [address] [place] [address] [address] [place] [address] Silvano Garg DO [address] [place] [address] 05/21/2023 10:31 AM EST Hospital Encounter OR [facility], OPERATING ROOM [facility], SYEDARODNEY MCCORMICK [address] [place] [address] Bianka Matute MD [address] [place] [address] 05/21/2023 10:31 AM EST - 05/21/2023 1:04 PM EST Surgery [facility], [facility] [address] [place] [address] Bianka Matute MD [address] [place] [address] PARATHYROIDECTOMY 06/01/2023 11:00 AM EST Office Visit Otolaryngology/Head & Neck/Facial Plastic Surgery [address] [place] [address] Bianka Matute MD [address] [place] [address] 06/04/2023 1:40 PM EST Office Visit Family Practice [address] [place] [id number] Silvano Garg, [address] [place] [address] Pending Results Name Type Priority Associated Diagnoses Date /Time INFLUENZA A/B RSV SARS-COV2,PCR Lab Routine Bronchitis, complicated 04/17/2023 1:02 PM EST Scheduled Orders Name Type Priority Associated Diagnoses Orde r Schedule INFLUENZA A/B RSV SARS-COV2,PCR Lab Routine Bronchitis, complicated Expected: 04/17/2023 (Approximate), Expires: 04/16/2024 Scheduled Procedures Name Priority Associated Diagnoses Date/Ti me PARATHYROIDECTOMY Hyperparathyroidism (HCC) 05/21/2023 10:31 AM EST COLONOSCOPY FLEXIBLE PROXIMA L DIAGNOSTIC Recall Special screening for malignant neoplasms, colon Scheduled Referrals Name Type Priority Associated Diagnoses Orde r Schedule ADULT/PEDS OPHTHALMOLOGY/OPTOM ETRY REFERRAL OP Referral Within 30 days (routine) DM type 2 nursing care encounter (HCC) Ordered: 04/17/2023 Health Maintenance Due Date Last Done Comments [...] each visit until score < 10) 03/31/2023 04/17/2023 HbA1c 08/29/2023 02/28/2023, 06/29, 03/29/2022, Additional history [...] D LEVEL ONCE IN A LIFETIME-USE SMARTSET# [id number] Completed 12/27/2022, 03/29/2022, 12/27/2021, Additional history exists Influenza Vaccine (FLU shot) Completed 04/2022, 01/19/2022, 02/14/2021, Additional history exists GARDASIL-HPV IMMUNIZATION SERIES Aged Out No longer eligible based on patient's age to complete this topic MENINGOCOCCAL (MENACTRA/MENVEO) Aged Out No longer eligible based on patient's age to complete this topic documented as of this encounter Medical Devices Implanted Type Area Supervisor Money Room Device Identifier Shelf Expiration Date Model / Serial / Lot Battery Advance Prime [id number] - [id number] Implanted:Qty: 1 on 07/21/2011 at OR [facility] Right: Buttocks [employer] : NEUROLOGIC PAIN 09/10/2012 [id number] / [id number] / Lens Intraoc 16.5 - [id number] - [id number] Implanted:Qty: 1 on 02/13/2017 by Marco Antonio Melton MD at OR [facility] Left: Eye [employer] 06/27/2021 [id number] / [id number] / [id number] Lens Intraoc 16.0 - [id number] - [id number] Implanted:Qty: 1 on 02/22/2017 by Marco Antonio Melton MD at OR [facility] Right: Eye [employer] 04/29/2021 [id number] / [id number] / documented as of this encounter Visit Diagnoses Diagnosis Bronchitis, complicated- Primary Bronchitis, not specified as acute or chronic Hyperparathyroidism, primary (HCC) Primary hyperparathyroidism DM type 2, goal HbA1c < 8% ([facility]) POSTLAMINECT SYND-LUMBAR Postlaminectomy syndrome, lumbar region Acquired hypothyroidism Unspecified hypothyroidism Pure hypercholesterolemia HTN, goal below 140/90 Unspecified essential hypertension Restless legs syndrome Restless legs syndrome (RLS) Generalized anxiety disorder Major depressive disorder, recurrent, moderate (HCC) Major depressive disorder, recurrent episode, moderate Age-related osteoporosis without current pathological fracture Senile osteoporosis DM type 2 nursing care encounter (HCC) Type II or unspecified type diabetes mellitus without mention of complication, not stated as uncontrolled Hyperparathyroidism (HCC) Hyperparathyroidism, unspecified documented in this [...] and were consensually agreed upon. Care Teams Comprehensive Ophthalmologist Relationship Specialty Start Date End Date Silvano Garg DO [address] [facility], [place] [address] PCP - General Internal Medicine 02/22/21 documented as of this encounter
--- OUTSIDE RECORDS SUMMARY | 2023-07-14 16:49 | External Medical Summary ---
Author Name Unknown Address Unknown Organization [id number]:LABORATORY [facility] - [address] [place] [address] [address] Laboratory Report Ordering Provider Test Date Status VERNELL OSULLIVAN 05/14/2023 15:34:04 Final Observation Date Value Abnormality Reference (Units ) Status WBC, Total 05/14/2023 15:34:04 7.40 4.00-10.80 (K/uL) Final RBC 05/14/2023 15:34:04 4.52 3.85-5.15 (M/uL) Final Hemoglobin 05/14/2023 15:34:04 13.9 12.0-15.3 (g/dL) Final HCT 05/14/2023 15:34:04 43.6 36.0-45.2 (%) Final MCV 05/14/2023 15:34:04 96.5 81.5-97.5 (fL) Final MCH 05/14/2023 15:34:04 30.8 27.0-34.0 (pg) Final MCHC 05/14/2023 15:34:04 31.9 32.0-36.0 (g/dL) Final RDW 05/14/2023 15:34:04 13.1 11.5-15.5 (%) Final Platelets 05/14/2023 15:34:04 361 140-400 (K/uL) Final MPV 05/14/2023 15:34:04 9.2 6.6-11.1 (fL) Final Nucleated erythrocytes/100 leukocytes [Ratio] in Blood by Automated count 05/14/2023 15:34:04 0 <=0 (/100 WBCs) Final Performing Location [facility]ORY [facility] - [address] [place] [address]
--- OUTSIDE RECORDS SUMMARY | 2023-07-14 16:50 | External Medical Summary ---
Author Name Unknown Address Unknown Organization [id number]:[facility] [place] [address] [place] [address] Laboratory Report Ordering Provider Test Date Status VERNELL OSULLIVAN 03/30/2023 14:24:46 Final Normal: <30 mg/g creatinine< br/>High: 30-300 mg/g creatinine
Very High: >300 mg/g creatinine
Nephrotic: >2200 mg/g creatinine Observation Date Value Abnormality Reference (Units ) Status Albumin, Urine 03/30/2023 14:24:46 <1.20 (mg/dL) Final Creatinine, Urine 03/30/2023 14:24:46 73 (mg/dL) Final Albumin/Creatinine [Mass Ratio] in Urine 03/30/2023 14:24:46 <16 <30 (mg/g Creat) Final Performing Location [facility] [place] [address] [place] [address]
--- OUTSIDE RECORDS SUMMARY | 2023-07-14 16:50 | External Medical Summary | Summary of Care ---
Author Name Unknown Organization [facility] Address [address] [place] [address] Phone [phone] Care Team Providers Care Canvas Repairer Name Role Phone Silvano Garg DO Primary Care Provider [phone] Reason for Visit * Reason Onset Date Comments Referral 03/14/2023 Encounter Details Date Type Department Care Team (Late st Contact Info) Description 03/14/2023 Telephone Family Practice 65 [facility] [address] [place] [phone] College, Pharmacist [address] [address] Referral Allergies Active Allergy Reactions Criticality Noted Date Comments Bee Venom 02/09/2016 Erythromycin 04/08/1997 GI upset Iodinated Contrast Media 03/01/2012 IVP dye when she had stones 1989 At [facility] had nausea and emesis then she got [...] as of this encounter (statuses as of 03/14/2023) Medications Medication Sig Dispensed Refills Start Date End Date Status VITAMIN B COMPLEX PO TABSIndications:Retrofit Take by mouth. 0 Active valACYclovir (VALTREX) [...] Reported on 07/25/2022 PreserVision AREDS 2 Oral CapsuleIndications:Survmetrics Take 1 Capsule by mouth in the morning. 0 09/21/2021 Active Triamcinolone Acetonide 0.1 % External Cream (Aristocort)Indication s:Dermatitis Apply topically to affected area 2 times a day . Groin and thighs. 60 g 5 10/06/2021 Active Additional Information Patient taking differently:Topical BID (.AM/PM), Groin and thighs.,Indications: general health, Reported on 07/25/2022 FLUoxetine HCl 40 MG Oral Capsule (PROzac)Indications:Ma barry depressive disorder, recurrent, moderate (HCC),Generalized anxiety disorder Take by mouth 2 Capsules in the morning. 200 Capsule 3 10/13/2021 Active Additional Information Patient taking differently:80 mg Oral Daily(AM),Indications: depression, Reported on 07/25/2022 Magnesium 125 MG Oral CapsuleIndications:Survmetrics Take 125 mg by mouth in the morning. 0 Active Vitamin D 25 MCG (1000 UT) Oral TabletIndications:[facility] Take 1 Tablet by mouth in the morning. 0 Active guaiFENesin-Codeine 100-10 MG/5ML Oral SolutionIndications:Up per respiratory tract infection, unspecified type,Acute cough Take 5 mL by mouth 3 times a day as needed for Cough or Congestion. 180 mL 0 09/19/2022 Active Benzonatate 100 MG Oral CapsuleIndications:Upp er respiratory tract infection, unspecified type,Acute cough Take 1 Capsule by mouth 3 times a day as needed for Cough. 30 Capsule 1 09/19/2022 Active Albuterol Sulfate 1.25 MG/3ML Inhalation Nebulization SolutionIndications:Ac big sandy bronchitis, unspecified organism Inhale 1.25 mg via [...] 100 Tablet 3 10/09/2022 10/09/19 24 Active Cyclobenzaprine HCl 10 MG Oral Tablet (Flexeril)Indications: Degeneration of lumbosacral intervertebral disc,Degeneration of cervical intervertebral disc TAKE 1 TO 2 TABLETS BY MOUTH AT BEDTIME NEEDED FOR MUSCLE SPASMS 180 Tablet 1 08/14/2022 08/14/19 24 Active Levothyroxine Sodium 125 MCG Oral Tablet (Levoxyl)Indications:A cquired hypothyroidism TAKE ONE-HALF TABLET BY MOUTH DAILY 30 MINUTES PRIOR TO BREAKFAST OR OTHER MEDICATION 50 Tablet 3 08/09/2022 08/09/19 24 Active Losartan Potassium 100 MG Oral Tablet (Cozaar) TAKE ONE TABLET BY MOUTH EVERY MORNING 100 Tablet 3 08/09/2022 08/09/19 24 Active Pantoprazole Sodium 40 MG Oral Tablet Delayed Release (Protonix)Indications: Esophageal reflux,Heartburn TAKE ONE TABLET BY MOUTH EVERY DAY 90 Tablet 3 04/18/2022 04/18/20 23 Active Additional Information Patient taking differently: Indications: heartburn, Reported on 07/25/2022 FLUoxetine HCl 40 MG Oral Capsule (PROzac) TAKE TWO CAPSULES BY MOUTH EVERY DAY 180 Capsule 0 01/11/2022 Active busPIRone HCl 15 MG Oral Tablet [...] 200 Tablet 3 12/29/2022 12/29/19 24 Active HYDROcodone-Acetaminop hen 10-325 MG Oral TabletIndications:Dege neration of cervical intervertebral disc,Degeneration of lumbosacral intervertebral disc Take 1 Tablet by mouth every 4 hours as needed for Moderate or Severe Pain 120 Tablet 0 02/27/2023 Active FLUoxetine HCl 40 MG Oral Capsule (PROzac) take 2 capsules by mouth daily 180 Capsule 0 03/08/2023 Active documented as of this encounter (statuses as of 03/14/2023) Active Problems Problem Noted Date Diagnosed Date Parathyroid adenoma 02/28/2023 Hyperparathyroidism, primary 07/25/2022 Age-related osteoporosis wit hout current pathological fracture 04/26/2022 Body mass index (BMI) of 50.0 to 59.9 in adult 0 10/10/2021 Overview: Per Obesity protocol Major depressive disorder, recurrent, moderate 0 01/04/2021 Generalized anxiety disorder 09/08/2020 Prediabetes 06/12/2017 Overview: Per Prediabetes protocol #1 Restless legs syndrome 03/05/2014 HTN, goal below 140/90 07/31/2012 MEDICATION USE AGREEMENT 09/07/2011 Pure hypercholesterolemia 04/08/2009 Overview: Per Lipid Taxonomy. ADVANCE DIRECTIVE INFORMATION 11/23/2005 Overview: Pt accepted brochure Esophageal reflux 07/05/2005 LOC PRIM [id number] 08/15/2004 POSTLAMINECT SYND-LUMBAR 09/24/2002 Thoracic and lumbosacral neuritis 09/24/2002 CERVICAL DISC DEGEN 10/04/2000 Acquired hypothyroidism LUMB-LUMBOSAC DISC DEGEN documented as of this encounter (statuses as of 03/14/2023) Resolved Problems Problem Noted Date Diagnosed Date [...] disease 09/10/2018 Overview: Per COPD GOLD Classification Asthma, intermittent 08/05/2010 017 NONALLERGIC RHINITIS 08/05/2010 019 Postnasal drip 08/05/2010 05/05/2019 Obesity, morbid (more than 1 00 lbs over ideal weight or BMI > 40) 07/27/2009 10/09/2018 Overview: Per Obesity Taxonomy ICD-10 update of inactive term Morbid obesity, BMI not known 10/13/2008 07/27/2009 Overview: Per Obesity Taxonomy Other allergic rhinitis 09/14/20080 11/2010 Overview: ICD-10 update of inactive term Hyperparathyroidism 08/13/2006 11/02/19 17 Overview: ICD-10 update of inactive term Calculus of kidney 06/29/2006 0 ABDOMINAL PAIN, OTHER SPECIFIED SITE 06/29/2006 07/05/2007 FEM STRESS INCONTINENCE 06/29/200601/30 PURE HYPERCHOLESTEROLEM 04/05/200403/30 Overview: Per Lipid Taxonomy. LUMBAGO 10/17/2002 03/05/2008 Other hyperparathyroidism Diverticulosis of colon 09/2019 documented as of this encounter (statuses as of 03/14/2023) Immunizations Name Administration Dates Next Due COVID-19 mRNA, LNP-s, No Pre serve, 2-Dose Series ([employer]) 03/31/2021,08/07/2020,07/12/2020 COVID-19, LNP-s, No Preserve , Melo-sucrose, [...] Answer Date Recorded PHQ Adult Total Score 17 02/28/2023 Hunger Vital Sign Answer Date Recorded Within the past 12 months, y ou worried that your food would run out before you got the money to buy more. Never true 02/29/20 23 Within the past 12 months, t he food you bought just didn't last and you didn't have money to get more. Never true 02/28/2023 Sex and Gender Information Value Date Recorded [...] encounter Miscellaneous Notes * Telephone Encounter - Isabella Christian OSA - 03/14/2023 3:14 PM EST Appt scheduled, pt aware. * Telephone Encounter - Lolly Glez [facility] - 03/14/2023 1:05 PM EST Referral received and reviewed. Reason for referral: DM Please Schedule patient. Referring provider: Dr. Garg Initial appt length: 40 min Appointment type indicated: Pt Prefence- Inperson or Video Referral reviewed and relevant pre-visit information listed below: DM: Target Hgb A1c: < 8 Hemoglobin A1c Results: Recent Labs Units 02/28/23 1528 07/25/22 1527 03/29/22 1300 HEMOGLOBIN A1C - [facility] % 7.6* 5.9* 6.3* Current DM Medications: Previously on Ozempic 2mg but not listed on med lsit Current BROCK/ARB therapy: YES losartan 100mg daily Serum creatinine: 0.6 mg/dL 12/27/22 1443 Estimated creatinine clearance: 83.9 mL/min Current statin therapy: YES rosuvastatin 20 mg daily Lolly Padilla [facility] 03/14/2023, 1:06 PM * Telephone Encounter - Eda Jackson CPhT - 03/14/2023 11:50 AM EST Comments Pharmacist Medication Therapy Management: Minimum frequency patient should be seen in person for medication management: as appropriate per clinical condition and patient status By my signature, I understand that my patient Chloé Altamirano will have her medication therapy managed by the [facility] Medication [facility] ([facility]) per established policies, procedures, and protocols. I also certify that this referral may serve as an initiation of service forthe management of drug therapy in the above noted patient. [facility] providers will be responsible for scheduling patient visits, obtaining appropriate laboratory studies, and adjusting medication management therapy per patient's need, in addition to those roles spelled out in the clinic policy, procedures, and drug management protocols. I understand that the service provided by the [facility] is voluntary and have informed patient that they can refuse the service at their discretion. I am aware that the [facility] Clinic will provide me with a copy of the patient encounter via my [employer]. I authorize the [facility] to carry out these activities on my behalf. I consider this program to be a necessary part of the patient's medical care. Christy Flores LPN Order Specific Questions Referral Priority Within 30 days (routine) Where should this appointment be scheduled? [facility] Department: Primary Care Reason for Referral: DM Target A1c: < 8 documented in this encounter Plan of Treatment Upcoming Encounters Date Type Department Care Team (Late st Contact Info) Description 03/30/2023 1:00 PM EST Office Visit Family Practice 65 [facility] [address] [place] [address] College, Pharmacist [address] [address] 03/30/2023 1:40 PM EST Office Visit Family Practice 65 [facility] [address] [place] [address] Silvano Garg, [address] [place] [address] 04/10/2023 2:30 PM EST Office Visit Otolaryngology/Head & Neck/Facial Plastic Surgery [address] [place] [facility] [place] [address] Bianka Matute MD [address] [place] [place] [address] 04/17/2023 1:00 PM EST Imaging Radiology [address], [address] [place] [address] 06/04/2023 1:40 PM EST Office Visit Family Practice [address] [place] [address] [facility], [place] [address] Silvano Garg, [address] [facility], [place] [address] Scheduled Procedures Name Priority Associated Diagnoses Date/Ti [...] fire each visit until score < 10) 03/01/2023 02/28/2023 GFR 12/28/2023 12/27/2022, 06/29, 03/29/2022, Additional history exists HbA1c 02/29/2024 02/28/2023, 06/29, 03/29/2022, Additional history exists TSH 02/29/2024 02/28/2023, 06/29, 12/27/2021, Additional history exists DXA Scan 04/10/2024 04/10/2022, 10/28, 11/06/2006 Albumin/Creatinine Ratio 03/29/2025 03/29/2022, 05/01 Lipid Panel 07/26/2027 07/25/2022, 03/02, 05/25/2021, Additional history exists Colonoscopy 09/03/2028 09/03/2018, 04/06/2008 Colorectal Cancer Screening 09/03/2028 DTaP,Tdap,and Td Vaccines (3 - Td or Tdap) 02/26/2029 02/26/2019, 11/26/2007, 11/12/2000 Pneumococcal Vaccine: 65+ Years Completed 01/26/2020, 09/10/2018, 03/15/2001 Zoster Vaccines Completed 05/10/2020, 02/28, 08/07/2014 Diabetic Foot Exam Discontinued 05/25/2021 Diabetic Eye Exam Discontinued 08/12/2021, , 06/23/2019, Additional history exists VITAMIN D LEVEL ONCE IN A LIFETIME-USE SMARTSET# 62603 Completed 12/27/2022, 03/29/2022, 12/27/2021, Additional history exists Influenza Vaccine (FLU shot) Completed 02/28/2023, 01/19/2022, 02/14/2021, Additional history exists GARDASIL-HPV IMMUNIZATION SERIES Aged Out No longer eligible based on patient's age to complete this topic MENINGOCOCCAL (MENACTRA/MENVEO) Aged Out No longer eligible based on patient's age to complete this topic documented as of this encounter Medical Devices Implanted Type Area Ditto Machine Operator Device Identifier Shelf Expiration Date Model / Serial / Lot Battery Advance Prime [id number] - [id number] Implanted:Qty: 1 on 07/21/2011 at OR [facility] [place] Right: Buttocks [employer] : NEUROLOGIC PAIN 09/10/2012 [id number] / [id number] / Lens Intraoc 16.5 - [id number] - [id number] Implanted:Qty: 1 on 02/13/2017 by Marco Antonio Melton MD at OR [facility] Left: Eye [employer]USCH [employer] LOMB 06/27/2021 [id number] / [id number] / [id number] Lens Intraoc 16.0 - [id number] - [id number] Implanted:Qty: 1 on 02/22/2017 by Marco Antonio Melton MD at OR [facility] Right: Eye BAUSCH & LOMB 04/29/2021 [id number] / [id number] / documented as of this encounter Advance [...] and were consensually agreed upon. Care Teams Canvas Repairer Relationship Specialty Start Date End Date Silvano Garg DO [address] [place] [address] PCP - General Internal Medicine 02/22/21 documented as of this encounter
--- OUTSIDE RECORDS SUMMARY | 2023-07-14 16:50 | External Medical Summary | Summary of Care ---
Author Name Unknown Organization [facility] Address [address] [place] [address] Phone [phone] Care Team Providers Care Metal Flow Coordinator Name Role Phone Shi Garg DO Primary Care Provider Reason for Visit * Reason Comments Medication Refill Encounter Details Date Type Department Care Team (Late st Contact Info) Description 03/20/2023 Refill Family Practice 65 [facility] [address] [place] [phone] Shi Garg DO [address] [place] [address] Encounter for long-term (current) use of other medications*; LUMB-LUMBOSAC DISC DEGEN; CERVICAL DISC DEGEN; Esophageal reflux; Heartburn Allergies Active Allergy Reactions Criticality Noted Date [...] as of this encounter (statuses as of 03/20/2023) Medications Medication Sig Dispensed Refills Start Date End Date Status VITAMIN B COMPLEX PO TABSIndications:[employer] Therma Flite Take by mouth. 0 Active valACYclovir (VALTREX) [...] Reported on 07/25/2022 PreserVision AREDS 2 Oral CapsuleIndications:[employer] Take 1 Capsule by mouth in the morning. 0 2 Active Triamcinolone Acetonide 0.1 % External Cream (Aristocort)Indication s:Dermatitis Apply topically to affected area 2 times a day . Groin and thighs. 60 g 5 2 Active Additional Information Patient taking differently:Topical BID (.AM/PM), Groin and thighs.,Indications: general health, Reported on 07/25/2022 FLUoxetine HCl 40 MG Oral Capsule (PROzac)Indications:Ma barry depressive disorder, recurrent, moderate (HCC),Generalized anxiety disorder Take by mouth 2 Capsules in the morning. 200 Capsule 3 2 Active Additional Information Patient taking differently:80 mg Oral Daily(AM),Indications: depression, Reported on 07/25/2022 Magnesium 125 MG Oral CapsuleIndications:[employer] Therma Flite Take 125 mg by mouth in the morning. 0 Active Vitamin D 25 MCG (1000 UT) Oral TabletIndications:PacketFront Take 1 Tablet by mouth in the morning. 0 Active guaiFENesin-Codeine 100-10 MG/5ML Oral SolutionIndications:Up per respiratory tract infection, unspecified type,Acute cough Take 5 mL by mouth 3 times a day as needed for Cough or Congestion. 180 mL 0 3 Active Benzonatate 100 MG Oral CapsuleIndications:Upp er respiratory tract infection, unspecified type,Acute cough Take 1 Capsule by mouth 3 times a day as needed for Cough. 30 Capsule 1 3 Active Albuterol Sulfate 1.25 MG/3ML Inhalation Nebulization [...] 200 Tablet 3 3 12/29/19 24 Active HYDROcodone-Acetaminop hen 10-325 MG Oral TabletIndications:Dege neration of cervical intervertebral disc,Degeneration of lumbosacral intervertebral disc Take 1 Tablet by mouth every 4 hours as needed for Moderate or Severe Pain 120 Tablet 0 3 Active FLUoxetine HCl 40 MG Oral Capsule (PROzac) take 2 capsules by mouth daily 180 Capsule 0 3 Active Cyclobenzaprine HCl 10 MG Oral Tablet (Flexeril)Indications: Degeneration of lumbosacral intervertebral disc,Degeneration of cervical intervertebral disc TAKE 1 TO 2 TABLETS BY MOUTH AT BEDTIME NEEDED FOR MUSCLE SPASMS 180 Tablet 1 3 03/19/20 24 Active Pantoprazole Sodium 40 MG Oral Tablet Delayed Release (Protonix)Indications: Esophageal reflux,Heartburn TAKE ONE TABLET BY MOUTH EVERY DAY 90 Tablet 1 3 Active Cyclobenzaprine HCl 10 MG Oral Tablet (Flexeril)Indications: Degeneration of lumbosacral intervertebral disc,Degeneration of cervical intervertebral disc TAKE 1 TO 2 TABLETS BY MOUTH AT BEDTIME NEEDED FOR MUSCLE SPASMS 180 Tablet 1 3 03/20/20 23 Discontinu ed(Refill) Pantoprazole Sodium 40 MG Oral Tablet Delayed Release (Protonix)Indications: Esophageal reflux,Heartburn TAKE ONE TABLET BY MOUTH EVERY DAY 90 Tablet 3 2 03/20/20 23 Discontinu ed(Refill) documented as of this encounter (statuses as of 03/20/2023) Active Problems Problem Noted Date Diagnosed Date [...] accepted brochure Esophageal reflux 07/05/2005 LOC PRIM [id number] 08/15/2004 POSTLAMINECT SYND-LUMBAR 09/24/2002 Thoracic and lumbosacral neuritis 09/24/2002 CERVICAL DISC DEGEN 10/04/2000 Acquired hypothyroidism LUMB-LUMBOSAC DISC DEGEN documented as of this encounter (statuses as of 03/20/2023) Resolved Problems Problem Noted Date Diagnosed Date [...] as of this encounter (statuses as of 03/20/2023) Immunizations Name Administration Dates Next Due COVID-19 mRNA, LNP-s, No Pre serve, 2-Dose Series ([employer]i) 03/31/2021,08/07/2020,07/12/2020 COVID-19, LNP-s, No Preserve , Melo-sucrose, [...] Telephone Encounter - Shi Garg DO - 03/20/2023 4:22 PM ESTSigned Prescriptions: Disp Refills Cyclobenzaprine HCl 10 MG Oral Tablet (Fle*180 Ta*1 Sig: TAKE 1 TO 2 TABLETS BY MOUTH AT BEDTIME NEEDED FOR MUSCLE SPASMS Authorizing Provider: SHI GARG Pantoprazole Sodium 40 MG Oral Tablet Naomi*90 Tab*1 Sig: TAKE ONE TABLET BY MOUTH EVERY DAY Authorizing Provider: SHI GARG Ordering User: TARIQ ESPINOZA < BR> * Telephone Encounter - Tariq Espinoza [facility] - 03/20/2023 4:15 PM ESTPending Prescriptions: Disp Refills Cyclobenzaprine HCl 10 MG Oral Tablet (Fle*180 Ta*1 Sig: TAKE 1 TO 2 TABLETS BY MOUTH AT BEDTIME NEEDED FOR MUSCLE SPASMS Signed Prescriptions: Disp Refills Pantoprazole Sodium 40 MG Oral Tablet Naomi*90 Tab*1 Sig: TAKE ONE TABLET BY MOUTH EVERY DAY Authorizing Provider: SHI GARG Ordering Use r: TRAIQ ESPINOZA * Telephone Encounter - Tariq Espinoza RPh - 03/20/2023 4:15 PM EST [facility] is currently not authorized to approve refills for the pended medication(s) per refill protocol. Please approve if appropriate. Did you pend patient's preferred pharmacy and medication before forwarding?yes Pharmacy: [facility] Pending Prescriptions: Disp Refills Cyclobenzaprine HCl 10 MG Oral Tablet (Fl*180 Ta*1 Sig: TAKE 1 TO 2 TABLETS BY MOUTH AT BEDTIME NEEDED FOR MUSCLE SPASMS Signed Prescriptions: Disp Refills Pantoprazole Sodium 40 MG Oral Tablet Naomi*90 Tab*1 Sig: TAKE ONE TABLET BY MOUTH EVERY DAY Authorizing Provider: SHI GARG Ordering User: TARIQ ESPINOZA Last Visit: 02/28/2023 (in office), 06/01/2022 (telemedicine) Next Visit: 03/30/2023 If no future appointments scheduled, and last appointment is greater than a year ago, please schedule patient for a follow-up appointment Last date the medication was ordered: 08/14/22 Is this request for a controlled substance?No Urine Drug Screen: Results for orders placed or performed in visit on 02/09/21 TOXICOLOGY, URINE SCREEN W/ CONFIRMATION Result Value Amphetamine Negative Benzodiazepines Negative Cannabinoids Negative Cocaine Metabolite Negative Hydrocodone / Hydromorphone Positive (A) Methadone Metabolite Negative Morphine / Codeine Positive (A) Oxycodone / Oxymorphone Negative Narrative Cutoff Concentrations: Drug Level Amphetamines [...] results can be found in Results Review. Patient Phone Numbers Labs: Lab Results Component Value Date/Time CREAT 0.6 12/27/2022 02:43 PM CREAT 0.8 12/12/2019 08:11 AM POTASSIUM 5.0 12/27/2022 02:43 PM POTASSIUM 4.3 12/12/2019 08:11 AM TSH 0.84 02/28/2023 03:28 PM TSH 1.27 12/12/2019 08:11 AM TSH 1.74 07/29/1996 03:05 PM LDLCALC 105 03/29/2022 01:00 PM LDLCALC UNINTERPRETABLE RESULT 09/05/2018 10:04 AM LDLDIRECT 94 07/25/2022 03:27 PM LDLDIRECT 91 09/05/2018 10:04 AM LDLDIRECT 114 08/07/2014 12:00 PM ALT 53 (H) 12/27/2022 02:43 PM ALT 32 11/04/2016 09:49 AM HGBA1C 7.6 (H) 02/28/2023 03:28 PM HGBA1C 6.1 (H) 12/12/2019 08:11 AM * Telephone Encounter - 03/20/2023 12:10 AM ESTPending Prescriptions: Disp Refills Cyclobenzaprine HCl 10 MG Oral Tablet (Fle*180 Ta*1 Sig: TAKE 1TO 2 TABLETS BY MOUTH AT BEDTIME NEEDED FOR MUSCLE SPASMS Pantoprazole Sodium 40 MG Oral Tablet Naomi*90 Tab*3 Sig: TAKE ONE TABLET BY MOUTH EVERY DAY documented in this encounter Plan of Treatment Upcoming Encounters Date Type Department Care Team (Late st Contact Info) Description 03/30/2023 1:00 PM EST Office Visit Family Practice 65 [facility] [address] [facility], [place] [address] College, Pharmacist [address] [place], [place] [address] [address] 03/30/2023 1:40 PM EST Office Visit Family Practice 65 [facility] [address] [place] [phone] Shi Garg, DO [address] [place] [address] 04/10/2023 2:30 PM EST Office Visit Otolaryngology/Head & Neck/Facial Plastic Surgery [address] [place] [address] Bianka Matute MD [address] [place] [address] 04/17/2023 1:00 PM EST Imaging Radiology [facility] [address] [facility] [place] [address] [place] [address] 06/04/2023 1:40 PM EST Office Visit Family Practice 65 [facility] [address] [place] [phone] Shi Garg, DO [address] [place] [address] Scheduled Orders Name Type Priority Associated Diagnoses Orde r Schedule VITAMIN B12 Lab Routine Encounter for long-term (current) use of other medications Expected: 03/20/2023 (Approximate), Expires: 03/20/2024 Scheduled Procedures Name Priority Associated Diagnoses Date/Ti [...] D LEVEL ONCE IN A LIFETIME-USE SMARTSET# 24512 Completed 12/27/2022, 03/29/2022, 12/27/2021, Additional history exists Influenza Vaccine (FLU shot) Completed 02/28/2023, 01/19/2022, 02/14/2021, Additional history exists GARDASIL-HPV IMMUNIZATION SERIES Aged Out No longer eligible based on patient's age to complete this topic MENINGOCOCCAL (MENACTRA/MENVEO) Aged Out No longer eligible based on patient's age to complete this topic documented as of this encounter Medical Devices Implanted Type Area Associate Director Financial Aid Device Identifier Shelf Expiration Date Model / Serial / Lot Battery Advance Prime [id number] - [id number] [place]planted:Q[place] 1 [place] [facility] [place] Buttocks [employer] : NEUROLOGIC PAIN 09/10/2012 [id number] / [id number] / Lens Intraoc 16.5 - [id number] - [id number] Implanted:Qty: 1 on 02/13/2017 by Marco Antonio Melton MD at OR [facility] Left: Eye [employer]OM[employer] 06/27/2021 [id number] / [id number] / [id number] Lens Intraoc 16.0 - [id number] - [id number] Implanted:Qty: 1 on 02/22/2017 by Marco Antonio Melton MD at OR [facility] Right: Eye BAUSCH & LOMB 04/29/2021 [id number] / [id number] / documented as of this encounter Visit Diagnoses Diagnosis Encounter for long-term (current) use of other medications- Primary LUMB-LUMBOSAC DISC DEGEN Degeneration of lumbar or lumbosacral intervertebral disc CERVICAL DISC DEGEN Degeneration of cervical intervertebral disc Esophageal reflux Heartburn documented in this encounter Advance Directives Latest [...] and were consensually agreed upon. Care Teams Metal Flow Coordinator Relationship Specialty Start Date End Date Shi Garg DO [address] [place] [address] PCP - General Internal Medicine 02/22/21 documented as of this encounter
--- OUTSIDE RECORDS SUMMARY | 2023-07-14 16:50 | External Medical Summary ---
Author Name Unknown Address Unknown Organization K01:[facility] [place] [facility] - [address] [place] [address] Laboratory Report Ordering Provider Test Date Status SHIVERNELL 02/28/2023 15:28:08 Final Observation Date Value Abnormality Reference (Units ) Status Cortisol 02/28/2023 15:28:08 3.6 2.5-19.5 ( ug/dL) Final AM Reference Range: 4.8 - 19 .5 ug/dL
PM Reference Range: 2.5 - 11.9 ug/dL Performing Location LAB[facility]ATORY [facility] - [address] [place] [address]
--- OUTSIDE RECORDS SUMMARY | 2023-07-14 16:50 | External Medical Summary | Summary of Care ---
Author Name Unknown Organization [facility] Address [address] [place] [address] Phone [phone] Care Team Providers Care Temple Meat Cutter Name Role Phone Silvano Garg DO Primary Care Provider [phone] Reason for Visit * Reason Onset Date Comments FYI 04/12/2023 Cancelled appts Encounter Details Date Type Department Care Team (Late st Contact Info) Description 04/12/2023 Telephone Family Practice [address] [facility], [place] [address] [place] [address] Silvano Gagr DO [address] [place], [place] [id number] FYI (Cancelled appts) Allergies Active Allergy Reactions Criticality Noted Date Comments Bee Venom 02/09/2016 Erythromycin 04/08/1997 GI upset Iodinated Contrast Media 03/01/2012 IVP dye when she had stones 1989 At [place] had nausea and emesis then she got [...] as of this encounter (statuses as of 04/12/2023) Medications Medication Sig Dispensed Refills Start Date End Date Status VITAMIN B COMPLEX PO TABSIndications:[email or web address] Take by mouth. 0 Active valACYclovir (VALTREX) [...] Reported on 07/25/2022 PreserVision AREDS 2 Oral CapsuleIndications:RedSeguro Take 1 Capsule by mouth in the morning. 0 09/21/2021 Active FLUoxetine HCl 40 MG Oral Capsule (PROzac)Indications:Ma barry depressive disorder, recurrent, moderate (HCC),Generalized anxiety disorder Take by mouth 2 Capsules in the morning. 200 Capsule 3 10/13/2021 Active Additional Information Patient taking differently:80 mg Oral Daily(AM),Indications: depression, Reported on 07/25/2022 Magnesium 125 MG Oral CapsuleIndications:RedSeguro Take 125 mg by mouth in the morning. 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 Thoracic and lumbosacral neuritis 09/24/2002 CERVICAL DISC DEGEN 10/04/2000 Acquired hypothyroidism LUMB-LUMBOSAC DISC DEGEN documented as of this encounter (statuses as of 04/12/2023) Resolved Problems Problem Noted Date Diagnosed Date [...] as of this encounter (statuses as of 04/12/2023) Immunizations Name Administration Dates Next Due COVID-19 mRNA, LNP-s, No Pre serve, 2-Dose Series (Pfizer) 03/31/2021,08/07/2020,07/12/2020 COVID-19, LNP-s, No Preserve , Melo-sucrose, Ages 12+ (Pfizer) 12/27/2021 Covid-19, Mrna, Lnp-s, Pf, B ivalent, 30 Mcg, IM, 12 yrs and above ([employer]) 05/23/2022 H1N1 2009 Influenza, IM 05/17/2009 Pneumococcal [...] Telephone Encounter - Silvano Garg DO - 04/12/2023 12:23 PM EST Noted * Telephone Encounter - Isabella Christian OSA - 04/12/2023 12:05 PM EST While reaching out to patient to confirm her appts for tomorrow, she advised that she will not be in tomorrow. She states she is scheduled in April to see Dr Garg and that is all she needs at this time. Pt was advised the April appt is a pre op appt and that she was in for a follow up and a new pt appointment with pharmacy for diabetes, however; pt declined to reschedule this and will discuss with DR Garg in April or call us back to reschedule, whichever she prefers. Lolly and CORAZON Tang documented in this encounter Plan of Treatment Upcoming Encounters Date Type Department Care Team (Latest Contact Info) Description 04/17/2023 1:00 PM EST Imaging Radiology [facility] 1st [facility] [address] [place] [address] 05/14/2023 2:20 PM EST Office Visit Family Practice [address] [address] [place] [address] Silvano Garg DO [address] [place] [address] 05/21/2023 10:31 AM EST Hospital Encounter OR [facility], OPERATING ROOM [facility], [facility] [address] [place] [address] Bianka Matute MD [address] [place] [address] 05/21/2023 10:31 AM EST - 05/21/2023 1:04 PM EST Surgery OR [facility], OPERATING ROOM [facility], [facility] [address] [place] [address] Bianka Matute MD [address] [place], [place] [phone] PARATHYROIDECTOMY 06/01/2023 11:00 AM EST Office Visit Otolaryngology/Head & Neck/Facial Plastic Surgery [address] [place] [facility] [place] [address] Bianka Matute MD [address] [place] [address] 06/04/2023 1:40 PM EST Office Visit Family Practice [address], [place] [address] [place] [address] Silvano Garg, [address] [place] [address] Scheduled Procedures Name Priority Associated Diagnoses Date/Ti [...] D LEVEL ONCE IN A LIFETIME-USE SMARTSET# 29639 Completed 12/27/2022, 03/29/2022, 12/27/2021, Additional history exists Influenza Vaccine (FLU shot) Completed 04/2022, 01/19/2022, 02/14/2021, Additional history exists GARDASIL-HPV IMMUNIZATION SERIES Aged Out No longer eligible based on patient's age to complete this topic MENINGOCOCCAL (MENACTRA/MENVEO) Aged Out No longer eligible based on patient's age to complete this topic documented as of this encounter Medical Devices Implanted Type Area Locker Attendant Device Identifier Shelf Expiration Date Model / Serial / Lot Battery Advance Prime [id number] - [id number] Implanted:Qty: 1 on 07/21/2011 at OR [facility] Right: Buttocks MED[employer]ON[employer] : NEUROLOGIC PAIN 09/10/2012 [id number] / [id number] / Lens Intraoc 16.5 - [id number] - [id number] Implanted:Qty: 1 on 02/13/2017 by Marco Antonio Melton MD at OR [facility] Left: Eye BAUSCH & LOMB 06/27/2021 [id number] / [id number] / [id number] Lens Intraoc 16.0 - [id number] - [id number] Implanted:Qty: 1 on 02/22/2017 by Marco Antonio Melton MD at [facility] Right: Eye BAUSCH & LOMB 04/29/2021 [id number] / [id number] / documented as of this encounter Advance [...] and were consensually agreed upon. Care Teams Temple Meat Cutter Relationship Specialty Start Date End Date Silvano Garg DO [address] [place] [address] PCP - General Internal Medicine 02/22/21 documented as of this encounter
--- OUTSIDE RECORDS SUMMARY | 2023-07-14 16:50 | External Medical Summary | Summary of Care ---
Author Name Unknown Organization [facility] Address [address] [place] [address] Phone [phone] Care Team Providers Care Plant Operator Control Room Operator Name Role Phone Shi Garg DO Primary Care Provider [phone] Reason for Visit * Reason Onset Date Comments Medication Refill 03/24/2023 Encounter Details Date Type Department Care Team (Late st Contact Info) Description 03/24/2023 Refill Family Practice [facility] [address] [facility] [address] Gerald Davis MD [address] [facility] [address] [facility] [address] [place] [address] Dermatitis Allergies Active Allergy Reactions Criticality Noted Date Comments Bee Venom 02/09/2016 Erythromycin 04/08/1997 GI upset Iodinated Contrast Media 03/01/2012 IVP dye when she had stones 1989 At [place] had nausea and emesis then she got hives on her chest and arms Atorvastatin Calcium 01/05/2005 MIld elevation of CK and LFT's ( see [facility] labs of 01/03/05) Pregabalin Edema Other 05/19/2014 Swelling of legs and feet Nabumetone Rash 12/21/2011 Nsaids Other (Please comment) 02/08/2017 GI distress Penicillins Rash 04/08/1997 She was told when she was a toddler she got a rash documented as of this encounter (statuses as of 03/26/2023) Medications Medication Sig Dispensed Refills Start Date End Date Status VITAMIN B COMPLEX PO TABSIndications:DreamHeart Take by mouth. 0 Active valACYclovir (VALTREX) [...] Reported on 07/25/2022 PreserVision AREDS 2 Oral CapsuleIndications:Gordon Games Take 1 Capsule by mouth in the morning. 0 2 Active FLUoxetine HCl 40 MG Oral Capsule (PROzac)Indications:Ma barry depressive disorder, recurrent, moderate (HCC),Generalized anxiety disorder Take by mouth 2 Capsules in the morning. 200 Capsule 3 2 Active Additional Information Patient taking differently:80 mg Oral Daily(AM),Indications: depression, Reported on 07/25/2022 Magnesium 125 MG Oral CapsuleIndications:Gordon Games Take 125 mg by mouth in the morning. 0 Active Vitamin D 25 MCG (1000 UT) Oral TabletIndications:[employer] Take 1 Tablet by mouth in the [...] 200 Tablet 3 3 12/29/19 24 Active FLUoxetine HCl 40 MG Oral Capsule [...] and thighs. 60 g 5 3 Active Triamcinolone Acetonide 0.1 % External Cream (Aristocort)Indication s:Dermatitis Apply topically to affected area 2 times a day . Groin and thighs. 60 g 5 2 03/24/20 23 Discontinu ed(Refill) documented as of this encounter (statuses as of 03/26/2023) Active Problems Problem Noted Date Diagnosed Date [...] accepted brochure Esophageal reflux 07/05/2005 LOC PRIM [id number] 08/15/2004 POSTLAMINECT SYND-LUMBAR 09/24/2002 Thoracic and lumbosacral neuritis 09/24/2002 CERVICAL DISC DEGEN 10/04/2000 Acquired hypothyroidism LUMB-LUMBOSAC DISC DEGEN documented as of this encounter (statuses as of 03/26/2023) Resolved Problems Problem Noted Date Diagnosed Date [...] Per Obesity Taxonomy Other allergic rhinitis 09/14/2008 04/0 11/2010 Overview: ICD-10 update of inactive term Hyperparathyroidism 08/13/2006 11/02/19 17 Overview: ICD-10 update of inactive term Calculus of kidney 06/29/2006 0 ABDOMINAL PAIN, OTHER SPECIFIED SITE 06/29/2006 07/05/2007 FEM STRESS INCONTINENCE 06/29/200601/30 PURE HYPERCHOLESTEROLEM 04/05/200403/30 Overview: Per Lipid Taxonomy. LUMBAGO 10/17/2002 03/05/2008 Other hyperparathyroidism Diverticulosis of colon 09/2019 documented as of this encounter (statuses as of 03/26/2023) Immunizations Name Administration Dates Next Due COVID-19 mRNA, LNP-s, No Pre serve, 2-Dose Series ([employer]) 03/31/2021,08/07/2020,07/12/2020 COVID-19, LNP-s, No Preserve , Melo-sucrose, Ages 12+ (Pfizer) 12/27/2021 Covid-19, Mrna, Lnp-s, Pf, B ivalent, 30 Mcg, IM, 12 yrs and above ([employer]) 05/23/2022 H1N1 2009 Influenza, IM 05/17/2009 Pneumococcal [...] Telephone Encounter - Shi Garg DO - 03/26/2023 8:35 AM ESTSigned Prescriptions: Disp Refills Triamcinolone Acetonide 0.1 % External Cre*60 g 5 Sig: Apply topically to affected area 2 times a day. Groin and thighs.Authorizing Provider: SHI GARG------- * Telephone Encounter - Christy Flores LPN - 03/25/2023 9:14 AM ESTPending Prescriptions: Disp Refills Triamcinolone Acetonide 0.1 % External Cre*60 g 5 Sig: Apply topically to affected area 2 times a day. Groin and thighs. * Telephone Encounter - Christy Flores LPN - 03/25/2023 9:14 AM EST Did you pend patient's preferred pharmacy and medication before forwarding?yes Pharmacy: [facility] Pending Prescriptions: Disp Refills Triamcinolone Acetonide 0.1 % External Cr*60 g 5 Sig: Apply topically to affected area 2 times a day. Groin and thighs. Last Visit: 01/26/2020 (in office), 01/04/2021 (telemedicine) Next Visit: Visit date not found If no future appointments scheduled, and last appointment is greater than a year ago, please schedule patient for a follow-up appointment Last date the medication was ordered: Is this request for a controlled substance?No [...] 12/12/2019 08:11 AM * Telephone Encounter - Meghana Ray - 03/24/2023 8:05 PM ESTPending Prescriptions: Disp Refills Triamcinolone Acetonide 0.1 % External Cre*60 g 5 Sig: Apply topically to affected area 2 times a day. Groin and thighs. documented in this encounter Plan of Treatment Upcoming Encounters Date Type Department Care Team (Late st Contact Info) Description 03/30/2023 1:00 PM EST Office Visit Family Practice [address] [place] [address] [address] [place] [phone] College, Pharmacist [address] [address] 03/30/2023 1:40 PM EST Office Visit Family Practice [address] [place] [address] [address] [place] [phone] Shi Garg, [address] [place] [address] 04/10/2023 2:30 PM EST Office Visit Otolaryngology/Head & Neck/Facial Plastic Surgery [address] [place] [address] Bianka Matute MD [address] [place] [address] 04/17/2023 1:00 PM EST Imaging Radiology [facility] 1st [facility] [place] [address] [place] [address] 06/04/2023 1:40 PM EST Office Visit Family Practice [address] [place] [address] [address] [place] [phone] Shi Garg, [address] [place] [address] Scheduled Procedures Name Priority Associated Diagnoses Date/Ti [...] D LEVEL ONCE IN A LIFETIME-USE SMARTSET# 22293 Completed 12/27/2022, 03/29/2022, 12/27/2021, Additional history exists Influenza Vaccine (FLU shot) Completed 02/28/2023, 01/19/2022, 02/14/2021, Additional history exists GARDASIL-HPV IMMUNIZATION SERIES Aged Out No longer eligible based on patient's age to complete this topic MENINGOCOCCAL (MENACTRA/MENVEO) Aged Out No longer eligible based on patient's age to complete this topic documented as of this encounter Medical Devices Implanted Type Area Consumer Banker Device Identifier Shelf Expiration Date Model / Serial / Lot Battery Advance Prime 04534 - [id number] Implanted:Qty: 1 on 07/21/2011 at OR [facility] Right: Buttocks [employer] : NEUROLOGIC PAIN 09/10/2012 [id number] / [id number] / Lens Intraoc 16.5 - [id number] - [id number] Implanted:Qty: 1 on 02/13/2017 by Marco Antonio Melton MD at OR [facility] Left: Eye BAUSCH & LOMB 06/27/2021 [id number] / [id number] / [id number] Lens Intraoc 16.0 - [id number] - [id number] Implanted:Qty: 1 on 02/22/2017 by Marco Antonio Melton MD at OR [facility] Right: Eye BAUSCH & LOMB 04/29/2021 [id number] / [id number] / documented as of this encounter Visit Diagnoses Diagnosis Dermatitis Contact dermatitis and other eczema, due to unspecified cause documented in this encounter Advance Directives Latest [...] and were consensually agreed upon. Care Teams Plant Operator Control Room Operator Relationship Specialty Start Date End Date Shi Garg DO [address] [facility] [place] [address] PCP - General Internal Medicine 02/22/21 documented as of this encounter
--- OUTSIDE RECORDS SUMMARY | 2023-07-14 16:50 | External Medical Summary ---
Author Name Unknown Address Unknown Organization K01:LABORATORY [facility] [place] - [address] [facility] [address] [place] [address] Laboratory Report Ordering Provider Test Date Status VERNELL OSULLIVAN 02/28/2023 15:28:08 Final Observation Date Value Abnormality Reference (Units ) Status TSH 02/28/2023 15:28:08 0.84 0.27-4.20 (uIU/mL) Final Performing Location LAB[facility]ORY [facility] - [address] [place] [address]
--- OUTSIDE RECORDS SUMMARY | 2023-07-14 16:50 | External Medical Summary | Summary of Care ---
Author Name Unknown Organization [facility] Address [address] [place] [address] Phone [phone] Care Team Providers Care Pellet Mill Operator Name Role Phone Silvano Garg DO Primary Care Provider [phone] Reason for Visit * Reason Onset Date Comments FYI 04/12/2023 Cancelled appts Encounter Details Date Type Department Care Team (Late st Contact Info) Description 04/12/2023 Telephone Family Practice [address] [facility], [place] [address] [place] [address] Silvano Garg DO [address] [place], [place] [phone] FYI (Cancelled appts) Allergies Active Allergy Reactions Criticality Noted Date Comments Bee Venom 02/09/2016 Erythromycin 04/08/1997 GI upset Iodinated Contrast Media 03/01/2012 IVP dye when she had stones 1989 At [place] had nausea and emesis then she got hives on her chest and arms Atorvastatin Calcium 01/05/2005 MIld elevation of CK and LFT's ( see [facility] labs of 01/03/05) Pregabalin Edema Other 05/19/2014 Swelling of legs and feet Nabumetone Rash 12/21/2011 Nsaids Other (Please comment) 02/08/2017 GI distress Penicillins Rash 04/08/1997 She was told when she was a toddler she got a rash documented as of this encounter (statuses as of 04/12/2023) Medications Medication Sig Dispensed Refills Start Date End Date Status VITAMIN B COMPLEX PO TABSIndications:[employer] Take by mouth. 0 Active valACYclovir (VALTREX) [...] Reported on 07/25/2022 PreserVision AREDS 2 Oral CapsuleIndications:Daily Pic Take 1 Capsule by mouth in the morning. 0 09/21/2021 Active FLUoxetine HCl 40 MG Oral Capsule (PROzac)Indications:Ma barry depressive disorder, recurrent, moderate (HCC),Generalized anxiety disorder Take by mouth 2 Capsules in the morning. 200 Capsule 3 10/13/2021 Active Additional Information Patient taking differently:80 mg Oral Daily(AM),Indications: depression, Reported on 07/25/2022 Magnesium 125 MG Oral CapsuleIndications:Daily Pic Take 125 mg by mouth in the morning. 0 Active Vitamin D 25 MCG (1000 UT) Oral TabletIndications:PageStitch Take 1 Tablet by mouth in the [...] accepted brochure Esophageal reflux 07/05/2005 LOC PRIM [id number] 08/15/2004 POSTLAMINECT SYND-LUMBAR 09/24/2002 Thoracic and lumbosacral [...] 30 Mcg, IM, 12 yrs and above (CSS99) 05/23/2022 H1N1 2009 Influenza, IM 05/17/2009 Pneumococcal [...] encounter Miscellaneous Notes * Telephone Encounter - Lolly Glez, [facility] - 04/12/2023 1:01 PM EST Noted. Lolly Cole, Pharm D, BCACP Clinical Pharmacist [address] - Medication [facility] 04/12/2023, 1:01 PM Ph. [phone] * Telephone Encounter - Silvano Garg DO [...] Description 04/17/2023 1:00 PM EST Imaging Radiology [facility] 1st [facility], [place] [address] [facility] [place] [address] 05/14/2023 2:20 PM EST Office Visit Family Practice [address] [place] [address] [facility] [address] [facility] [facility] [address] [facility] [address] 05/21/2023 10:31 AM EST Hospital Encounter [facility], OPERATING ROOM [facility] [address] [place] [address] Bianka Matute MD [address] [place] [address] 05/21/2023 10:31 AM EST - 05/21/2023 1:04 PM EST Surgery OR [facility], OPERATING RO[facility] [address] [facility] [place] [place] [address] Bianka Matute MD [address] [place] [address] PARATHYROIDECTOMY 06/01/2023 11:00 AM EST Office Visit Otolaryngology/Head & Neck/Facial Plastic Surgery [address] [place] [address] Bianka Matute MD [address] [place] [address] 06/04/2023 1:40 PM EST Office Visit Family Practice 65 [facility] [address] [place] [address] Silvano Garg DO [address] [place] [address] Scheduled Procedures Name Priority Associated Diagnoses Date/Ti [...] D LEVEL ONCE IN A LIFETIME-USE SMARTSET# 87923 Completed 12/27/2022, 03/29/2022, 12/27/2021, Additional history exists Influenza Vaccine (FLU shot) Completed 04/2022, 01/19/2022, 02/14/2021, Additional history exists GARDASIL-HPV IMMUNIZATION SERIES Aged Out No longer eligible based on patient's age to complete this topic MENINGOCOCCAL (MENACTRA/MENVEO) Aged Out No longer eligible based on patient's age to complete this topic documented as of this encounter Medical Devices Implanted Type Area Water Pipe Installer Device Identifier Shelf Expiration Date Model / Serial / Lot Battery Advance Prime 69910 - [id number] Implanted:Qty: 1 on 07/21/2011 at OR [facility] Right: Buttocks [employer] : NEUROLOGIC PAIN 09/10/2012 [id number] / [id number] / Lens Intraoc 16.5 - [id number] - [id number] Implanted:Qty: 1 on 02/13/2017 by [place] Antonio Meltno MD at OR [facility] Left: Eye BAUSCH & LOMB 06/27/2021 [id number] / [id number] / [id number] Lens Intraoc 16.0 - [id number] - [id number] Implanted:Qty: 1 on 02/22/2017 by Marco Antonio Melton MD at OR [facility] Right: Eye BAUSCH & LOMB 04/29/2021 [id number] / [id number] / documented as of this encounter Advance [...] and were consensually agreed upon. Care Teams Pellet Mill Operator Relationship Specialty Start Date End Date Silvano Garg DO [address] [place] [address] PCP - General Internal Medicine 02/22/21 documented as of this encounter
--- OUTSIDE RECORDS SUMMARY | 2023-07-14 16:50 | External Medical Summary | Summary of Care ---
Author Name Unknown Organization [facility] Address [address] [place] [address] Phone [phone] Care Team Providers Care Sports Doctor Name Role Phone Silvano Garg DO Primary Care Provider [phone] Reason for Referral * Evaluate & Treat - Unlimited Visits (Within 30 days (routine)) - Authorized Specialty Diagnoses / Procedures Referred By Raúl grider Referred To Contact Pharmacist / Pharmacy Diagnoses Prediabetes Silvano Garg DO [address] [place] [address] Referral ID Status Reason Start Date Expiration Date Visits Requested Visits Authorized [id number] Authorized Specialty Services Required 03/01/2023 99 99 Question Answer Referral Priority Within 30 days (routine) Where should this appointment be scheduled? [facility] Department: Primary Care Reason for Referral: DM Target A1c: < 8 Comments Pharmacist Medication Therapy Management: Minimum frequency patient should be seen in person for medication management: as appropriate per clinical condition and patient status By my signature, I understand that my patient Chloé Altamirano will have her medication therapy managed by the [facility] ([facility]) per established policies, procedures, and protocols. I also certify that this referral may serve as an initiation of service for the management of drug therapy in the above noted patient. [facility] providers will be responsible for scheduling patient visits, obtaining appropriate laboratory studies, and adjusting medication management therapy per patient's need, in addition to those roles spelled out in the clinic policy, procedures, and drug management protocols. I understand that the service provided by the [facility] is voluntary and have informed patient that they can refuse the service at their discretion. I am aware that the [facility] will provide me with a copy of the patient encounter via my [employer]. I authorize the [facility] to carry out these activities on my behalf. I consider this program to be a necessary part of the patient's medical care. Christy Flores LPN Reason for Visit * Reason Onset Date Comments Test Results 03/01/2023 Encounter Details Date Type Department Care Team (Late st Contact Info) Description 03/01/2023 Telephone Family Practice [address], [address] [place] [phone] Silvano Garg DO [address] [place] [address] Test Results Allergies Active Allergy Reactions Criticality Noted Date Comments Bee Venom 02/09/2016 Erythromycin 04/08/1997 GI upset Iodinated Contrast Media 03/01/2012 IVP dye when she had stones 1989 At [place] had nausea and emesis then she got hives on her chest and arms Atorvastatin Calcium 01/05/2005 MIld elevation of CK and LFT's ( see [facility] labs of 01/03/05) Pregabalin Edema Other 05/19/2014 Swelling of legs and feet Nabumetone Rash 12/21/2011 Nsaids Other (Please comment) 02/08/2017 GI distress Penicillins Rash 04/08/1997 She was told when she was a toddler she got a rash documented as of this encounter (statuses as of 03/06/2023) Medications Medication Sig Dispensed Refills Start Date [...] Reported on 07/25/2022 PreserVision AREDS 2 Oral CapsuleIndications:TDI Bassline Take 1 Capsule by mouth in the [...] Reported on 07/25/2022 Magnesium 125 MG Oral CapsuleIndications:TDI Bassline Take 125 mg by mouth in the morning. 0 Active Vitamin D 25 MCG (1000 UT) Oral TabletIndications:[employer] Take 1 Tablet by mouth in the [...] Albuterol Sulfate 1.25 MG/3ML Inhalation Nebulization SolutionIndications:Ac venetie bronchitis, unspecified organism Inhale 1.25 mg via [...] Severe Pain 120 Tablet 0 02/27/2023 Active documented as of this encounter (statuses as of 03/06/2023) Active Problems Problem Noted Date Diagnosed Date [...] accepted brochure Esophageal reflux 07/05/2005 LOC PRIM [id number] 08/15/2004 POSTLAMINECT SYND-LUMBAR 09/24/2002 Thoracic and lumbosacral neuritis 09/24/2002 CERVICAL DISC DEGEN 10/04/2000 Acquired hypothyroidism LUMB-LUMBOSAC DISC DEGEN documented as of this encounter (statuses as of 03/06/2023) Resolved Problems Problem Noted Date Diagnosed Date [...] Per Obesity Taxonomy Other allergic rhinitis 09/14/2008 0411/2010 Overview: ICD-10 update of inactive term Hyperparathyroidism 08/13/2006 11/02/19 Overview: ICD-10 update of inactive term Calculus of kidney 06/29/2006 0 ABDOMINAL PAIN, OTHER SPECIFIED SITE 06/29/2006 07/05/2007 FEM STRESS INCONTINENCE 06/29/200601/30 PURE HYPERCHOLESTEROLEM 04/05/200403/30 Overview: Per Lipid Taxonomy. LUMBAGO 10/17/2002 03/05/2008 Other hyperparathyroidism Diverticulosis of colon 09/2019 documented as of this encounter (statuses as of 03/06/2023) Immunizations Name Administration Dates Next Due COVID-19 [...] or making decisions? (5 years old or older No 08/15/2017 documented as of this encounter Miscellaneous Notes * Telephone Encounter - Christy Flores LPN - 03/01/2023 6:19 PM EDT Patient is aware and will comply. Please call yan vidal with ryan Thank you * Telephone Encounter - Christy Flores LPN - 03/01/2023 6:18 PM EDT ----- Message from Silvano Garg DO sent at 03/01/2023 8:03 AM EDT ----- Hgba1c is up. Refer back to [facility] documented in this encounter Plan of Treatment Upcoming Encounters Date Type Department Care Team (Late st Contact Info) Description 03/15/2023 1:10 PM EST Office Visit Family Practice [address] [place] [address] [address] [place] [phone] [place], Pharmacist [address] [place] [address] 04/10/2023 2:30 PM EST Office Visit Otolaryngology/Head & Neck/Facial Plastic Surgery [address] [place] [address] Bianka Matute MD [address] [place] [address] 06/04/2023 1:40 PM EST Office Visit [facility] [address] [place] [address] [address] [place] [phone] Silvano Garg DO [address] [place] [address] Scheduled Procedures Name Priority Associated Diagnoses Date/Ti me COLONOSCOPY FLEXIBLE PROXIMA L DIAGNOSTIC Recall Special screening for malignant neoplasms, colon Scheduled Referrals Name Type Priority Associated Diagnoses Orde r Schedule PHARMACIST MEDS THERAPY MGMT REFERRAL OP Referral Within 30 days (routine) Prediabetes Ordered: 03/01/2023 Health Maintenance Due Date Last Done Comments [...] D LEVEL ONCE IN A LIFETIME-USE SMARTSET# [id number] Completed 12/27/2022, 03/29/2022, 12/27/2021, Additional history exists Influenza Vaccine (FLU shot) Completed 02/28/2023, 01/19/2022, 02/14/2021, Additional history exists GARDASIL-HPV IMMUNIZATION SERIES Aged Out No longer eligible based on patient's age to complete this topic MENINGOCOCCAL (MENACTRA/MENVEO) Aged Out No longer eligible based on patient's age to complete this topic documented as of this encounter Medical Devices Implanted Type Area Order Management Specialist Device Identifier Shelf Expiration Date Model / Serial / Lot Battery Advance Prime [id number] - [id number] Implanted:Qty: 1 on 07/21/2011 at OR [facility] Right: Buttocks [employer] : NEUROLOGIC PAIN 09/10/2012 [id number] / [id number] / Lens Intraoc 16.5 - [id number] - [id number] Implanted:Qty: 1 on 02/13/2017 by Marco Antonio Melton MD at OR [facility] Left: Eye [employer] 06/27/2021 [id number] / [id number] / [id number] Lens Intraoc 16.0 - [id number] - [id number] Implanted:Qty: 1 on 02/22/2017 by Marco Antonio Melton MD at OR [facility] Right: Eye [employer]OM[employer] 04/29/2021 [id number] / [id number] / documented as of this encounter Visit Diagnoses Diagnosis Prediabetes- Primary Other abnormal glucose documented in this encounter Advance Directives Latest [...] and were consensually agreed upon. Care Teams Sports Doctor Relationship Specialty Start Date End Date Silvano Garg DO [address] [place] [address] PCP - General Internal Medicine 02/22/21 documented as of this encounter
--- OUTSIDE RECORDS SUMMARY | 2023-07-14 16:50 | External Medical Summary ---
Author Name Unknown Address Unknown Organization [id number]:[facility] [place] [address] [facility] [address] Laboratory Report Ordering Provider Test Date Status SHIVERNELL 02/28/2023 15:28:08 Final Observation Date Value Abnormality Reference (Units ) Status HbA1C 02/28/2023 15:28:08 7.6 Above high normal 4. 0-5.6 (%) Final The use of HbA1c to monitor glycemic status is based on normal hemoglobin and HbA composition. This test should not be used in patients with abnormal hemoglobin that affects the half life of the red blood cell or the in vivo glycation rates. Glucose, estimated average 02/28/2023 15:28:08 171 Above high normal <126 (mg/dL) Mikhail avery Performing Location [facility] [place] [address] [facility] [address]
--- OUTSIDE RECORDS SUMMARY | 2023-07-14 16:50 | External Medical Summary | Summary of Care ---
Author Name Unknown Organization [facility] Address [address] [place] [address] Phone [phone] Care Team Providers Care Torch Burner Name Role Phone Silvano Garg DO Primary Care Provider [phone] Reason for Visit * Reason Comments Follow Up Encounter Details Date Type Department Care Team (Late st Contact Info) Description 03/30/2023 1:40 PM EST Office Visit Family Practice [address] [facility], [place] [address] [place] [address] Silvano Garg DO [address] [place] [address] DM type 2, goal HbA1c < 8% ([facility])*; Parathyroid adenoma; Hyperparathyroidism, primary ([facility]); POSTLAMINECT SYND-LUMBAR; Acquired hypothyroidism; Gastroesophageal reflux disease, unspecified whether esophagitis present; Pure hypercholesterolemia; HTN, goal below 140/90; Generalized anxiety disorder; Age-related osteoporosis without current pathological fracture; Major depressive disorder, recurrent, moderate ([facility]) Allergies Active Allergy Reactions Criticality Noted Date Comments Bee Venom 02/09/2016 Erythromycin 04/08/1997 GI upset Iodinated Contrast Media 03/01/2012 IVP dye when she had stones 1989 At [place] had nausea and emesis then she got hives on her chest and arms Atorvastatin Calcium 01/05/2005 MIld elevation of CK and LFT's ( see [facility] labs of 01/03/05) Pregabalin Edema Other 05/19/2014 Swelling of legs and feet Nabumetone Rash 12/21/2011 Nsaids Other (Please comment) 02/08/2017 GI distress Penicillins Rash 04/08/1997 She was told when she was a toddler she got a rash documented as of this encounter (statuses as of 03/30/2023) Medications Medication Sig Dispensed Refills Start Date End Date Status VITAMIN B COMPLEX PO TABSIndications:12Return Take by mouth. 0 Active valACYclovir (VALTREX) [...] Reported on 07/25/2022 PreserVision AREDS 2 Oral CapsuleIndications:[employer] Take 1 Capsule by mouth in the morning. 0 2 Active FLUoxetine HCl 40 MG Oral Capsule (PROzac)Indications:Ma barry depressive disorder, recurrent, moderate (HCC),Generalized anxiety disorder Take by mouth 2 Capsules in the morning. 200 Capsule 3 2 Active Additional Information Patient taking differently:80 mg Oral Daily(AM),Indications: depression, Reported on 07/25/2022 Magnesium 125 MG Oral CapsuleIndications:[employer] Take 125 mg by mouth in the morning. 0 Active Vitamin D 25 MCG (1000 UT) Oral TabletIndications:[facility] Take 1 Tablet by mouth in the morning. 0 Active Benzonatate 100 MG Oral CapsuleIndications:Upp er respiratory tract infection, unspecified type,Acute cough Take 1 Capsule by mouth 3 times a day as needed for Cough. 30 Capsule 1 3 Active Albuterol Sulfate 1.25 MG/3ML Inhalation Nebulization SolutionIndications:Ac upper [place] bronchitis, unspecified organism Inhale 1.25 mg via [...] XR)Indications:DM type 2, goal HbA1c < 8% ([facility]) Take 2 Tablets by mouth in the morning. 60 Tablet 3 3 Active guaiFENesin-Codeine 100-10 MG/5ML Oral SolutionIndications:Up per respiratory tract infection, unspecified type,Acute cough Take 5 mL by mouth 3 times a day as needed for Cough or Congestion. 180 mL 0 3 03/30/20 23 Discontinu ed(Medicat ion List Clean Up) FLUoxetine HCl 40 MG Oral Capsule (PROzac) take 2 capsules by mouth daily 180 Capsule 0 3 03/30/20 23 Discontinu ed(Medicat ion List Clean Up) documented as of this encounter (statuses as of 03/30/2023) Active Problems Problem Noted Date Diagnosed Date [...] accepted brochure Esophageal reflux 07/05/2005 LOC PRIM [id number] 08/15/2004 POSTLAMINECT SYND-LUMBAR 09/24/2002 Thoracic and lumbosacral neuritis 09/24/2002 CERVICAL DISC DEGEN 10/04/2000 Acquired hypothyroidism LUMB-LUMBOSAC DISC DEGEN documented as of this encounter (statuses as of 03/30/2023) Resolved Problems Problem Noted Date Diagnosed Date [...] as of this encounter (statuses as of 03/30/2023) Immunizations Name Administration Dates Next Due COVID-19 mRNA, LNP-s, No Pre serve, 2-Dose Series ([employer]) 03/31/2021,08/07/2020,07/12/2020 COVID-19, LNP-s, No Preserve , Melo-sucrose, [...] Sign Reading Time Taken Comments Blood Pressure 130/74 03/30/2023 1:32 PM EST Pulse 74 03/30/2023 1:32 PM EST Temperature 36.9 C (98.5 F) 03/30/2023 1:32 PM ES T Respiratory Rate 15 03/30/2023 1:32 PM EST Oxygen Saturation 97% 03/30/2023 1:32 PM EST Inhaled Oxygen Concentration - - Weight 127.2 kg (280 lb 6.4 oz) 03/30/2023 1:32 PM EST Height 154.9 cm (5' 1") 03/30/2023 1:32 PM EST Body Mass Index 52.98 03/30/2023 1:32 PM EST documented in this encounter Functional [...] encounter Progress Notes * Silvano Garg, - 03/30/2023 2:25 PM EST SUBJECTIVE: Chloé Altamirano is a 68 year old female. Chief Complaint Patient presents with Follow Up HPI: Patient is a 68 year old female with a history of Postlaminectomy Syndrome, Cervical Disc Disease, Hyperparathyroidism, HTN, Hypothyroidism, GERD, Hyperlipidemia, Depression, Anxiety, restless leg syndrome, DM type II, and Obesity that is seen for follow up. Patient has fatigue, and difficulty david ntrating. She is scheduled for ENT evaluation at [facility] on 04/10 due to parathyroid adenoma. Chronic shortness of breath with exertion is stable. No chest pain is present. Weight is up. Patient stopped Semaglutide a few weeks ago. Hgba1c is now 7.6. Depression has worsened recently. Patient has littleinterest in activities, feel hopeless, has insomnia, fatigue, and difficulty concentrating. No suicidal thought is present. Patient Active Problem List Diagnosis Code CERVICAL DISC DEGEN M50.30 POSTLAMINECT SYND-LUMBAR M96.1 Thoracic and lumbosacral neuritis M54.14, M54.17 Acquired hypothyroidism E03.9 LUMB-LUMBOSAC DISC DEGEN M51.37 LOC PRIM [id number] M17.10 Esophageal reflux K21.9 ADVANCE DIRECTIVE INFORMATION Pure hypercholesterolemia E78.00 MEDICATION USE AGREEMENT [id number] HTN, goal below 140/90 I10 Restless legs syndrome G25.81 Generalized anxiety disorder F41.1 Major depressive disorder, recurrent, moderate ([facility]) F33.1 Body mass index (BMI) of 50.0 to 59.9 in adult ([facility]) Z68.43 Age-related osteoporosis without current pathological fracture M81.0 Hyperparathyroidism, primary ([facility]) E21.0 Parathyroid adenoma D35.1 DM type 2, goal HbA1c < 8% ([facility]) E11.9 Current Outpatient Medications Medication [...] 1 Tablet by mouth in the morning. Benzonatate 100 MG Oral Capsule Take 1 Capsule by mouth 3 times a day as needed for Cough. 30 Capsule 1 Albuterol Sulfate 1.25 MG/3ML [...] mouth in the morning. 60 Tablet 3 busPIRone HCl 15 MG Oral Tablet [...] Depressive disorder, not elsewhere classified hosp. at [facility]- [place]- one event Disorder of intervertebral disc Aubrey Diverticulosis of colon DM type 2, goal HbA1c < 8% ([facility]) 03/30/2023 Dyslipidemia, goal LDL below 130 04/08/2009 Per Lipid Taxonomy. Dyslipidemia, goal to be determined Generalized anxiety disorder 09/08/2020 GERD (gastroesophageal reflux disease) HTN, goal below 140/90 07/31/2012 LUMB-LUMBOSAC DISC DEGEN Major depressive disorder, recurrent, moderate ([facility]) 01/04/2021 Morbid obesity, BMI not known ([facility]) Osteoarthritis of knee Other hyperparathyroidism ([facility]) Parathyroid adenoma 02/28/2023 POSTLAMINECT SYND-LUMBAR 09/24/2002 Postlaminectomy syndrome of lumbar region Prediabetes 06/12/2017 Per Prediabetes protocol #1 Restless legs syndrome 03/05/2014 Past Surgical History: Procedure Laterality Date ARTHROPLASTY KNEE TOTAL 06/05 Bilateral total knee replacements- Dr. Freeman DELIVERY COLONOSCOPY, DIAGNOSTIC (RECTUM) 04/06/08 repeat in 10 yrs COLONOSCOPY, DIAGNOSTIC (RECTUM) 09/03/2018 normal, repeat 10 yrs/[facility] CYSTO/URETERO W/LITHOTRIPSY Right 04-28-2015 CYSTO/URETERO W/LITHOTRIPSY Right 05-07-2015 CYSTO/URETERO W/LITHOTRIPSY Right 05/07/2015 CYSTOURETHROSCOPY URETEROSCOPY WITH LITHOTRIPSY AND STENT INSERTION performed by Chiara Quan MD at [facility] CYSTOSCOPY 07-16-06 stent removal CYSTOSCOPY/INSERTION OF STENT 07/13/06 CYSTOURETHROSCOPY WITH INSERTION URETERAL STENT performed by PAUL VICTORIA at [facility] CYSTOSCOPY/URETERAL CATHETER 07/13/06 CYSTOURETHROSCOPY WITH URETERAL CATHETER performed by PAUL VICTORIA at [facility] CYSTOURETRO &/OR PYELOSCOPE 07/13/06 CYSTOURETHROSCOPY URETROSCOPY AND OR PYELOSCOPY performed by PAUL VICTORIA at [facility] CYSTOURETRO W/STONE REMOVE 07/13/06 CYSTOURETHROSCOPY URETROSCOPY WITH STONE REMOVAL performed by PAUL VICTORIA at [facility] EXPLORE PARATHYROID GLANDS 11/16/06 PARATHYROIDECTOMY performed by KEDAR HENDERSON at OR [facility] FLUORO MISCELLANEOUS 07/13/06 FLUROSCOPY UP TO ONE HOUR performed by PAUL VICTORIA at [facility] FRAGMENT KIDNEY STONE BY SHOCK WAVE [...] MEDIUM performed by PAUL VICTORIA at OR [facility] LAPAROSCOPY; CHOLECYSTECTOMY LIGATE/CUT OVIDUCT(S) Tubal Ligation LUMBAR HEMILAMINECTOMY L 3-4 discectomy LUMBAR HEMILAMINECTOMY 12/23/01 L3-4 left hemilaminectomy, disckectomy, with foraminotomy PARTIAL REMOVAL OF THYROID LOBE right lobectomy REDUCTION OF BREAST 1996 REMOVAL OF TONSILS, UNDER AGE 10 Tonsillectomy REMOVE CATARACT, INSERT LENS PROSTH Left 02/13/2017 left EXTRACAPSULAR CATARACT REMOVAL WITH INTRAOCULAR LENS performed by Marco Antonio Melton MD at OR [facility] REMOVE CATARACT, INSERT LENS PROSTH Right 02/22/2017 right EXTRACAPSULAR CATARACT REMOVAL WITH INTRAOCULAR LENS performed by Marco Antonio Melton MD at OR [facility] REMOVE GALLBLADDER 07/11/05 Dr. Peña REPAIR DETACHED RETINA, VITRECTOMY Right 08/12/2021 PARS PLANA VITRECTOMY, AIR FLUID EXCHANGE, ENDOLASER, FLUID GAS EXCHANGE SF6, RIGHT EYE (25g) performed by Kierra Cunningham MD at OR [facility] REPAIR RUPTURED ROTATOR CUFF, CHRON REVISE/REMOVE SPINAL NEURORECEIVER 07/21/2011 REVISION OR REMOVAL IMPLANTED SPINAL NEUROSTIMULATOR performed by LORETO HERNANDEZ at OR [facility] SACROILIAC JOINT INJECT W/GUIDANCE 12/06/2017 INJECTION SACROILIAC JOINT performed by Edwardo Osullivan DO at OR [facility] SACROILIAC JOINT INJECT W/GUIDANCE 04/11/2018 INJECTION SACROILIAC JOINT performed by Edwardo Osullivan DO at OR [facility] SACROILIAC JOINT INJECT W/GUIDANCE 09/17/2019 INJECTION SACROILIAC JOINT performed by Edwardo Osullivan DO at OR [facility] SPINAL NEUROSTIM ELECTRODE PLATE, REVISION 07/21/2011 REVISION SPINAL NEUROSTIM ELECTRODE PLATE performed by LORETO HERNANDEZ at OR [facility] TOTAL ABD HYSTERECTOMY W/WO REMOVAL OF TUBE(S) complete hysterectomy at age 44 Review of patient's allergies indicates: Allergen Reactions Bee Venom Erythromycin GI upset Iodinated Contrast Media IVP dye when she had stones 1989 At [place] had nausea and emesis then she got hives on her chest and arms Lipitor [Atorvastatin Calcium] MIld elevation of CK and LFT's ( see [facility] labs of 01/03/05) Lyrica [Pregabalin] Edema Other Swelling of legs and feet Nabumetone Rash Nsaids Other (Please comment) GI distress Penicillins Rash She was told when she was a toddler she got a rash Review of Systems Constitutional: Positive for activity change, fatigue and unexpected weight change. HENT: Negative for [...] ideas. The patient is nervous/anxious. OBJECTIVE: BP 130/74 | Pulse 74 | Temp 36.9 C (98.5 F) | Resp 15 | Ht 1.549 m (5' 1") | Wt 127.2 kg (280 lb 6.4 oz) | SpO2 97% | BMI 52.98 kg/m | BSA 2.34 m Physical Exam Vitals and nursing note reviewed. Constitutional: General: She is not in acute distress. Appearance: Normal appearance. She is not toxic-appearing. HENT: Head: Normocephalic and atraumatic. Cardiovascular: Rate and Rhythm: Normal rate and regular rhythm. Heart sounds: Normal heart sounds. No murmur heard. No gallop. Pulmonary: Effort: Pulmonary effort is normal. No respiratory distress. Breath sounds: Normal breath sounds. No wheezing. Abdominal: General: Bowel sounds are normal. There is no distension. Palpations: Abdomen is soft. Tenderness: There is no abdominal tenderness. Musculoskeletal: Right lower leg: No edema. Left lower leg: No edema. Neurological: Mental Status: She is alert and oriented to person, place, and time. Mental status is at baseline. Motor: No weakness. Gait: Gait normal. Psychiatric: Attention and Perception: She is inattentive. Mood and Affect: Mood is anxious and depressed. Affect is tearful. Speech: Speech normal. Behavior: Behavior normal. Behavior is cooperative. Cognition and Memory: Cognition and memory normal. PLAN AND ASSESSMENT: DM type 2, goal HbA1c < 8% (HCC) (Primary) - Start metFORMIN HCl ER 500 MG Oral Tablet Extended Release 24 Hour (Glucophage XR); Take 2 Tablets by mouth in the morning. - ALBUMIN / CREATININE RATIO, URINE; Future; Expected date: 03/30/2023 - ALBUMIN / CREATININE RATIO, URINE Failed Semaglutide Consider Monjaro Parathyroid adenoma Keep visit with ENT as scheduled Hyperparathyroidism, primary (HCC) POSTLAMINECT SYND-LUMBAR Continue Hydrocodone and Gabapentin Acquired hypothyroidism Continue Levothyroxine Gastroesophageal reflux disease, unspecified whether esophagitis present Continue Pantoprazole Pure hypercholesterolemia Continue Rosuvastatin HTN, goal below 140/90 Generalized anxiety disorder Continue Buspar Age-related osteoporosis without current pathological fracture Major depressive disorder, recurrent, moderate (HCC) Continue to follow with Psychiatry - Dr. Cole Continue Quetiapine, Fluoxetine, and Bupropion ER Follow Up: Return in about 2 weeks (around 04/13/2023), or if symptoms worsen or fail to improve. Silvano Garg DO 2:25 PM 03/30/2023 documented in this encounter Nursing Notes * Christy Flores LPN - 03/30/2023 1:37 PM EST Patient presents for follow up, voices no complaints. documented in this encounter Plan of Treatment Upcoming Encounters Date Type Department Care Team (Late st Contact Info) Description 04/10/2023 2:30 PM EST Office Visit Otolaryngology/Head & Neck/Facial Plastic Surgery [address] [place] [address] Bianka Matute MD [address] [place] [address] 04/13/2023 1:40 PM EST Office Visit Family Practice [address] [facility] [address] [place] [address] Silvano Garg, DO [address] [facility] [place] [address] 04/17/2023 1:00 PM EST Imaging Radiology [facility] 1st Floor, [place] [address] [facility] [place], [place] [address] 06/04/2023 1:40 PM EST Office Visit Family Practice [address] [facility] [address] [place] [address] Silvano Garg, [address] [facility] [place] [address] Pending Results Name Type Priority Associated Diagnoses Date /Time ALBUMIN / CREATININE RATIO, URINE Lab Routine DM type 2, goal HbA1c < 8% ([facility]) 03/30/2023 2:24 PM EST Scheduled Orders Name Type Priority Associated Diagnoses Orde r Schedule ALBUMIN / CREATININE RATIO, URINE Lab Routine DM type 2, goal HbA1c < 8% ([facility]) Expected: 03/30/2023 (Approximate), Expires: 03/29/2024 Scheduled Procedures Name Priority Associated Diagnoses Date/Ti [...] each visit until score < 10) 03/01/2023 03/30/2023 Albumin/Creatinine Ratio 03/29/2023 03/29/2022, 05/01 HbA1c 08/29/2023 02/28/2023, 06/29, 03/29/2022, Additional history exists GFR 12/28/2023 12/27/2022, 06/29, 03/29/2022, Additional history exists TSH 02/29/2024 02/28/2023, 06/29, 12/27/2021, Additional history exists DXA Scan 04/10/2024 04/10/2022, 10/28, 11/06/2006 Lipid Panel 07/26/2027 07/25/2022, 03/02, 05/25/2021, Additional history exists Colonoscopy 09/03/2028 09/03/2018, 04/06/2008 Colorectal Cancer Screening 09/03/2028 DTaP,Tdap,and Td Vaccines (3 - Td or Tdap) 02/26/2029 02/26/2019, 11/26/2007, 11/12/2000 Pneumococcal Vaccine: 65+ Years Completed 01/26/2020, 09/10/2018, 03/15/2001 Zoster Vaccines Completed 05/10/2020, 02/28, 08/07/2014 VITAMIN D LEVEL ONCE IN A LIFETIME-USE SMARTSET# [id number] Completed 12/27/2022, 03/29/2022, 12/27/2021, Additional history exists Influenza Vaccine (FLU shot) Completed 04/2022, 01/19/2022, 02/14/2021, Additional history exists GARDASIL-HPV IMMUNIZATION SERIES Aged Out No longer eligible based on patient's age to complete this topic MENINGOCOCCAL (MENACTRA/MENVEO) Aged Out No longer eligible based on patient's age to complete this topic documented as of this encounter Medical Devices Implanted Type Area Form Building Supervisor Device Identifier Shelf Expiration Date Model / Serial / Lot Battery Advance Prime [id number] - [id number] Implanted:Qty: 1 on 07/21/2011 at OR [facility] Right: Buttocks [employer] : NEUROLOGIC PAIN 09/10/2012 [id number] / [id number] / Lens Intraoc 16.5 - [id number] - [id number] Implanted:Qty: 1 on 02/13/2017 by Marco Antonio Melton MD at OR [facility] Left: Eye [employer] 06/27/2021 [id number] / [id number] / [id number] Lens Intraoc 16.0 - [id number] - [id number] Implanted:Qty: 1 on 02/22/2017 by Marco Antonio Melton MD at OR [facility] Right: Eye [employer] 04/29/2021 [id number] / [id number] / documented as of this encounter Visit Diagnoses Diagnosis DM type 2, goal HbA1c < 8% ([facility])- Primary Parathyroid adenoma Benign neoplasm of parathyroid gland Hyperparathyroidism, primary (HCC) Primary hyperparathyroidism POSTLAMINECT SYND-LUMBAR Postlaminectomy syndrome, lumbar region Acquired hypothyroidism Unspecified hypothyroidism Gastroesophageal reflux disease, unspecified whether esophagitis present Pure hypercholesterolemia HTN, goal below 140/90 Unspecified essential hypertension Generalized anxiety disorder Age-related osteoporosis without current pathological fracture Senile osteoporosis Major depressive disorder, recurrent, moderate (HCC) Major depressive disorder, recurrent episode, moderate documented in this encounter Advance Directives Latest [...] and were consensually agreed upon. Care Teams Torch Burner Relationship Specialty Start Date End Date Silvano Garg DO [address] [place] [address] PCP - General Internal Medicine 02/22/21 documented as of this encounter
--- OUTSIDE RECORDS SUMMARY | 2023-07-14 16:50 | External Medical Summary | Summary of Care ---
Author Name Unknown Organization [facility] Address [address] [place] [address] Phone [phone] Care Team Providers Care Computer Help Desk Specialist Name Role Phone Silvano Garg DO Primary Care Provider [phone] Reason for Visit * Reason Comments Medication Refill Encounter Details Date Type Department Care Team (Late st Contact Info) Description 03/23/2023 Refill Family Practice [facility], [place] [address] [place] [phone] Silvano Garg DO [address] [place] [address] CERVICAL DISC DEGEN; LUMB-LUMBOSAC DISC DEGEN Allergies Active Allergy Reactions Criticality Noted Date Comments Bee Venom 02/09/2016 Erythromycin 04/08/1997 GI upset Iodinated Contrast Media 03/01/2012 IVP dye when she had stones 1989 [place] had nausea and emesis then she got [...] as of this encounter (statuses as of 03/23/2023) Medications Medication Sig Dispensed Refills Start Date End Date Status VITAMIN B COMPLEX PO TABSIndications:[employer] Take by mouth. 0 Active valACYclovir (VALTREX) [...] Reported on 07/25/2022 PreserVision AREDS 2 Oral CapsuleIndications:Transcepta Take 1 Capsule by mouth in the [...] Reported on 07/25/2022 Magnesium 125 MG Oral CapsuleIndications:Transcepta Take 125 mg by mouth in the morning. 0 Active Vitamin D 25 MCG (1000 UT) Oral TabletIndications:[employer] Take 1 Tablet by mouth in the [...] Albuterol Sulfate 1.25 MG/3ML Inhalation Nebulization SolutionIndications:Ac lower [place] bronchitis, unspecified organism Inhale 1.25 mg via [...] 200 Tablet 3 12/29/2022 12/29/19 24 Active FLUoxetine HCl 40 MG Oral Capsule (PROzac) take 2 capsules by mouth daily 180 Capsule 0 03/08/2023 Active Cyclobenzaprine HCl 10 MG Oral Tablet [...] severe pain. 120 Tablet 0 03/23/2023 Active documented as of this encounter (statuses as of 03/23/2023) Active Problems Problem Noted Date Diagnosed Date [...] accepted brochure Esophageal reflux 07/05/2005 LOC PRIM [id number] 08/15/2004 POSTLAMINECT SYND-LUMBAR 09/24/2002 Thoracic and lumbosacral neuritis 09/24/2002 CERVICAL DISC DEGEN 10/04/2000 Acquired hypothyroidism LUMB-LUMBOSAC DISC DEGEN documented as of this encounter (statuses as of 03/23/2023) Resolved Problems Problem Noted Date Diagnosed Date [...] as of this encounter (statuses as of 03/23/2023) Immunizations Name Administration Dates Next Due COVID-19 mRNA, LNP-s, No Pre serve, 2-Dose Series ([employer]) 03/31/2021,08/07/2020,07/12/2020 COVID-19, LNP-s, No Preserve , Melo-sucrose, Ages 12+ ([employer]) 12/27/2021 Covid-19, Mrna, Lnp-s, Pf, B ivalent, 30 Mcg, IM, 12 yrs and above ([employer]) 05/23/2022 H1N1 2009 Influenza, IM 05/17/2009 Pneumococcal [...] encounter Miscellaneous Notes * Telephone Encounter - Jeff Delatorre, [facility] - 03/23/2023 3:26 PM ESTRefused Prescriptions: Disp Refills HYDROcodone-Acetaminophen 10-325 MG Oral T*120 Ta*0 Sig: Take 1 Tablet by mouth every 4 hours as needed for Moderate or Severe Pain Refused By: JEFF BROWN Reason for Refusal: Duplicate Request * Telephone Encounter - Doretha Aragon - 03/23/2023 1:36 PM ESTPending Prescriptions: Disp Refills HYDROcodone-Acetaminophen 10-325 MG Oral T*120 Ta*0 Sig: Take 1Tablet by mouth every 4 hours as needed for Moderate or Severe Pain documented in this encounter Plan of Treatment Upcoming Encounters Date Type Department Care Team (Late st Contact Info) Description 03/30/2023 1:00 PM EST Office Visit Family Practice [facility] [address] [place] [phone] College, Pharmacist [address] [address] 03/30/2023 1:40 PM EST Office Visit Family Practice [facility] [address] [place] [phone] Silvano Garg DO [address] [place] [address] 04/10/2023 2:30 PM EST Office Visit Otolaryngology/Head & Neck/Facial Plastic Surgery [address] [place] [facility] [place] [address] Bianka Matute MD [address] [facility] [place] [address] 04/17/2023 1:00 PM EST Imaging Radiology [facility] [address] [facility], [place] [address] [facility] [place] [address] 06/04/2023 1:40 PM EST Office Visit Family Practice [address] [facility], [place] [address] [place] [phone] Silvano Garg, [address] [place] [address] Scheduled Procedures Name Priority Associated Diagnoses Date/Ti [...] D LEVEL ONCE IN A LIFETIME-USE SMARTSET# [id number] Completed 12/27/2022, 03/29/2022, 12/27/2021, Additional history exists Influenza Vaccine (FLU shot) Completed 02/28/2023, 01/19/2022, 02/14/2021, Additional history exists GARDASIL-HPV IMMUNIZATION SERIES Aged Out No longer eligible based on patient's age to complete this topic MENINGOCOCCAL (MENACTRA/MENVEO) Aged Out No longer eligible based on patient's age to complete this topic documented as of this encounter Medical Devices Implanted Type Area Principal Military Analyst Device Identifier Shelf Expiration Date Model / Serial / Lot Battery Advance Prime [id number] - [id number] Implanted:Qty: 1 on 07/21/2011 at OR [facility] Right: Buttocks [employer] : NEUROLOGIC PAIN 09/10/2012 [id number] / [id number] / Lens Intraoc 16.5 - [id number] - [id number] Implanted:Qty: 1 on 02/13/2017 by Marco Antonio Melton MD at OR [facility] Left: Eye [employer]USCH [employer] LOMB 06/27/2021 [id number] / [id number] / [id number] Lens Intraoc 16.0 - [id number] - [id number] Implanted:Qty: 1 on 02/22/2017 by Marco Antonio Melton MD at OR [facility] Right: Eye BAUSCH [employer] LOMB 04/29/2021 [id number] / [id number] / documented as of this encounter Visit Diagnoses Diagnosis CERVICAL DISC DEGEN Degeneration of cervical intervertebral disc LUMB-LUMBOSAC DISC DEGEN Degeneration of lumbar or lumbosacral intervertebral disc documented in this encounter Advance Directives Latest [...] and were consensually agreed upon. Care Teams Computer Help Desk Specialist Relationship Specialty Start Date End Date Silvano Garg DO [address] [place] [address] PCP - General Internal Medicine 02/22/21 documented as of this encounter
--- OUTSIDE RECORDS SUMMARY | 2023-07-14 16:50 | External Medical Summary | Summary of Care ---
Author Name Unknown Organization [facility] Address [address] [place] [address] Phone [phone] Care Team Providers Care Building Custodian Name Role Phone Silvano Garg DO Primary Care Provider [phone] Reason for Visit * Reason Onset Date Comments Follow Up Medication Administration 02/28/2023 Flu an d/or Pneumo Inj Encounter Details Date Type Department Care Team (Late st Contact Info) Description 02/28/2023 2:20 PM EDT Office Visit Family Practice [address] [place] [address] [address] [place] [address] Silvano Garg DO [address] [place] [address] HTN, goal below 140/90*; Parathyroid adenoma; Gastroesophageal reflux disease, unspecified whether esophagitis present; Acquired hypothyroidism; Pure hypercholesterolemia; Restless legs syndrome; Generalized anxiety disorder; Prediabetes; Major depressive disorder, recurrent, moderate (HCC); Age-related osteoporosis without current pathological fracture; Hyperparathyroidism, primary (HCC); POSTLAMINECT SYND-LUMBAR; LUMB-LUMBOSAC DISC DEGEN; Risk and functional assessment; Need for prophylactic vaccination and inoculation against influenza; Weight gain Allergies Active Allergy Reactions Criticality Noted Date Comments Bee Venom 02/09/2016 Erythromycin 04/08/1997 GI upset Iodinated Contrast Media 03/01/2012 IVP dye when she had stones 1989 At [place] had nausea and emesis then she got hives on her chest and arms Atorvastatin Calcium 01/05/2005 MIld elevation of CK and LFT's ( see [facility] [place] labs of 01/03/05) Pregabalin Edema Other 05/19/2014 Swelling of legs and feet Nabumetone Rash 12/21/2011 Nsaids Other (Please comment) 02/08/2017 GI distress Penicillins Rash 04/08/1997 She was told when she was a toddler she got a rash documented as of this encounter (statuses as of 02/28/2023) Medications Medication Sig Dispensed Refills Start Date End Date Status VITAMIN B COMPLEX PO TABSIndications:HQ plus Take by mouth. 0 Active valACYclovir (VALTREX) [...] Reported on 07/25/2022 PreserVision AREDS 2 Oral CapsuleIndications:[place] [employer] Take 1 Capsule by mouth in the [...] Reported on 07/25/2022 Magnesium 125 MG Oral CapsuleIndications:gen [employer] Take 125 mg by mouth in the morning. 0 Active Vitamin D 25 MCG (1000 UT) Oral TabletIndications:[employer] Take 1 Tablet by mouth in the [...] Albuterol Sulfate 1.25 MG/3ML Inhalation Nebulization SolutionIndications:Ac [place] bronchitis, unspecified organism Inhale 1.25 mg via [...] 100 Tablet 3 3 10/09/19 24 Active Cyclobenzaprine HCl 10 MG Oral Tablet (Flexeril)Indications: Degeneration of lumbosacral intervertebral disc,Degeneration of cervical intervertebral disc TAKE 1 TO 2 TABLETS BY MOUTH AT BEDTIME NEEDED FOR MUSCLE SPASMS 180 Tablet 1 3 08/14/19 24 Active Levothyroxine Sodium 125 MCG Oral Tablet (Levoxyl)Indications:A cquired hypothyroidism TAKE ONE-HALF TABLET BY MOUTH DAILY 30 MINUTES PRIOR TO BREAKFAST OR OTHER MEDICATION 50 Tablet 3 3 08/09/19 24 Active Losartan Potassium 100 MG Oral Tablet (Cozaar) TAKE ONE TABLET BY MOUTH EVERY MORNING 100 Tablet 3 3 08/09/19 24 Active Pantoprazole Sodium 40 MG Oral Tablet Delayed Release (Protonix)Indications: Esophageal reflux,Heartburn TAKE ONE TABLET BY MOUTH EVERY DAY 90 Tablet 3 2 04/18/20 23 Active Additional Information Patient taking differently: Indications: heartburn, Reported on 07/25/2022 FLUoxetine HCl 40 MG Oral Capsule (PROzac) TAKE TWO CAPSULES BY MOUTH EVERY DAY 180 Capsule 0 2 Active busPIRone HCl 15 MG Oral Tablet [...] Severe Pain 120 Tablet 0 3 Active busPIRone HCl 15 MG Oral Tablet (Buspar) TAKE ONE TABLET BY MOUTH TWICE A DAY 180 Tablet 0 2 02/29/20 23 Discontinu ed(Medicat ion List Clean Up) FLUoxetine HCl 40 MG Oral Capsule (PROzac) TAKE TWO CAPSULES BY MOUTH EVERY DAY 180 Capsule 0 2 02/29/20 23 Discontinu ed(Medicat ion List Clean Up) busPIRone HCl 15 MG Oral Tablet (Buspar) take 1 tablet by mouth three times a day 270 Tablet 0 3 02/29/20 Discontinu ed(Medicat ion List Clean Up) FLUoxetine HCl 40 MG Oral Capsule (PROzac) take 2 capsules by mouth daily 180 Capsule 0 3 02/29/20 23 Discontinu ed(Medicat ion List Clean Up) FLUoxetine HCl 40 MG Oral Capsule (PROzac) take 2 capsules by mouth daily 180 Capsule 0 3 02/29/20 23 Discontinu ed(Medicat ion List Clean Up) predniSONE 50 MG Oral Tablet (Deltasone) Take 1 tablet 13 hours prior to exam. Take 2nd tablet 7 hours prior to exam.Take 3rd tablet 1 hour prior with 50 mg of Benadryl 3 Tablet 0 3 02/29/20 Discontinu ed(Medicat ion List Clean Up) documented as of this encounter (statuses as of 02/28/2023) Active Problems Problem Noted Date Diagnosed Date [...] accepted brochure Esophageal reflux 07/05/2005 LOC PRIM [id number] 08/15/2004 POSTLAMINECT SYND-LUMBAR 09/24/2002 Thoracic and lumbosacral neuritis 09/24/2002 CERVICAL DISC DEGEN 10/04/2000 Acquired hypothyroidism LUMB-LUMBOSAC DISC DEGEN documented as of this encounter (statuses as of 02/28/2023) Resolved Problems Problem Noted Date Diagnosed Date [...] as of this encounter (statuses as of 02/28/2023) Immunizations Name Administration Dates Next Due COVID-19 [...] Answer Date Recorded PHQ Adult Total Score 0 09/21/2022 Hunger Vital Sign Answer Date Recorded Within the past 12 months, y ou worried that your food would run out before you got the money to buy more. Never true 09/22/19 23 Within the past 12 months, t he food you bought just didn't last and you didn't have money to get more. Never true 09/21/2022 Sex and Gender Information Value Date Recorded Sex Assigned at Female 02/22/2021 10:38 AM EDT Gender Identity Female 02/22/2021 10:38 AM EDT Sexual Orientation Straight 02/22/2021 10 :38 AM EDT Job Start Date Occupation Industry Not on file Not on file Not on file documented as of this encounter Last Filed Vital Signs Vital Sign Reading Time Taken Comments Blood Pressure 126/78 02/28/2023 2:44 PM EDT Pulse 70 02/28/2023 2:44 PM EDT Temperature 36.7 C (98.1 F) 02/28/2023 2:44 PM ED T Respiratory Rate 95 02/28/2023 2:44 PM EDT Oxygen Saturation 14% 02/28/2023 2:44 PM EDT Inhaled Oxygen Concentration - - Weight 126.8 kg (279 lb 9.6 oz) 02/28/2023 2:44 PM EDT Height 156.2 cm (5' 1.5") 02/28/2023 2:44 PM EDT Body Mass Index 51.97 02/28/2023 2:44 PM EDT documented in this encounter Functional Status Functional [...] this encounter Patient Instructions * Patient Instructions* Mark Christy Nielsen, STEEL LOADER - 02/28/2023 2:38 PM EDT Patient Instructions - Fall Prevention (This education is for all patients over 65 regardless of symptoms) Remember to take your current medications as prescribed. In order to prevent falls, you are encouraged to: Exercise Utilize assistive/adaptive devices Avoid multifocal lenses when walking Avoid hazards in home Maintain a regular toileting schedule Any questions please contact our office. Preventing Falls in the Home (This education is for all patients over 65 regardless of symptoms) As you get older, falls are more likely. Thats because your reaction time slows. Your muscles and joints may also get stiffer, making them less flexible. Illness, medications, and vision changes can also affect your balance. A fall could leave you unable to live on your own. To make your home safer, follow these tips: Floors Put nonskid pads under area rugs Remove throw rugs Replace worn floor coverings Tack carpets firmly to each step on carpeted stairs. Put nonskid strips on the edges of uncarpeted stairs Keep floors and stairs free of clutter and cords Arrange furniture so there are clear pathways Clean up any spills right away Bathrooms Install grab bars in the tub or shower Apply nonskid strips or put a nonskid rubber mat in the tub or shower Sit on a bath chair to bathe Use bathmats with nonskid backing Lighting Keep a flashlight in each room Put a nightlight along the pathway between the bedroom and the bathroom [employer] Patient Education Copyright 2008 - 2010 [place] except where otherwise noted Preventing Falls: Exercises to Improve Balance, Flexibility, Strength, and Staying Power (This education is for all patients over 65 regardless of symptoms) Certain types of exercises may help make you less likely to fall. Try the ones below. Or do other exercises that your healthcare provider suggests. Depending on your health, you may need to start slowly. Dont let that stop you. Even small amounts of exercise can help you. Be sure to talk to yourhealthcare provider before starting any exercise program. Improve Balance Many types of exercise can help improve balance. Arron chi and yoga are good examples. Heres another one to try. You can do it anytime and almost anywhere. Stand next to a counter or solid support. Push yourself up onto your tiptoes. Hold for 5 seconds. If you start to lose your balance, hold on to the counter. Rest and repeat 5 times. Work up to holding for 20 to 30 seconds, if you can. Increase Flexibility Being more flexible makes it easier for you to move around safely. Try exercises like the seated hamstring stretch. Sit in a chair and put one foot on a stool. Straighten your leg and reach with both hands down either side of your leg. Reach as far down your leg as you can. Hold for about 20 seconds. Go back to the starting position. Then repeat 5 times. Switch legs. Build Strength Resistance exercises help build strength. You can do them without equipment. Or you can use weights, elastic bands, or special machines. One such exercise is called the biceps curl. You can hold a 1 pound weight or even a can of soup. Do this exercise at least 3 times a week. Strive for everyday. Sit up straight in a chair. Keep your elbow close to your body and your wrist straight. Bend your arm, moving your hand up to your shoulder. Then slowly lower your arm. Repeat 5 times. Switch to the other arm. Build Your Staying Power Aerobic exercises make your heart and lungs stronger so you can keep moving longer. Walking and swimming are two of the best types of exercises you can do. Using a stationary bike is great, too. Find an aerobic exercise that you enjoy. Start slowly and build up. Even 5 minutes is helpful. Aimfor a goal of 30 minutes, at least 3 times a week. You dont have to do 30 minutes in one session. Break it up and walk a little throughout the day. More Helpful Tips Start easy. Slowly work up to doing more. Talk with your healthcare provider about the best exercises for you. Call senior centers or health clubs about exercise programs. If needed, have a family member watch you walk every so often to check your stability. Exercise with a friend. Choose an activity you both enjoy. Try exercises that you can do anytime, anywhere. Here are two examples. Have someone with you when you first try these: Practice walking by placing one foot right in front of the other. Stand up and sit down 10 times. Repeat this throughout the day. [employer] Patient Education Copyright 2008 [employer] except where otherwise noted. Preventing Falls: Moving Safely Using a Cane or Walker (This education is for all patients over 65 regardless of symptoms) Keep the cane away from your feet so you dont trip. A walking aid, such as a cane or walker, can help you stay more independent and avoid falls. Remember to keep your walking aid within easy reach when youre in a chair or in bed. And learn how to use it safely so you dont injure yourself. Using a Cane If you have a stronger side, hold the cane on that side. Get your balance. Move the cane and your weaker leg forward. Support your weight on both the cane and your weaker side. Step with your stronger leg. Start again from step 1. If youre using a folding walker, be sure you know how to lock it open. Check that its locked open before each use. Using a Walker Roll the walker (or lift it, if youre using one without wheels) forward about 12 inches. Step forward with your weaker leg first. Use the walker to help keep your balance. Bring your other foot forward to the center of the walker. Start again from step 1. Helpful Tips Check with your healthcare provider about the right walking aid to use. Ask about a walker with a seat attached. Check the tips of your cane or walker to make sure they have nonskid covers. Move slowly from room to room. Dont jaimes. Sit down to get dressed. Use a frances pack or backpack to keep your hands free. Get help for jobs that mean climbing, even on a stepstool. [employer] Patient Education Copyright 2008 - 2010 [employer] except where otherwise noted. Urinary Incontinence Plan of Care Documentation: (This education is for all patients over 65 regardless of symptoms) Current medications reconciled. Patient encouraged to: Practice kegal exercises Provide education materials Use the restroom every 2 hours throughout the day Limit caffeine, alcohol, spicy foods and acidic foods Keep a bladder diary Limit fluid intake 3-4 hours before bed Lose weight Prevent constipation Take fluid pills at a time when you can get to the bathroom quickly Control sugar better if diabetic Limit fluid intake to 60 oz. per day Wear support stockings (TEDs)if you have edema Christy Nielsen MONICA Flores 02/28/2023 Kegel Exercises Kegel exercises dont require special clothing or equipment. Theyre easy to learn and simple to do. And if you do them right, no one can tell youre doing them, so they can be done almost anywhere. Your doctor, nurse, or physical therapist can answer any questions you have and help you get started. A Weak Pelvic Floor The pelvic floor muscles may weaken due to aging, and vaginal childbirth, injury, surgery, chronic cough, or lack of exercise. If the pelvic floor is weak, your bladder and other pelvic organs may sag out of place. The urethra may also open too easily and allow urine to leak out. Kegel exercises can help you strengthen your pelvic floor muscles so they can better support the pelvic organs and control urine flow. How Kegel Exercises Are Done Try each of the Kegel exercises described below. When youre doing them, try not to move your leg, buttock, or stomach muscles. While youre urinating, try to stop the flow of urine. Start and stop it as often as you can. Contract as if you were stopping your urine stream, but do it when youre not urinating. Tighten your rectum as if trying not to pass gas. Contract your anus, but dont move your buttocks. Helpful Hints Do your Kegels as often as you can. The more you do them, the faster youll feel the results. Pick an activity you do often as a reminder. For instance, do your Kegels every time you sit down. Tighten your pelvic floor before you sneeze, get up from a chair, cough, laugh, or lift. This protects your pelvic floor from injury and can help prevent urine leakage. Try to hold each Kegel for a slow count to five. You probably wont be able to hold them for thatlong at first, but keep practicing. It will get easier as your pelvic floor gets stronger. Eventually, special weights that you place in your vagina may be recommended to help make your Kegels even more effective. [employer] Patient Education Copyright 2009 - 2010 [place] except where otherwise noted. Here are some helpful tips for your urinary incontinence: (This education is for all patients over 65 regardless of symptoms) Practice Kegel exercises Use the restroom every 2 hours throughout the day Limit caffeine, alcohol, spicy foods, and acidic foods Keep a bladder diary Limit fluid intake 3-4 hours before bed Lose weight Prevent constipation Take fluid pills at a time when can get to the bathroom quickly Control sugar better if diabetic Limit fluid intake to 60 oz. per day Any questions, please feel free to contact our office. ~~PATIENT INSTRUCTIONS FOR FLU SHOT~~ Possible side effects of influenza vaccine, (flu shot), are usually mild and include: 1. Soreness or redness at injection site 2. Low grade fever 3. Body aches You may use Tylenol/Acetaminophen as needed for these symptoms. LET YOUR DOCTOR KNOW IMMEDIATELY IF YOU HAVE DIFFICULTY BREATHING OR SWALLOWING, EXPERIENCE ITCHINGOF FEET OR HANDS, HAVE SWELLING OF EYES, FACE OR INSIDE OF NOSE. documented in this encounter Progress Notes * Silvano Garg DO - 02/28/2023 3:54 PM EDT SUBJECTIVE: Chloé Altamirano is a 67 year old female. Chief Complaint Patient presents with Follow Up Medication Administration Flu and/or Pneumo Inj HPI: Patient is a 67 year old female with a history of Postlaminectomy Syndrome, Cervical Disc Disease, Hyperparathyroidism, HTN, Hypothyroidism, GERD, Hyperlipidemia, Depression, Anxiety, restless leg syndrome, DM type II, and Obesity that is seen for follow up. Patient has fatigue, and difficulty david ntrating. She is scheduled for ENT evaluation at [facility] on 03/02 due to parathyroid adenoma. Chronic shortness of breath with exertion is stable. No chest pain is present. Weight is up. Patient Active Problem List Diagnosis Code CERVICAL DISC DEGEN M50.30 POSTLAMINECT SYND-LUMBAR M96.1 Thoracic and lumbosacral neuritis M54.14, M54.17 Acquired hypothyroidism E03.9 LUMB-LUMBOSAC DISC DEGEN M51.37 LOC PRIM ERLFOZLS-E-OAK M17.10 Esophageal reflux K21.9 ADVANCE DIRECTIVE INFORMATION Pure hypercholesterolemia E78.00 MEDICATION USE AGREEMENT [id number] HTN, goal below 140/90 I10 Restless legs syndrome G25.81 Prediabetes R73.03 Generalized anxiety disorder F41.1 Major depressive disorder, recurrent, moderate ([facility]) F33.1 Body mass index (BMI) of 50.0 to 59.9 in adult ([facility]) Z68.43 Age-related osteoporosis without current pathological fracture M81.0 Hyperparathyroidism, primary ([facility]) E21.0 Parathyroid adenoma D35.1 Current Outpatient Medications Medication Sig Dispense Refill [...] 1 Capsule by mouth in the morning. Triamcinolone Acetonide 0.1 % External Cream (Aristocort) Apply topically to affected area 2 times a day . Groin and thighs. (Patient taking differently: Apply topically to affected area 2 times a day. Groin and thighs.) 60 g 5 FLUoxetine HCl 40 MG Oral Capsule (PROzac) Take by mouth 2 Capsules in the morning. (Patient takingdifferently: Take 2 Capsules by mouth in the morning.) 200 Capsule 3 Magnesium 125 MG Oral Capsule Take 125 mg by mouth in the morning. Vitamin D 25 MCG (1000 UT) Oral Tablet Take 1 Tablet by mouth in the morning. guaiFENesin-Codeine 100-10 MG/5ML Oral Solution Take 5 mL by mouth 3 times a day as needed for Cough or Congestion. 180 mL 0 Benzonatate 100 MG Oral Capsule Take [...] TABLET BY MOUTH DAILY 100 Tablet 3 Cyclobenzaprine HCl 10 MG Oral Tablet (Flexeril) TAKE 1 TO 2 TABLETS BY MOUTH AT BEDTIME NEEDED FOR MUSCLE SPASMS 180 Tablet 1 Levothyroxine Sodium 125 MCG Oral Tablet (Levoxyl) TAKE ONE-HALF TABLET BY MOUTH DAILY 30 MINUTES PRIOR TO BREAKFAST OR OTHER MEDICATION 50 Tablet 3 Losartan Potassium 100 MG Oral Tablet (Cozaar) TAKE ONE TABLET BY MOUTH EVERY MORNING 100 Tablet 3 Pantoprazole Sodium 40 MG Oral Tablet Delayed Release (Protonix) TAKE ONE TABLET BY MOUTH EVERY DAY(Patient taking differently: No sig reported) 90 Tablet 3 hydrOXYzine HCl 25 MG Oral [...] ONE TABLET BEFORE BEDTIME 200 Tablet 3 HYDROcodone-Acetaminophen 10-325 MG Oral Tablet Take 1 Tablet by mouth every 4 hours as needed for Moderate or Severe Pain 120 Tablet 0 Diclofenac Sodium 1 % External Gel (Voltaren) Apply to painful joints up to four times daily (Patient taking differently: Apply to painful joints up to four times daily) 150 g 3 FLUoxetine HCl 40 MG Oral Capsule (PROzac) TAKE TWO CAPSULES BY MOUTH EVERY DAY 180 Capsule 0 busPIRone HCl 15 MG Oral Tablet (Buspar) TAKE ONE TABLET BY MOUTH TWICE A DAY, MAY TAKE AND ADDITIONAL ONE TABLET EVERY TWENTY FOUR HOURS NEEDED FOR ANXIETY 270 Tablet 0 FLUoxetine HCl 40 MG Oral Capsule (PROzac) take 2 capsules by mouth daily 180 Capsule 0 No current facility-administered medications for this visit. The patient's medication list was reviewed and updated as needed. Past Medical History: Diagnosis Date Acquired hypothyroidism Calculus of kidney Secondary to hyperparathyroidism CERVICAL DISC DEGEN 10/04/2000 Depressive disorder, not elsewhere classified hosp. at [facility] [place]- one event Disorder of intervertebral disc Aubrey Diverticulosis of colon Dyslipidemia, goal LDL below 130 04/08/2009 Per [...] COLONOSCOPY, DIAGNOSTIC (RECTUM) 09/03/2018 normal, repeat 10 yrs/[facility] [place] CYSTO/URETERO W/LITHOTRIPSY Right 04-28-2015 CYSTO/URETERO W/LITHOTRIPSY Right 05-07-2015 CYSTO/URETERO W/LITHOTRIPSY Right 05/07/2015 CYSTOURETHROSCOPY URETEROSCOPY WITH LITHOTRIPSY AND STENT INSERTION performed by Chiara Quan MD at OR [facility] CYSTOSCOPY 07-16-06 stent removal CYSTOSCOPY/INSERTION OF STENT 07/13/06 CYSTOURETHROSCOPY WITH INSERTION URETERAL STENT performed by PAUL VICTORIA at [facility] CYSTOSCOPY/URETERAL CATHETER 07/13/06 CYSTOURETHROSCOPY WITH URETERAL CATHETER performed by PAUL VICTORIA at [facility] CYSTOURETRO &/OR PYELOSCOPE 07/13/06 CYSTOURETHROSCOPY URETROSCOPY AND OR PYELOSCOPY performed by PAUL VICTORIA at [facility] CYSTOURETRO W/STONE REMOVE 07/13/06 CYSTOURETHROSCOPY URETROSCOPY WITH STONE REMOVAL performed by PAUL VICTORIA at [facility] EXPLORE PARATHYROID GLANDS 11/16/06 PARATHYROIDECTOMY performed by KEDAR HENDERSON at OR [facility] FLUORO MISCELLANEOUS 07/13/06 FLUROSCOPY UP TO ONE HOUR performed by PAUL VICTORIA at [facility] FRAGMENT KIDNEY STONE BY SHOCK WAVE [...] by Marco Antonio Melton MD at OR [facility] REMOVE CATARACT, INSERT LENS PROSTH Right 02/22/2017 right EXTRACAPSULAR CATARACT REMOVAL WITH INTRAOCULAR LENS performed by Marco Antonio Melton MD at OR [facility] REMOVE GALLBLADDER 07/11/05 Dr. Peña REPAIR DETACHED RETINA, VITRECTOMY Right 08/12/2021 PARS PLANA VITRECTOMY, AIR FLUID EXCHANGE, ENDOLASER, FLUID GAS EXCHANGE SF6, RIGHT EYE (25g) performed by Kierra Cunningham MD at OR [facility] REPAIR RUPTURED ROTATOR CUFF, CHRON REVISE/REMOVE SPINAL NEURORECEIVER 07/21/2011 REVISION OR REMOVAL IMPLANTED SPINAL NEUROSTIMULATOR performed by LORETO HERNANDEZ at OR [facility] SACROILIAC JOINT INJECT W/GUIDANCE 12/06/2017 INJECTION SACROILIAC JOINT performed by Edwardo Osullivan DO at OR [facility] SACROILIAC JOINT INJECT W/GUIDANCE 04/11/2018 INJECTION SACROILIAC JOINT performed by Edwardo Osullivan DO at OR [facility] SACROILIAC JOINT INJECT W/GUIDANCE 09/17/2019 INJECTION SACROILIAC JOINT performed by Edwardo Osullivan DO at OR [facility] SPINAL NEUROSTIM ELECTRODE PLATE, REVISION 07/21/2011 REVISION SPINAL NEUROSTIM ELECTRODE PLATE performed by LORETO HERNANDEZ at OR [facility] TOTAL ABD HYSTERECTOMY W/WO REMOVAL OF TUBE(S) complete hysterectomy at age 44 Review of patient's allergies indicates: Allergen Reactions Bee Venom Erythromycin GI upset Iodinated Contrast Media IVP dye when she had stones 1988 At [place] had nausea and emesis then she got hives on her chest and arms Lipitor [Atorvastatin Calcium] MIld elevation of CK and LFT's ( see [facility] labs of 01/03/05) Lyrica [Pregabalin] Edema Other Swelling of legs and feet Nabumetone Rash Nsaids Other (Please comment) GI distress Penicillins Rash She was told when she was a toddler she got a rash Review of Systems Constitutional: Positive for unexpected weight change (weight gain). Negative for appetite change and fatigue. HENT: Negative for congestion, sore throat and trouble swallowing. Respiratory: Positive for shortness of breath. Negative for cough and wheezing. Cardiovascular: Negative for chest pain, palpitations and leg swelling. Gastrointestinal: Negative for abdominal pain, blood in stool, constipation, diarrhea, nausea and vomiting. Genitourinary: Negative for dysuria and hematuria. Musculoskeletal: Positive for back pain and gait problem. Neurological: Positive for weakness. Negative for dizziness, syncope and headaches. Psychiatric/Behavioral: Positive for decreased concentration and dysphoric mood. Negative for confusion and sleep disturbance. OBJECTIVE: BP 126/78 | Pulse 70 | Temp 36.7 C (98.1 F) (Tympanic) | Resp 95 | Ht 1.562 m (5' 1.5") | Wt 126.8 kg (279 lb 9.6 oz) | SpO2 (!) 14% | BMI 51.97 kg/m | BSA 2.35 m Physical Exam Vitals and nursing note reviewed. Constitutional: General: She is not in acute distress. Appearance: She is not toxic-appearing. HENT: Head: Normocephalic [...] no abdominal tenderness. Musculoskeletal: Right lower leg: Edema present. Left lower leg: No edema. Neurological: Mental Status: She is alert and oriented to person, place, and time. Motor: Weakness present. Gait: Gait normal. Psychiatric: Attention and Perception: She is inattentive. Mood and Affect: Mood is depressed. Behavior: Behavior is slowed. Cognition and Memory: Cognition is not impaired. Memory is not impaired. PLAN AND ASSESSMENT: HTN, goal below 140/90 (Primary) Continue Amlodipine, and Losartan Parathyroid adenoma Patient scheduled with ENT Gastroesophageal reflux disease, unspecified whether esophagitis present Continue Pantoprazole Acquired hypothyroidism - TSH WITH FREE T4 IF INDICATED; Future; Expected date: 02/28/2023 - TSH WITH FREE T4 IF INDICATED Continue Levothyroxine Pure hypercholesterolemia Continue Rosuvastatin Restless legs syndrome Continue Gabapentin Generalized anxiety disorder Continue Bupropion ER, Fluoxetine, Quetiapine, and Buspar Prediabetes - HEMOGLOBIN A1C; Future; Expected date: 02/28/2023 - HEMOGLOBIN A1C Major depressive disorder, recurrent, moderate (HCC) Continue Bupropion ER, Fluoxetine, Quetiapine, and Buspar Age-related osteoporosis without current pathological fracture Hyperparathyroidism, primary (HCC) POSTLAMINECT SYND-LUMBAR Continue Gabapentin and Hydrocodone LUMB-LUMBOSAC DISC DEGEN Risk and functional assessment Need for prophylactic vaccination and inoculation against influenza - INFLUENZA VACC, QUAD, HIGH DOSE (FLUZONE HD) Weight gain - CORTISOL; Future; Expected date: 02/28/2023 - CORTISOL Follow Up: Return in about 3 months (around 05/31/2023), or if symptoms worsen or fail to improve. Silvano Garg DO 3:54 PM 02/28/2023 * Christy Flores LPN - 02/28/2023 2:43 PM EDT PRE - ADMINISTRATION DOCUMENTATION Are you experiencing any cold symptoms or fever? No Have you had Guillain-[place] Syndrome (an illness that causes paralysis) within the last 6 weeks? No Have you had the flu shot in the past? YES Have you ever had a reaction to the flu shot? No Christy Flores LPN, 02/28/2023 2:43 PM Immunization Administration Documentation Time Out Procedure Performed: Yes Patient Identified (Ask Name/Date of ): Yes Does the patient have a fever greater than 101 degrees today? No Patient allergic to latex? No VFC Stock: No Immunization(s) verified: Yes, Immunization Name: Flu, VIS Sheet(s) given: Yes Verified Side and Site: Yes Verified Shot(s) with Parent(s)/Patient: Yes documented in this encounter Nursing Notes * Christy Flores LPN - 02/28/2023 2:43 PM EDT Here for follow up, states bilateral hand pain R>L documented in this encounter Plan of Treatment Upcoming Encounters Date Type Department Care Team (Late st Contact Info) Description 03/02/2023 11:00 AM EDT Office Visit Otolaryngology/Head & Neck/Facial Plastic Surgery [address] [place] [address] Bianka Matute MD [address] [place] [address] 06/04/2023 1:40 PM EST Office Visit Family Practice [address] [place] [address] [place] [address] Silvano Garg, [address] [place] [address] Pending Results Name Type Priority Associated Diagnoses Date /Time TSH WITH FREE T4 IF INDICATED Lab Routine Acquired hypothyroidism 02/28/2023 3:28 PM EDT HEMOGLOBIN A1C Lab Routine Prediabetes 02/28/2023 3:28 PM EDT CORTISOL Lab Routine Weight gain 02/28/2023 3:28 PM EDT Scheduled Orders Name Type Priority Associated Diagnoses Orde r Schedule TSH WITH FREE T4 IF INDICATED Lab Routine Acquired hypothyroidism Expected: 02/28/2023 (Approximate), Expires: 02/28/2024 HEMOGLOBIN A1C Lab Routine Prediabetes Expected: 02/28/2023 (Approximate), Expires: 02/28/2024 CORTISOL Lab Routine Weight gain Expected: 02/28/2023 (Approximate), Expires: 02/28/2024 Scheduled Procedures Name Priority Associated Diagnoses Date/Ti [...] 02/13/2022, 11/28, 04/02/2019, Additional history exists HbA1c 07/26/2023 07/25/2022, 03/02, 12/27/2021, Additional history exists TSH 07/26/2023 07/25/2022, 11/30, 01/14/2021, Additional history exists Depression Screening 09/22/2023 09/21/2022 GFR 12/28/2023 12/27/2022, 06/29, 03/29/2022, Additional history exists DXA Scan 04/10/2024 04/10/2022, [...] D LEVEL ONCE IN A LIFETIME-USE SMARTSET# [id number] Completed 12/27/2022, 03/29/2022, 12/27/2021, Additional history exists Influenza Vaccine (FLU shot) Completed 02/28/2023, 01/19/2022, 02/14/2021, Additional history exists GARDASIL-HPV IMMUNIZATION SERIES Aged Out No longer eligible based on patient's age to complete this topic MENINGOCOCCAL (MENACTRA/MENVEO) Aged Out No longer eligible based on patient's age to complete this topic documented as of this encounter Medical Devices Implanted Type Area Shook Splicer Device Identifier Shelf Expiration Date Model / Serial / Lot Battery Advance Prime [id number] - [id number] Implanted:Qty: 1 on 07/21/2011 at OR [facility] Right: Buttocks [employer] : NEUROLOGIC PAIN 09/10/2012 [id number] / [id number] / Lens Intraoc 16.5 - [id number] - [id number] Implanted:Qty: 1 on 02/13/2017 by Marco Antonio Melton MD at OR [facility] Left: Eye [employer]OM[employer] 06/27/2021 [id number] / [id number] / [id number] Lens Intraoc 16.0 - [id number] - [id number] Implanted:Qty: 1 on 02/22/2017 by Marco Antonio Melton MD at OR [facility] Right: Eye [employer]CH [employer] LOMB 04/29/2021 [id number] / [id number] / documented as of this encounter Visit Diagnoses Diagnosis HTN, goal below 140/90- Primary Unspecified essential hypertension Parathyroid adenoma Benign neoplasm of parathyroid gland Gastroesophageal reflux disease, unspecified whether esophagitis present Acquired hypothyroidism Unspecified hypothyroidism Pure hypercholesterolemia Restless legs syndrome Restless legs syndrome (RLS) Generalized anxiety disorder Prediabetes Other abnormal glucose Major depressive disorder, recurrent, moderate (HCC) Major depressive disorder, recurrent episode, moderate Age-related osteoporosis without current pathological fracture Senile osteoporosis Hyperparathyroidism, primary (HCC) Primary hyperparathyroidism POSTLAMINECT SYND-LUMBAR Postlaminectomy syndrome, lumbar region LUMB-LUMBOSAC DISC DEGEN Degeneration of lumbar or lumbosacral intervertebral disc Risk and functional assessment Screening for unspecified condition Need for prophylactic vaccination and inoculation against influenza Weight gain Abnormal weight gain documented in this encounter Advance Directives Latest [...] and were consensually agreed upon. Care Teams Building Custodian Relationship Specialty Start Date End Date Silvano Garg DO [address] [place] [address] PCP - General Internal Medicine 02/22/21 documented as of this encounter
--- OUTSIDE RECORDS SUMMARY | 2023-07-14 16:51 | External Medical Summary | Summary of Care ---
Author Name Unknown Organization [facility] Address [address] [place] [address] Phone [phone] Care Team Providers Care Clinical Lab Clerk Name Role Phone Silvano Garg DO Primary Care Provider [phone] Reason for Referral * Precert (Within 10 days (routine)) - Pending Review Specialty Diagnoses / Procedures Referred By Raúl grider Referred To Contact Radiology Diagnoses Hypercalcemia Hyperparathyroidism (HCC) Osteoporosis without current pathological fracture, unspecified osteoporosis type Procedures NM PARATHYROID (SPECT) NM PARATHYROID SCAN (SPECT & CT) Jovanna Crenshaw MD [address] [place] [address] Referral ID Status Reason Start Date Expiration Date V isits Requested Visits Authorized [id number] Pending Review 08/11/[phone] Encounter Details Date Type Department Care Team Description 08/11/2022 [facility] Endocrinology, [place] [address] [place] [address] Jovanna Crenshaw MD [address] [place] [address] Hypercalcemia*; Hyperparathyroidism (HCC); Osteoporosis without current pathological fracture, unspecified osteoporosis type Allergies Active Allergy Reactions Severity Noted Date Comments Bee Venom 02/09/2016 Erythromycin 04/08/1997 GI upset Iodinated Contrast Media 03/01/2012 IVP dye when she had stones 1989 [place] had nausea and emesis then she got hives on her chest and arms Atorvastatin Calcium 01/05/2005 MIld elevation of CK and LFT's ( see [facility] labs of 01/03/05) Pregabalin Edema Other 05/19/2014 Swelling of legs and feet Nabumetone Rash 12/21/2011 Nsaids Other (Please comment) 02/08/2017 GI distress Penicillins Rash 04/08/1997 She was told when she was a toddler she got a rash documented as of this encounter (statuses as of 01/26/2023) Medications Medication Sig Dispensed Refills Start Date End Date Status VITAMIN B COMPLEX PO TABSIndications:[employer]) Take by mouth. 0 Active valACYclovir (VALTREX) 1000 MG TabletIndications:Her petic gingivostomatitis TAKE TWO TABLETS BY MOUTH EVERY 12 HOURS FOR 1 DAY FOR COLD SORES 4 Tab 5 01/13/20 20 Active Additional Information Patient taking differently:, TAKE TWO TABLETS BY MOUTH EVERY 12 HOURS FOR 1 DAY FOR COLD SORES,Indications: general health - cold sores, Reported on 07/25/2022 Diclofenac Epolamine 1.3 % External PatchIndications:Dege neration of lumbosacral intervertebral disc PLACE 1 PATCH TOPICALLY ON THE SKIN TWICE DAILY 180 Patch 1 05/20/19 22 Active Additional Information Patient taking differently:, PLACE 1 PATCH TOPICALLY ON THE SKIN TWICE DAILY,Indications: pain, Reported on 07/25/2022 Diclofenac Sodium 1 % External Gel (Voltaren) Apply to painful joints up to four times daily 150 g 3 08/02/19 22 Active Additional Information Patient taking differently:, Apply to painful joints up to four times daily,Indications: pain, Reported on 07/25/2022 PreserVision AREDS 2 Oral CapsuleIndications: [employer] Take 1 Capsule by mouth in the morning. 0 09/22/19 22 Active Triamcinolone Acetonide 0.1 % External Cream (Aristocort)Indicatio ns:Dermatitis Apply topically to affected area 2 times a day . Groin and thighs. 60 g 5 10/07/19 22 Active Additional Information Patient taking differently:Topical BID (.AM/PM), Groin and thighs.,Indications: general health, Reported on 07/25/2022 FLUoxetine HCl 40 MG Oral Capsule (PROzac)Indications:M ajor depressive disorder, recurrent, moderate (HCC),Generalized anxiety disorder Take by mouth 2 Capsules in the morning. 200 Capsule 3 10/14/19 22 Active Additional Information Patient taking differently:80 mg Oral Daily(AM),Indications: depression, Reported on 07/25/2022 Magnesium 125 MG Oral CapsuleIndications:[employer] Take 125 mg by mouth in the morning. 0 Active Vitamin D 25 MCG (1000 UT) Oral TabletIndications:[employer] Take 1 Tablet by mouth in the morning. 0 Active Gabapentin 400 MG Oral Capsule (Neurontin) TAKE ONE CAPSULE BY MOUTH FOUR TIMES A DAY 400 Capsule 3 08/04/19 22 023 Discontinued(Re fill) Albuterol Sulfate HFA 108 (90 Base) MCG/ACT Inhalation Aerosol SolutionIndications:C ough Inhale by mouth 2 Puffs in the morning AND 2 Puffs at noon AND 2 Puffs in the evening AND 2 Puffs before bedtime. 54 g 3 10/13/19 22 023 Discontinued(Re fill) buPROPion HCl ER (SR) 150 MG Oral Tablet Extended Release 12 Hour (Wellbutrin SR) Take by mouth 1 Tablet in the morning AND 1 Tablet before bedtime. 200 Tablet 3 12/30/19 22 022 Discontinued([facility] prescription brought in as discontinued) Cyclobenzaprine HCl 10 MG Oral Tablet (Flexeril)Indications :Degeneration of lumbosacral intervertebral disc,Degeneration of cervical intervertebral disc TAKE 1 TO 2 TABLETS BY MOUTH AT BEDTIME NEEDED FOR MUSCLE SPASMS 180 Tablet 1 03/20/20 22 023 Discontinued Pantoprazole Sodium 40 MG Oral Tablet Delayed Release (Protonix)Indications :Esophageal reflux,Heartburn TAKE ONE TABLET BY MOUTH ONCE DAILY 90 Tablet 3 04/18/20 22 022 Discontinued([facility] prescription brought in as discontinued) guaiFENesin-Codeine 100-10 MG/5ML Oral SolutionIndications:U pper respiratory tract infection, unspecified type,Acute cough Take 5 mL by mouth 3 times a day as needed for Cough or Congestion. 180 mL 0 04/25/20 22 023 Discontinued(Re fill) Albuterol Sulfate 1.25 MG/3ML Inhalation Nebulization SolutionIndications:U pper respiratory tract infection, unspecified type,Acute cough Inhale 1.25 mg via nebulizer every 4 hours as needed for Wheezing. 120 mL 1 04/25/20 22 023 Discontinued(Re fill) hydrOXYzine HCl 25 MG Oral Tablet TAKE 1 TABLET BY MOUTH TWICE A DAY NEEDED FOR ANXIETY 180 Tablet 1 07/13/19 23 023 Discontinued([facility] prescription brought in as discontinued) amLODIPine Besylate 2.5 MG Oral Tablet (Norvasc) TAKE 1 TABLET BY MOUTH EVERY DAY 100 Tablet 1 07/14/19 23 023 Discontinued([facility] prescription brought in as discontinued) HYDROcodone-Acetamino phen 10-325 MG Oral TabletIndications:Deg eneration of lumbosacral intervertebral disc,Degeneration of cervical intervertebral disc Take 1 Tablet by mouth every 4 hours as needed for Pain, Moderate or Pain, Severe. 120 Tablet 0 07/19/19 23 023 Discontinued(Re fill) busPIRone HCl 15 MG Oral Tablet (Buspar)Indications:a nxiety Take 1 Tablet by mouth in the morning and 1 Tablet in the evening. 0 04/20/20 22 023 Discontinued(Re fill) Rosuvastatin Calcium 20 MG Oral Tablet (Crestor) Take 1 Tablet by mouth in the morning. 0 07/27/19 23 023 Discontinued(Re fill) Ozempic (2 MG/DOSE) 8 MG/3ML Subcutaneous Solution Pen-injector (Semaglutide (2 MG/DOSE))Indications: Type 2 diabetes mellitus with hemoglobin A1c goal of less than 8.0% (HCC) Inject 0.75 mL under the skin once a week. 9 mL 3 07/28/19 23 023 Discontinued Losartan Potassium 100 MG Oral Tablet (Cozaar) TAKE ONE TABLET BY MOUTH EVERY MORNING 100 Tablet 3 08/10/19 23 023 Discontinued([facility] prescription brought in as discontinued) Levothyroxine Sodium 125 MCG Oral Tablet (Levoxyl)Indications: thyroid TAKE 1/2 TABLET BY MOUTH DAILY 30 MINUTES PRIOR TO BREAKFAST/OTHE R MEDS 50 Tablet 3 08/10/19 23 023 Discontinued([facility] prescription brought in as discontinued) documented as of this encounter (statuses as of 01/26/2023) Active Problems Problem Noted Date Hyperparathyroidism, primary 07/25/2022 Age-related osteoporosis without current pathological fracture 04/26/2022 Body mass index (BMI) of 50.0 to 59.9 in adult 10/10/2021 Overview: Per Obesity protocol Other hyperparathyroidism 09/21/2021 Major depressive disorder, recurrent, mo derate 01/04/2021 Generalized anxiety disorder 09/08/2020 Prediabetes 06/12/2017 Overview: Per Prediabetes protocol #1 Restless legs syndrome 03/05/2014 HTN, goal below 140/90 07/31/2012 MEDICATION USE AGREEMENT 09/07/2011 Pure hypercholesterolemia 04/08/2009 Overview: Per Lipid Taxonomy. ADVANCE DIRECTIVE INFORMATION 11/23/2005 Overview: Pt accepted brochure Esophageal reflux 07/05/2005 LOC PRIM [id number] 08/15/2004 POSTLAMINECT SYND-LUMBAR 09/24/2002 Thoracic and lumbosacral neuritis 2002 CERVICAL DISC DEGEN 10/04/2000 Acquired hypothyroidism LUMB-LUMBOSAC DISC DEGEN documented as of this encounter (statuses as of 01/26/2023) Resolved Problems Problem Noted Date Resolved Date COPD, group B, by GOLD 2017 classification 04/1007/25/2022 Overview: Per COPD GOLD Classification Diabetes mellitus without complication 0 01/26/2020 Major depressive disorder, recurrent, mild 09/1002/22/2021 Sacroiliitis 09/10/2018 07/25/2022 Morbid obesity with BMI of 45.0-49.9, adult 08/2810/13/2021 Overview: Per Obesity protocol Obstructive lung disease 09/10/2018 022 Overview: Per COPD GOLD Classification Asthma, intermittent 08/05/2010 11/01/2016 NONALLERGIC RHINITIS 08/05/2010 02/26/2019 Postnasal drip 08/05/2010 05/05/2019 Obesity, morbid (more than 1 00 lbs over ideal weight or BMI > 40) 07/27/2009 10/09/2018 Overview: Per Obesity Taxonomy ICD-10 update of inactive term Morbid obesity, BMI not known 10/13/2008 Overview: Per Obesity Taxonomy Other allergic rhinitis 09/14/2008 08/06/19 11 Overview: ICD-10 update of inactive term Hyperparathyroidism 08/13/2006 11/01/2016 Overview: ICD-10 update of inactive term Calculus of kidney 06/29/2006 05/05/2019 ABDOMINAL PAIN, OTHER SPECIFIED SITE 06/29/2006 07/05/2007 FEM STRESS INCONTINENCE 06/29/2006 02/27/20 19 PURE HYPERCHOLESTEROLEM 04/05/2004 04/08/20 09 Overview: Per Lipid Taxonomy. LUMBAGO 10/17/2002 03/05/2008 Other hyperparathyroidism 2016 Diverticulosis of colon 05/05/19 20 documented as of this encounter (statuses as of 01/26/2023) Immunizations Name Administration Dates Next Due COVID-19 mRNA, LNP-s, No Pre serve, 2-Dose Series (YEOXIN VMall) 03/31/2021,08/07/2020,07/12/2020 COVID-19, LNP-s, No Preserve , Melo-sucrose, [...] Seasonal Influenza, Quadriva lent Hd (Fluzone Hd) 01/19/2022 Seasonal Influenza, Quadriva lent, No Preserve, IM [...] Packs/Day Years Used Date Smoking Tobacco: Never Smokeless Tobacco: Never Comments: smokes ciga rs Alcohol Use Standard Drinks/Week Comments Yes 0 (1 standard drink = 0.6 oz pur e alcohol) occasionaly Food Insecurity Answer Date Recorded Within the past 12 months, y ou worried that your food would run out before you got money to buy more. Never true 09/21/2022 Within the past 12 months, t he food you bought just didn't last and you didn't have money to get more. Never true 09/21/2022 Sex Assigned at Date Recorded Female 02/22/2021 10:38 AM EDT Job Start Date Occupation Industry [...] this encounter Patient Instructions * Patient Instructions* Jovanna Crenshaw MD - 08/11/2022 9:55 AM EDT -blood work -24 hour urine calcium -ultrasound thyroid -nuclear medicine parathyroid for parathyroid localization--due to contrast allergy -will place the ENT surgery referral after completion of above workup documented in this encounter Progress Notes * Jovanna Crenshaw MD - 08/11/2022 9:20 AM EDT Patient location: HOME. I was in a hospital or clinic location. After connecting through televideo,patient was verified with two unique identifiers. Patient (or authorized legal underwriting sales representative) was then informed that this was a Telemedicine visit and being conducted confidentially over secure lines. Methods to assure confidentiality were taken. Patient acknowledged consent and understanding of pr ivacy and security of the Telemedicine visit. The patient agreed to participate. CC Hyperparathyroidism Referred by: Silvano Garg, HPI Chloé Altamirano is a 67 year old female -referred for evaluation, management of hyperparathyroidism -hypercalcemia at least 2020 per labs review Patients- resorts has been this way for decades -parathyroidectomy- 2076: Final Pathologic Diagnosis: A: Right inferior parathyroid, small parathyroid adenoma. B: Right superior parathyroid, biopsy, portion of parathyroid. Component Latest Ref Rng 05/25/2021 09/21/2021 12/27/2021 03/29/2022 07/25/2022 PTH 15 - 65 pg/mL 106 (H) 99 (H) 102 (H) 119 (H) 106 25OH VITAMIN D TOTAL >19 ng/mL 25-Hydroxy Vitamin D >19 ng/mL 33 37 Latest Reference Range & Units 05/25/21 15:08 09/21/21 15:14 12/27/21 12:34 03/29/22 13:00 07/25/22 15:27 Estimated Glomerular Filtration Rate >=60 mL/min 76 >90 >90 86 >90 Calcium 8.4 - 10.2 mg/dL 10.3 (H) 10.5 (H) 10.1 10.4 (H) 10.6 (H) Albumin 3.8 - 5.0 g/dL 4.8 4.9 4.8 No calcium supplementation. Takes vitamin D supplementation- during winter-OTC (1000 IU) No thiazides. Has history of osteoporosis per Dexa scan No low trauma fractures. Has had nephrolithiasis- multiple- last one No renal insufficiency. Has hypothyroidism: Takes levothyroxine- 125 mcg-0.5 tab daily Takes appropriately Complaint TSH Results: Lab Results Component Value Date/Time TSH - [facility] 0.55 07/25/2022 03:27 PM TSH - [facility] 0.61 12/27/2021 12:34 PM TSH - [facility] 0.47 01/14/2021 01:59 PM TSH - [facility] 1.27 12/12/2019 08:11 AM TSH - [facility] 1.00 09/05/2018 10:04 AM TSH - [facility] 0.92 11/04/2016 09:49 AM No family history of hyperparathyroidism, hypercalcemia, nephrolithiasis, pituitary tumors, or ulcer disease. Lab review As above Imaging: DEXA scan 03/2022: Lumbar spine: 0.741 gms/cm2 T-score: -3.3 Z-score: -1.1 Left femoral neck: 0.752 gms/cm2 T-score: -0.9 Left forearm: 0.602 gms/cm2 T-score: -1.5 PMH Past Medical History: Diagnosis Date Acquired hypothyroidism Calculus of kidney Secondary to hyperparathyroidism CERVICAL DISC DEGEN 10/04/2000 Depressive disorder, not elsewhere classified hosp. at [facility] [place] Disorder of intervertebral disc Aubrey Diverticulosis of colon Dyslipidemia, goal LDL below 130 04/08/2009 Per Lipid Taxonomy. Dyslipidemia, goal to be determined Generalized anxiety disorder 09/08/2020 GERD (gastroesophageal reflux disease) HTN, goal below 140/90 07/31/2012 LUMB-LUMBOSAC DISC DEGEN Major depressive disorder, recurrent, moderate (HCC) 01/04/2021 Morbid obesity, BMI not known (HCC) Osteoarthritis of knee Other hyperparathyroidism (HCC) POSTLAMINECT SYND-LUMBAR 09/24/2002 Postlaminectomy syndrome of lumbar region Prediabetes 06/12/2017 Per Prediabetes protocol #1 Restless legs syndrome 03/05/2014 PSH Past Surgical History: Procedure Laterality Date ARTHROPLASTY KNEE TOTAL 06/05 Bilateral total knee replacements- Dr. Freeman DELIVERY COLONOSCOPY, DIAGNOSTIC (RECTUM) 04/06/08 repeat in 10 yrs COLONOSCOPY, DIAGNOSTIC (RECTUM) 09/03/2018 normal, repeat 10 yrs/[facility] CYSTO/URETERO W/LITHOTRIPSY Right 04-28-2015 CYSTO/URETERO W/LITHOTRIPSY Right 05-07-2015 CYSTO/URETERO W/LITHOTRIPSY Right 05/07/2015 CYSTOURETHROSCOPY URETEROSCOPY WITH LITHOTRIPSY AND STENT INSERTION performed by Chiara Quan MD at OR [facility] CYSTOSCOPY 07-16-06 stent removal CYSTOSCOPY/INSERTION OF STENT 07/13/06 CYSTOURETHROSCOPY WITH INSERTION URETERAL STENT performed by PAUL VICTORIA at [facility] CYSTOSCOPY/URETERAL CATHETER 07/13/06 CYSTOURETHROSCOPY WITH URETERAL CATHETER performed by PAUL VICTORIA at [facility] CYSTOURETRO &/OR PYELOSCOPE 07/13/06 CYSTOURETHROSCOPY URETROSCOPY AND OR PYELOSCOPY performed by PAUL VICTORIA at [place] [facility] CYSTOURETRO W/STONE REMOVE 07/13/06 CYSTOURETHROSCOPY URETROSCOPY WITH STONE REMOVAL performed by PAUL VICTORIA at OR [facility] EXPLORE PARATHYROID GLANDS 11/16/06 PARATHYROIDECTOMY performed by KEDAR HENDERSON at OR [facility] FLUORO MISCELLANEOUS 07/13/06 FLUROSCOPY UP TO ONE HOUR performed by PAUL VICTORIA at OR [facility] FRAGMENT KIDNEY STONE BY SHOCK WAVE 1987 [...] MEDIUM performed by PAUL VICTORIA at OR [facility] LAPAROSCOPY; CHOLECYSTECTOMY LIGATE/CUT OVIDUCT(S) Tubal Ligation LUMBAR HEMILAMINECTOMY L 3-4 discectomy LUMBAR HEMILAMINECTOMY 12/23/01 L3-4 left hemilaminectomy, disckectomy, with foraminotomy PARTIAL REMOVAL OF THYROID LOBE right lobectomy REDUCTION OF BREAST 1996 REMOVAL OF TONSILS, UNDER AGE 10 Tonsillectomy REMOVE CATARACT, INSERT LENS PROSTH Left 02/13/2017 left EXTRACAPSULAR CATARACT REMOVAL WITH INTRAOCULAR LENS performed by Marco Antonio Melton MD at OR [facility] REMOVE CATARACT, INSERT LENS PROSTH Right 02/22/2017 right EXTRACAPSULAR CATARACT REMOVAL WITH INTRAOCULAR LENS performed by Marco Antonio Melton MD at OR [facility] REMOVE GALLBLADDER 07/11/05 Dr. Peña REPAIR DETACHED RETINA, VITRECTOMY Right 08/12/2021 PARS PLANA VITRECTOMY, AIR FLUID EXCHANGE, ENDOLASER, FLUID GAS EXCHANGE SF6, RIGHT EYE (25g) performed by Kierra Cunningham MD at OR [facility] REPAIR RUPTURED ROTATOR CUFF, CHRON REVISE/REMOVE SPINAL NEURORECEIVER 07/21/2011 REVISION OR REMOVAL IMPLANTED SPINAL NEUROSTIMULATOR performed by LORETO HERNANDEZ at OR [facility] SACROILIAC JOINT INJECT W/GUIDANCE 12/06/2017 INJECTION SACROILIAC JOINT performed by Edwardo Osullivan DO at OR [facility] SACROILIAC JOINT INJECT W/GUIDANCE 04/11/2018 INJECTION SACROILIAC JOINT performed by Edwardo Osullivan DO at OR [facility] SACROILIAC JOINT INJECT W/GUIDANCE 09/17/2019 INJECTION SACROILIAC JOINT performed by Edwardo Osullivan DO at OR [facility] SPINAL NEUROSTIM ELECTRODE PLATE, REVISION 07/21/2011 REVISION SPINAL NEUROSTIM ELECTRODE PLATE performed by LORETO HERNANDEZ at OR [facility] TOTAL ABD HYSTERECTOMY W/WO REMOVAL OF TUBE(S) complete hysterectomy at age 44 MEDS Current Outpatient Medications Medication Sig Dispense Refill VITAMIN B COMPLEX PO TABS Take by mouth. valACYclovir (VALTREX) 1000 MG Tablet TAKE TWO TABLETS BY MOUTH EVERY 12 HOURS FOR 1 DAY FOR COLD SORES (Patient taking differently: TAKE TWO TABLETS BY MOUTH EVERY 12 HOURS FOR 1 DAY FOR COLD SORES) 4 Tab 5 Diclofenac Epolamine 1.3 % External Patch PLACE 1 PATCH TOPICALLY ON THE SKIN TWICE DAILY (Patient taking differently: PLACE 1 PATCH TOPICALLY ON THE SKIN TWICE DAILY) 180 Patch 1 Diclofenac Sodium 1 % External Gel (Voltaren) Apply to painful joints up to four times daily (Patient taking differently: Apply to painful joints up to four times daily) 150 g 3 Gabapentin 400 MG Oral Capsule (Neurontin) TAKE ONE CAPSULE BY MOUTH FOUR TIMES A DAY (Patient taking differently: No sig reported) 400 Capsule 3 PreserVision AREDS 2 Oral Capsule Take 1 Capsule by mouth in the morning. Triamcinolone Acetonide 0.1 % External Cream (Aristocort) Apply topically to affected area 2 times a day . Groin and thighs. (Patient taking differently: Apply topically to affected area 2 times a day. Groin and thighs.) 60 g 5 Albuterol Sulfate HFA 108 (90 Base) MCG/ACT Inhalation Aerosol Solution Inhale by mouth 2 Puffsin the morning AND 2 Puffs at noon AND 2 Puffs in the evening AND 2 Puffs before bedtime. (Patient taking differently: Inhale 2 Puffs by mouth every 6 hours as needed for Shortness of Breath.) 54 g 3 FLUoxetine HCl 40 MG Oral Capsule (PROzac) Take by mouth 2 Capsules in the morning. (Patient taking differently: Take 2 Capsules by mouth in the morning.) 200 Capsule 3 buPROPion HCl ER (SR) 150 MG Oral Tablet Extended Release 12 Hour (Wellbutrin SR) Take by mouth1 Tablet in the morning AND 1 Tablet before bedtime. (Patient taking differently: Take 1 Tablet by mouth in the morning and 1 Tablet before bedtime.) 200 Tablet 3 Cyclobenzaprine HCl 10 MG Oral Tablet (Flexeril) TAKE 1 TO 2 TABLETS BY MOUTH AT BEDTIME NEEDED FOR MUSCLE SPASMS (Patient taking differently: TAKE 1 TO 2 TABLETS BY MOUTH AT BEDTIME NEEDEDFOR MUSCLE SPASMS) 180 Tablet 1 Pantoprazole Sodium 40 MG Oral Tablet Delayed Release (Protonix) TAKE ONE TABLET BY MOUTH ONCE DAILY (Patient taking differently: No sig reported) 90 Tablet 3 guaiFENesin-Codeine 100-10 MG/5ML Oral Solution Take 5 mL by mouth 3 times a day as needed for Cough or Congestion. (Patient not taking: Reported on 07/25/2022) 180 mL 0 Albuterol Sulfate 1.25 MG/3ML Inhalation Nebulization Solution Inhale 1.25 mg via nebulizer every 4 hours as needed for Wheezing. (Patient taking differently: Inhale 1.25 mg via nebulizer every 4hours as needed for Wheezing.) 120 mL 1 hydrOXYzine HCl 25 MG Oral Tablet TAKE 1 TABLET BY MOUTH TWICE A DAY NEEDED FOR ANXIETY (Patient taking differently: TAKE 1 TABLET BY MOUTH TWICE A DAY NEEDED FOR ANXIETY) 180 Tablet 1 amLODIPine Besylate 2.5 MG Oral Tablet (Norvasc) TAKE 1 TABLET BY MOUTH EVERY DAY (Patient taking differently: TAKE 1 TABLET BY MOUTH EVERY DAY) 100 Tablet 1 HYDROcodone-Acetaminophen 10-325 MG Oral Tablet Take 1 Tablet by mouth every 4 hours as needed for Pain, Moderate or Pain, Severe. (Patient taking differently: Take 1 Tablet by mouth every 4 hours as needed for Pain, Moderate or Pain, Severe.) 120 Tablet 0 busPIRone HCl 15 MG Oral Tablet (Buspar) Take 1 Tablet by mouth in the morning and 1 Tablet in the evening. Magnesium 125 MG Oral Capsule Take 125 mg by mouth in the morning. Vitamin D 25 MCG (1000 UT) Oral Tablet Take 1 Tablet by mouth in the morning. Rosuvastatin Calcium 20 MG Oral Tablet (Crestor) Take 1 Tablet by mouth in the morning. Ozempic (2 MG/DOSE) 8 MG/3ML Subcutaneous Solution Pen-injector (Semaglutide (2 MG/DOSE)) Inject 0.75 mL under the skin once a week. 9 mL 3 Losartan Potassium 100 MG Oral Tablet (Cozaar) TAKE ONE TABLET BY MOUTH EVERY MORNING 100 Tablet 3 Levothyroxine Sodium 125 MCG Oral Tablet (Levoxyl) TAKE 1/2 TABLET BY MOUTH DAILY 30 MINUTES PRIOR TO BREAKFAST/OTHER MEDS 50 Tablet 3 No current facility-administered medications for this visit. SH Social History Tobacco Use Smoking status: Never Smokeless tobacco: Never Tobacco comments: smokes cigars Substance Use Topics Alcohol use: Yes Comment: occasionaly Vaping/E-Cigarette Use Vaping/E-Cigarette Use Never User Vaping/E-Cigarette Substances Vaping/E-Cigarette Devices FH Family History Problem Relation Age of Onset Cancer Mother Pancreatic Allergies Mother Hayfever Hypertension Mother Arthritis Mother Diabetes Father Hypertension Father Obesity Father Kidney cancer Father Diabetes Grandfather (Maternal) Hypertension Brother Arthritis Grandmother (Maternal) Diabetes Grandmother (Paternal) Obesity Grandmother (Paternal) Other (Nephrolithiasis) Other cousin on mother's side ROS Constitutional: Denies any fever/ chills/ weight/ apetite changes Fatigue Eyes: Denies any blurry vision/ eye irritation ENT: No dysphagia/ Odynophagia CVS: No chest pain/ palpitation/ LE swelling Resp: No shortness of breath/ wheezing/ cough GI: No abdominal pain/ diarrhea/ constipation : No Polyria/ nocturia Endo: No heat/ cold intolerance Integumentary: No skin rash/ pruritus MSK: No back pain/ arthralgia/ myalgia Neuro: No numbness/ tingling/ weakness Psych: No anxiety/ depression PE General appearance: Well-developed, well-nourished, not in distress Eyes: Clear sclera, no irritation Neck: No visible goiter/mass Respiratory system: Not in distress, Normal breathing pattern Neurological: Awake alert and oriented x3 Psychiatric: Cooperative and appropriate mood RECORDS I reviewed the available medical records and have summarized the relevant information per HPI above. Labs and imaging as above IMP 1. Hypercalcemia 2. Hyperparathyroidism 3. Osteoporosis This is a pleasant 67 year old female with with persistently elevated calcium, parathyroid hormone,suggestive of primary hyperparathyroidism. She already underwent 1 gland parathyroidectomy in the past and now the labs indicate a recurrence We reviewed primary hyperparathyroidism in detail. I informed that I would like to perform some additional studies to confirm the diagnosis and to look for complications. Surgery is typically recommend in individuals who are young (<50) or have calcium >1mg/dl above normal, renal insufficiency, nephrolithiasis, elevated urine calcium, or osteoporosis. If there is no indication for surgery, observation is appropriate with annual monitoring of serum calcium/creatinine and intermittent DEXA scan to evaluate for bone loss. -in her case given significant osteoporosis and history of renal stones---would need repeat parathyroidectomy If she is to undergo successful parathyroidectomy reasonable to monitor bone density 1 year after surgery She may eventually need osteoporosis treatment, given significant osteoporosis at lumbar spine--however can hold off for now--and to be held at least 1 year after surgery ---had a detailed discussion with her on this and she lives closer to [place]--reviewing ENT surgeon options she would like to be seen by Dr. Almanzar PLAN/patient instructions: 1. Perform 24h urine calcium/creatinine. 2. CMP, magnesium, phosphorus, vitamin-D level 3. Maintain normal calcium diet. Avoiding dietary calcium can lead to increased oxalate absorption/hyperoxalaturia, paradoxically increasing the risk for nephrolithiasis. 4. Avoid calcium supplements. 5. Vitamin D 1000 units daily during winter 6. I'll be in touch with results and with any further recommendations. 7. RTC tentatively in 6 months or sooner based on surgical process. -blood work -24 hour urine calcium -ultrasound thyroid -CT neck for parathyroid localization -will place the ENT surgery referral after completion of above workup Plan Magnesium Phosphorus PTH 25-Hydroxy Vitamin D Comprehensive Metabolic Panel UroRisk(R) Diagnostic Profile US Head and Neck NM Parathyroid Scan (SPECT & CT) >60 mins spent face to face with the patient for this encounter, reviewing record and documentation. > 50% of the time was spent in counseling, discussing short-term + long-term management as well as risks and benefits of various therapies. All questions were answered. I appreciate the opportunity to share in the care of this patient. Please don't hesitate to contactme with any questions regarding today's visit. Jovanna Crenshaw MD Division of Endocrinology documented in this encounter Miscellaneous Notes * Result Encounter Note - Jovanna Crenshaw MD - 01/23/2023 9:58 AM EDT High urine calcium along with calcium crystals Overall - labs confirms parathyroid overactivity Recommendation: See ENT surgeon to plan parathyroid exploration and remove overactive gland Placed referral * Result Encounter Note - Jovanna Crenshaw MD - 12/28/2022 5:10 PM EDT Will await urine calcium * Result Encounter Note - Jovanna Crenshaw MD - 12/01/2022 2:52 PM EDT Stable ultrasound thyroid Parathyroid imaging is noted Labs, 24 hour urine test are not done yet--they need to be done to decide on next steps documented in this encounter Plan of Treatment Upcoming Encounters Date Type Specialty Care Team Description 02/15/2023 Imaging Radiology Scheduled Procedures Name Priority Associated Diagnoses Date/Ti me COLONOSCOPY FLEXIBLE PROXIMA L DIAGNOSTIC Recall Special screening for malignant neoplasms, colon Health Maintenance Due Date Last Done Comments Cologuard 1998 Fecal Occult Blood Test 1998 Sigmoidoscopy 1998 *BISPHONATE OR OTHER ACCEPTABLE MEDICATION NEEDED FOR OSTEOPOROSIS (REFER TO SMARTSET #1146) 04/28/2022 Influenza Vaccine (FLU shot) (#1) 2022 01/19/2022, 02/14/2021, 02/05/2020, Additional history exists Mammogram 02/13/2023 02/13/2022, 11/28, [...] 02/28, 08/07/2014 Diabetic Foot Exam Discontinued 05/25/2021 COVID-19 Vaccine Completed 05/23/2022, , 03/31/2021, Additional history exists VITAMIN D LEVEL ONCE IN A LIFETIME-USE SMARTSET# 71430 Completed 12/27/2022, 03/29/2022, 12/27/2021, Additional history exists GARDASIL-HPV IMMUNIZATION SERIES Aged Out No longer eligible based on patient's age to complete this topic Hepatitis B Aged Out No longer eligi ble based on patient's age to complete this topic MENINGOCOCCAL (MENACTRA/MENVEO) Aged Out No longer eligible based on patient's age to complete this topic documented as of this encounter Medical Devices Implanted Type Area Eyeglass Lens Cutter Device Identifier Shelf Expiration Date Model / Serial / Lot Battery Advance Prime 82112 - [id number] Implanted:Qty: 1 on 07/21/2011 at [place] [facility] [place]: Buttocks [employer] : NEUROLOGIC PAIN 09/10/2012 [id number] / [id number] / Lens Intraoc 16.5 - [id number] - [id number] Implanted:Qty: 1 on 02/13/2017 by Marco Antonio Melton MD at OR [facility] Left: Eye [employer]OM[employer] 06/27/2021 [id number] / [id number] / [id number] Lens Intraoc 16.0 - [id number] - [id number] Implanted:Qty: 1 on 02/22/2017 by Marco Antonio Melton MD at OR [facility] Right: Eye [employer]OMB 04/29/2021 [id number] / [id number] / documented as of this encounter Procedures Procedure Name Priority Date/Time Associated Diagnosis Comments URORISK(R) DIAGNOSTIC PROFILE Routine 01/12/2023 2:05 PM EDT Hypercalcemia Hyperparathyroidism (HCC) Osteoporosis without current pathological fracture, unspecified osteoporosis type 25-HYDROXY VITAMIN D Routine 12/27/2022 2:43 PM EDT Hypercalcemia Hyperparathyroidism (HCC) Osteoporosis without current pathological fracture, unspecified osteoporosis type COMPREHENSIVE METABOLIC PANEL Routine 12/27/2022 2:43 PM EDT Hypercalcemia Hyperparathyroidism (HCC) Osteoporosis without current pathological fracture, unspecified osteoporosis type PHOSPHORUS Routine 12/27/2022 2:43 PM EDT Hypercalcemia Hyperparathyroidism (HCC) Osteoporosis without current pathological fracture, unspecified osteoporosis type PTH Routine 12/27/2022 2:43 PM EDT Hypercalcemia Hyperparathyroidism (HCC) Osteoporosis without current pathological fracture, unspecified osteoporosis type MAGNESIUM Routine 12/27/2022 2:43 PM EDT Hypercalcemia Hyperparathyroidism (HCC) Osteoporosis without current pathological fracture, unspecified osteoporosis type US HEAD AND NECK Routine 11/30/2022 12:3 1 PM EDT Hypercalcemia Hyperparathyroidism (HCC) Osteoporosis without current pathological fracture, unspecified osteoporosis type documented in this encounter Results * (ABNORMAL) URORISK(R) DIAGNOSTIC PROFILE (01/12/2023 2:05 PM EDT) Total Urine Volume 2.21 >2.00 L/day 01/20/2023 6:26 PM EDT [facility] Comment: This test was developed and its analytical performance characteristics have been determined by [facility]. It has not been cleared or approved by the FDA. This assay has been validated pursuant to the CLIA regulations and is used for clinical purposes. PH Urine 6.3 5.5 - 7.0 01/20/2023 6:26 PM EDT [facility] Calcium, 24 Hour Urine 389(H) <250.0 mg/day 01/20/2023 6:26 PM EDT [facility] Comment: This test was developed and its analytical performance characteristics have been determined by [facility]. It has not been cleared or approved by the FDA. This assay has been validated pursuant to the CLIA regulations and is used for clinical purposes. Oxalate, 24 Hour Urine 34 <45 mg/day 01/20/2023 6:26 PM EDT [facility] Comment: This test was developed and its analytical performance characteristics have been determined by [facility]. It has not been cleared or approved by the FDA. This assay has been validated pursuant to the CLIA regulations and is used for clinical purposes. Uric Acid, 24 Hour Urine 581 <700 mg/day 01/20/2023 6:26 PM EDT [facility] Comment: This test was developed and its analytical performance characteristics have been determined by [facility]. It has not been cleared or approved by the FDA. This assay has been validated pursuant to the CLIA regulations and is used for clinical purposes. Citric Acid, 24 Hour Urine 1073 >320 mg/day 01/20/2023 6:26 PM EDT [facility] Comment: This test was developed and its analytical performance characteristics have been determined by [facility]. It has not been cleared or approved by the FDA. This assay has been validated pursuant to the CLIA regulations and is used for clinical purposes. Sodium, 24 Hour Urine 204(H) <200 mEq/day 01/20/2023 6:26 PM EDT [facility] Comment: This test was developed and its analytical performance characteristics have been determined by [facility]. It has not been cleared or approved by the FDA. This assay has been validated pursuant to the CLIA regulations and is used for clinical purposes. Sulfate, 24 Hour Urine 7 <30 mmol/day 01/20/2023 6:26 PM EDT [facility] Comment: This test was developed and its analytical performance characteristics have been determined by [facility]. It has not been cleared or approved by the FDA. This assay has been validated pursuant to the CLIA regulations and is used for clinical purposes. Phosphorus, 24 Hour Urine 880 <1100 mg/day 01/20/2023 6:26 PM EDT [facility] Comment: This test was developed and its analytical performance characteristics have been determined by [facility]. It has not been cleared or approved by the FDA. This assay has been validated pursuant to the CLIA regulations and is used for clinical purposes. Magnesium, 24 Hour Urine 129 >60.0 mg/day 01/20/2023 6:26 PM EDT [facility] Comment: This test was developed and its analytical performance characteristics have been determined by [facility]. It has not been cleared or approved by the FDA. This assay has been validated pursuant to the CLIA regulations and is used for clinical purposes. Potassium, 24 Hour Urine 57 19 - 135 mEq/day 01/20/2023 6:26 PM EDT [facility] Comment: This test was developed and its analytical performance characteristics have been determined by [facility]. It has not been cleared or approved by the FDA. This assay has been validated pursuant to the CLIA regulations and is used for clinical purposes. Creatinine, 24 Hour Urine 1010 600 - 1800 mg/day 01/20/2023 6:26 PM EDT [facility] Comment: This test was developed and its analytical performance characteristics have been determined by [facility]. It has not been cleared or approved by the FDA. This assay has been validated pursuant to the CLIA regulations and is used for clinical purposes. Calcium Oxalate 2.04(H) <2.00 6:26 PM EDT [facility] Brushite 2.56(H) <2.00 01/20/2023 6:26 PM EDT [facility] Sodium Urate 1.93 <2.00 01/20/2023 6:26 PM EDT [facility] Uric Acid 0.61 <2.00 01/20/2023 6:26 PM EDT [facility] The Patient Has: SEE BELOW 01/21/20 6:26 PM EDT [facility] Comment: Hypercalciuria High urinary sodium Supersaturation Index: SEE BELOW 01/20/2023 6:26 PM EDT [facility] Comment: Calcium oxalate Brushite (Ca phosphate) Suspected Problem Is: SEE BELOW 01/20/2023 6:26 PM EDT [facility] Comment:Hypercalciuric Nephr olithiasis Comments DNR 01/20/2023 6:26 PM EDT [facility] Comment: Test performed by [facility] [address] [place] [id number] Designer: RODOLFO RAND M.D. Test Reported by Y[facility] Blanca, [facility], [address] [place] [address] Luke Dillon M.D., Ph.D., Director of Laboratories , CLIA [id number] Urine Urine specimen / Unknown Non-blood Collection / Unknown 01/12/2023 2:05 PM EDT 01/12/2023 2:05 PM EDT Jovanna Crenshaw MD LAB URINE ORDERABLES [facility] [address] [place] [address] * (ABNORMAL) COMPREHENSIVE METABOLIC PANEL (12/27/2022 2:43 PM EDT) BUN 17 6 - 20 mg/dL 12/27/2022 11:22 PM EDT [facility] Creatinine 0.6 0.5 - 1.0 mg/dL 12/27/2022 11:22 PM EDT [facility] Estimated Glomerular Filtration Rate >90 >=60 mL/min 12/27/2022 11:22 PM EDT [facility] Comment:eGFR is calculated b ased on the CKD-EPI 2020 equation Sodium 142 135 - 146 mmol/L 12/27/2022 11:22 PM EDT [facility] Potassium 5.0 3.5 - 5.1 mmol/L 12/27/2022 11:22 PM EDT [facility] Chloride 104 98 - 107 mmol/L 12/27/2022 11:22 PM EDT [facility] CO2 29 22 - 32 mmol/L 12/27/2022 11:22 PM EDT [facility] Anion Gap 9 7 - 15 mmol/L 12/27/2022 11:22 PM EDT [facility] Glucose 123(H) 70 - 120 mg/dL 12/27/2022 11:22 PM EDT [facility] Albumin 4.7 3.8 - 5.0 g/dL 12/27/2022 11:22 PM EDT [facility] AST 28 10 - 35 U/L 12/27/2022 11:22 PM EDT [facility] Alkaline Phosphatase 122 35 - 130 U/L 12/27/2022 11:22 PM EDT [facility] Bilirubin, Total 0.3 <=1.2 mg/dL 12/27/2022 11:22 PM EDT [facility] Calcium 10.9(H) 8.4 - 10.2 mg/dL 12/27/2022 11:22 PM EDT [facility] Protein 7.1 6.0 - 8.3 g/dL 12/27/2022 11:22 PM EDT LAB[facility] ALT 53(H) 10 - 35 U/L 12/27/2022 11:22 PM EDT [facility] Blood Venous blood specimen / Unknown Venipuncture / Unknown 12/27/2022 2:43 PM EDT 12/27/2022 2:43 PM EDT Jovanna Crenshaw MD LAB BLOOD ORDERABLES Performing Organization Address [facility] Co de Phone Number LABORATORY [facility] [address] [place] [address] * 25-HYDROXY VITAMIN D (12/27/2022 2:43 PM EDT) 25-Hydroxy Vitamin D 33 >19 ng/mL 12/27/2022 11:58 PM EDT [facility] Blood Venous blood specimen / Unknown Venipuncture / Unknown 12/27/2022 2:43 PM EDT 12/27/2022 2:43 PM EDT Narrative LAB[facility] - 12/27/2022 11:58 PM EDT Deficient: <20 ng/mL Insufficient: 20-29 ng/mL Recommended/Optimum:30-50 ng/mL Vitamin D intoxication is rare. If suspicious of Vitamin D toxicity, evaluation of serum Calcium and PTH is recommended. Jovanna Crenshaw MD LAB BLOOD ORDERABLES Performing Organization Address [facility] Co de Phone Number [facility]ORY [facility] [address] [place] [address] * (ABNORMAL) PTH (12/27/2022 2:43 PM EDT) PTH 133(H) 15 - 65 pg/mL 12/28/2022 6:05 AM EDT [facility] Blood Venous blood specimen / Unknown Venipuncture / Unknown 12/27/2022 2:43 PM EDT 12/27/2022 2:43 PM EDT Jovanna Crenshaw MD LAB BLOOD ORDERABLES Performing Organization Address [facility] Co de Phone Number LAB[facility]ATORY [facility] [address] [place] [address] * PHOSPHORUS (12/27/2022 2:43 PM EDT) Phosphorus 2.7 2.5 - 4.8 mg/dL 12/27/2022 11:22 PM EDT [facility] Blood Venous blood specimen / Unknown Venipuncture / Unknown 12/27/2022 2:43 PM EDT 12/27/2022 2:43 PM EDT Jovanna Crenshaw MD LAB BLOOD ORDERABLES Performing Organization Address [facility] Co de Phone Number [facility] [address] [place] [address] * MAGNESIUM (12/27/2022 2:43 PM EDT) Magnesium 2.4 1.5 - 2.6 mg/dL 12/27/2022 11:22 PM EDT [facility] Blood Venous blood specimen / Unknown Venipuncture / Unknown 12/27/2022 2:43 PM EDT 12/27/2022 2:43 PM EDT Jovanna Crenshaw MD LAB BLOOD ORDERABLES Performing Organization Address [facility] de Phone Number LAB[facility]ATORY [facility] [address] [place] [address] * US HEAD AND NECK (11/30/2022 12:31 PM EDT) Anatomical Region Laterality Modality Neck, Head Ultrasound 11/30/2022 4:28 PM EDT Impressions 11/30/2022 4:25 PM EDT IMPRESSION Multinodular gland without suspicious nodule. Narrative 11/30/2022 4:25 PM EDT EXAM THYROID ULTRASOUND - 11/30/2022 12:31 pm HISTORY Primary hyperparathyroidism COMPARISON None TECHNIQUE Real time sonographic imaging of the thyroid was performed. FINDINGS Right lobe measures 4.4 x 1.9 x 2.3 cm, isthmus measures 0.4 cm, and left lobe measures 2.6 x 1.0 x 1.1 cm. The thyroid is heterogenous with confluent nodules. The left lobe is small secondary to previous surgery. There is no suspicious nodule. Parathyroid adenoma is not seen. Procedure Note Joe Pineda MD - 11/30/2022 EXAM THYROID ULTRASOUND - 11/30/2022 12:31 pm HISTORY Primary hyperparathyroidism COMPARISON None TECHNIQUE Real time sonographic imaging of the thyroid was performed. FINDINGS Right lobe measures 4.4 x 1.9 x 2.3 cm, isthmus measures 0.4 cm, and leftlobe measures 2.6 x 1.0 x 1.1 cm. The thyroid is heterogenous withconfluent nodules. The left lobe is small secondary to previous surgery.There is no suspicious nodule. Parathyroid adenoma is not seen. IMPRESSION IMPRESSION Multinodular gland without suspicious nodule. Jovanna Crenshaw MD RAD ULTRASOUND * NM PARATHYROID (SPECT) (10/27/2022 12:51 PM EDT) Anatomical Region Laterality Modality Neck, Thyroid Nuclear Medicine 10/27/2022 2:13 PM EDT Impressions 10/27/2022 2:11 PM EDT IMPRESSION No scintigraphic evidence of parathyroid adenoma. I have personally reviewed this examination and agree with the resident/fellow physician's interpretation. Narrative 10/27/2022 2:11 PM EDT EXAM NM PARATHYROID (SPECT) - 10/27/2022 12:51 pm HISTORY Primary hyperparathyroidism COMPARISON None. TECHNIQUE Following the intravenous administration of 23.6 mCi of Tc-99m sestamibi, planar and SPECT imaging was performed immediately post injection. Delayed planar and SPECT imaging was performed after three hours. FINDINGS PLANAR IMAGING: Normal thyroid and salivary gland activity on the immediate images with significant washout of radiotracer from the thyroid on the delayed images. No abnormal persistent focal activity is identified on the delayed images. SPECT: No focal abnormal areas of increased activity. Procedure Note Tyler Mayer DO - 10/27/2022 EXAM NM PARATHYROID (SPECT) - 10/27/2022 12:51 pm HISTORY Primary hyperparathyroidism COMPARISON None. TECHNIQUE Following the intravenous administration of 23.6 mCi of Tc-99m sestamibi,planar and SPECT imaging was performed immediately post injection.Delayed planar and SPECT imaging was performed after three hours. FINDINGS PLANAR IMAGING: Normal thyroid and salivary gland activity on the immediate images withsignificant washout of radiotracer from the thyroid on the delayed images.No abnormal persistent focal activity is identified on the delayedimages. SPECT: No focal abnormal areas of increased activity. IMPRESSION IMPRESSION No scintigraphic evidence of parathyroid adenoma. I have personally reviewed this examination and agree with the resident/fellow physician's interpretation. Jovanna Crenshaw MD RAD NUCLEAR MED documented in this encounter Visit Diagnoses Diagnosis Hypercalcemia- Primary Hyperparathyroidism (HCC) Hyperparathyroidism, unspecified Osteoporosis without current pathological fracture, unspecified osteoporosis type Hypercalcemia Hyperparathyroidism (HCC) Hyperparathyroidism, unspecified Osteoporosis without current pathological fracture, unspecified osteoporosis type documented in this encounter Advance Directives Latest [...] and were consensually agreed upon. Care Teams Clinical Lab Clerk Relationship Specialty Start Date End Date Silvano Garg, DO [address] [place] [address] PCP - General Internal Medicine 02/22/21 documented as of this encounter
--- OUTSIDE RECORDS SUMMARY | 2023-07-14 16:51 | External Medical Summary | Summary of Care ---
Author Name Unknown Organization [facility] Address [address] [place] [address] Phone [phone] Care Team Providers Care Journeyman Electrician Pv Installer Name Role Phone Silvano Garg DO Primary Care Provider [phone] Reason for Visit * Reason Onset Date Comments Advice 01/30/2023 Pt with Iodine a llergy Encounter Details Date Type Department Care Team Description 01/30/2023 Telephone Radiology [address] [place] [address] Aundrea Kinsey, RT Advice (Pt with Iodine allergy) Allergies Active Allergy Reactions Severity Noted Date Comments Bee Venom 02/09/2016 Erythromycin 04/08/1997 GI upset Iodinated Contrast Media 03/01/2012 IVP dye when she had stones 1989 At [place] had nausea and emesis then she got hives on her chest and arms Atorvastatin Calcium 01/05/2005 MIld elevation of CK and LFT's ( see [facility] labs of 01/03/05) Pregabalin Edema Other 05/19/2014 Swelling of legs and feet Nabumetone Rash 12/21/2011 Nsaids Other (Please comment) 02/08/2017 GI distress Penicillins Rash 04/08/1997 She was told when she was a toddler she got a rash documented as of this encounter (statuses as of 01/30/2023) Medications Medication Sig Dispensed Refills Start Date End Date Status VITAMIN B COMPLEX PO TABSIndications:[employer] Take by mouth. 0 Active valACYclovir (VALTREX) [...] Reported on 07/25/2022 PreserVision AREDS 2 Oral CapsuleIndications:Collusion Take 1 Capsule by mouth in the [...] Reported on 07/25/2022 Magnesium 125 MG Oral CapsuleIndications:Collusion Take 125 mg by mouth in the morning. 0 Active Vitamin D 25 MCG (1000 UT) Oral TabletIndications:HALKAR Take 1 Tablet by mouth in the [...] Albuterol Sulfate 1.25 MG/3ML Inhalation Nebulization SolutionIndications:Ac round valley bronchitis, unspecified organism Inhale 1.25 mg via [...] MOUTH TWICE A DAY 180 Tablet 0 04/19/2022 04/19/20 23 Active FLUoxetine HCl 40 MG Oral Capsule (PROzac) TAKE TWO CAPSULES BY MOUTH EVERY DAY 180 Capsule 0 04/19/2022 04/19/20 23 Active Pantoprazole Sodium 40 MG Oral Tablet [...] before bedtime. 400 Capsule 3 12/22/2022 Active busPIRone HCl 15 MG Oral Tablet (Buspar) take 1 tablet by mouth three times a day 270 Tablet 0 12/27/2022 Active buPROPion HCl ER (SR) 150 MG [...] Moderate or Severe Pain 120 Tablet 0 01/10/2023 Active FLUoxetine HCl 40 MG Oral Capsule (PROzac) take 2 capsules by mouth daily 180 Capsule 0 01/29/2023 Active FLUoxetine HCl 40 MG Oral Capsule (PROzac) take 2 capsules by mouth daily 180 Capsule 0 01/29/2023 Active predniSONE 50 MG Oral Tablet (Deltasone) Take 1 tablet 13 hours prior to exam. 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 Patient verbalizes understanding of all instructions and explanations given. * Telephone Encounter - Amanda Cohn MD - 01/30/2023 1:24 PM EDT Done. * Telephone Encounter - RT Chasity - 01/30/2023 11:48 AM EDT Hello. This patient is allergic to Iodine with a reaction of hives. Can you order Prednisone/Benadryl prep? Instructions for meds: Prednisone 50mg; 13hrs, 7hrs, & [address] appt. Benadryl 50mg; [address] appt. Pt scheduled for 02/15/23. Thank you, Aundrea documented in this encounter Plan of Treatment [...] D LEVEL ONCE IN A LIFETIME-USE SMARTSET# 50483 Completed 12/27/2022, 03/29/2022, 12/27/2021, Additional history exists [...] this encounter Medical Devices Implanted Type Area B2B Sales Consultant Device Identifier Shelf Expiration Date Model / Serial / Lot Battery Advance Prime [id number] - [id number] Implanted:Qty: 1 on 07/21/2011 at [place] [facility] [place] Right: Buttocks [employer] : NEUROLOGIC PAIN 09/10/2012 [id number] / [id number] / Lens Intraoc 16.5 - [id number] - [id number] Implanted:Qty: 1 on 02/13/2017 by Marco Antonio Melton MD at OR [facility] Left: Eye BAUSCH & LOMB 06/27/2021 [id number] / [id number] / [id number] Lens Intraoc 16.0 - [id number] - [id number] Implanted:Qty: 1 on 02/22/2017 by Marco Antonio Melton MD at OR [facility] Right: Eye BAUSCH & LOMB 04/29/2021 [id number] / [id number] / documented as of this encounter Advance [...] and were consensually agreed upon. Care Teams Journeyman Electrician Pv Installer Relationship Specialty Start Date End Date Silvano Garg, [address] [place] [address] PCP - General Internal Medicine 02/22/21 documented as of this encounter
--- OUTSIDE RECORDS SUMMARY | 2023-07-14 16:51 | External Medical Summary | Summary of Care ---
Author Name Unknown Organization [facility] Address [address] [place] [address] Phone [phone] Care Team Providers Care Hop Worker Name Role Phone Shi Garg DO Primary Care Provider [phone] Reason for Visit * Reason Comments Medication Refill Encounter Details Date Type Department Care Team (Late st Contact Info) Description 02/26/2023 Refill Family Practice [address] [facility], [place] [address] [place] [phone] Shi Garg DO [address] [place] [address] CERVICAL DISC DEGEN; LUMB-LUMBOSAC DISC DEGEN Allergies Active Allergy Reactions Criticality Noted Date Comments Bee Venom 02/09/2016 Erythromycin 04/08/1997 GI upset Iodinated Contrast Media 03/01/2012 IVP dye when she had stones 1989 At [place] had nausea and emesis then she got hives on her chest and arms Atorvastatin Calcium 01/05/2005 MIld elevation of CK and LFT's ( see [facility] labs of 01/03/05) Pregabalin Edema Other 05/19/2014 Swelling of legs and feet Nabumetone Rash 12/21/2011 Nsaids Other (Please comment) 02/08/2017 GI distress Penicillins Rash 04/08/1997 She was told when she was a toddler she got a rash documented as of this encounter (statuses as of 02/27/2023) Medications Medication Sig Dispensed Refills Start Date End Date Status VITAMIN B COMPLEX PO TABSIndications:[employer] Take by mouth. 0 Active valACYclovir [...] Reported on 07/25/2022 PreserVision AREDS 2 Oral CapsuleIndications:Dispatch Take 1 Capsule by mouth in the [...] Reported on 07/25/2022 Magnesium 125 MG Oral CapsuleIndications:Dispatch Take 125 mg by mouth in the morning. 0 Active Vitamin D 25 MCG (1000 UT) Oral TabletIndications:[employer] Take 1 Tablet by mouth in the [...] TWICE A DAY 180 Tablet 0 2 04/19/20 23 Active FLUoxetine HCl 40 MG Oral Capsule (PROzac) TAKE TWO CAPSULES BY MOUTH EVERY DAY 180 Capsule 0 2 04/19/20 23 Active Pantoprazole Sodium 40 MG [...] before bedtime. 400 Capsule 3 3 Active busPIRone HCl 15 MG Oral Tablet (Buspar) take 1 tablet by mouth three times a day 270 Tablet 0 3 Active buPROPion HCl ER (SR) 150 MG Oral Tablet Extended Release 12 Hour (Wellbutrin SR) TAKE ONE TABLET BY MOUTH EVERY MORNING AND ONE TABLET BEFORE BEDTIME 200 Tablet 3 3 12/29/19 24 Active FLUoxetine HCl 40 MG Oral Capsule (PROzac) take 2 capsules by mouth daily 180 Capsule 0 3 Active FLUoxetine HCl 40 MG Oral Capsule (PROzac) take 2 capsules by mouth daily 180 Capsule 0 3 Active predniSONE 50 MG Oral Tablet (Deltasone) Take 1 tablet 13 hours prior to exam. Take 2nd tablet 7 hours prior to exam.Take 3rd tablet 1 hour prior with 50 mg of Benadryl 3 Tablet 0 3 Active HYDROcodone-Acetaminop hen 10-325 MG Oral TabletIndications:Dege neration of cervical intervertebral disc,Degeneration of lumbosacral intervertebral disc Take 1 Tablet by mouth every 4 hours as needed for Moderate or Severe Pain 120 Tablet 0 3 Active HYDROcodone-Acetaminop hen 10-325 MG Oral TabletIndications:Dege neration of cervical intervertebral disc,Degeneration of lumbosacral intervertebral disc Take 1 Tablet by mouth every 4 hours as needed for Moderate or Severe Pain 120 Tablet 0 3 02/27/20 23 Discontinu ed(Refill) documented as of this encounter (statuses as of 02/27/2023) Active Problems Problem Noted Date Diagnosed Date Hyperparathyroidism, primary 07/25/2022 Age-related osteoporosis wit hout current pathological fracture 04/26/2022 Body mass index (BMI) of 50.0 to 59.9 in adult 0 10/10/2021 Overview: Per Obesity protocol Other hyperparathyroidism 09/21/2021 Major depressive disorder, recurrent, moderate 0 01/04/2021 Generalized anxiety disorder 09/08/2020 Prediabetes 06/12/2017 Overview: Per Prediabetes protocol #1 Restless legs syndrome 03/05/2014 HTN, goal below 140/90 07/31/2012 MEDICATION USE AGREEMENT 09/07/2011 Pure hypercholesterolemia 04/08/2009 Overview: Per Lipid Taxonomy. ADVANCE DIRECTIVE INFORMATION 11/23/2005 Overview: Pt accepted brochure Esophageal reflux 07/05/2005 LOC PRIM [id number] 08/15/2004 POSTLAMINECT SYND-LUMBAR 09/24/2002 Thoracic and lumbosacral neuritis 09/24/2002 CERVICAL DISC DEGEN 10/04/2000 Acquired hypothyroidism LUMB-LUMBOSAC DISC DEGEN documented as of this encounter (statuses as of 02/27/2023) Resolved Problems Problem Noted Date Diagnosed Date Resolved Date COPD, group B, by GOLD 2017 classification 04/10/2022 07/25/2022 Overview: Per COPD GOLD Classification Diabetes mellitus without complication 01/26/2020 01/26/2020 Major [...] as of this encounter (statuses as of 02/27/2023) Immunizations Name Administration Dates Next Due COVID-19 mRNA, LNP-s, No Pre serve, 2-Dose Series ([employer]) 03/31/2021,08/07/2020,07/12/2020 COVID-19, LNP-s, No Preserve , Melo-sucrose, Ages 12+ ([employer]) 12/27/2021 Covid-19, Mrna, Lnp-s, Pf, B ivalent, [...] Telephone Encounter - Shi Garg DO - 02/27/2023 5:16 PM EDTSigned Prescriptions: Disp Refills HYDROcodone-Acetaminophen 10-325 MG Oral T*120 Ta*0 Sig: Take 1 Tablet by mouth every 4 hours as needed for Moderate or Severe Pain Authorizing Provider: SHI GARG * Telephone Encounter - Ca Vázquez [facility] - 02/27/2023 3:22 PM EDT Pending Prescriptions: Disp Refills HYDROcodone-Acetaminophen 10-325 MG Oral T*120 Ta*0 Sig: Take 1 Tablet by mouth every 4 hours as needed for Moderate or Severe Pain * Telephone Encounter - Ca Vázquez [facility] - 02/27/2023 3:21 PM EDT I have reviewed the patients controlled substance dispensing history in the Prescription Drug Monitoring Program in compliance with the [facility] regulations before prescribing a controlled substance. PDMP checked on 02/27/2023. Pending Prescriptions: Disp Refills HYDROcodone-Acetaminophen 10-325 MG Oral *120 Ta*0 Sig: Take 1 Tablet by mouth every 4 hours as needed for Moderate or Severe Pain Last Visit: 09/21/2022 (in office), 06/01/2022 (telemedicine) Next Visit: 02/28/2023 Date medication was last filled: 02/02/23 Date medication is due for refill: 02/21/23 Pharmacy: [facility] Is this request for a [...] Review. Please approve if appropriate. Thank you, Ca Vázquez, PharmD, SAM Clinical Pharmacist [facility] ([facility]) (formerly Telepharmacy) 02/27/23 3:21 PM [phone] documented in this encounter Plan of Treatment Upcoming Encounters Date Type Department Care Team (Late st Contact Info) Description 02/28/2023 2:20 PM EDT Office Visit Family Practice [address], [place] [address] [place] [address] Shi Garg, [address] [place] [address] 03/02/2023 11:00 AM EDT Office Visit Otolaryngology/Head & Neck/Facial Plastic Surgery [address] [place] [address] Bianka Matute MD [address] [place], [place] [id number] Scheduled Procedures Name Priority Associated Diagnoses Date/Ti [...] 2022 05/23/2022, 12/27/2021, 03/31/2021, Additional history exists Influenza Vaccine (FLU shot) (#1) 2022 01/19/2022, [...] D LEVEL ONCE IN A LIFETIME-USE SMARTSET# 70607 Completed 12/27/2022, 03/29/2022, 12/27/2021, Additional history exists GARDASIL-HPV IMMUNIZATION SERIES Aged Out No longer eligible based on patient's age to complete this topic MENINGOCOCCAL (MENACTRA/MENVEO) Aged Out No longer eligible based on patient's age to complete this topic documented as of this encounter Medical Devices Implanted Type Area Planning Intern Device Identifier Shelf Expiration Date Model / Serial / Lot Battery Advance Prime 73792 - [id number] Implanted:Qty: 1 on 07/21/2011 at OR [facility] [place] Right: Buttocks [employer] : NEUROLOGIC PAIN 09/10/2012 [id number] / [id number] / Lens Intraoc 16.5 - [id number] - [id number] Implanted:Qty: 1 on 02/13/2017 by Marco Antonio Melton MD at OR [facility] Left: Eye BAUSCH & LOMB 06/27/2021 [id number] / [id number] / [id number] Lens Intraoc 16.0 - [id number] - [id number] Implanted:Qty: 1 on 02/22/2017 by Marco Antonio Melton MD at OR [facility] Right: Eye BAUSCH & LOMB 04/29/2021 [id number] / [id number] / documented as of this encounter Visit [...] and were consensually agreed upon. Care Teams Hop Worker Relationship Specialty Start Date End Date Shi Garg DO [address] [facility] [place] [address] PCP - General Internal Medicine 02/22/21 documented as of this encounter
--- OUTSIDE RECORDS SUMMARY | 2023-07-14 16:51 | External Medical Summary | Summary of Care ---
Author Name Unknown Organization [facility] Address [address] [place] [address] Phone [phone] Care Team Providers Care Molder Wax Ball Name Role Phone Silvano Garg DO Primary Care Provider [phone] Reason for Referral * Evaluate & Treat - Unlimited Visits (Within 10 days (routine)) - Authorized Specialty Diagnoses / Procedures Referred By Raúl grider Referred To Contact Otolaryngology Diagnoses Hyperparathyroidism (HCC) Amanda Cohn MD [address] [facility] [address] Referral ID Status Reason Start Date Expiration Date Visits Requested Visits Authorized [id number] Authorized Specialty Services Required 01/26/2023 999 999 Question Answer Referral Priority Within 10 days (routine) Reason for Referral Thyroid/Parathyroid/Oral Lesions/Head/Neck/Cancer Conditions Specific Condition: Parathyroid Comments Parathyroid adenoma removed by Dr. Henderson in 2006 now with concern for residual primary hyperparathyroidism. Question also from endocrinology about pituitary but maybe a typo. Patient also has a history of a right thyroid lobectomy per the patient. To be seen by Dr. Henderson or Dr. Matute. * Precert (Within 10 days (routine)) - Pending Review Specialty Diagnoses / Procedures Referred By Contac t Referred To Contact Radiology Diagnoses Hyperparathyroidism (HCC) Procedures CT NECK W CONTRAST Amanda Cohn MD [address] [place] [address] Referral ID Status Reason Start Date Expiration Date V isits Requested Visits Authorized [id number] Pending Review 01/27/2023 999 999 Reason for Visit * Evaluate & Treat - Unlimited Visits (Within 10 days (routine)) - Authorized Specialty Diagnoses / Procedures Referred By Raúl grider Referred To Contact Otolaryngology Diagnoses Hypercalcemia Hyperparathyroidism (HCC) Osteoporosis without current pathological fracture, unspecified osteoporosis type Jovanna Crenshaw MD [address] [place] [address] Referral ID Status Reason Start Date Expiration Date Visits Requested Visits Authorized [id number] Authorized Specialty Services Required 01/23/2023 999 999 Encounter Details Date Type Department Care Team Description 01/26/2023 Telemedicine Otolaryngology [facility] [address] [facility] [place] [address] Amanda Cohn MD [address] [facility] [place] [address] Hyperparathyroidism (HCC)* Allergies Active Allergy Reactions Severity Noted Date Comments Bee Venom 02/09/2016 Erythromycin 04/08/1997 GI upset Iodinated Contrast Media 03/01/2012 IVP dye when she had stones 1989 At [place] had nausea and emesis then she got hives on her chest and arms Atorvastatin Calcium 01/05/2005 MIld elevation of CK and LFT's ( see [facility] labs of 01/03/05) Pregabalin Edema Other 05/19/2014 Swelling of legs and feet Nabumetone Rash 12/21/2011 Nsaids Other (Please comment) 02/08/2017 GI distress Penicillins Rash 04/08/1997 She was told when she was a toddler she got a rash documented as of this encounter (statuses as of 01/26/2023) Medications Medication Sig Dispensed Refills Start Date End Date Status VITAMIN B COMPLEX PO TABSIndications:[employer] Take by mouth. 0 Active valACYclovir (VALTREX) [...] Reported on 07/25/2022 PreserVision AREDS 2 Oral CapsuleIndications:[employer] Take 1 Capsule by mouth in the [...] Reported on 07/25/2022 Magnesium 125 MG Oral CapsuleIndications:[employer] Take 125 mg by mouth in the morning. 0 Active Vitamin D 25 MCG (1000 UT) Oral TabletIndications:Kofax Take 1 Tablet by mouth in the [...] taking differently: Indications: heartburn, Reported on 07/25/2022 busPIRone HCl 15 MG Oral Tablet (Buspar) [...] Severe Pain 120 Tablet 0 01/10/2023 Active documented as of this encounter (statuses [...] accepted brochure Esophageal reflux 07/05/2005 LOC PRIM [id number] 08/15/2004 POSTLAMINECT SYND-LUMBAR 09/24/2002 Thoracic and lumbosacral [...] mRNA, LNP-s, No Pre serve, 2-Dose Series (Secured Mail) 03/31/2021,08/07/2020,07/12/2020 COVID-19, LNP-s, No Preserve , Melo-sucrose, [...] as of this encounter Progress Notes * Amanda Cohn MD - 01/26/2023 10:45 AM EDT 01/25/2023 HISTORY OF PRESENT ILLNESS This 67 year old year old female is seen today for the initial complaint of thyroid nodule. The provider requesting consultation is Jovanna Crenshaw MD. Patient location: HOME. I was in a hospital or clinic location. After connecting through [facility],patient was verified with two unique identifiers. Patient (or authorized legal liability claims representative) was then informed that this was a Telemedicine visit and being conducted confidentially over secure lines. Methods to assure confidentiality were taken. Patient acknowledged consent and understanding of pr ivacy and security of the Telemedicine visit. The patient agreed to participate. No history of kidney stones or pathological fractures. No dyspnea or difficulty swallowing. Problem List Patient Active Problem List Diagnosis Code CERVICAL DISC DEGEN M50.30 POSTLAMINECT SYND-LUMBAR M96.1 Thoracic and lumbosacral neuritis M54.14, M54.17 Acquired hypothyroidism E03.9 LUMB-LUMBOSAC DISC DEGEN M51.37 LOC PRIM [id number] M17.10 Esophageal reflux K21.9 ADVANCE DIRECTIVE INFORMATION Pure hypercholesterolemia E78.00 MEDICATION USE AGREEMENT [id number] HTN, goal below 140/90 I10 Restless legs syndrome G25.81 Prediabetes R73.03 Generalized anxiety disorder F41.1 Major depressive disorder, recurrent, moderate (HCC) F33.1 Other hyperparathyroidism (HCC) E21.2 Body mass index (BMI) of 50.0 to 59.9 in adult ([facility]) Z68.43 Age-related osteoporosis without current pathological fracture M81.0 Hyperparathyroidism, primary (HCC) E21.0 Past Medical History: Diagnosis Date Acquired hypothyroidism Calculus of kidney Secondary to hyperparathyroidism CERVICAL DISC DEGEN 10/04/2000 Depressive disorder, not elsewhere classified hosp. at [facility] [place]- one event Disorder of intervertebral disc [...] COLONOSCOPY, DIAGNOSTIC (RECTUM) 09/03/2018 normal, repeat 10 yrs/[facility] CYSTO/URETERO W/LITHOTRIPSY Right 04-28-2015 CYSTO/URETERO W/LITHOTRIPSY Right 05-07-2015 CYSTO/URETERO W/LITHOTRIPSY Right 05/07/2015 CYSTOURETHROSCOPY URETEROSCOPY WITH LITHOTRIPSY AND STENT INSERTION performed by Chiara Quan MD at OR [facility] CYSTOSCOPY 07-16-06 stent removal CYSTOSCOPY/INSERTION OF STENT 07/13/06 CYSTOURETHROSCOPY WITH INSERTION URETERAL STENT performed by PAUL VICTORIA at [facility] CYSTOSCOPY/URETERAL CATHETER 07/13/06 CYSTOURETHROSCOPY WITH URETERAL CATHETER performed by PAUL VICTORIA at [facility] CYSTOURETRO &/OR PYELOSCOPE 07/13/06 CYSTOURETHROSCOPY URETROSCOPY AND OR PYELOSCOPY performed by PAUL VICTORIA at [facility] CYSTOURETRO W/STONE REMOVE 07/13/06 CYSTOURETHROSCOPY URETROSCOPY WITH STONE REMOVAL performed by PAUL VITCORIA at [facility] EXPLORE PARATHYROID GLANDS 11/16/06 PARATHYROIDECTOMY performed by KEDAR HENDERSON at OR [facility] FLUORO MISCELLANEOUS 07/13/06 FLUROSCOPY UP TO ONE HOUR performed by PAUL VICTORIA at [facility] FRAGMENT KIDNEY STONE BY SHOCK WAVE [...] MEDIUM performed by PAUL VICTORIA at OR [facility] LAPAROSCOPY; CHOLECYSTECTOMY LIGATE/CUT OVIDUCT(S) Tubal Ligation LUMBAR HEMILAMINECTOMY L 3-4 discectomy LUMBAR HEMILAMINECTOMY 12/23/01 L3-4 left hemilaminectomy, disckectomy, with foraminotomy PARTIAL REMOVAL OF THYROID LOBE right lobectomy REDUCTION OF BREAST 1995 REMOVAL OF TONSILS, UNDER AGE 10 Tonsillectomy REMOVE CATARACT, INSERT LENS PROSTH Left 02/13/2017 left EXTRACAPSULAR CATARACT REMOVAL WITH INTRAOCULAR LENS performed by Marco Antonio Melton MD at OR [facility] REMOVE CATARACT, INSERT LENS PROSTH Right 02/22/2017 right EXTRACAPSULAR CATARACT REMOVAL WITH INTRAOCULAR LENS performed by Marco Antonio Melton MD at OR [facility] REMOVE GALLBLADDER 07/11/05 Dr. Peña REPAIR DETACHED RETINA, VITRECTOMY Right 08/12/2021 PARS PLANA VITRECTOMY, AIR FLUID EXCHANGE, ENDOLASER, FLUID GAS EXCHANGE SF6, RIGHT EYE (25g) performed by Kierra Cunningham MD at OR [facility] REPAIR RUPTURED ROTATOR CUFF, CHRON REVISE/REMOVE SPINAL NEURORECEIVER 07/21/2011 REVISION OR REMOVAL IMPLANTED SPINAL NEUROSTIMULATOR performed by LORETO HERNANDEZ at [facility] SACROILIAC JOINT INJECT W/GUIDANCE 12/06/2017 INJECTION SACROILIAC JOINT performed by Edwardo Osullivan DO at OR [facility] SACROILIAC JOINT INJECT W/GUIDANCE 04/11/2018 INJECTION SACROILIAC JOINT performed by Edwardo Osullivan DO at OR [facility] SACROILIAC JOINT INJECT W/GUIDANCE 09/17/2019 INJECTION SACROILIAC JOINT performed by Edwardo Osullivan DO at [facility] SPINAL NEUROSTIM ELECTRODE PLATE, REVISION 07/21/2011 REVISION SPINAL NEUROSTIM ELECTRODE PLATE performed by LORETO HERNANDEZ at OR [facility] TOTAL ABD HYSTERECTOMY W/WO REMOVAL OF TUBE(S) complete hysterectomy at age 44 Medications Current Outpatient Medications Medication Sig Dispense Refill [...] BY MOUTH EVERY MORNING 100 Tablet 3 busPIRone HCl 15 MG Oral Tablet (Buspar) TAKE ONE TABLET BY MOUTH TWICE A DAY 180 Tablet 0 FLUoxetine HCl 40 MG Oral Capsule (PROzac) TAKE TWO CAPSULES BY MOUTH EVERY DAY 180 Capsule 0 Pantoprazole Sodium 40 MG Oral Tablet Delayed Release (Protonix) TAKE ONE TABLET BY MOUTH EVERY DAY(Patient taking differently: No sig reported) 90 Tablet 3 busPIRone HCl 15 MG Oral Tablet (Buspar) TAKE ONE TABLET BY MOUTH TWICE A DAY, MAY TAKE AND ADDITIONAL ONE TABLET EVERY TWENTY FOUR HOURS NEEDED FOR ANXIETY 270 Tablet 0 hydrOXYzine HCl 25 MG Oral Tablet TAKE [...] 1 Capsule before bedtime. 400 Capsule 3 busPIRone HCl 15 MG Oral Tablet (Buspar) take 1 tablet by mouth three times a day 270 Tablet 0 buPROPion HCl ER (SR) 150 MG Oral Tablet Extended Release 12 Hour (Wellbutrin SR) TAKE ONE TABLET BY MOUTH EVERY MORNING AND ONE TABLET BEFORE BEDTIME 200 Tablet 3 HYDROcodone-Acetaminophen 10-325 MG Oral Tablet Take 1 Tablet by mouth every 4 hours as needed for Moderate or Severe Pain 120 Tablet 0 No current facility-administered medications for this visit. Allergies Review of patient's allergies indicates: Allergen Reactions Bee Venom Erythromycin GI upset Iodinated Contrast Media IVP dye when she had stones 1988 At [place] had nausea and emesis then she got hives on her chest and arms Lipitor [Atorvastatin Calcium] MIld elevation of CK and LFT's ( see [facility] labs of 01/03/05) Lyrica [Pregabalin] Edema Other Swelling of legs and feet Nabumetone Rash Nsaids Other (Please comment) GI distress Penicillins Rash She was told when she was a toddler she got a rash Family History Family History Problem Relation Age of Onset Cancer Mother Pancreatic Allergies Mother Hayfever Hypertension Mother Arthritis Mother Diabetes Father Hypertension Father Obesity Father Kidney cancer Father Diabetes Grandfather (Maternal) Hypertension Brother Arthritis Grandmother (Maternal) Diabetes Grandmother (Paternal) Obesity Grandmother (Paternal) Other (Nephrolithiasis) Other cousin on mother's side Social History Social History Tobacco Use Smoking status: Never Passive exposure: Past Smokeless tobacco: Never Tobacco comments: smokes cigars Substance Use Topics Alcohol use: Yes Comment: occasionaly Vaping/E-Cigarette Use Vaping/E-Cigarette Use Never User Vaping/E-Cigarette Substances Vaping/E-Cigarette Devices Occupational History Work: Review of Systems Negative for constitutional, eyes, cardiac, pulmonary, hepatic, renal, digestive, hematologic, epileptic, syncopal, musculo-skeletal, mental health, integumentary, hypertensive, lipid, arthritic, diabetic, thyroid or neurologic disorders (except as listed in the PMH and Problem List). Physical Examination: PHYSICAL EXAM Phone visit. Patient conversant on the phone. No hoarseness. Plan: Hyperparathyroidism (HCC) (Primary) - CT NECK W CONTRAST; Future; Expected date: 01/27/2023 - OTOLARYNGOLOGY REFERRAL OP Hx of right parathyroid [place] [address] Rodríguez and hx of thyroid lobectomy on right (per patient). EXAM NM PARATHYROID (SPECT) - 10/27/2022 12:51 pm HISTORY Primary hyperparathyroidism COMPARISON None. TECHNIQUE Following the intravenous administration of 23.6 mCi of Tc-99m sestamibi, planar and SPECT imaging was performed immediately post injection. Delayed planar and SPECT imaging was performed after threehours. FINDINGS PLANAR IMAGING: Normal thyroid and salivary gland activity on the immediate images with significant washout of radiotracer from the thyroid on the delayed images. No abnormal persistent focal activity is identified on the delayed images. SPECT: No focal abnormal areas of increased activity. IMPRESSION IMPRESSION No scintigraphic evidence of parathyroid adenoma. Patient has seen Endocrinology. Based on their recommendations surgery is warranted. 4D CT scan wasnot performed Endocrine note: High urine calcium along with calcium crystals Overall - labs confirms pituitary overactivity Recommendation: See ENT surgeon to plan parathyroid exploration and remove overactive gland I assume meant parathyroid overactivity. SPECT negative for identifying gland so will get 4D CT, if still no obvious candidate will refer toDr. Matute for 4 gland PTH: 133 Ca: 10.9 I spent a total of 20-29 minutes (exact time 21 mins) on the date of service in preparation, delivery, and documentation of the care provided to Chloé Altamirano excluding any time spent in the performance of separately billed services. Amanda Cohn MD [facility] Otolaryngology - Head and Neck Surgery [place], [place] 01/25/2023 1:12 PM documented in this encounter Plan of Treatment Upcoming Encounters Date Type Specialty Care Team Description 02/15/2023 Imaging Radiology Scheduled Orders Name Type Priority Associated Diagnoses Orde r Schedule CT NECK W CONTRAST Medical Imaging Routine Hyperparathyroidism (HCC) Expected: 01/27/2023, Expires: 02/26/2024 Scheduled Procedures Name Priority Associated Diagnoses Date/Ti me COLONOSCOPY FLEXIBLE PROXIMA L DIAGNOSTIC Recall Special screening for malignant neoplasms, colon Scheduled Referrals Name Type Priority Associated Diagnoses Order Schedule OTOLARYNGOLOGY REFERRAL OP Referral Within 10 days (routine) Hyperparathyroidism (HCC) Ordered: 01/26/2023 Health Maintenance Due Date Last Done Comments [...] D LEVEL ONCE IN A LIFETIME-USE SMARTSET# [id number] Completed 12/27/2022, 03/29/2022, 12/27/2021, Additional history exists [...] this encounter Medical Devices Implanted Type Area Personnel Recruiter Device Identifier Shelf Expiration Date Model / Serial / Lot Battery Advance Prime 90074 - [id number] Implanted:Qty: 1 on 07/21/2011 at [facility] Right: Buttocks [employer] : NEUROLOGIC PAIN 09/10/2012 [id number] / [id number] / Lens Intraoc 16.5 - [id number] - [id number] Implanted:Qty: 1 on 02/13/2017 by Marco Antonio Melton MD at OR [facility] Left: Eye BAUSCH & LOMB 06/27/2021 [id number] / [id number] / [id number] Lens Intraoc 16.0 - [id number] - [id number] Implanted:Qty: 1 on 02/22/2017 by Marco Antonio Melton MD at OR [facility] Right: Eye BAUSCH & LOMB 04/29/2021 [id number] / [id number] / documented as of this encounter Visit Diagnoses Diagnosis Hyperparathyroidism (HCC)- Primary Hyperparathyroidism, unspecified documented in this encounter Advance [...] and were consensually agreed upon. Care Teams Molder Wax Ball Relationship Specialty Start Date End Date Silvano Garg, DO [address] [place] [address] PCP - General Internal Medicine 02/22/21 documented as of this encounter
--- OUTSIDE RECORDS SUMMARY | 2023-07-14 16:51 | External Medical Summary | Summary of Care ---
Author Name Unknown Organization [facility] Address [address] [place] [address] Phone [phone] Care Team Providers Care Learning Services Coordinator Name Role Phone Shi Garg DO Primary Care Provider [phone] Reason for Visit * Reason Comments Medication Refill Encounter Details Date Type Department Care Team Description 02/01/2023 Refill Family Practice [address] [facility] [place] [address] [place] [address] Shi Garg DO [address] [place] [address] CERVICAL DISC DEGEN; LUMB-LUMBOSAC DISC DEGEN Allergies Active Allergy Reactions Severity Noted Date [...] as of this encounter (statuses as of 02/02/2023) Medications Medication Sig Dispensed Refills Start Date End Date Status VITAMIN B COMPLEX PO TABSIndications:[employer] Take by mouth. 0 Active valACYclovir (VALTREX) [...] Reported on 07/25/2022 PreserVision AREDS 2 Oral CapsuleIndications:[employer] Take 1 Capsule by mouth in [...] Reported on 07/25/2022 Magnesium 125 MG Oral CapsuleIndications:[employer] Take 125 mg by mouth in the morning. 0 Active Vitamin D 25 MCG (1000 UT) Oral TabletIndications:[facility] Take 1 Tablet by mouth in the [...] Albuterol Sulfate 1.25 MG/3ML Inhalation Nebulization SolutionIndications:Ac nenana bronchitis, unspecified organism Inhale 1.25 mg via [...] or Severe Pain 120 Tablet 0 3 02/02/20 23 Discontinu ed(Refill) documented as of this encounter (statuses as of 02/02/2023) Active Problems Problem Noted Date Hyperparathyroidism, primary [...] accepted brochure Esophageal reflux 07/05/2005 LOC PRIM [id number] 08/15/2004 POSTLAMINECT SYND-LUMBAR 09/24/2002 Thoracic and lumbosacral neuritis 2002 CERVICAL DISC DEGEN 10/04/2000 Acquired hypothyroidism LUMB-LUMBOSAC DISC DEGEN documented as of this encounter (statuses as of 02/02/2023) Resolved Problems Problem Noted Date Resolved Date [...] as of this encounter (statuses as of 02/02/2023) Immunizations Name Administration Dates Next Due COVID-19 mRNA, LNP-s, No Pre serve, 2-Dose Series (Matchpin) 03/31/2021,08/07/2020,07/12/2020 COVID-19, LNP-s, No Preserve , Melo-sucrose, Ages 12+ ([employer]) 12/27/2021 Covid-19, Mrna, Lnp-s, Pf, B ivalent, [...] Telephone Encounter - Shi Garg DO - 02/02/2023 8:40 AM EDTSigned Prescriptions: Disp Refills HYDROcodone-Acetaminophen 10-325 MG Oral T*120 Ta*0 Sig: Take 1 Tablet by mouth every 4 hours as needed for Moderate or Severe Pain Authorizing Provider: SHI GARG * Telephone Encounter - Shi Garg DO - 02/02/2023 8:40 AM EDT I have reviewed the patients controlled substance dispensing history in the Prescription Drug Monitoring Program in compliance with the [facility] regulations before prescribing a controlled substance. [...] in Results Review. * Telephone Encounter - Ny Patino [facility] - 02/02/2023 6:11 AM EDTPending Prescriptions: Disp Refills HYDROcodone-Acetaminophen 10-325 MG Oral T*120 Ta*0 Sig: Take 1 Tablet by mouth every 4 hours as needed for Moderate or Severe Pain * Telephone Encounter - Ny Patino [facility] - 02/02/2023 6:11 AM EDT I have reviewed the patients controlled substance dispensing history in the Prescription Drug Monitoring Program in compliance with the [facility] regulations before prescribing a controlled substance. PDMP checked on 02/02/2023. Pending Prescriptions: Disp Refills HYDROcodone-Acetaminophen 10-325 MG Oral *120 Ta*0 Sig: Take 1 Tablet by mouth every 4 hours as needed for Moderate or Severe Pain Last Visit: 09/21/2022 (in office), 06/01/2022 (telemedicine) Next Visit: Visit date not found Date medication was last filled: 01/12 Date medication is due for refill: 01/31 Pharmacy: [facility] Is this request for a controlled [...] Review. Please approve if appropriate. Thank you, Tony SargentD. Clinical Pharmacist Centralized Clinical Pharmacy Services (CCPS) (formerly Telepharmacy) 02/02/2023, 6:11 AM documented in this encounter Plan of Treatment Upcoming Encounters Date Type Specialty Care Team Description 02/15/2023 Imaging Radiology 03/02/2023 Office Visit Otolaryngology Bianka Matute MD [address], [place] [id number] Scheduled Procedures Name Priority Associated Diagnoses Date/Ti [...] 02/28, 08/07/2014 Diabetic Foot Exam Discontinued 05/25/2021 VITAMIN D LEVEL ONCE IN A LIFETIME-USE SMARTSET# [id number] Completed 12/27/2022, 03/29/2022, 12/27/2021, Additional history exists [...] this encounter Medical Devices Implanted Type Area Painter Shipyard Device Identifier Shelf Expiration Date Model / Serial / Lot Battery Advance Prime 07301 - [id number] Implanted:Qty: 1 on 07/21/2011 at OR [facility] Right: Buttocks [employer] : NEUROLOGIC PAIN 09/10/2012 [id number] / [id number] / Lens Intraoc 16.5 - [id number] - [id number] Implanted:Qty: 1 on 02/13/2017 by Marco Antonio Melton MD at OR [facility] Left: Eye [employer]OMB 06/27/2021 [id number] / [id number] / [id number] Lens Intraoc 16.0 - [id number] - [id number] Implanted:Qty: 1 on 02/22/2017 by Marco Antonio Melton MD at OR [facility] Right: Eye BAUSCH & LOMB 04/29/2021 [id number] / [id number] / documented as of this encounter Visit [...] and were consensually agreed upon. Care Teams Learning Services Coordinator Relationship Specialty Start Date End Date Shi Garg, DO [address] [place] [address] PCP - General Internal Medicine 02/22/21 documented as of this encounter
[2023-07-14] MEDS: LANTUS PER UNIT CHARGE SC ONE (20:52)
[2023-07-14] MEDS: MELATONIN 3 MG TAB PO SCH (20:54)
[2023-07-14] MEDS: CYCLOBENZAPRINE HCL 10 MG TAB PO PRN (21:02)
[2023-07-14] MEDS: ACETAMINOPHEN 325 MG TAB PO PRN (22:39)
[2023-07-15] MEDS: INSULIN ASPART PER UNIT CHARGE SC SCH (00:15)
[2023-07-15 08:04] LABS: Basophils # (auto) 0.07 K/uL (0.00-0.20); Basophils % (auto) 0.8 %; Eosinophils # (auto) 0.16 K/uL (0.00-0.50); Eosinophils % (auto) 1.7 %; Hematocrit (blood only) 37.5 % (37.0-47.0); Hemoglobin 12.3 g/dl (12.0-16.0); Immature Granulocytes # (auto) 0.02 K/uL (0.01-0.20); Immature Granulocytes % (auto) 0.2 %; Lymphocytes # (auto) 3.04 K/uL (1.20-3.40); Lymphocytes % (auto) 32.7 %; Mean Corpuscular Hemoglobin 29.9 pg (25.0-34.0); Mean Corpuscular Hgb Conc 32.8 g/dL (32.0-36.0); Mean Corpuscular Volume 91.2 fL (80.0-100.0); Mean Platelet Volume 9.4 fL (9.4-12.4); Monocytes # (auto) 0.96 K/uL (0.11-0.59); Monocytes % (auto) 10.3 %; Neutrophils # (auto) 5.04 K/uL (1.40-6.50); Neutrophils % (auto) 54.3 %; Platelet Count 313 K/uL (130-400); RDW Coefficient of Variation 13.3 % (11.5-14.5); RDW Standard Deviation 45.1 fL (36.4-46.3); Red Blood Count 4.11 M/uL (4.20-5.40); White Blood Count 9.29 K/ul (4.8-10.8)
[2023-07-15] MEDS: HYDROcodone/ACETAMINOPHEN 10/325 TAB PO PRN (08:14)
[2023-07-15 08:27] LABS: Anion Gap 5 (3-11); BUN Creatinine Ratio 26.7 (10-20); Blood Urea Nitrogen 23 mg/dl (6-23); Calcium 9.1 mg/dl (8.6-10.3); Carbon Dioxide 30 mmol/L (21-32); Chloride 104 mmol/L (98-107); Creatinine Clr Calc Pharmacy 76.3 ml/min; Est GFR (African American) 79.3 ml/min; Est GFR (Non-African American) 68.4 ml/min; Glucose 175 mg/dl (70-99(Fasting)); Sodium 139 mmol/L (136-145)
--- NOTE | 2023-07-15 10:50 | Hospitalist Progress Note ---
Date of Service July 15, 2023 Assessment & Plan (1) Hypoxia: Plan: 68-year-old female with past medical history significant for type 2 diabetes, hypothyroidism, hypercholesterolemia, primary hypothyroidism, history of parathyroid adenoma, hypertension, morbid obesity, GERD, restless leg syndrome, osteoporosis, thoracic and lumbosacral neuritis, postlaminectomy syndrome, generalized anxiety disorder, major depression is s/p right hand surgery for osteoarthritis as per patient with general anesthesia and nerve block comes because of shortness of breath and hypoxia. Postprocedure she took long time to recover with several hours of intermittent hypoxia and recovery. Due to the extended period for recovery she was sent to the ER for further evaluation. In the ER when she came in she was saturating 87% on room air. Acute hypoxic respiratory failure Possible aspiration pneumonia Patient was referred for admission due to acute hypoxic respite failure following general anesthesia She was saturating at 87% in room air on arrival Patient reports episode of coughing spell when eating couple of weeks ago CT chest without contrast shows atelectasis; mostly on right lung base. Patchy linear subsegmental atelectasis present bilaterally Swallow evaluation done by speech on 07/13recommend regular diet. Video swallow study or barium swallow can be considered as outpatient if indicated. Airway clearance therapy with DuoNeb, hypertonic saline, flutter valve Incentive spirometry Continue on antibiotics with ceftriaxone and doxycycline Wean oxygen as tolerated History of asthma No obvious wheezing Continue home inhalers. And nebs as ordered. Will monitor Type 2 diabetes Hold metformin Sliding scale Will monitor Morbid obesity Discussed about weight loss. Patient recently prescribed Mounjaro which she has not started to take Hypertension On amlodipine, losartan Continue for now Hyperlipidemia On statin, continue Hypothyroidism On Synthyroid, continue GERD Protonix, continue Depression and general anxiety disorder On bupropion, buspirone, fluoxetine., continue Restless leg syndrome On gabapentin and cyclobenzaprine as needed, continue Postlaminectomy syndrome Continue home pain medications as needed DVT prophylaxis Lovenox Disposition Med/tele Full code Time spent evaluating patient, direct bedside care, chart review, placing orders, interpretation of diagnostic studies, discussion with consultants, patient, and family members, as well as other required patient management activities is 50 minutes Please note the above document was generated using voice recognition software. It may contain grammatical, syntax or spelling errors. Any formal questions or concerns about the content, text or information contained within the body of this dictation should be directly addressed to the provider for clarification Admission and Anticipated Discharge Date Admission Date: July 14, 2023 Subjective Patient seen and examined at bedside. She reports occasional cough; nonproductive. Oxygen requirement has down trended. Review of Systems Review of Systems: All systems reviewed & are unremarkable except as noted in Subjective Physical Exam Physical Exam: Constitutional: Awake alert oriented x 3. Morbidly obese. Respiratory: Decreased breath sound on right lower lung base. Cardiovascular: RRR, no murmur, no edema Vessels: no JVD or carotid bruit Chest: normal inspection of chest Abdomen: normal bowel sounds, soft, nontender, no hepatosplenomegaly Musculoskeletal: no cyanosis or clubbing, extremities motor strength 5/5 Skin: no rashes, warm and dry normal turgor Neurologic: PERRL, EOMI, accommodation nl, no face palsy, no dysarthria CN's II- XI intact bilaterally and moves all extremities Psychiatric: A+Ox3, euthymic affect Results & Data Results & Data Vital Signs (Past 12 Hours) Vital Signs Temp Pulse Pulse Pulse Pulse Resp Resp 07/15/23 10:07 90 18 07/15/23 09:54 95 H 90 20 07/15/23 07:50 36.5 C 70 20 07/15/23 07:09 78 18 07/15/23 07:05 70 07/15/23 03:26 36.5 C 76 18 07/15/23 00:23 86 07/15/23 00:00 07/14/23 23:14 07/14/23 23:09 36.8 C 90 18 Resp BP Pulse Ox Pulse Ox Pulse Ox O2 Del Method O2 Flow Rate 07/15/23 10:07 92 Room Air 07/15/23 09:54 16 89 L 92 07/15/23 07:50 133/81 98 Room Air 07/15/23 07:09 91 Room Air 07/15/23 07:05 07/15/23 03:26 120/73 91 Room Air 07/15/23 00:23 07/15/23 00:00 116/74 07/14/23 23:14 Oxymask 6 07/14/23 23:09 87/29 L 92 Oxymask 4
[2023-07-15] MEDS: LANTUS PER UNIT CHARGE SC SCH (10:52)
[2023-07-15] MEDS ORDERED: DOXYCYCLINE HOME PACK 100 MG PO ONE (15:34)
--- NOTE | 2023-07-15 15:36 | Discharge Summary ---
Date of Service July 15, 2023 Admission HPI Per Admitting Provider 68-year-old female with past medical history significant for type 2 diabetes, hypothyroidism, hypercholesterolemia, primary hypothyroidism, history of parathyroid adenoma, hypertension, morbid obesity, GERD, restless leg syndrome, osteoporosis, thoracic and lumbosacral neuritis, postlaminectomy syndrome, generalized anxiety disorder, major depression is s/p right hand surgery for osteoarthritis as per patient with general anesthesia and nerve block comes because of shortness of breath and hypoxia. Postprocedure she took long time to recover with several hours of intermittent hypoxia and recovery. Due to the extended period for recovery she was sent to the ER for further evaluation. In the ER when she came in she was saturating 87% on room air. Currently on 7 L saturating okay. She states she feeling better now. Earlier she had a lot of cough. Currently she pulls her mask down and she is talking in full sentences and was maintaining her oxygen saturations. Denies any headache. Has some runny nose currently and attributes to oxygen mask.. Has some sore throat from breathing tube placed for the procedure. Denies any chest pain. Currently not feeling short of breath. No nausea. No abdominal pain. Resting comfortably. Having restless legs and requesting her home medications. Afebrile. Past medical history. As mentioned above Past surgical history. Bilateral total knee replacements. . Colonoscopy. Cystourethroscopy with lithotripsy. Parathyroidectomy. Lithotripsy. Laser lithotripsy of right kidney. Laparoscopic cholecystectomy. Ligation of oviducts. Lumbar hemilaminectomy. Right thyroid lobectomy. Reduction of breast. Tonsillectomy. Bilateral cataracts. Repair of detached retina. Repair of ruptured rotator cuff. Sacroiliac joint injection. Total abdominal hysterectomy with removal of tubes. Social history. . Non-smoker. Alcohol occasionally. No drug use. Family history. Mother had allergies. Arthritis. Pancreatic cancer. Hy pertension. Father had diabetes. Hypertension. Kidney cancer. Obesity. Maternal grandmother had arthritis. Maternal grandfather had diabetes. Paternal grandmother had diabetes, obesity Principal Diagnosis Acute hypoxic respiratory failure Possible aspiration pneumonia Discharge Exam Constitutional: Awake alert oriented x 3. Morbidly obese. Respiratory: Decreased breath sound on right lower lung base. Cardiovascular: RRR, no murmur, no edema Vessels: no JVD or carotid bruit Chest: normal inspection of chest Abdomen: normal bowel sounds, soft, nontender, no hepatosplenomegaly Musculoskeletal: no cyanosis or clubbing, extremities motor strength 5/5 Skin: no rashes, warm and dry normal turgor Neurologic: PERRL, EOMI, accommodation nl, no face palsy, no dysarthria CN's II- XI intact bilaterally and moves all extremities Psychiatric: A+Ox3, euthymic affect Discharge Data Allergies Allergy/AdvReac Type Severity Reaction Status Date / Time Penicillins Allergy Intermediate RASH A Verified 07/14/23 01:30 CHILD pregabalin [From Lyrica] Allergy Intermediate LEG EDEMA Verified 09/03/18 10:26 Iodinated Contrast Media Allergy Mild HIVES AND Verified 07/14/23 01:30 N/V NSAIDS (Non-Steroidal AdvReac Severe Gastrointestinal Verified 07/14/23 01:30 Anti-Inflamma Upset simvastatin AdvReac Mild STATINS=INCREASED Verified 09/03/18 10:26 LFT'S Consultations 07/14/23 00:56 ED Decision to Admit Stat Ordered Studies 07/13/23 22:50 CT angio chest PE protocol Stat Diabetes Follow up Diabetes Follow-up Needed for HgbA1c >9% Hospital Course (1) Hypoxia: 68-year-old female with past medical history significant for type 2 diabetes, hypothyroidism, hypercholesterolemia, primary hypothyroidism, history of parathyroid adenoma, hypertension, morbid obesity, GERD, restless leg syndrome, osteoporosis, thoracic and lumbosacral neuritis, postlaminectomy syndrome, generalized anxiety disorder, major depression is s/p right hand surgery for osteoarthritis as per patient with general anesthesia and nerve block comes bec ause of shortness of breath and hypoxia. Postprocedure she took long time to recover with several hours of intermittent hypoxia and recovery. Due to the extended period for recovery she was sent to the ER for further evaluation. In the ER when she came in she was saturating 87% on room air. Acute hypoxic respiratory failure Possible aspiration pneumonia Patient was referred for admission due to acute hypoxic respite failure following general anesthesia She was saturating at 87% in room air on arrival Patient reports episode of coughing spell when eating couple of weeks ago CT chest without contrast shows atelectasis; mostly on right lung base. Patchy linear subsegmental atelectasis present bilaterally Swallow evaluation done by speech on 07/13recommend regular diet. Video swallow study or barium swallow can be considered as outpatient if indicated. During the hospitalization, patient was treated with airway clearance therapy with DuoNeb, hypertonic saline, flutter valve and incentive spirometry She was started on ceftriaxone and doxycycline Her oxygen was weaned off to room air. Two-step oxygen evaluation was done; patient did not need any supplemental oxygen Patient was discharged home with antibiotics to complete the course. She was instructed to use incentive spirometry and flutter valve at home. Patient will need to have chest x-ray done in 4 weeks to ensure resolution. She will need further workup if the atelectasis persist by referral to a photograph inspector. Patient to follow-up with her primary care doctor after discharge. Please note the above document was generated using voice recognition software. It may contain grammatical, syntax or spelling errors. Any formal questions or concerns about the content, text or information contained within the body of this dictation should be directly addressed to the provider for clarification Total Time Total Time Spent Total Time Spent (In Minutes): 45 Total Time Includes: Examination of the Patient, Discharge Planning, Medication Reconciliation, Communication With Other Providers and Other Discharge Plan Discharge Items Patient Disposition: Home - Self-Care Reason For Visit: SOB, HYPOXIA Discharge Diagnosis: Acute hypoxic respiratory failure Possible aspiration pneumonia Activity: Resume your previous activity Non-emergency contact: Primary Care Provider Call non-emergency contact if: you have any medication questions and your symptoms worsen Follow-up/Referrals: Silvano Garg DO [Primary Care Provider] - Diet: Regular Addtl Attending Provider Instructions: You were admitted to the hospital due to low oxygen level. Likely cause for it is aspiration pneumonia or atelectasis. You are treated with breathing treatment during the hospitalization. You are prescribed cefdinir and doxycycline to be taken twice daily for 5 more days. You can stay taking the medication from tomorrow. Please continue to use incentive spirometry every 2 hours while you are awake and flutter valve every 4 hours while you are awake for next 1 week. It will help to keep your lungs expanded and clear out the secretions. You need to have repeat chest x-ray done in 4 weeks to ensure resolution as we have discussed. If there is persistence of the atelectasis; you will need further workup by a photograph inspector. An appointment with your primary care will be set up for sometime next week. Pending Studies at Discharge: No Stand-Alone Forms: [facility], Smoking Cessation Medications and DC Order Prescriptions: New doxycycline hyclate 100 mg Capsule 100 mg PO BID 5 Days Qty: 10 0RF cefdinir 300 mg capsule 300 mg PO BID 5 Days Qty: 10 0RF Continued hydrocodone-acetaminophen 10-325 mg Tablet 1 tab PO Q6 PRN (Reason: Pain) pantoprazole 40 mg Tablet,Delayed Release (Dr/Ec) 40 mg PO QAM fluoxetine 40 mg Capsule 40 mg PO QAM levothyroxine 125 mcg Tablet 62.5 mcg PO QAM albuterol sulfate 90 mcg/actuation Hfa Aerosol Inhaler 1 puff INHALATION .Q 4-6 HRS PRN (Reason: Wheezing) cyclobenzaprine 10 mg Tablet 10 mg PO TID PRN (Reason: MUSCLE SPASMS) melatonin 5 mg Tablet,Chewable 10 mg PO HS metformin 500 mg tablet extended release 24 hr 500 mg PO BIDM rosuvastatin 20 mg tablet 20 mg PO DAILY losartan 100 mg tablet 100 mg PO DAILY bupropion HCl 150 mg tablet sustained-release 12 hr 150 mg PO BID buspirone 15 mg tablet 15 mg PO BID fluticasone propion-salmeterol 250-50 mcg/dose blister with device 1 ea INHALATION AMPM Rx Instructions: approximately 12 hours apart gabapentin 400 mg capsule 400 mg PO QID amlodipine 2.5 mg tablet 2.5 mg PO DAILY diclofenac sodium 75 mg Tablet,Delayed Release (Dr/Ec) 75 mg PO BID PRN (Reason: Pain) hydroxyzine HCl 25 mg tablet 25 mg PO QID diclofenac sodium 1 % Gel 2 g TOPICAL BID Rx Instructions: apply to affected area Mounjaro 2.5 mg/0.5 mL pen injector 0 mg SUBCUT .EVERY 4 WEEKS Rx Instructions: has not started yet Discharge Orders: Discharge Order (Routine); Ordered 07/15/23 Ordered By: Tristin Simmons/Other Patient Handouts: High Blood Sugar (Hyperglycemia), Managing Type 2 Diabetes Admission Data Admit Date/Time: 07/14/23 01:47 Attending Provider: Tristin Forbes Admit Provider: Haroon Ceron Primary Care Provider: Silvano Garg Other Providers: Haroon Ceron
[2023-07-15] MEDS: ACETAMINOPHEN 500 MG TAB PO ONE (15:40)
[2023-07-15] MEDS ORDERED: DOXYCYCLINE HYCLATE 100 MG CAP PO SCH (15:45)
== END 2023-07-15 18:41 | disposition home or self-care (01) | DRG 189 ==
LOC: ED 21:10 → EDINP 07-14 01:47 → 2N 07-14 03:38